=== PATIENT | female | born 1935 | race Caucasian/White ===

== ENCOUNTER 2017-01-19 03:52 | Inpatient (IN) | payer MEDICAID, OTHER ==
--- NOTE | 2017-01-19 04:38 | C.PDOC ---
History Of Present Illness Patient brought to ED by son with complaints of cough, chest discomfort 3/10, runny nose and "not feeling well". Patient states she finished Z-pack with no improvement but reports she is tolerating PO. Patient denies fever, chills, nausea, vomiting or any other complaints at this time. Time Seen by Provider: 01/19/17 04:37 Chief Complaint (Nursing): Cough, Cold, Congestion History Per: Patient History/Exam Limitations: no limitations Onset/Duration Of Symptoms: Days Current Symptoms Are (Timing): Still Present Location Of Pain: Other (Chest) Sick Contacts (Context): None Associated Symptoms: Cough. denies: Fever, Chills Ear Symptoms: Bilateral: None Severity: Mild Pain Scale Rating Of: 2 Recent travel outside of the [place]: Yes Additional History Per: Family Past Medical History Reviewed: Historical Data, Nursing Documentation, Vital Signs Vital Signs: Last Vital Signs Temp 98.1 F 01/19/17 04:09 Pulse 80 01/19/17 04:09 Resp 24 01/19/17 04:09 BP 168/74 H 01/19/17 04:09 Pulse Ox 100 01/19/17 05:52 - Medical History PMH: Back Problems, HTN Surgical History: No Surg Hx Family History: States: No Known Family Hx - Social History Hx Alcohol Use: No Hx Substance Use: No - Immunization History Hx Tetanus Toxoid Vaccination: Yes Hx Influenza Vaccination: No Hx Pneumococcal Vaccination: No Review Of Systems Constitutional: Negative for: Fever, Chills ENT: Positive for: Other (Runny nose) Cardiovascular: Positive for: Chest Pain Respiratory: Positive for: Cough Gastrointestinal: Negative for: Nausea, Vomiting Genitourinary: Negative for: Dysuria Musculoskeletal: Negative for: Back Pain Skin: Negative for: Rash Neurological: Negative for: Weakness Psych: Negative for: Anxiety Physical Exam - Physical Exam Appears: Non-toxic Skin: Warm, Dry, No Rash Head: Normacephalic Eye(s): left: Other (Blind9 S/P Cataract surgery)) Nose: Normal Oral Mucosa: Moist Teeth: Dentures Throat: No Erythema, No Exudate Neck: Supple Chest: Symmetrical Cardiovascular: Rhythm Regular Respiratory: No Rales, Rhonchi (Bilateral R>L), No Wheezing Gastrointestinal/Abdominal: Soft, No Tenderness, No Guarding, No Rebound Back: No CVA Tenderness Extremity: No Tenderness, No Pedal Edema, No Calf Tenderness, No Swelling Extremity: Bilateral: Atraumatic, No Pedal Edema, Normal Color And Temperature Pulses: Left Dorsalis Pedis: Normal, Right Dorsalis Pedis: Normal Neurological/Psych: Oriented x3, Normal Speech, Normal Cognition Gait: Steady ED Course And Treatment - Laboratory Results Result Diagrams: 01/19/17 04:45 01/19/17 04:45 O2 Sat by Pulse Oximetry: 100 (RA) Pulse Ox Interpretation: Normal - Radiology CXR: Interpreted by Me, Viewed By Me CXR Interpretation: Yes: Infiltrates (rll). No: Fracture, Pnemothorax Disposition Discussed With Dr.: Robert Cisneros Comment: accepted the pt on his service and took over the care at 6:13AM Doctor Will See Patient In The: ED Counseled Patient/Family Regarding: Studies Performed, Diagnosis - Disposition Disposition: HOSPITALIZED Disposition Time: 04:37 Condition: FAIR Forms: [facility] (German) - POA Present On Arrival: None - Clinical Impression Clinical Impression: Pneumonia, Dyspnea - Scribe Statement The provider has reviewed the documentation as recorded by the Scribdipika Bucio All medical record entries made by the Scribe were at my direction and personally dictated by me. I have reviewed the chart and agree that the record accurately reflects my personal performance of the history, physical exam, medical decision making, and the department course for this patient. I have also personally directed, reviewed, and agree with the discharge instructions and disposition. Decision To Admit - Pt Status Changed To: Hospital Disposition Of: Inpatient - Admit Certification Admit to Inpatient:: After my assessment, the patient will require hospitalization for at least two midnights. This is because of the severity of symptoms shown, intensity of services needed, and/or the medical risk in this patient being treated as an outpatient. - InPatient: Physician Admission Certification: I certify that this patient requires 2 or more midnights of care for the following reason:: After my assessment, the patient will require hospitalization for at least two midnights. This is because of the severity of symptoms shown, intensity of services needed, and/or the medical risk in this patient being treated as an outpatient. - . Bed Request Type: Regular Admitting Physician: Robert Cisneros Patient Diagnosis: Pneumonia, Dyspnea
[2017-01-19 04:41] LABS: BASO # 0.1 K/uL (0.0-0.2); EOS # 0.1 K/uL (0.0-0.7); MEAN CELL VOLUME 82.3 fL (81.0-99.0); MEAN CORPUSCULAR HGB CONC 36.5 g/dL (33.0-37.0); MONO # 0.9 K/uL (0.0-0.8)
[2017-01-19 04:50] LABS: CHLORIDE 86 mmol/L (98-107)
[2017-01-19 04:51] LABS: BASO % 0.7 % (0.0-2.0); EOS % 1.1 % (0.0-4.0); HEMATOCRIT 34.9 % (34.0-47.0); LYMPH # 2.4 K/uL (1.0-4.3); LYMPH % 28.1 % (20.0-40.0); NRBC % 0.4 % (0.0-2.0); RED CELL DISTRIBUTION WIDTH 14.3 % (11.5-14.5); SODIUM 121 mmol/L (132-148); WHITE BLOOD COUNT 8.5 K/uL (4.8-10.8)
[2017-01-19 04:53] LABS: ALB/GLOB RATIO 1.1 (1.0-2.1); ALKALINE PHOSPHATASE 63 U/L (38-126); AST/SGOT 27 U/L (14-36); BILIRUBIN,TOTAL 1.2 mg/dL (0.2-1.3); BLOOD UREA NITROGEN 15 mg/dL (7-17); CARBON DIOXIDE 23 mmol/L (22-30); GFR AFRICAN-AMERICAN > 60; GLUCOSE,RANDOM 98 mg/dL (65-105); TOTAL PROTEIN 7.4 g/dL (6.3-8.3)
[2017-01-19 04:54] LABS: ALT/SGPT 23 U/L (9-52); CALCIUM 8.7 mg/dl (8.6-10.4)
[2017-01-19 04:54] LABS: VENOUS BLOOD GAS BASE EXCESS 5.1 mmol/L (0.0-2.0); VENOUS BLOOD GAS PCO2 27 mmHg (40-60); VENOUS BLOOD PH 7.59 (7.32-7.43)
[2017-01-19 05:08] LABS: POTASSIUM 3.6 mmol/L (3.6-5.2)
[2017-01-19 05:28] LABS: INR 1.3
[2017-01-19 05:28] LABS: RBC URINE < 1 /hpf (0-3); URINE BACTERIA RARE (<OCC); URINE BILIRUBIN NEGATIVE (NEGATIVE); URINE BLOOD NEGATIVE (NEGATIVE); URINE COLOR Straw (YELLOW); URINE GLUCOSE (UA) NORMAL (Normal); URINE KETONE NEGATIVE (NEGATIVE); URINE LEUKOCYTE ESTERASE 2+ Leu/uL (Negative); URINE PROTEIN NEGATIVE (NEGATIVE); URINE UROBILINOGEN NORMAL mg/dL (0.2-1.0); WBC URINE 8 /hpf (0-5)
[2017-01-19] MEDS ORDERED: Piperacillin/Tazobact 3.375 gm 100 ML IVPB STA (06:00)
[2017-01-19] MEDS ORDERED: Piperacillin/Tazobact 3.375 gm 100 ML IVPB ONE (06:12)
[2017-01-19] MEDS ORDERED: Enoxaparin 40 mg Syringe SC STA (06:16)
[2017-01-19] MEDS ORDERED: Iodixanol 320 MG/ML 100 ML BOTTLE IV ONE (06:26)
[2017-01-19] MEDS ORDERED: Enoxaparin 80 mg Syringe ONE (06:30)
--- NOTE | 2017-01-19 07:15 | CT ---
EXAM: CT Angiography Chest With Intravenous Contrast CLINICAL HISTORY: 81 years old, female; Pain; Chest pain; Additional info: SOB, recent flight from [place] TECHNIQUE: Axial computed tomographic angiography images of the chest with intravenous contrast using pulmonary embolism protocol. All CT scans at this facility use one or more dose reduction techniques, viz.: automated exposure control; ma/kV adjustment per patient size (including targeted exams where dose is matched to indication; i.e. head); or iterative reconstruction technique. MIP reconstructed images were created and reviewed. Coronal and sagittal reformatted images were created and reviewed. CONTRAST: 100 mL of [id number] administered intravenously. COMPARISON: CR - CHEST PORTABLE 01/19/2017 5:13:34 AM FINDINGS: Pulmonary arteries: No evidence for significant acute pulmonary embolism. Some of the smaller branches are suboptimally evaluated due to mild motion artifact. Aorta: Thoracic aorta is atherosclerotic and tortuous without aneurysm. Lungs: The visualized portions of the lung apices are normal. There is minimal bibasilar atelectasis. No mass. Pleural space: The lungs are free of significant consolidation, pleural effusion or pneumothorax. Heart: The heart is not enlarged. There is mild coronary artery calcification. No significant pericardial effusion. No evidence of RV dysfunction. Thyroid: Thyroid is normal in size and position. Bones/joints: There is severe compression deformity of L1 with slight retropulsion. This is age-indeterminate. Please correlate clinically. There are mild degenerative changes present. There is marked diffuse osteopenia. No dislocation. Soft tissues: Unremarkable. Lymph nodes: There is no axillary adenopathy. No mediastinal or hilar adenopathy. Stomach and bowel: There is a moderately large hiatal hernia which contains a significant portion of the stomach. Upper abdomen: Scans through the upper abdomen demonstrate no definite acute abnormalities. IMPRESSION: 1. No evidence for significant acute pulmonary embolism. Some of the smaller branches are suboptimally evaluated due to mild motion artifact. 2. There is severe compression deformity of L1 with slight retropulsion. This is age-indeterminate. Please correlate clinically. 3. Additional incidental and/or chronic findings as described.
--- NOTE | 2017-01-19 07:58 | CP.PCM.HP ---
<John Cohen - Last Filed: 01/19/17 14:51> History of Present Illness - History of Present Illness History of Present Illness: CC: Cough HPI: Patient is a 81 year old female with a history of Glaucoma, HTN, and season allergies presents to the hospital late last night with worsening non productive cough for 7 days. History is taken by son who speaks Filipino and lives with her. Patient recently traveled here from [place] about a month ago for the first time. According to the son the patient has recently finished a Z- pack however her symptoms have not improved. She has associated headaches, urinary frequency, and non bloody emesis after coughing which occurred about 3 times night before admission. Patient's son says she has been drinking alot of water and urinating 4-5 times a day. She also has some sternal pain associated with coughing as well. She is also having chills with no fever, also no weight changes, changes in hearing, no abdominal pain, dysuria, lower extremity swelling, pain, rash, or joint pain. She normally ambulates with a rolling walker at home. HPI: see above Surgery: Left eye surgery for glaucoma PFH: Son denies any family history of cancer, heart disease, DM, or HTN Social: Patient was a homeowner association manager all life, no history of smoking, etoh use, or illicit drug use. Allergies: NKDA PMD: none Home Medications: Timolol, Losartan/HCTZ, Zyrtec, and Flonase. Present on Admission - Present on Admission Any Indicators Present on Admission: No History of DVT/PE: No History of Uncontrolled Diabetes: No Urinary Catheter: No Decubitus Ulcer Present: No History Surgical Site Infection Following: None Review of Systems - Review of Systems All systems: reviewed and no additional remarkable complaints except - Constitutional Constitutional: Chills. absent: Fever, Weight Loss - EENT Eyes: absent: Change in Vision Ears: absent: Dizziness - Cardiovascular Cardiovascular: Chest Pain. absent: Chest Pain at Rest, Chest Pain with Activity - Respiratory Respiratory: Cough, Dyspnea, Pain with Coughing. absent: Hemoptysis - Gastrointestinal Gastrointestinal: Nausea, Vomiting. absent: Constipation, Diarrhea - Genitourinary Genitourinary: Urinary Frequency. absent: Dysuria - Musculoskeletal Musculoskeletal: absent: Muscle Weakness, Numbness, Radiating Pain into Limb, Tingling - Integumentary Integumentary: absent: Swelling - Neurological Neurological: Headaches. absent: Dizziness, Numbness, Weakness - Psychiatric Psychiatric: absent: Anxiety - Endocrine Endocrine: Polydipsia. absent: Fatigue, Palpitations - Hematologic/Lymphatic Hematologic: absent: Easy Bleeding, Easy Bruising Past Patient History - Past Social History Smoking Status: Never Smoked - CARDIAC Hx Hypertension: Yes - HEENT Hx Blind: Yes (Left eye) - PSYCHIATRIC Hx Substance Use: No - SURGICAL HISTORY Hx Surgeries: Yes Other/Comment: "Left eye surgery" - ANESTHESIA Hx Anesthesia: Yes Hx Anesthesia Reactions: No Meds Allergies/Adverse Reactions: Allergies Allergy/AdvReac Type Severity Reaction Status Date / Time No Known Allergies Allergy Unverified 01/19/17 04:14 Physical Exam - Constitutional Appears: Non-toxic, No Acute Distress - Eye Exam Eye Exam: PERRL. absent: Scleral icterus Pupil Exam: NORMAL ACCOMODATION, PERRL - ENT Exam ENT Exam: Mucous Membranes Dry - Neck Exam Neck exam: Positive for: Normal Inspection. Negative for: Lymphadenopathy, Thyromegaly - Respiratory Exam Respiratory Exam: NORMAL BREATHING PATTERN. absent: Chest Wall Tenderness - Cardiovascular Exam Cardiovascular Exam: REGULAR RHYTHM, RRR, +S1, +S2. absent: Gallop, Rubs - GI/Abdominal Exam GI & Abdominal Exam: Normal Bowel Sounds, Soft. absent: Tenderness - Extremities Exam Extremities exam: Positive for: normal inspection. Negative for: pedal edema, tenderness - Neurological Exam Neurological exam: Alert - Psychiatric Exam Psychiatric exam: Normal Affect, Normal Mood - Skin Skin Exam: Dry, Normal Color, Warm Results - Vital Signs Recent Vital Signs: Last Vital Signs Temp 98.1 F 01/19/17 04:09 Pulse 76 01/19/17 07:11 Resp 22 01/19/17 07:11 BP 129/52 L 01/19/17 07:20 Pulse Ox 97 01/19/17 07:11 - Labs Result Diagrams: 01/19/17 04:45 01/19/17 13:33 Labs: Laboratory Results - last 24 hr 01/19/17 01/19/17 01/19/17 04:45 04:45 04:50 WBC 8.5 RBC 4.24 Hgb 12.7 Hct 34.9 MCV 82.3 MCH 30.0 MCHC 36.5 RDW 14.3 Plt Count 200 MPV 9.0 Neut % (Auto) 59.1 Lymph % (Auto) 28.1 Hardy % (Auto) 11.0 H Eos % (Auto) 1.1 Baso % (Auto) 0.7 Neut # 5.1 Lymph # 2.4 Hardy # 0.9 H Eos # 0.1 Baso # 0.1 PT INR APTT pO2 25 L VBG pH 7.59 H VBG pCO2 27 L VBG HCO3 27.9 VBG Total CO2 26.7 VBG O2 Sat (Calc) 62.0 VBG Base Excess 5.1 H VBG Potassium 2.9 L Glucose 104 Lactate 2.0 Sodium 121 L 126.0 L Potassium 3.6 Chloride 86 L 89.0 L Carbon Dioxide 23 Anion Gap 16 BUN 15 Creatinine 0.8 Est GFR ( Amer) > 60 Est GFR (Non-Af Amer) > 60 Random Glucose 98 Calcium 8.7 Total Bilirubin 1.2 AST 27 ALT 23 Alkaline Phosphatase 63 Troponin I < 0.0120 NT-Pro-B Natriuret Pep 242 Total Protein 7.4 Albumin 3.9 Globulin 3.5 Albumin/Globulin Ratio 1.1 Venous Blood Potassium 2.9 L Urine Color Urine Clarity Urine pH Ur Specific [place] Urine Protein Urine Glucose (UA) Urine Ketones Urine Blood Urine Nitrate Urine Bilirubin Urine Urobilinogen Ur Leukocyte Esterase Urine WBC (Auto) Urine RBC (Auto) Ur Squamous Epith Cells Urine Bacteria 01/19/17 01/19/17 04:54 05:21 WBC RBC Hgb Hct MCV MCH MCHC RDW Plt Count MPV Neut % (Auto) Lymph % (Auto) Hardy % (Auto) Eos % (Auto) Baso % (Auto) Neut # Lymph # Hardy # Eos # Baso # PT 14.1 H INR 1.3 APTT 31 pO2 VBG pH VBG pCO2 VBG HCO3 VBG Total CO2 VBG O2 Sat (Calc) VBG Base Excess VBG Potassium Glucose Lactate Sodium Potassium Chloride Carbon Dioxide Anion Gap BUN Creatinine Est GFR ( Amer) Est GFR (Non-Af Amer) Random Glucose Calcium Total Bilirubin AST ALT Alkaline Phosphatase Troponin I NT-Pro-B Natriuret Pep Total Protein Albumin Globulin Albumin/Globulin Ratio Venous Blood Potassium Urine Color Straw Urine Clarity Clear Urine pH 8.0 Ur Specific [place] 1.004 Urine Protein Negative Urine Glucose (UA) Normal Urine Ketones Negative Urine Blood Negative Urine Nitrate Negative Urine Bilirubin Negative Urine Urobilinogen Normal Ur Leukocyte Esterase 2+ H Urine WBC (Auto) 8 H Urine RBC (Auto) < 1 Ur Squamous Epith Cells < 1 Urine Bacteria Rare - EKG Data EKG Interpreted by: Myself EKG shows normal: Sinus rhythm Rate: Normal - EKG Data When Compared to Previous EKG: No Significant Change Assessment & Plan (1) Pneumonia Assessment and Plan: Patient admitted to regular floor as an inpatient. EKG, labs, CXR and CT scan reviewed. She was given Zosyn 3.375gm q6H, will continue continue this on the floor. Influenza test is negative, follow up Mycoplasma, Strep pneumonia, Legionella urine antigen, morning repeat CXR, morning cbc, cmp, mag, phos, blood and urine cultures. Dr. Byrnes and Dr. Loera consulted. Albuterol nebulizer q4h prn. Mucinex 600 bid will also be given as well. VBG in the ED showed a lactate of 2.0, repeat after 4 hours was 1.2 Status: Acute Priority: High (2) Dyspnea Assessment and Plan: CT angio of the chest was negative for PE. She is low risk for DVT because she is mobile, arrived from [place] about a month ago, negative Jacqueline sign. See note for pneumonia Nebulizer q4h prn, and Mucinex 600 mg bid. Status: Acute (3) Hyponatremia Assessment and Plan: ED Na was 121 could be secondary to polydipsia, diuretic use, or SIADH Will hold her home HCTZ for now, Dr. Wells consulted, will get urine electrolytes. Follow up BMP Q4H so that sodium does not rise too fast, BMP at 1230 showed Na 123 which is an increase from 121 and her K is down to 3.2 from 3.8, have started NS at 50 cc/hr and also given 40 meq of potassium. Status: Acute (4) Urinary frequency Assessment and Plan: She could have a urine tract infection or could be from medication (HCTZ) which is on hold for now. Dr. Golden consulted for nephrology, follow up morning cmp and urine electrolytes and osmolatly. Status: Acute Priority: High (5) Headache Assessment and Plan: CT scan of the head is negative, Tylenol 650mg Q6H prn for pain. Status: Acute (6) HTN (hypertension) Assessment and Plan: Losartan 100mg, hold HCTZ due to hyponatremia, consider Amlodapine as second agent for now. Status: Chronic Priority: Medium (7) Bilateral normal tension glaucoma, indeterminate stage Assessment and Plan: Chronic, continue home Timolol Status: Chronic Priority: Medium (8) Lumbar compression fracture Assessment and Plan: Most likely from a previous injury from a year ago. Uses rolling walker to ambulate, will get physical and occupational therapy. Tylenol 650mg prn for pain Status: Chronic Priority: Low (9) Prophylactic measure Assessment and Plan: Lovenox 40mg daily, she already received a therapeutic dose today in the Ed, SCDs Pepcid 20mg daily Florastor 250mg bid started for probiotic Status: Acute Priority: Medium <Coty Gonzalez V - Last Filed: 01/20/17 00:51> Results - Vital Signs Recent Vital Signs: Last Vital Signs Temp 98.0 F 01/19/17 15:00 Pulse 73 01/19/17 15:00 Resp 21 01/19/17 15:00 BP 116/64 01/19/17 15:00 Pulse Ox 98 01/19/17 15:00 - Labs Result Diagrams: 01/19/17 04:45 01/19/17 20:30 Labs: Laboratory Results - last 24 hr 01/19/17 01/19/17 01/19/17 04:45 04:45 04:50 WBC 8.5 RBC 4.24 Hgb 12.7 Hct 34.9 MCV 82.3 MCH 30.0 MCHC 36.5 RDW 14.3 Plt Count 200 MPV 9.0 Neut % (Auto) 59.1 Lymph % (Auto) 28.1 Hardy % (Auto) 11.0 H Eos % (Auto) 1.1 Baso % (Auto) 0.7 Neut # 5.1 Lymph # 2.4 Hardy # 0.9 H Eos # 0.1 Baso # 0.1 PT INR APTT pO2 25 L VBG pH 7.59 H VBG pCO2 27 L VBG HCO3 27.9 VBG Total CO2 26.7 VBG O2 Sat (Calc) 62.0 VBG Base Excess 5.1 H VBG Potassium 2.9 L Glucose 104 Lactate 2.0 Sodium 121 L 126.0 L Potassium 3.6 Chloride 86 L 89.0 L Carbon Dioxide 23 Anion Gap 16 BUN 15 Creatinine 0.8 Est GFR ( Amer) > 60 Est GFR (Non-Af Amer) > 60 Random Glucose 98 Serum Osmolality Calcium 8.7 Magnesium Total Bilirubin 1.2 AST 27 ALT 23 Alkaline Phosphatase 63 Troponin I < 0.0120 NT-Pro-B Natriuret Pep 242 Total Protein 7.4 Albumin 3.9 Globulin 3.5 Albumin/Globulin Ratio 1.1 Venous Blood Potassium 2.9 L Urine Color Urine Clarity Urine pH Ur Specific [place] Urine Protein Urine Glucose (UA) Urine Ketones Urine Blood Urine Nitrate Urine Bilirubin Urine Urobilinogen Ur Leukocyte Esterase Urine WBC (Auto) Urine RBC (Auto) Ur Squamous Epith Cells Urine Bacteria Urine Osmolality Ur Random Sodium Influenza Typ A,B (EIA) Ur L.pneumophila Ag Mycoplasma pneumon IgM 01/19/17 01/19/17 01/19/17 04:54 05:21 09:03 WBC RBC Hgb Hct MCV MCH MCHC RDW Plt Count MPV Neut % (Auto) Lymph % (Auto) Hardy % (Auto) Eos % (Auto) Baso % (Auto) Neut # Lymph # Hardy # Eos # Baso # PT 14.1 H INR 1.3 APTT 31 pO2 34 VBG pH 7.43 VBG pCO2 43 VBG HCO3 27.0 VBG Total CO2 29.8 H VBG O2 Sat (Calc) 69.9 H VBG Base Excess 3.7 H VBG Potassium 2.7 L Glucose 124 H Lactate 1.2 Sodium 128.0 L Potassium Chloride 94.0 L Carbon Dioxide Anion Gap BUN Creatinine Est GFR ( Amer) Est GFR (Non-Af Amer) Random Glucose Serum Osmolality Calcium Magnesium Total Bilirubin AST ALT Alkaline Phosphatase Troponin I NT-Pro-B Natriuret Pep Total Protein Albumin Globulin Albumin/Globulin Ratio Venous Blood Potassium 2.7 L Urine Color Straw Urine Clarity Clear Urine pH 8.0 Ur Specific [place] 1.004 Urine Protein Negative Urine Glucose (UA) Normal Urine Ketones Negative Urine Blood Negative Urine Nitrate Negative Urine Bilirubin Negative Urine Urobilinogen Normal Ur Leukocyte Esterase 2+ H Urine WBC (Auto) 8 H Urine RBC (Auto) < 1 Ur Squamous Epith Cells < 1 Urine Bacteria Rare Urine Osmolality Ur Random Sodium Influenza Typ A,B (EIA) Ur L.pneumophila Ag Mycoplasma pneumon IgM 01/19/17 01/19/17 01/19/17 09:03 09:03 09:03 WBC RBC Hgb Hct MCV MCH MCHC RDW Plt Count MPV Neut % (Auto) Lymph % (Auto) Hardy % (Auto) Eos % (Auto) Baso % (Auto) Neut # Lymph # Hardy # Eos # Baso # PT INR APTT pO2 VBG pH VBG pCO2 VBG HCO3 VBG Total CO2 VBG O2 Sat (Calc) VBG Base Excess VBG Potassium Glucose Lactate Sodium Potassium Chloride Carbon Dioxide Anion Gap BUN Creatinine Est GFR ( Amer) Est GFR (Non-Af Amer) Random Glucose Serum Osmolality 267 L Calcium Magnesium Total Bilirubin AST ALT Alkaline Phosphatase Troponin I NT-Pro-B Natriuret Pep Total Protein Albumin Globulin Albumin/Globulin Ratio Venous Blood Potassium Urine Color Urine Clarity Urine pH Ur Specific [place] Urine Protein Urine Glucose (UA) Urine Ketones Urine Blood Urine Nitrate Urine Bilirubin Urine Urobilinogen Ur Leukocyte Esterase Urine WBC (Auto) Urine RBC (Auto) Ur Squamous Epith Cells Urine Bacteria Urine Osmolality 169 L Ur Random Sodium 28 Influenza Typ A,B (EIA) Ur L.pneumophila Ag Negative Mycoplasma pneumon IgM Negative 01/19/17 01/19/17 01/19/17 09:28 13:33 16:51 WBC RBC Hgb Hct MCV MCH MCHC RDW Plt Count MPV Neut % (Auto) Lymph % (Auto) Hardy % (Auto) Eos % (Auto) Baso % (Auto) Neut # Lymph # Hardy # Eos # Baso # PT INR APTT pO2 VBG pH VBG pCO2 VBG HCO3 VBG Total CO2 VBG O2 Sat (Calc) VBG Base Excess VBG Potassium Glucose Lactate Sodium 123 L 121 L Potassium 3.2 L 4.1 Chloride 88 L 89 L Carbon Dioxide 26 25 Anion Gap 13 11 BUN 12 13 Creatinine 0.7 0.7 Est GFR ( Amer) > 60 > 60 Est GFR (Non-Af Amer) > 60 > 60 Random Glucose 115 H 101 Serum Osmolality Calcium 8.6 8.0 L Magnesium 1.7 Total Bilirubin AST ALT Alkaline Phosphatase Troponin I NT-Pro-B Natriuret Pep Total Protein Albumin Globulin Albumin/Globulin Ratio Venous Blood Potassium Urine Color Urine Clarity Urine pH Ur Specific [place] Urine Protein Urine Glucose (UA) Urine Ketones Urine Blood Urine Nitrate Urine Bilirubin Urine Urobilinogen Ur Leukocyte Esterase Urine WBC (Auto) Urine RBC (Auto) Ur Squamous Epith Cells Urine Bacteria Urine Osmolality Ur Random Sodium Influenza Typ A,B (EIA) Negative for flu a/b Ur L.pneumophila Ag Mycoplasma pneumon IgM 01/19/17 20:30 WBC RBC Hgb Hct MCV MCH MCHC RDW Plt Count MPV Neut % (Auto) Lymph % (Auto) Hardy % (Auto) Eos % (Auto) Baso % (Auto) Neut # Lymph # Hardy # Eos # Baso # PT INR APTT pO2 VBG pH VBG pCO2 VBG HCO3 VBG Total CO2 VBG O2 Sat (Calc) VBG Base Excess VBG Potassium Glucose Lactate Sodium 122 L Potassium 3.7 Chloride 90 L Carbon Dioxide 24 Anion Gap 13 BUN 12 Creatinine 0.7 Est GFR ( Amer) > 60 Est GFR (Non-Af Amer) > 60 Random Glucose 127 H Serum Osmolality Calcium 8.0 L Magnesium Total Bilirubin AST ALT Alkaline Phosphatase Troponin I NT-Pro-B Natriuret Pep Total Protein Albumin Globulin Albumin/Globulin Ratio Venous Blood Potassium Urine Color Urine Clarity Urine pH Ur Specific [place] Urine Protein Urine Glucose (UA) Urine Ketones Urine Blood Urine Nitrate Urine Bilirubin Urine Urobilinogen Ur Leukocyte Esterase Urine WBC (Auto) Urine RBC (Auto) Ur Squamous Epith Cells Urine Bacteria Urine Osmolality Ur Random Sodium Influenza Typ A,B (EIA) Ur L.pneumophila Ag Mycoplasma pneumon IgM Attending/Attestation - Attestation I have personally seen and examined this patient.: Yes I have fully participated in the care of the patient.: Yes I have reviewed all pertinent clinical information: Yes Notes (Text): This is late computer entry for 01/19/17. Patient seen, examined and case discussed with day-time resident. Patient seen with patient's son at bedside assisting in translation in Setswana for his mother. Patient seen at 7:30AM. Per discussion with son, patient came from [place] about 4 weeks ago. Since coming, for the past couple of days she has not be feeling well, reporting shortness of breathe, and associating vomitting last night which prompted the son to bring to the hospital. Patient completed PO Azithromycin but did not feel better. Patient normally walks with rolling walker. Patient suffers from low back from a fall 8 years ago for known history of lumbar compression fracture. Patient was considered not a surgical candidate per the son given her age. Patient denies additional falls since then. Patient is also urine frequency at night. unclear if this is related to her blood pressure medication or possible symptom of urinary tract infection. Patient has a history of glaucoma, takes timolol in primarily the right eye. Patient cannot see from the left eye had underwent cataract surgery in [facility] however, the surgery was not a success per discussion of the son. Patient is also hard of hearing and per son this is baseline for her. 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 Assessment/Plan (1) Pneumonia Assessment and Plan: * Infectious Disease (Dr. Barfield) on consult * Pulmonary (Dr. Loera) on consult * Patient admitted to regular floor as an inpatient. EKG, labs, CXR and CT scan reviewed. * CT Scan (01/19/17): no evidence for significant acute pulmonary embolism ( more findings per report) * She was given Zosyn 3.375gm q6H, will continue continue this on the floor ( active since 01/19/17) * Ordered and results: Influenza test is negative, follow up Mycoplasma, Strep pneumonia, Legionella urine antigen, morning repeat CXR, morning cbc, cmp, mag, phos, blood and urine cultures. * Albuterol nebulizer q4h prn. * Mucinex 600 bid will also be given as well. * VBG in the ED showed a lactate of 2.0, repeat after 4 hours was 1.2 Status: Acute Priority: High (2) Dyspnea Assessment and Plan: * CT angio of the chest was negative for PE. She is low risk for DVT because she is mobile, arrived from [place] about a month ago, negative Jacqueline sign. * See note for pneumonia * Nebulizer q4h prn, and Mucinex 600 mg bid. * Pulmonary recommends for cardiology consult-->consult: Dr Long * Ordered for echocardiogram Status: Acute (3) Hyponatremia Assessment and Plan: * Nephrology (Dr. Cristina) on consult * ED Na was 121-->patient is on diuretic as outpatient; unclear etiology ( patient clinically appears dehydrated); ordered for serum/urine and urine electrolytes * Head CT is negative for acute findings * held HCTZ * Monitor BMP Q 4 per nephrology; Patient started on low dose NS 50cc/hr Status: Acute (4) Urinary frequency Assessment and Plan: * She could have a urine tract infection or could be from medication (HCTZ) which is on hold for now. * Dr. Golden consulted for nephrology, follow up morning cmp and urine electrolytes and osmolatly. * Pending urine studies Status: Acute Priority: High (5) Headache Assessment and Plan: * CT scan of the head is negative, Tylenol 650mg Q6H prn for pain. Status: Acute (6) HTN (hypertension) Assessment and Plan: * Losartan 100mg PO daily, hold HCTZ due to hyponatremia, consider Amlodapine as second agent for now. Status: Chronic Priority: Medium (7) Bilateral normal tension glaucoma, indeterminate stage Assessment and Plan: * Chronic, continue home Timolol * Cannot see out of left eye Status: Chronic Priority: Medium (8) Lumbar compression fracture Assessment and Plan: * Most likely from a previous injury from 8 years ago-->patient not a surgical candidate * Uses rolling walker to ambulate, will get physical and occupational therapy. Tylenol 650mg prn for pain Status: Chronic Priority: Low (9) Prophylactic measure Assessment and Plan: * Lovenox 40mg daily, she already received a therapeutic dose today in the Ed, SCDs * Pepcid 20mg daily * Florastor 250mg bid started for probiotic Status: Acute Priority: Medium
[2017-01-19] MEDS ORDERED: Albuterol 0.083% Inhal Sol (2.5 mg/3 mL) UD INH PRN (08:00)
--- NOTE | 2017-01-19 08:01 | RAD ---
HISTORY: r/o infiltrate bed 2 COMPARISON: No prior. FINDINGS: LUNGS: Shallow inspiration -elevated right hemidiaphragm. No mid to superior lung consolidation. PLEURA: No significant pleural effusion identified, ; small bilateral pleural effusions not excluded. No pneumothorax apparent. CARDIOVASCULAR: Cardiomegaly. Aortic knob atherosclerotic vascular calcification. OSSEOUS STRUCTURES: Osteopenia. Bilateral shoulder arthrosis. Limited visualization of the osteopenic thoracic spine. VISUALIZED UPPER ABDOMEN: Normal. OTHER FINDINGS: Hiatal hernia suggested IMPRESSION: No significant appearing consolidation appreciated. Asymmetrically elevated right hemidiaphragm. Minimal small posterior dependent effusions cannot be excluded. No large effusion suggested. Mild cardiomegaly Hiatal hernia
[2017-01-19] MEDS: Piperacill/Tazo 3.375gm in Dex 3.375 GM/50 ML BAG IVPB SCH ×3 (09:04→20:34)
[2017-01-19 09:07] LABS: VENOUS BLOOD GAS BASE EXCESS 3.7 mmol/L (0.0-2.0); VENOUS BLOOD GAS PCO2 43 mmHg (40-60); VENOUS BLOOD PH 7.43 (7.32-7.43)
--- NOTE | 2017-01-19 09:40 | CT ---
PROCEDURE: CT HEAD WITHOUT CONTRAST. HISTORY: hyponatremia, headache COMPARISON: None available. TECHNIQUE: Axial computed tomography images were obtained through the head/brain without intravenous contrast. Radiation dose: Total exam DLP = 832.97 mGy-cm. This CT exam was performed using one or more of the following dose reduction techniques: Automated exposure control, adjustment of the mA and/or kV according to patient size, and/or use of iterative reconstruction technique. FINDINGS: HEMORRHAGE: No intracranial hemorrhage. BRAIN: Diffuse expansion of the ventriculosulcal and cisternal spaces is appreciated with white matter lucency compatible with diffuse cerebral atrophy and chronic microangiopathy. There is no mass effect. There is no suspicious extra-axial fluid collection in the midline brain anatomy appears diffusely unremarkable. VENTRICLES: Unremarkable. No hydrocephalus. CALVARIUM: Unremarkable. PARANASAL SINUSES: Unremarkable as visualized. No significant inflammatory changes. MASTOID AIR CELLS: Unremarkable as visualized. No inflammatory changes. OTHER FINDINGS: None. IMPRESSION: No definite acute intracranial findings. Age-appropriate age related neuro degenerative changes are identified as discussed above.
[2017-01-19] MEDS ORDERED: Home Med 1 UNIT (Losartan/Hydrochlorothiazide [Losartan-Hctz 100-25 Mg Tab] 1 TAB) PO SCH (10:00)
[2017-01-19] MEDS: guaiFENesin 600 mg ER Tab PO SCH ×2 (10:12→18:30)
[2017-01-19] MEDS: Saccharomyces Boulardi 250 mg Cap PO SCH ×2 (10:12→18:08)
--- NOTE | 2017-01-19 10:37 | CP.PCM.CON ---
History of Present Illness - History of Present Illness History of Present Illness: seen in er discussed with dr Cohen admitted via ER with URI symptoms recent travel to [facility] Review of Systems - Constitutional Constitutional: As Per HPI, Anorexia, Chills, Lethargy - EENT Eyes: absent: As Per HPI, Blind Spots, Blurred Vision, Change in Vision, Decreased Night Vision, Diplopia, Discharge, Dry Eye, Exophthalmos, Floaters, Irritation, Itchy Eyes, Loss of Peripheral Vision, Pain, Photophobia, Requires Corrective Lenses, Sees Flashes, Spots in Vision, Tunnel Vision, Other Visual Disturbances, Loss of Vision, Other Ears: absent: As Per HPI, Decreased Hearing, Ear Discharge, Ear Pain, Tinnitus, Abnormal Hearing, Disequilibrium, Dizziness, Other Nose/Mouth/Throat: absent: As Per HPI, Epistaxis, Nasal Congestion, Nasal Discharge, Nasal Obstruction, Nasal Trauma, Nose Pain, Post Nasal Drip, Sinus Pain, Sinus Pressure, Bleeding Gums, Change in Voice, Dental Pain, Dry Mouth, Dysphagia, Halitosis, Hoarsness, Lip Swelling, Mouth Lesions, Mouth Pain, Odynophagia, Sore Throat, Throat Swelling, Tongue Swelling, Facial Pain, Neck Pain, Neck Mass, Other - Breasts Breasts: absent: As Per HPI, Change in Shape, Mass, Pain, Nipple Discharge, Nipple Inversion, Skin Changes, Swelling, Other - Cardiovascular Cardiovascular: absent: As Per HPI, Acrocyanosis, Chest Pain, Chest Pain at Rest , Chest Pain with Activity, Claudication, Diaphoresis, Dyspnea, Dyspnea on Exertion, Edema, Irregular Heart Rhythm, Pain Radiating to Arm/Neck/Jaw, Leg Edema, Leg Ulcers, Lightheadedness, Orthopnea, Palpitations, Paroxysmal Nocturnal Dyspnea, Pedal Edema, Radiating Pain, Rapid Heart Rate, Slow Heart Rate, Syncope, Other - Respiratory Respiratory: Cough. absent: Hemoptysis - Gastrointestinal Gastrointestinal: absent: As Per HPI, Abdominal Pain, Belching, Bloating, Change in Bowel Habits, Change in Stool Character, Coffee Ground Emesis, Constipation, Cramping, Diarrhea, Dyspepsia, Dysphagia, Early Satiety, Excessive Flatus, Fecal Incontinence, Heartburn, Hematemesis, Hematochezia, Loose Stools, Melena, Nausea, Odynophagia, Temesmus, Vomiting, Other - Genitourinary Genitourinary: absent: As Per HPI, Change in Urinary Stream, Difficulty Urinating, Dysuria, Flank Pain, Hematuria, Pyuria, Nocturia, Urinary Incontinence, Urinary Frequency, Urinary Hesitance, Urinary Urgency, Voiding Freq/Small Amts, Freq UTI, Hx Renal/Bladder Calculi, Hx /Renal Surgery, Bladder Distension, Other - Reproductive: Female Reproductive:Female: absent: As Per HPI, Amenorrhea, Amenorrhea/ Control, Currently Menstual, Cycle <21 Days, Cycle >35 Days, Cycle Variable, Menses 1-7 Days, Menses >/= 8 Days, Menses Variable, Cycle > 4 Weeks Between, No Menses for 6 Months, Heavy Menses, Light Menses, Normal Menses, Spotting Between Cycles , S/P Hysterectomy, Menopausal, Post Menopausal, Premenarche, Abnormal Vaginal Bleeding, Dysmenorrhea, Dyspareunia, Genital Lesions, Genital Pruritis, Pelvic Pain, Prolapse Symptoms, Sexual Dysfunction, Vaginal Discharge, Vaginal Dryness , Vaginal Odor, Vaginal Pruritis, Other - Menstruation Menstruation: absent: As Per HPI, Amenorrhea, Amenorrhea/ Control, Currently Menstual, Cycle <21 Days, Cycle >35 Days, Cycle Variable, Menses 1-7 Days, Menses >/= 8 Days, Menses Variable, Cycle > 4 Weeks Between, No Menses for 6 Months, Heavy Menses, Light Menses, Normal Menses, Spotting Between Cycles , S/P Hysterectomy, Menopausal, Post Menopausal, Premenarche, Abnormal Vaginal Bleeding, Dysmenorrhea, Other - Musculoskeletal Musculoskeletal: absent: As Per HPI, Abnormal Gait, Arthralgias, Atrophy, Back Pain, Deformity, Joint Swelling, Limited Range of Motion, Loss of Height, Muscle Cramps, Muscle Weakness, Myalgias, Neck Pain, Numbness, Radiating Pain into Limb, Stiffness, Tingling, Other - Integumentary Integumentary: absent: As Per HPI, Acne, Alopecia, Bleeding Lesions, Change in Hair, Change in Nails, Change in Pigmentation, Changing Lesions, Dry Skin, Erythema, Furuncle, Hirsutism, Lesions, New Lesions, Non-Healing Lesions, Photosensitivity, Pruritus, Rash, Skin Pain, Skin Ulcer, Sores, Striae, Swelling , Unusual Bruising, Wounds, Jaundice, Other - Neurological Neurological: absent: As Per HPI, Abnormal Gait, Abnormal Hearing, Abnormal Movements, Abnormal Speech, Behavioral Changes, Burning Sensations, Confusion, Convulsions, Disequilibrium, Dizziness, Numbness, Focal Weakness, Frequent Falls , Headaches, Lack of Coordination, Loss of Vision, Memory Loss, Paresthesias, Radicular Pain, Restless Legs, Sensory Deficit, Syncope, Tingling, Tremor, Vertigo, Weakness, Other Visual Disturbances, Other - Psychiatric Psychiatric: absent: As Per HPI, Abnormal Sleep Pattern, Anhedonia, Anxiety, Auditory Hallucinations, Behavioral Changes, Change in Appetite, Change in Libido, Confusion, Depression, Difficulty Concentrating, Hallucinations, Homicidal Ideation, Hopelessness, Irritability, Memory Loss, Mood Swings, Panic Attacks, Paranoia, Suicidal Ideation, Visual Hallucinations, Tactile Hallucinations, Other - Endocrine Endocrine: absent: As Per HPI, Change in Body Appearance, Change in Libido, Cold Intolorance, Deepening of Voice, Excessive Sweating, Fatigue, Flushing, Heat Intolorance, Increase in Ring/Shoe/Hat Size, Palpitations, Polydipsia, Polyphagia, Polyuria, Other - Hematologic/Lymphatic Hematologic: absent: As Per HPI, Easy Bleeding, Easy Bruising, Lymphadenopathy, Other Past Patient History - Past Medical History & Family History Past Medical History?: Yes - Past Social History Smoking Status: Never Smoked - CARDIAC Hx Hypertension: Yes - PULMONARY Hx Respiratory Disorders: No - NEUROLOGICAL Hx Neurological Disorder: No - HEENT Hx Blind: Yes (Left eye) - RENAL Hx Chronic Kidney Disease: No - ENDOCRINE/METABOLIC Hx Endocrine Disorders: No - HEMATOLOGICAL/ONCOLOGICAL Hx Blood Disorders: No - INTEGUMENTARY Hx Dermatological Problems: No - MUSCULOSKELETAL/RHEUMATOLOGICAL Hx Musculoskeletal Disorders: Yes Hx Back Pain: Yes (chronic) - GASTROINTESTINAL Hx Gastrointestinal Disorders: No - GENITOURINARY/GYNECOLOGICAL Hx Genitourinary Disorders: No - PSYCHIATRIC Hx Substance Use: No - SURGICAL HISTORY Hx Surgeries: Yes Other/Comment: "Left eye surgery" - ANESTHESIA Hx Anesthesia: Yes Hx Anesthesia Reactions: No Meds Allergies/Adverse Reactions: Allergies Allergy/AdvReac Type Severity Reaction Status Date / Time No Known Allergies Allergy Unverified 01/19/17 04:14 - Medications Medications: Current Medications Albuterol Sulfate (Albuterol 0.083% Inhal Rosina (2.5 Mg/3 Ml) Ud) 2.5 mg INH RQ4 PRN PRN Reason: Shortness of Breath Enoxaparin Sodium (Lovenox) 40 mg SC DAILY [facility] Famotidine (Pepcid) 20 mg PO BID [facility] Last Admin: 01/19/17 10:12 Dose: 20 mg Guaifenesin (Mucinex La) 600 mg PO BID [facility] Last Admin: 01/19/17 10:12 Dose: 600 mg Piperacillin Sod/Tazobactam Sod (Zosyn 3.375 Gm Iv Premix) 3.375 gm in 50 mls @ 100 mls/hr IVPB Q6H [facility] Last Admin: 01/19/17 09:04 Dose: 100 mls/hr Losartan Potassium (Cozaar) 100 mg PO DAILY [facility] Last Admin: 01/19/17 10:12 Dose: 100 mg Promethazine HCl/Codeine (Phenergan/Codeine Oral Syrup) 5 ml PO Q4 PRN PRN Reason: Cough Saccharomyces Boulardii (Florastor) 250 mg PO BID [facility] Last Admin: 01/19/17 10:12 Dose: 250 mg Timolol Maleate (Timoptic 0.5% Ophth Soln) 1 drop OD BID [facility] Last Admin: 01/19/17 10:12 Dose: 1 drop Physical Exam - Constitutional Appears: Non-toxic, Cachectic, Chronically Ill - Head Exam Head Exam: ATRAUMATIC, NORMAL INSPECTION, NORMOCEPHALIC - Eye Exam Eye Exam: PERRL. absent: Scleral icterus - ENT Exam ENT Exam: Mucous Membranes Dry - Neck Exam Neck exam: Negative for: Lymphadenopathy - Respiratory Exam Respiratory Exam: Decreased Breath Sounds, Rhonchi - Cardiovascular Exam Cardiovascular Exam: REGULAR RHYTHM, +S1, +S2 - GI/Abdominal Exam GI & Abdominal Exam: Diminished Bowel Sounds, Soft. absent: Tenderness - Rectal Exam Rectal Exam: Deferred - Exam Exam: NORMAL INSPECTION - Extremities Exam Extremities exam: Positive for: pedal pulses present. Negative for: calf tenderness, pedal edema, tenderness - Back Exam Back exam: absent: CVA tenderness (L), CVA tenderness (R), paraspinal tenderness - Neurological Exam Neurological exam: Alert, CN II-XII Intact, Oriented x3, Reflexes Normal - Psychiatric Exam Psychiatric exam: Normal Mood - Skin Skin Exam: Dry Results - Vital Signs Recent Vital Signs: Last Vital Signs Temp 98.1 F 01/19/17 04:09 Pulse 76 01/19/17 07:11 Resp 22 01/19/17 07:11 BP 129/52 L 01/19/17 07:20 Pulse Ox 97 01/19/17 07:11 - Labs Result Diagrams: 01/20/17 04:49 01/20/17 04:49 Labs: Laboratory Results - last 24 hr 01/19/17 01/19/17 01/19/17 04:45 04:45 04:50 WBC 8.5 RBC 4.24 Hgb 12.7 Hct 34.9 MCV 82.3 MCH 30.0 MCHC 36.5 RDW 14.3 Plt Count 200 MPV 9.0 Neut % (Auto) 59.1 Lymph % (Auto) 28.1 [place] % (Auto) 11.0 H Eos % (Auto) 1.1 Baso % (Auto) 0.7 Neut # 5.1 Lymph # 2.4 [place] # 0.9 H Eos # 0.1 Baso # 0.1 PT INR APTT pO2 25 L VBG pH 7.59 H VBG pCO2 27 L VBG HCO3 27.9 VBG Total CO2 26.7 VBG O2 Sat (Calc) 62.0 VBG Base Excess 5.1 H VBG Potassium 2.9 L Glucose 104 Lactate 2.0 Sodium 121 L 126.0 L Potassium 3.6 Chloride 86 L 89.0 L Carbon Dioxide 23 Anion Gap 16 BUN 15 Creatinine 0.8 Est GFR ( Amer) > 60 Est GFR (Non-Af Amer) > 60 Random Glucose 98 Serum Osmolality Calcium 8.7 Total Bilirubin 1.2 AST 27 ALT 23 Alkaline Phosphatase 63 Troponin I < 0.0120 NT-Pro-B Natriuret Pep 242 Total Protein 7.4 Albumin 3.9 Globulin 3.5 Albumin/Globulin Ratio 1.1 Venous Blood Potassium 2.9 L Urine Color Urine Clarity Urine pH Ur Specific [place] Urine Protein Urine Glucose (UA) Urine Ketones Urine Blood Urine Nitrate Urine Bilirubin Urine Urobilinogen Ur Leukocyte Esterase Urine WBC (Auto) Urine RBC (Auto) Ur Squamous Epith Cells Urine Bacteria Urine Osmolality Ur Random Sodium Influenza Typ A,B (EIA) 01/19/17 01/19/17 01/19/17 04:54 05:21 09:03 WBC RBC Hgb Hct MCV MCH MCHC RDW Plt Count MPV Neut % (Auto) Lymph % (Auto) [place] % (Auto) Eos % (Auto) Baso % (Auto) Neut # Lymph # [place] # Eos # Baso # PT 14.1 H INR 1.3 APTT 31 pO2 34 VBG pH 7.43 VBG pCO2 43 VBG HCO3 27.0 VBG Total CO2 29.8 H VBG O2 Sat (Calc) 69.9 H VBG Base Excess 3.7 H VBG Potassium 2.7 L Glucose 124 H Lactate 1.2 Sodium 128.0 L Potassium Chloride 94.0 L Carbon Dioxide Anion Gap BUN Creatinine Est GFR ( Amer) Est GFR (Non-Af Amer) Random Glucose Serum Osmolality Calcium Total Bilirubin AST ALT Alkaline Phosphatase Troponin I NT-Pro-B Natriuret Pep Total Protein Albumin Globulin Albumin/Globulin Ratio Venous Blood Potassium 2.7 L Urine Color Straw Urine Clarity Clear Urine pH 8.0 Ur Specific [place] 1.004 Urine Protein Negative Urine Glucose (UA) Normal Urine Ketones Negative Urine Blood Negative Urine Nitrate Negative Urine Bilirubin Negative Urine Urobilinogen Normal Ur Leukocyte Esterase 2+ H Urine WBC (Auto) 8 H Urine RBC (Auto) < 1 Ur Squamous Epith Cells < 1 Urine Bacteria Rare Urine Osmolality Ur Random Sodium Influenza Typ A,B (EIA) 01/19/17 01/19/17 01/19/17 09:03 09:03 09:28 WBC RBC Hgb Hct MCV MCH MCHC RDW Plt Count MPV Neut % (Auto) Lymph % (Auto) [place] % (Auto) Eos % (Auto) Baso % (Auto) Neut # Lymph # [place] # Eos # Baso # PT INR APTT pO2 VBG pH VBG pCO2 VBG HCO3 VBG Total CO2 VBG O2 Sat (Calc) VBG Base Excess VBG Potassium Glucose Lactate Sodium Potassium Chloride Carbon Dioxide Anion Gap BUN Creatinine Est GFR ( Amer) Est GFR (Non-Af Amer) Random Glucose Serum Osmolality 267 L Calcium Total Bilirubin AST ALT Alkaline Phosphatase Troponin I NT-Pro-B Natriuret Pep Total Protein Albumin Globulin Albumin/Globulin Ratio Venous Blood Potassium Urine Color Urine Clarity Urine pH Ur Specific [place] Urine Protein Urine Glucose (UA) Urine Ketones Urine Blood Urine Nitrate Urine Bilirubin Urine Urobilinogen Ur Leukocyte Esterase Urine WBC (Auto) Urine RBC (Auto) Ur Squamous Epith Cells Urine Bacteria Urine Osmolality 169 L Ur Random Sodium 28 Influenza Typ A,B (EIA) Negative for flu a/b Assessment & Plan (1) Cough Status: Acute (2) Dyspnea Status: Acute (3) Headache Status: Acute (4) Pneumonia Status: Acute Priority: High - Assessment and Plan (Free Text) Assessment: cont rx for URI await cultures and serologies
[2017-01-19] MEDS ORDERED: Potassium Chloride 20 mEq/15 ml LIQ UD PO STA (11:45)
[2017-01-19 12:35] LABS: LEGIONELLA AG URINE NEGATIVE (NEGATIVE)
[2017-01-19 13:46] LABS: CHLORIDE 88 mmol/L (98-107)
[2017-01-19 13:47] LABS: POTASSIUM 3.2 mmol/L (3.6-5.2); SODIUM 123 mmol/L (132-148)
[2017-01-19 13:49] LABS: GFR AFRICAN-AMERICAN > 60
[2017-01-19 13:50] LABS: BLOOD UREA NITROGEN 12 mg/dL (7-17); CALCIUM 8.6 mg/dl (8.6-10.4); CARBON DIOXIDE 26 mmol/L (22-30); GLUCOSE,RANDOM 115 mg/dL (65-105)
[2017-01-19] MEDS ORDERED: Potassium Chloride 20 mEq/15 ml LIQ UD PO ONE (14:45)
[2017-01-19] MEDS: Promethazine/Cod 6.25mg-10mg/5ml Syr UD PO PRN (14:55)
[2017-01-19] MEDS: Sodium Chloride 0.9% 1,000 ML IV SCH (14:58)
--- NOTE | 2017-01-19 16:43 | CP.PCM.CON ---
History of Present Illness - History of Present Illness History of Present Illness: reason for consultation: cough History and physical as per resident note 81 year old female with a history of Glaucoma, HTN, and season allergies presents to the hospital late last night with worsening non productive cough for 7 days. History is taken by son who speaks French and lives with her. Patient recently traveled here from [place] about a month ago for the first time. According to the son the patient has recently finished a Z-pack however her symptoms have not improved. She has associated headaches, urinary frequency , and non bloody emesis after coughing which occurred about 3 times night before admission. Patient's son says she has been drinking alot of water and urinating 4-5 times a day. She also has some sternal pain associated with coughing as well. She is also having chills with no fever, also no weight changes, changes in hearing, no abdominal pain, dysuria, lower extremity swelling, pain, rash, or joint pain. She normally ambulates with a rolling walker at home. 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 Review of Systems - Review of Systems Systems not reviewed;Unavailable: Language Barrier Past Patient History - Past Medical History & Family History Past Medical History?: Yes - Past Social History Smoking Status: Never Smoked - CARDIAC Hx Hypertension: Yes - PULMONARY Hx Respiratory Disorders: No - NEUROLOGICAL Hx Neurological Disorder: No - HEENT Hx Blind: Yes (Left eye) - RENAL Hx Chronic Kidney Disease: No - ENDOCRINE/METABOLIC Hx Endocrine Disorders: No - HEMATOLOGICAL/ONCOLOGICAL Hx Blood Disorders: No - INTEGUMENTARY Hx Dermatological Problems: No - MUSCULOSKELETAL/RHEUMATOLOGICAL Hx Falls: No - GASTROINTESTINAL Hx Gastrointestinal Disorders: No - GENITOURINARY/GYNECOLOGICAL Hx Genitourinary Disorders: No - PSYCHIATRIC Hx Substance Use: No - SURGICAL HISTORY Hx Surgeries: Yes Other/Comment: "Left eye surgery" - ANESTHESIA Hx Anesthesia: Yes Hx Anesthesia Reactions: No Meds Allergies/Adverse Reactions: Allergies Allergy/AdvReac Type Severity Reaction Status Date / Time No Known Allergies Allergy Unverified 01/19/17 04:14 - Medications Medications: Current Medications Acetaminophen (Tylenol 325mg Tab) 650 mg PO Q6 PRN PRN Reason: Pain, severe (8-10) Albuterol Sulfate (Albuterol 0.083% Inhal Rosina (2.5 Mg/3 Ml) Ud) 2.5 mg INH RQ4 PRN PRN Reason: Shortness of Breath Enoxaparin Sodium (Lovenox) 40 mg SC DAILY [facility] Famotidine (Pepcid) 20 mg PO BID [facility] Last Admin: 01/19/17 10:12 Dose: 20 mg Guaifenesin (Mucinex La) 600 mg PO BID [facility] Last Admin: 01/19/17 10:12 Dose: 600 mg Piperacillin Sod/Tazobactam Sod (Zosyn 3.375 Gm Iv Premix) 3.375 gm in 50 mls @ 100 mls/hr IVPB Q6H [facility] Last Admin: 01/19/17 14:38 Dose: 100 mls/hr Sodium Chloride (Sodium Chloride 0.9%) 1,000 mls @ 50 mls/hr IV .Q20H [facility] Last Admin: 01/19/17 14:58 Dose: 50 mls/hr Losartan Potassium (Cozaar) 100 mg PO DAILY [facility] Last Admin: 01/19/17 10:12 Dose: 100 mg Promethazine HCl/Codeine (Phenergan/Codeine Oral Syrup) 5 ml PO Q4 PRN PRN Reason: Cough Last Admin: 01/19/17 14:55 Dose: 5 ml Saccharomyces Boulardii (Florastor) 250 mg PO BID [facility] Last Admin: 01/19/17 10:12 Dose: 250 mg Timolol Maleate (Timoptic 0.5% Ophth Soln) 1 drop OD BID [facility] Last Admin: 01/19/17 10:12 Dose: 1 drop Physical Exam - Head Exam Head Exam: ATRAUMATIC, NORMOCEPHALIC - Eye Exam Eye Exam: Normal appearance - ENT Exam ENT Exam: Mucous Membranes Moist - Respiratory Exam Respiratory Exam: Clear to Auscultation Bilateral - Cardiovascular Exam Cardiovascular Exam: REGULAR RHYTHM - GI/Abdominal Exam GI & Abdominal Exam: Normal Bowel Sounds, Soft Results - Vital Signs Recent Vital Signs: Last Vital Signs Temp 98.0 F 01/19/17 15:00 Pulse 73 01/19/17 15:00 Resp 21 01/19/17 15:00 BP 116/64 01/19/17 15:00 Pulse Ox 98 01/19/17 15:00 - Labs Result Diagrams: 01/19/17 04:45 01/19/17 13:33 Labs: Laboratory Results - last 24 hr 01/19/17 01/19/17 01/19/17 04:45 04:45 04:50 WBC 8.5 RBC 4.24 Hgb 12.7 Hct 34.9 MCV 82.3 MCH 30.0 MCHC 36.5 RDW 14.3 Plt Count 200 MPV 9.0 Neut % (Auto) 59.1 Lymph % (Auto) 28.1 [place] % (Auto) 11.0 H Eos % (Auto) 1.1 Baso % (Auto) 0.7 Neut # 5.1 Lymph # 2.4 [place] # 0.9 H Eos # 0.1 Baso # 0.1 PT INR APTT pO2 25 L VBG pH 7.59 H VBG pCO2 27 L VBG HCO3 27.9 VBG Total CO2 26.7 VBG O2 Sat (Calc) 62.0 VBG Base Excess 5.1 H VBG Potassium 2.9 L Glucose 104 Lactate 2.0 Sodium 121 L 126.0 L Potassium 3.6 Chloride 86 L 89.0 L Carbon Dioxide 23 Anion Gap 16 BUN 15 Creatinine 0.8 Est GFR ( Amer) > 60 Est GFR (Non-Af Amer) > 60 Random Glucose 98 Serum Osmolality Calcium 8.7 Total Bilirubin 1.2 AST 27 ALT 23 Alkaline Phosphatase 63 Troponin I < 0.0120 NT-Pro-B Natriuret Pep 242 Total Protein 7.4 Albumin 3.9 Globulin 3.5 Albumin/Globulin Ratio 1.1 Venous Blood Potassium 2.9 L Urine Color Urine Clarity Urine pH Ur Specific [place] Urine Protein Urine Glucose (UA) Urine Ketones Urine Blood Urine Nitrate Urine Bilirubin Urine Urobilinogen Ur Leukocyte Esterase Urine WBC (Auto) Urine RBC (Auto) Ur Squamous Epith Cells Urine Bacteria Urine Osmolality Ur Random Sodium Influenza Typ A,B (EIA) Ur L.pneumophila Ag Mycoplasma pneumon IgM 01/19/17 01/19/17 01/19/17 04:54 05:21 09:03 WBC RBC Hgb Hct MCV MCH MCHC RDW Plt Count MPV Neut % (Auto) Lymph % (Auto) [place] % (Auto) Eos % (Auto) Baso % (Auto) Neut # Lymph # [place] # Eos # Baso # PT 14.1 H INR 1.3 APTT 31 pO2 34 VBG pH 7.43 VBG pCO2 43 VBG HCO3 27.0 VBG Total CO2 29.8 H VBG O2 Sat (Calc) 69.9 H VBG Base Excess 3.7 H VBG Potassium 2.7 L Glucose 124 H Lactate 1.2 Sodium 128.0 L Potassium Chloride 94.0 L Carbon Dioxide Anion Gap BUN Creatinine Est GFR ( Amer) Est GFR (Non-Af Amer) Random Glucose Serum Osmolality Calcium Total Bilirubin AST ALT Alkaline Phosphatase Troponin I NT-Pro-B Natriuret Pep Total Protein Albumin Globulin Albumin/Globulin Ratio Venous Blood Potassium 2.7 L Urine Color Straw Urine Clarity Clear Urine pH 8.0 Ur Specific [place] 1.004 Urine Protein Negative Urine Glucose (UA) Normal Urine Ketones Negative Urine Blood Negative Urine Nitrate Negative Urine Bilirubin Negative Urine Urobilinogen Normal Ur Leukocyte Esterase 2+ H Urine WBC (Auto) 8 H Urine RBC (Auto) < 1 Ur Squamous Epith Cells < 1 Urine Bacteria Rare Urine Osmolality Ur Random Sodium Influenza Typ A,B (EIA) Ur L.pneumophila Ag Mycoplasma pneumon IgM 01/19/17 01/19/17 01/19/17 09:03 09:03 09:03 WBC RBC Hgb Hct MCV MCH MCHC RDW Plt Count MPV Neut % (Auto) Lymph % (Auto) [place] % (Auto) Eos % (Auto) Baso % (Auto) Neut # Lymph # [place] # Eos # Baso # PT INR APTT pO2 VBG pH VBG pCO2 VBG HCO3 VBG Total CO2 VBG O2 Sat (Calc) VBG Base Excess VBG Potassium Glucose Lactate Sodium Potassium Chloride Carbon Dioxide Anion Gap BUN Creatinine Est GFR ( Amer) Est GFR (Non-Af Amer) Random Glucose Serum Osmolality 267 L Calcium Total Bilirubin AST ALT Alkaline Phosphatase Troponin I NT-Pro-B Natriuret Pep Total Protein Albumin Globulin Albumin/Globulin Ratio Venous Blood Potassium Urine Color Urine Clarity Urine pH Ur Specific [place] Urine Protein Urine Glucose (UA) Urine Ketones Urine Blood Urine Nitrate Urine Bilirubin Urine Urobilinogen Ur Leukocyte Esterase Urine WBC (Auto) Urine RBC (Auto) Ur Squamous Epith Cells Urine Bacteria Urine Osmolality 169 L Ur Random Sodium 28 Influenza Typ A,B (EIA) Ur L.pneumophila Ag Negative Mycoplasma pneumon IgM Negative 01/19/17 01/19/17 09:28 13:33 WBC RBC Hgb Hct MCV MCH MCHC RDW Plt Count MPV Neut % (Auto) Lymph % (Auto) [place] % (Auto) Eos % (Auto) Baso % (Auto) Neut # Lymph # [place] # Eos # Baso # PT INR APTT pO2 VBG pH VBG pCO2 VBG HCO3 VBG Total CO2 VBG O2 Sat (Calc) VBG Base Excess VBG Potassium Glucose Lactate Sodium 123 L Potassium 3.2 L Chloride 88 L Carbon Dioxide 26 Anion Gap 13 BUN 12 Creatinine 0.7 Est GFR ( Amer) > 60 Est GFR (Non-Af Amer) > 60 Random Glucose 115 H Serum Osmolality Calcium 8.6 Total Bilirubin AST ALT Alkaline Phosphatase Troponin I NT-Pro-B Natriuret Pep Total Protein Albumin Globulin Albumin/Globulin Ratio Venous Blood Potassium Urine Color Urine Clarity Urine pH Ur Specific [place] Urine Protein Urine Glucose (UA) Urine Ketones Urine Blood Urine Nitrate Urine Bilirubin Urine Urobilinogen Ur Leukocyte Esterase Urine WBC (Auto) Urine RBC (Auto) Ur Squamous Epith Cells Urine Bacteria Urine Osmolality Ur Random Sodium Influenza Typ A,B (EIA) Negative for flu a/b Ur L.pneumophila Ag Mycoplasma pneumon IgM Assessment & Plan (1) Cough Status: Acute Comment: CAT scan of the chest negative for pulmonary embolism and showed some chronic changes with no acute infiltrate. Continue nebulizer treatment. IV steroids and antibiotics. Cardiac workup
[2017-01-19 17:27] LABS: CHLORIDE 89 mmol/L (98-107); POTASSIUM 4.1 mmol/L (3.6-5.2); SODIUM 121 mmol/L (132-148)
[2017-01-19 17:30] LABS: BLOOD UREA NITROGEN 13 mg/dL (7-17); CARBON DIOXIDE 25 mmol/L (22-30); GFR AFRICAN-AMERICAN > 60; GLUCOSE,RANDOM 101 mg/dL (65-105)
[2017-01-19 17:31] LABS: MAGNESIUM 1.7 mg/dL (1.6-2.3)
[2017-01-19 20:42] LABS: CHLORIDE 90 mmol/L (98-107); POTASSIUM 3.7 mmol/L (3.6-5.2); SODIUM 122 mmol/L (132-148)
[2017-01-19 20:45] LABS: BLOOD UREA NITROGEN 12 mg/dL (7-17); CARBON DIOXIDE 24 mmol/L (22-30); GFR AFRICAN-AMERICAN > 60; GLUCOSE,RANDOM 127 mg/dL (65-105)
[2017-01-20 00:44] LABS: CHLORIDE 91 mmol/L (98-107); SODIUM 123 mmol/L (132-148)
[2017-01-20 00:45] LABS: POTASSIUM 3.8 mmol/L (3.6-5.2)
[2017-01-20 00:47] LABS: GFR AFRICAN-AMERICAN > 60
[2017-01-20 00:48] LABS: BLOOD UREA NITROGEN 12 mg/dL (7-17); CALCIUM 8.2 mg/dl (8.6-10.4); CARBON DIOXIDE 25 mmol/L (22-30); GLUCOSE,RANDOM 91 mg/dL (65-105)
[2017-01-20] MEDS: Piperacill/Tazo 3.375gm in Dex 3.375 GM/50 ML BAG IVPB SCH ×4 (01:12→19:57)
[2017-01-20 01:51] VITALS: RESP 20
--- NOTE | 2017-01-20 03:01 | CON ---
DATE: 01/19/2017 NEPHROLOGY CONSULTATION HISTORY OF PRESENT ILLNESS: A 81-year-old female with past medical history of hypertension, presented to the ED late last night with worsening cough. The patient is found to be profoundly hyponatremic, Nephrology being consulted for the same. History taken from the chart as well as the patient's children who are with her. The patient recently came from [place] about 1 month ago to the for the first time. The patient has been having increased shortness of breath since the past 1 year. However, lately, she also started experiencing cough for the past 7 days. Symptoms of shortness of breath and cough worsened last night prompting her to come to the ED; otherwise, the patient has reportedly been eating well, although she eats only small portions and adheres to strict salt restriction in her diet; the patient has been taking losartan/hydrochlorothiazide combination still for her high blood pressure; the patient also reportedly drinks about 10, 500 mL bottles of water daily as her usual routine; the patient also uses Advil for aches and pains and recently has been using Advil approximately 1 to 2 times per day (has a history of chronic back pain). The patient otherwise has not been having vomiting or diarrhea except for some vomiting that was associated with cough occurring yesterday. PAST MEDICAL HISTORY: Glaucoma, hypertension, seasonal allergies, chronic back pain. FAMILY HISTORY: No history of cancer, heart disease, diabetes, or hypertension. SOCIAL HISTORY: No smoking history. REVIEW OF SYSTEMS: CONSTITUTIONAL: Reports approximately 6-pound weight loss since last year attributed to dieting; otherwise, no night sweats. The patient did have chills last night. 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 RESPIRATORY: As per HPI. Cough with sputum production. The patient recently took Z-maria ines without any symptomatic improvement. CARDIOVASCULAR: Reports palpitations on climbing stairs. GASTROINTESTINAL: As per HPI. GENITOURINARY: Reporting some dysuria. PSYCHIATRIC: Gets anxious sometimes. SKIN: Reports pruritus, although no rashes. NEUROLOGIC: Reports burning sensation in bilateral feet. PHYSICAL EXAMINATION: VITALS: This afternoon, blood pressure 113/66, heart rate 76, respirations 20, temperature 98.1 and O2 sat 99% on room air. GENERAL: No distress. Lying comfortably in bed, not speaking much but able to verbalize responses. HEENT: Moist mucous membranes. Nonicteric. RESPIRATORY: Lungs clear to auscultation bilaterally. No rales. No rhonchi. No wheezes. CARDIOVASCULAR: Heart S1 and S2 normal. No murmurs. No gallops. No rubs. GASTROINTESTINAL: Abdomen soft, nontender and nondistended. GENITOURINARY: No bladder distention. EXTREMITIES: No leg edema. SKIN: Warm. No cyanosis. PSYCHIATRIC: Normal mood. Normal affect. NEUROLOGIC: No numbness in the feet. LABORATORY DATA: On presentation, CBC: WBC 8.5, hemoglobin 12.7, hematocrit 34.9, platelets 200. Chemistry panel: Sodium 121, potassium 3.6, chloride 86, bicarb 23, BUN 15, creatinine 0.8, calcium 8.7, glucose 98, AST 27, ALT 23, albumin 3.9. VBG on presentation pH 7.59, pCO2 of 27, lactate 2.0 improving to 1.2. Urine studies: UA; specific gravity 1.004, 2+ leukocyte esterase, wbc 8 per high-power field, rare bacteria. Urine osmolality 169, urine sodium 28. Chest x-ray directly visualized, lungs clear. ASSESSMENT AND PLAN: 1. Hyponatremia, likely multifactorial in the setting of likely decreased p.o. intake and with the patient being on thiazide diuretic as well as excessive free water consumption. All of these factors are likely contributing to hyponatremia. Of note, urine osmolality is relatively low, (although not as low as it should be expected for normal physiologic response to hyponatremia); the patient did not receive any volume repletion other than the saline that was contained with antibiotics; therefore, this relatively low urine osmolality is not the result of hypovolemia being corrected rather it likely reflects the patient's underlying for hyponatremia, which is likely either inadequate solid intake and/or primary polydipsia; again thiazide diuretic can be contributory and NSAID use can also be contributory by potentiating the effect of ADH on free water retention. Plan: Mainstay of therapy for her will be to fluid restrict to less than 2 L per day. Discontinue hydrochlorothiazide. Can start gentle isotonic saline at 50 mL per hour and reassess in 4 hours; rate of correction of serum sodium should be no more than 6 to 8 mEq over 24 hours in order to avoid neurologic sequelae. 2. Hypertension. The patient is on high dose of losartan with blood pressures appearing well-controlled rather overly controlled; given the patient's elderly age and unclear medical followup, would recommend to decrease to 50 mg daily. Continue to hold hydrochlorothiazide. 3. Hypokalemia, likely being caused by thiazide; replenish with 40 mEq p.o., this will also help correct the hyponatremia. Thank you for this interesting consult. We will continue to follow closely. Wm Cristina MD
[2017-01-20 05:01] LABS: BASO # 0.1 K/uL (0.0-0.2); BASO % 0.9 % (0.0-2.0); EOS # 0.1 K/uL (0.0-0.7); EOS % 1.6 % (0.0-4.0); HEMATOCRIT 33.1 % (34.0-47.0); LYMPH # 1.8 K/uL (1.0-4.3); LYMPH % 26.1 % (20.0-40.0); MEAN CELL VOLUME 84.8 fL (81.0-99.0); MEAN CORPUSCULAR HEMOGLOBIN 29.1 pg (27.0-31.0); MEAN CORPUSCULAR HGB CONC 34.3 g/dL (33.0-37.0); MEAN PLATELET VOLUME 8.8 fL (7.2-11.7); MONO # 0.8 K/uL (0.0-0.8); MONO % 11.4 % (0.0-10.0); RED CELL DISTRIBUTION WIDTH 14.3 % (11.5-14.5); WHITE BLOOD COUNT 6.9 K/uL (4.8-10.8)
[2017-01-20 05:03] LABS: CHLORIDE 93 mmol/L (98-107); SODIUM 125 mmol/L (132-148)
[2017-01-20 05:04] LABS: POTASSIUM 3.6 mmol/L (3.6-5.2)
[2017-01-20 05:05] LABS: GFR AFRICAN-AMERICAN > 60
[2017-01-20 05:06] LABS: ALB/GLOB RATIO 0.9 (1.0-2.1); ALKALINE PHOSPHATASE 51 U/L (38-126); ALT/SGPT 30 U/L (9-52); AST/SGOT 22 U/L (14-36); BILIRUBIN,TOTAL 0.6 mg/dL (0.2-1.3); BLOOD UREA NITROGEN 11 mg/dL (7-17); CARBON DIOXIDE 25 mmol/L (22-30); GLUCOSE,RANDOM 80 mg/dL (65-105); PHOSPHOROUS 2.9 mg/dL (2.5-4.5); TOTAL PROTEIN 6.5 g/dL (6.3-8.3)
[2017-01-20 05:07] LABS: CALCIUM 8.4 mg/dl (8.6-10.4); MAGNESIUM 1.7 mg/dL (1.6-2.3)
[2017-01-20] MEDS: Saccharomyces Boulardi 250 mg Cap PO SCH ×2 (09:53→18:25)
[2017-01-20] MEDS: guaiFENesin 600 mg ER Tab PO SCH ×2 (09:53→18:25)
[2017-01-20] MEDS: Enoxaparin 40 mg Syringe SC SCH (09:54)
[2017-01-20] MEDS: Sodium Chloride 0.9% 1,000 ML IV SCH (09:55)
[2017-01-20 13:29] LABS: ABG ALLEN TEST YES; ARTERIAL BLOOD HGB O2 SAT 95.7 % (95.0-98.0); CARBOXYHEMOGLOBIN 0.8 % (0.5-1.5); DRAW SITE RRA; HHB 2.6 % (0.0-5.0); METHEMOGLOBIN 0.9 % (0.0-3.0)
--- NOTE | 2017-01-20 13:59 | RAD ---
Chest x-ray single frontal view History: Pneumonia. Comparison: 01/19/2017 Findings: Moderate venous congestion. Right hilar prominence. Patchy increased markings at the left lung base. Calcification at the aortic knob. Heart size within normal limits. Degenerative changes in the spine and shoulders. Impression: Moderate venous congestion. Right hilar prominence. Patchy increased markings at the left lung base. Calcification at the aortic knob. Heart size within normal limits.
--- NOTE | 2017-01-20 14:08 | CARD ---
APPROVED REPORT EXAM: Two-dimensional and M-mode echocardiogram with Doppler and color Doppler. Other Information Quality : GoodRhythm : NSR INDICATION Dyspnea PNEUMONIA RISK FACTORS Hypertension 2D DIMENSIONS IVSd0.9 (0.7-1.1cm)LVDd4.1 (3.9-5.9cm) PWd1.0 (0.7-1.1cm)LVDs2.5 (2.5-4.0cm) FS (%) 38.2 %LVEF (%)68.9 (>50%) M-Mode DIMENSIONS Left Atrium (MM)3.48 (2.5-4.0cm)Aortic Root3.32 (2.2-3.7cm) Aortic Cusp Exc.1.42 (1.5-2.0cm) Mitral Valve MV E Fnjfuueu45.4cm/sMV A Mjqonpso96.1cm/sE/A ratio1.0 TDI E/Lateral E'0.0E/Medial E'0.0 Tricuspid Valve TR Peak [id number]/sTR Peak [id number] LEFT VENTRICLE The left ventricle is normal size. There is normal left ventricular wall thickness. The left ventricular function is normal. The left ventricular ejection fraction is within the normal range. There is normal LV segmental wall motion. Transmitral Doppler flow pattern is Grade I-abnormal relaxation pattern. RIGHT VENTRICLE The right ventricle is normal size. There is normal right ventricular wall thickness. The right ventricular systolic function is normal. ATRIA The left atrium size is normal. The right atrium size is normal. AORTIC VALVE The aortic valve is moderately thickened. There is trace aortic regurgitation. MITRAL VALVE The mitral valve is mildly thickened. There is no mitral valve stenosis. There is no mitral valve regurgitation noted. TRICUSPID VALVE There is mild tricuspid regurgitation. There is mild pulmonary hypertension. PULMONIC VALVE There is trace pulmonic valvular regurgitation. GREAT VESSELS The aortic root is normal in size. PERICARDIAL EFFUSION There is no pericardial effusion. <Conclusion> The left ventricle is normal size. There is normal left ventricular wall thickness. The left ventricular function is normal. The left ventricular ejection fraction is within the normal range. There is normal LV segmental wall motion. Transmitral Doppler flow pattern is Grade I-abnormal relaxation pattern. There is mild tricuspid regurgitation. There is mild pulmonary hypertension.
--- NOTE | 2017-01-20 15:36 | CARD ---
APPROVED REPORT EKG Measurement Heart [id number] <Conclusion> Normal sinus rhythm Cannot rule out Anterior infarct, age undetermined Abnormal ECG
--- NOTE | 2017-01-20 15:57 | CP.PCM.CON ---
<KETANLYNNEJOE - Last Filed: 01/20/17 16:45> History of Present Illness - History of Present Illness History of Present Illness: Lyndsey Flanagan DO PGY1 - Cardiology Consult Note for Dr. Long Consultation for dyspnea HPI: 81yo F with PMH Glaucoma, HTN, and seasonal allergies presented to the ER complaining of worsening non productive cough for 7 days, dyspnea for the past year, acutely worsened progressively in the past week. Son as bedside, providing history in Sami, on behalf of Amharic speaking patient. He reports that she was prescribed, and finished, a Z-maria ines for her cough, with no improvement in her symptoms, and yesterday, she started to breathe heavy and rapidly, and he brought her to the ER. Patient recently traveled here from [place], to visit her son. She now admits to mid chest pain associated with the cough, which she has had for the past three days. She also admits to JORGE, urinary frequency, post-tussive nonbloody nonbilious emesis, polydipsia, chills. She has baseline dyspnea on exertion, with minimal activity, but her activity is extremely limited by her back pain, and she uses crutches at home to walk around. She denies fevers, leg swelling or pain. She does have one sick contact at home with similar cough. PMH: HTN, glaucoma, seasonal allergies PSH: Left eye surgery for glaucoma Meds: Timolol, Losartan 100/HCTZ 25, Zyrtec, and Flonase. FHx: Son denies any family history of cancer, heart disease, DM, or HTN Social: Denies smoking, etoh use, or illicit drug use. Allergies: NKDA Past Patient History - Past Medical History & Family History Past Medical History?: Yes - Past Social History Smoking Status: Never Smoked - CARDIAC Hx Hypertension: Yes - PULMONARY Hx Respiratory Disorders: No - NEUROLOGICAL Hx Neurological Disorder: No - HEENT Hx Blind: Yes (Left eye) - RENAL Hx Chronic Kidney Disease: No - ENDOCRINE/METABOLIC Hx Endocrine Disorders: No - HEMATOLOGICAL/ONCOLOGICAL Hx Blood Disorders: No - INTEGUMENTARY Hx Dermatological Problems: No - MUSCULOSKELETAL/RHEUMATOLOGICAL Hx Musculoskeletal Disorders: Yes Hx Back Pain: Yes (chronic) - GASTROINTESTINAL Hx Gastrointestinal Disorders: No - GENITOURINARY/GYNECOLOGICAL Hx Genitourinary Disorders: No - PSYCHIATRIC Hx Substance Use: No - SURGICAL HISTORY Hx Surgeries: Yes Other/Comment: "Left eye surgery" - ANESTHESIA Hx Anesthesia: Yes Hx Anesthesia Reactions: No Meds Allergies/Adverse Reactions: Allergies Allergy/AdvReac Type Severity Reaction Status Date / Time No Known Allergies Allergy Unverified 01/19/17 04:14 - Medications Medications: Current Medications Acetaminophen (Tylenol 325mg Tab) 650 mg PO Q6 PRN PRN Reason: Pain, severe (8-10) Last Admin: 01/20/17 09:56 Dose: 650 mg Albuterol Sulfate (Albuterol 0.083% Inhal Rosina (2.5 Mg/3 Ml) Ud) 2.5 mg INH RQ4 PRN PRN Reason: Shortness of Breath Enoxaparin Sodium (Lovenox) 40 mg SC DAILY [facility] Last Admin: 01/20/17 09:54 Dose: 40 mg Famotidine (Pepcid) 20 mg PO BID [facility] Last Admin: 01/20/17 09:54 Dose: 20 mg Guaifenesin (Mucinex La) 600 mg PO BID [facility] Last Admin: 01/20/17 09:53 Dose: 600 mg Piperacillin Sod/Tazobactam Sod (Zosyn 3.375 Gm Iv Premix) 3.375 gm in 50 mls @ 100 mls/hr IVPB Q6H [facility] Last Admin: 01/20/17 14:34 Dose: 100 mls/hr Sodium Chloride (Sodium Chloride 0.9%) 1,000 mls @ 50 mls/hr IV .Q20H [facility] Last Admin: 01/20/17 09:55 Dose: Not Given Losartan Potassium (Cozaar) 50 mg PO DAILY [facility] Last Admin: 01/20/17 09:54 Dose: 50 mg Promethazine HCl/Codeine (Phenergan/Codeine Oral Syrup) 5 ml PO Q4 PRN PRN Reason: Cough Last Admin: 01/19/17 14:55 Dose: 5 ml Saccharomyces Boulardii (Florastor) 250 mg PO BID [facility] Last Admin: 01/20/17 09:53 Dose: 250 mg Timolol Maleate (Timoptic 0.5% Ophth Soln) 1 drop OD BID [facility] Last Admin: 01/20/17 11:00 Dose: 1 drop Physical Exam - Constitutional Appears: Non-toxic, No Acute Distress, Chronically Ill - Head Exam Head Exam: ATRAUMATIC, NORMOCEPHALIC - Eye Exam Eye Exam: EOMI - ENT Exam ENT Exam: Mucous Membranes Moist - Neck Exam Neck exam: Positive for: Normal Inspection - Respiratory Exam Respiratory Exam: Rhonchi, Wheezes, NORMAL BREATHING PATTERN - Cardiovascular Exam Cardiovascular Exam: RRR, +S1, +S2 - GI/Abdominal Exam GI & Abdominal Exam: Soft. absent: Tenderness - Extremities Exam Extremities exam: Negative for: calf tenderness, pedal edema - Neurological Exam Neurological exam: Alert, Oriented x3 - Psychiatric Exam Psychiatric exam: Normal Affect, Normal Mood - Skin Skin Exam: Dry, Intact Results - Vital Signs Recent Vital Signs: Last Vital Signs Temp 97.4 F L 01/20/17 08:02 Pulse 76 01/20/17 08:02 Resp 20 01/20/17 08:02 BP 116/70 01/20/17 08:02 Pulse Ox 95 01/20/17 08:02 - Labs Result Diagrams: 01/20/17 04:49 01/20/17 04:49 Labs: Laboratory Results - last 24 hr 01/19/17 01/19/17 01/20/17 16:51 20:30 00:32 WBC RBC Hgb Hct MCV MCH MCHC RDW Plt Count MPV Neut % (Auto) Lymph % (Auto) [place] % (Auto) Eos % (Auto) Baso % (Auto) Neut # Lymph # [place] # Eos # Baso # Puncture Site pCO2 pO2 HCO3 ABG pH ABG Total CO2 ABG O2 Saturation ABG Base Excess ABG Hemoglobin ABG Carboxyhemoglobin POC ABG HHb (Measured) ABG Methemoglobin Deion Test Hgb O2 Saturation Liter Flow Sodium 121 L 122 L 123 L Potassium 4.1 3.7 3.8 Chloride 89 L 90 L 91 L Carbon Dioxide 25 24 25 Anion Gap 11 13 11 BUN 13 12 12 Creatinine 0.7 0.7 0.7 Est GFR ( Amer) > 60 > 60 > 60 Est GFR (Non-Af Amer) > 60 > 60 > 60 Random Glucose 101 127 H 91 Calcium 8.0 L 8.0 L 8.2 L Phosphorus Magnesium 1.7 Total Bilirubin AST ALT Alkaline Phosphatase NT-Pro-B Natriuret Pep Total Protein Albumin Globulin Albumin/Globulin Ratio Urine Osmolality Ur Random Sodium 01/20/17 01/20/17 01/20/17 01:15 04:49 04:49 WBC 6.9 RBC 3.90 Hgb 11.4 Hct 33.1 L MCV 84.8 D MCH 29.1 MCHC 34.3 RDW 14.3 Plt Count 173 MPV 8.8 Neut % (Auto) 60.0 Lymph % (Auto) 26.1 [place] % (Auto) 11.4 H Eos % (Auto) 1.6 Baso % (Auto) 0.9 Neut # 4.1 Lymph # 1.8 [place] # 0.8 Eos # 0.1 Baso # 0.1 Puncture Site Rra pCO2 39 pO2 88 HCO3 26.1 ABG pH 7.43 ABG Total CO2 27.1 ABG O2 Saturation 97.4 ABG Base Excess 1.5 ABG Hemoglobin 10.7 L ABG Carboxyhemoglobin 0.8 POC ABG HHb (Measured) 2.6 ABG Methemoglobin 0.9 Deion Test Yes Hgb O2 Saturation 95.7 Liter Flow 21.0 Sodium 125 L Potassium 3.6 Chloride 93 L Carbon Dioxide 25 Anion Gap 11 BUN 11 Creatinine 0.7 Est GFR ( Amer) > 60 Est GFR (Non-Af Amer) > 60 Random Glucose 80 Calcium 8.4 L Phosphorus 2.9 Magnesium 1.7 Total Bilirubin 0.6 AST 22 ALT 30 Alkaline Phosphatase 51 NT-Pro-B Natriuret Pep Total Protein 6.5 Albumin 3.1 L D Globulin 3.4 Albumin/Globulin Ratio 0.9 L Urine Osmolality Ur Random Sodium 01/20/17 01/20/17 13:10 14:39 WBC RBC Hgb Hct MCV MCH MCHC RDW Plt Count MPV Neut % (Auto) Lymph % (Auto) [place] % (Auto) Eos % (Auto) Baso % (Auto) Neut # Lymph # [place] # Eos # Baso # Puncture Site pCO2 pO2 HCO3 ABG pH ABG Total CO2 ABG O2 Saturation ABG Base Excess ABG Hemoglobin ABG Carboxyhemoglobin POC ABG HHb (Measured) ABG Methemoglobin Deion Test Hgb O2 Saturation Liter Flow Sodium Potassium Chloride Carbon Dioxide Anion Gap BUN Creatinine Est GFR ( Amer) Est GFR (Non-Af Amer) Random Glucose Calcium Phosphorus Magnesium Total Bilirubin AST ALT Alkaline Phosphatase NT-Pro-B Natriuret Pep 347 Total Protein Albumin Globulin Albumin/Globulin Ratio Urine Osmolality 158 L Ur Random Sodium 10 Assessment & Plan - Assessment and Plan (Free Text) Assessment: 81 yo F with PMH significant for HTN, glaucoma, and seasonal allergies presents with cough and worsening SOB Plan: 1. Dyspnea and cough - Patient has baseline dyspnea with minimal activity, was only able to walk 10 steps with physical therapy before become short of breath, but patient is very inactive at home, due to lumbar compression fracture and chronic back pain - Dyspnea acutely worsened in the past few days, associated with cough and chills; one sick contact with similar symptoms - Echo complete, normal LVEF with no regional wall motion abnormalities, mild TR , mild pHTN, grade I diastolic dysfunction - BNP normal x2 - Based on presentation, history, physical exam, EKG, echo, and labs, patient unlikely to have primary ischemic etiology for dyspnea or cough - Baseline dyspnea more likely 2/2 deconditioning - Worsening dyspnea and cough more likely 2/2 acute viral respiratory tract infection - Per consensus guidelines, ASA not recommended for primary prevention in patients greater than 75 years age - ID and pulm consulted, appreciate recs 2. HTN - Patient reportedly takes losartan 100mg and HCTZ 25mg daily at home - HCTZ held per nephrology, considering polyuria and hyponatremia, as below - Currently on losartan 50mg - BP well controlled - Continue to monitor BP and titrate medications as needed 3. Hyponatremia - Patient presented with Na 121, likely multifactorial 2/2 primary polydipsia, poor solute intake, and HCTZ - Nephro on consult, appreciate recs Patient seen, discussed, and reviewed with attending <Korey Long - Last Filed: 01/21/17 09:07> Meds - Medications Medications: Current Medications Acetaminophen (Tylenol 325mg Tab) 650 mg PO Q6 PRN PRN Reason: Pain, severe (8-10) Last Admin: 01/20/17 09:56 Dose: 650 mg Albuterol Sulfate (Albuterol 0.083% Inhal Rosina (2.5 Mg/3 Ml) Ud) 2.5 mg INH RQ4 PRN PRN Reason: Shortness of Breath Enoxaparin Sodium (Lovenox) 40 mg SC DAILY [facility] Last Admin: 01/20/17 09:54 Dose: 40 mg Famotidine (Pepcid) 20 mg PO BID [facility] Last Admin: 01/20/17 18:25 Dose: 20 mg Guaifenesin (Mucinex La) 600 mg PO BID [facility] Last Admin: 01/20/17 18:25 Dose: 600 mg Piperacillin Sod/Tazobactam Sod (Zosyn 3.375 Gm Iv Premix) 3.375 gm in 50 mls @ 100 mls/hr IVPB Q6H [facility] Last Admin: 01/21/17 08:45 Dose: 100 mls/hr Sodium Chloride (Sodium Chloride 0.9%) 1,000 mls @ 50 mls/hr IV .Q20H [facility] Last Admin: 01/21/17 06:08 Dose: 50 mls/hr Losartan Potassium (Cozaar) 50 mg PO DAILY [facility] Last Admin: 01/20/17 09:54 Dose: 50 mg Promethazine HCl/Codeine (Phenergan/Codeine Oral Syrup) 5 ml PO Q4 PRN PRN Reason: Cough Last Admin: 01/21/17 02:02 Dose: 5 ml Saccharomyces Boulardii (Florastor) 250 mg PO BID [facility] Last Admin: 01/20/17 18:25 Dose: 250 mg Timolol Maleate (Timoptic 0.5% [facility] Soln) 1 drop OD BID [facility] Last Admin: 01/20/17 18:25 Dose: 1 drop Results - Vital Signs Recent Vital Signs: Last Vital Signs Temp 97.7 F 01/21/17 08:25 Pulse 62 01/21/17 08:25 Resp 20 01/21/17 08:25 BP 107/61 01/21/17 08:25 Pulse Ox 98 01/21/17 08:25 - Labs Result Diagrams: 01/21/17 07:47 01/21/17 07:47 Labs: Laboratory Results - last 24 hr 01/20/17 01/20/17 01/20/17 01:15 13:10 14:39 WBC RBC Hgb Hct MCV MCH MCHC RDW Plt Count MPV Neut % (Auto) Lymph % (Auto) [place] % (Auto) Eos % (Auto) Baso % (Auto) Neut # Lymph # [place] # Eos # Baso # Puncture Site Rra pCO2 39 pO2 88 HCO3 26.1 ABG pH 7.43 ABG Total CO2 27.1 ABG O2 Saturation 97.4 ABG Base Excess 1.5 ABG Hemoglobin 10.7 L ABG Carboxyhemoglobin 0.8 POC ABG HHb (Measured) 2.6 ABG Methemoglobin 0.9 Deion Test Yes Hgb O2 Saturation 95.7 Liter Flow 21.0 Sodium Potassium Chloride Carbon Dioxide Anion Gap BUN Creatinine Est GFR ( Amer) Est GFR (Non-Af Amer) Random Glucose Calcium Magnesium Total Bilirubin AST ALT Alkaline Phosphatase NT-Pro-B Natriuret Pep 347 Total Protein Albumin Globulin Albumin/Globulin Ratio Triglycerides Cholesterol LDL Cholesterol Direct HDL Cholesterol Urine Osmolality 158 L Ur Random Sodium 10 01/21/17 01/21/17 07:47 07:47 WBC 6.5 RBC 3.87 Hgb 11.6 Hct 33.1 L MCV 85.5 MCH 29.9 MCHC 34.9 RDW 14.6 H Plt Count 181 MPV 8.7 Neut % (Auto) 56.2 Lymph % (Auto) 28.5 [place] % (Auto) 11.7 H Eos % (Auto) 2.7 Baso % (Auto) 0.9 Neut # 3.6 Lymph # 1.8 [place] # 0.8 Eos # 0.2 Baso # 0.1 Puncture Site pCO2 pO2 HCO3 ABG pH ABG Total CO2 ABG O2 Saturation ABG Base Excess ABG Hemoglobin ABG Carboxyhemoglobin POC ABG HHb (Measured) ABG Methemoglobin Deion Test Hgb O2 Saturation Liter Flow Sodium 132 Potassium 4.1 Chloride 100 Carbon Dioxide 25 Anion Gap 11 BUN 11 Creatinine 0.7 Est GFR ( Amer) > 60 Est GFR (Non-Af Amer) > 60 Random Glucose 71 Calcium 8.2 L Magnesium 1.7 Total Bilirubin 0.4 AST 17 ALT 30 Alkaline Phosphatase 46 NT-Pro-B Natriuret Pep Total Protein 5.9 L Albumin 3.0 L Globulin 2.9 Albumin/Globulin Ratio 1.0 Triglycerides 60 Cholesterol 100 LDL Cholesterol Direct 46 HDL Cholesterol 42 Urine Osmolality Ur Random Sodium Attending/Attestation - Attestation I have personally seen and examined this patient.: Yes I have fully participated in the care of the patient.: Yes I have reviewed all pertinent clinical information: Yes Notes (Text): 01/21/17 09:06 81 year old [place] female presenting with c/o cough and SOB hx and exam suggestive of viral bronchitis unlikely to be cardiac in nature echo shows normal LVEF with normal filling pressures etiology of SOB unlikely to be cardiac in nature cont GDMT for risk factor modification
--- NOTE | 2017-01-20 17:54 | CP.PCM.PN ---
<Jasmyne Ramirez - Last Filed: 01/20/17 18:04> Subjective - Date & Time of Evaluation Date of Evaluation: 01/20/17 Time of Evaluation: 10:00 - Subjective Subjective: Progress Note for Dr. Gonzalez Patient seen and examined at bedside with family. Patient states she has cough, drinks fluids because her doctor in [place] told her it was good for her. Patient denies fever, chills, patient admits to shortness of breath, dysuria, chest pain. Dr. Loera saw patient and stated patient needs cardiology follow up. Family at bedside: Wendy Morales, Katelin Rangel, Emi Al Objective - Vital Signs/Intake and Output Vital Signs (last 24 hours): Temp Pulse Resp BP Pulse Ox 98.1 F 66 20 107/68 97 01/20/17 15:00 01/20/17 15:00 01/20/17 15:00 01/20/17 15:00 01/20/17 15:00 Intake and Output: 01/20/17 01/20/17 06:59 18:59 Intake Total 520 880 Balance 520 880 - Medications Medications: Current Medications Acetaminophen (Tylenol 325mg Tab) 650 mg PO Q6 PRN PRN Reason: Pain, severe (8-10) Last Admin: 01/20/17 09:56 Dose: 650 mg Albuterol Sulfate (Albuterol 0.083% Inhal Rosina (2.5 Mg/3 Ml) Ud) 2.5 mg INH RQ4 PRN PRN Reason: Shortness of Breath Enoxaparin Sodium (Lovenox) 40 mg SC DAILY [facility] Last Admin: 01/20/17 09:54 Dose: 40 mg Famotidine (Pepcid) 20 mg PO BID [facility] Last Admin: 01/20/17 09:54 Dose: 20 mg Guaifenesin (Mucinex La) 600 mg PO BID [facility] Last Admin: 01/20/17 09:53 Dose: 600 mg Piperacillin Sod/Tazobactam Sod (Zosyn 3.375 Gm Iv Premix) 3.375 gm in 50 mls @ 100 mls/hr IVPB Q6H [facility] Last Admin: 01/20/17 14:34 Dose: 100 mls/hr Sodium Chloride (Sodium Chloride 0.9%) 1,000 mls @ 50 mls/hr IV .Q20H [facility] Last Admin: 01/20/17 09:55 Dose: Not Given Losartan Potassium (Cozaar) 50 mg PO DAILY [facility] Last Admin: 01/20/17 09:54 Dose: 50 mg Promethazine HCl/Codeine (Phenergan/Codeine Oral Syrup) 5 ml PO Q4 PRN PRN Reason: Cough Last Admin: 01/19/17 14:55 Dose: 5 ml Saccharomyces Boulardii (Florastor) 250 mg PO BID [facility] Last Admin: 01/20/17 09:53 Dose: 250 mg Timolol Maleate (Timoptic 0.5% Ophth Soln) 1 drop OD BID [facility] Last Admin: 01/20/17 11:00 Dose: 1 drop - Labs Labs: 01/20/17 04:49 01/20/17 04:49 PT 14.1 SECONDS (9.7-12.2) H 01/19/17 04:54 INR 1.3 01/19/17 04:54 APTT 31 SECONDS (21-34) 01/19/17 04:54 - Constitutional Appears: Non-toxic - Head Exam Head Exam: NORMAL INSPECTION - Eye Exam Eye Exam: EOMI Additional comments: patient cannot see well out of her left eye - ENT Exam ENT Exam: Mucous Membranes Moist - Neck Exam Neck Exam: Full ROM - Respiratory Exam Respiratory Exam: Decreased Breath Sounds, Rhonchi, NORMAL BREATHING PATTERN. absent: Accessory Muscle Use, Respiratory Distress - Cardiovascular Exam Cardiovascular Exam: REGULAR RHYTHM, +S1, +S2 - GI/Abdominal Exam GI & Abdominal Exam: Soft - Extremities Exam Extremities Exam: Full ROM. absent: Pedal Edema - Back Exam Back Exam: Full ROM, NORMAL INSPECTION - Neurological Exam Neurological Exam: Awake - Psychiatric Exam Psychiatric exam: Normal Affect, Normal Mood - Skin Skin Exam: Dry, Intact, Normal Color, Warm Assessment and Plan - Assessment and Plan (Free Text) Assessment: Assessment & Plan (1) Pneumonia Assessment and Plan: Patient admitted to regular floor as an inpatient. EKG, labs, CXR and CT scan reviewed. She was given Zosyn 3.375gm q6H, will continue continue this on the floor. Influenza test is negative, follow up Mycoplasma, Strep pneumonia, Legionella urine antigen, morning repeat CXR, morning cbc, cmp, mag, phos, blood and urine cultures. Dr. Barfield and Dr. Loera consulted. Albuterol nebulizer q4h prn. Mucinex 600 bid will also be given as well. VBG in the ED showed a lactate of 2.0, repeat after 4 hours was 1.2 Status: Acute Priority: High (2) Dyspnea Assessment and Plan: CT angio of the chest was negative for PE. She is low risk for DVT because she is mobile, arrived from [place] about a month ago, negative Jacqueline sign. 01/20 CXR venous congestion, right hilar prominence, patchy increased markings at left lung base. calcification at aortic knob 01/19 EKG: NSSR @ 76 10 CXR: no significant appearing consolidation appreciated. asymmetrically elevated right hemidiaphragm. minimal small posterior dependent effusions cannot be excluded See note for pneumonia Nebulizer q4h prn, and Mucinex 600 mg bid. (3) Hyponatremia Assessment and Plan: ED Na was 121 could be secondary to polydipsia, diuretic use, or SIADH HCTZ held. Dr. Cristina consulted, will get urine electrolytes. 01/19 BMP at 1230 showed Na 123 which is an increase from 121 and her K is down to 3.2 from 3.8, have started NS at 50 cc/hr and also given 40 meq of potassium. Follow up BMP Q4H monitor sodium level, should not increase too fast Status: Acute (4) Urinary frequency Assessment and Plan: from UTI Urine E. coli positive Dr. Golden consulted for nephrology, follow up morning cmp and urine electrolytes and osmolatly. 10 Urine Osm 169 10/10 Urine Na 28 10/ Urine Osm 150 10/10 Urine Na 10 (5) Headache Assessment and Plan: 01/19 CT Head: no definite acute intracranial findings. age-appropriate age related neuro degenerative changes Tylenol 650mg Q6H prn for pain. Status: Acute (6) HTN (hypertension) Assessment and Plan: Losartan 100mg, hold HCTZ due to hyponatremia consider Amlodipine as second agent for now. Status: Chronic Priority: Medium (7) Bilateral normal tension glaucoma, indeterminate stage Assessment and Plan: Chronic, continue home Timolol Status: Chronic Priority: Medium (8) Lumbar compression fracture Assessment and Plan: Most likely from a previous injury from a year ago. Uses rolling walker to ambulate, will get physical and occupational therapy. Tylenol 650mg prn for pain Status: Chronic Priority: Low Prophylaxis Lovenox 40mg daily, SCDs Pepcid 20mg daily Florastor 250mg POBID for probiotic <Coty Gonzalez V - Last Filed: 01/21/17 07:34> Objective - Vital Signs/Intake and Output Vital Signs (last 24 hours): Temp Pulse Resp BP Pulse Ox 98.6 F 71 20 113/71 97 01/21/17 00:00 01/21/17 00:00 01/21/17 00:00 01/21/17 00:00 01/21/17 00:00 Intake and Output: 01/21/17 01/21/17 06:59 18:59 Intake Total 520 Balance 520 - Medications Medications: Current Medications Acetaminophen (Tylenol 325mg Tab) 650 mg PO Q6 PRN PRN Reason: Pain, severe (8-10) Last Admin: 01/20/17 09:56 Dose: 650 mg Albuterol Sulfate (Albuterol 0.083% Inhal Rosina (2.5 Mg/3 Ml) Ud) 2.5 mg INH RQ4 PRN PRN Reason: Shortness of Breath Enoxaparin Sodium (Lovenox) 40 mg SC DAILY [facility] Last Admin: 01/20/17 09:54 Dose: 40 mg Famotidine (Pepcid) 20 mg PO BID [facility] Last Admin: 01/20/17 18:25 Dose: 20 mg Guaifenesin (Mucinex La) 600 mg PO BID [facility] Last Admin: 01/20/17 18:25 Dose: 600 mg Piperacillin Sod/Tazobactam Sod (Zosyn 3.375 Gm Iv Premix) 3.375 gm in 50 mls @ 100 mls/hr IVPB Q6H [facility] Last Admin: 01/21/17 01:52 Dose: 100 mls/hr Sodium Chloride (Sodium Chloride 0.9%) 1,000 mls @ 50 mls/hr IV .Q20H [facility] Last Admin: 01/21/17 06:08 Dose: 50 mls/hr Losartan Potassium (Cozaar) 50 mg PO DAILY [facility] Last Admin: 01/20/17 09:54 Dose: 50 mg Promethazine HCl/Codeine (Phenergan/Codeine Oral Syrup) 5 ml PO Q4 PRN PRN Reason: Cough Last Admin: 01/21/17 02:02 Dose: 5 ml Saccharomyces Boulardii (Florastor) 250 mg PO BID [facility] Last Admin: 01/20/17 18:25 Dose: 250 mg Timolol Maleate (Timoptic 0.5% Ophth Soln) 1 drop OD BID [facility] Last Admin: 01/20/17 18:25 Dose: 1 drop - Labs Labs: 01/20/17 04:49 01/20/17 04:49 PT 14.1 SECONDS (9.7-12.2) H 01/19/17 04:54 INR 1.3 01/19/17 04:54 APTT 31 SECONDS (21-34) 01/19/17 04:54 Attending/Attestation - Attestation I have personally seen and examined this patient.: Yes I have fully participated in the care of the patient.: Yes I have reviewed all pertinent clinical information, including history, physical exam and plan: Yes Notes (Text): This is late computer entry for 01/20/17. patient seen, examined, and case discussed with day-time resident. Patient seen in the morning with patient's daughter-in laws. In demand drilling superintendent Carmen Donaldson assisted in translation at bedside. Patient reports she is doing better. Patient has productive cough. Patient sitting up right and has mild back pain. Interventional radiology consult Dr. Neville for Kyphoplasty; to see if patient is a candidate given lumbar compression fracture and not determined to be a surgical candidate Discussed with cardiology, Dr. Long, does not believe dyspnea is related to cardiac in nature. Echo was order and reviewed by cardiology. Will continue antibiotics to cover for pneumonia. Patient's sodium improving to 125 this morning. Patient is on gentle IV hydration. Will continue to follow and discussed with nephrology. Assessment/Plan (1) Pneumonia Assessment and Plan: * Infectious Disease (Dr. Barfield) on consult * Pulmonary (Dr. Loera) on consult * Patient admitted to regular floor as an inpatient. EKG, labs, CXR and CT scan reviewed. * CT Scan (01/19/17): no evidence for significant acute pulmonary embolism ( more findings per report) * She was given Zosyn 3.375gm q6H, will continue continue this on the floor ( active since 01/19/17) * Ordered and results: Influenza test is negative, follow up Mycoplasma, Strep pneumonia, Legionella urine antigen, morning repeat CXR, morning cbc, cmp, mag, phos, blood and urine cultures. * Albuterol nebulizer q4h prn. * Mucinex 600 bid will also be given as well. * VBG in the ED showed a lactate of 2.0, repeat after 4 hours was 1.2 Status: Acute Priority: High (2) Dyspnea Assessment and Plan: * CT angio of the chest was negative for PE. She is low risk for DVT because she is mobile, arrived from [place] about a month ago, negative Jacqueline sign. * See note for pneumonia * Nebulizer q4h prn, and Mucinex 600 mg bid. * Cardiology (Dr. Long) on the case-->help appreciated * echocardiogram (01/20/17): left ventricle is normal size, normal left ventricular wall thickness, ejection fraction normal Status: Acute (3) Hyponatremia Assessment and Plan: * Nephrology (Dr. Cristina) on consult * Na was 125-->patient is on diuretic as outpatient; unclear etiology (patient clinically appears dehydrated); ordered for serum/urine and urine electrolytes * Head CT is negative for acute findings * held HCTZ * Monitor BMP Q 4 per nephrology; Patient started on low dose NS 50cc/hr Status: Acute (4) Urinary frequency Assessment and Plan: * She could have a urine tract infection or could be from medication (HCTZ) which is on hold for now. * Dr. Golden consulted for nephrology, follow up morning cmp and urine electrolytes and osmolatly. * Pending urine studies Status: Acute Priority: High (5) Headache Assessment and Plan: * CT scan of the head is negative, Tylenol 650mg Q6H prn for pain. Status: Acute (6) HTN (hypertension) Assessment and Plan: * Losartan 100mg PO daily, hold HCTZ due to hyponatremia, consider Amlodapine as second agent for now. * continue to monitor vital signs Status: Chronic Priority: Medium (7) Bilateral normal tension glaucoma, indeterminate stage Assessment and Plan: * Chronic, continue home Timolol * Cannot see out of left eye Status: Chronic Priority: Medium (8) Lumbar compression fracture Assessment and Plan: * Most likely from a previous injury from 8 years ago-->patient not a surgical candidate * Uses rolling walker to ambulate, will get physical and occupational therapy. * Interventional radiology (dr. Neville); to see if patient is candidate for kyphoplasty given pain from lumbar compression * Tylenol 650mg prn for pain Status: Chronic Priority: Low (9) Prophylactic measure Assessment and Plan: * Lovenox 40mg daily, she already received a therapeutic dose today in the Ed, SCDs * Pepcid 20mg daily * Florastor 250mg bid started for probiotic * Note: patient is hard of hearing as well as cannot see from left eye Status: Acute Priority: Medium
--- NOTE | 2017-01-20 18:17 | CP.PCM.PN ---
Subjective - Date & Time of Evaluation Date of Evaluation: 01/20/17 Time of Evaluation: 09:00 - Subjective Subjective: alert responsive no fever Objective - Vital Signs/Intake and Output Vital Signs (last 24 hours): Temp Pulse Resp BP Pulse Ox 98.1 F 66 20 107/68 97 01/20/17 15:00 01/20/17 15:00 01/20/17 15:00 01/20/17 15:00 01/20/17 15:00 Intake and Output: 01/20/17 01/20/17 06:59 18:59 Intake Total 520 880 Balance 520 880 - Medications Medications: Current Medications Acetaminophen (Tylenol 325mg Tab) 650 mg PO Q6 PRN PRN Reason: Pain, severe (8-10) Last Admin: 01/20/17 09:56 Dose: 650 mg Albuterol Sulfate (Albuterol 0.083% Inhal Rosina (2.5 Mg/3 Ml) Ud) 2.5 mg INH RQ4 PRN PRN Reason: Shortness of Breath Enoxaparin Sodium (Lovenox) 40 mg SC DAILY [facility] Last Admin: 01/20/17 09:54 Dose: 40 mg Famotidine (Pepcid) 20 mg PO BID [facility] Last Admin: 01/20/17 09:54 Dose: 20 mg Guaifenesin (Mucinex La) 600 mg PO BID [facility] Last Admin: 01/20/17 09:53 Dose: 600 mg Piperacillin Sod/Tazobactam Sod (Zosyn 3.375 Gm Iv Premix) 3.375 gm in 50 mls @ 100 mls/hr IVPB Q6H [facility] Last Admin: 01/20/17 14:34 Dose: 100 mls/hr Sodium Chloride (Sodium Chloride 0.9%) 1,000 mls @ 50 mls/hr IV .Q20H [facility] Last Admin: 01/20/17 09:55 Dose: Not Given Losartan Potassium (Cozaar) 50 mg PO DAILY [facility] Last Admin: 01/20/17 09:54 Dose: 50 mg Promethazine HCl/Codeine (Phenergan/Codeine Oral Syrup) 5 ml PO Q4 PRN PRN Reason: Cough Last Admin: 01/19/17 14:55 Dose: 5 ml Saccharomyces Boulardii (Florastor) 250 mg PO BID [facility] Last Admin: 01/20/17 09:53 Dose: 250 mg Timolol Maleate (Timoptic 0.5% Ophth Soln) 1 drop OD BID [facility] Last Admin: 01/20/17 11:00 Dose: 1 drop - Labs Labs: 01/20/17 04:49 01/20/17 04:49 PT 14.1 SECONDS (9.7-12.2) H 01/19/17 04:54 INR 1.3 01/19/17 04:54 APTT 31 SECONDS (21-34) 01/19/17 04:54 - Constitutional Appears: Non-toxic, Chronically Ill - Head Exam Head Exam: NORMOCEPHALIC - Eye Exam Eye Exam: PERRL - ENT Exam ENT Exam: Mucous Membranes Dry - Neck Exam Neck Exam: absent: Lymphadenopathy - Respiratory Exam Respiratory Exam: Decreased Breath Sounds - Cardiovascular Exam Cardiovascular Exam: REGULAR RHYTHM - GI/Abdominal Exam GI & Abdominal Exam: Distended, Soft - Rectal Exam Rectal Exam: Deferred - Exam Exam: NORMAL INSPECTION Assessment and Plan (1) Cough Status: Acute (2) Dyspnea Status: Acute (3) Headache Status: Acute (4) Pneumonia Status: Acute
--- NOTE | 2017-01-20 20:13 | CP.PCM.PN ---
Subjective - Date & Time of Evaluation Date of Evaluation: 01/20/17 Time of Evaluation: 21:30 - Subjective Subjective: Patient reports watery diarrhea today 3 times; Objective - Vital Signs/Intake and Output Vital Signs (last 24 hours): Temp Pulse Resp BP Pulse Ox 98.1 F 66 20 107/68 97 01/20/17 15:00 01/20/17 15:00 01/20/17 15:00 01/20/17 15:00 01/20/17 15:00 Intake and Output: 01/20/17 01/21/17 18:59 06:59 Intake Total 880 Balance 880 - Medications Medications: Current Medications Acetaminophen (Tylenol 325mg Tab) 650 mg PO Q6 PRN PRN Reason: Pain, severe (8-10) Last Admin: 01/20/17 09:56 Dose: 650 mg Albuterol Sulfate (Albuterol 0.083% Inhal Rosina (2.5 Mg/3 Ml) Ud) 2.5 mg INH RQ4 PRN PRN Reason: Shortness of Breath Enoxaparin Sodium (Lovenox) 40 mg SC DAILY [facility] Last Admin: 01/20/17 09:54 Dose: 40 mg Famotidine (Pepcid) 20 mg PO BID [facility] Last Admin: 01/20/17 18:25 Dose: 20 mg Guaifenesin (Mucinex La) 600 mg PO BID [facility] Last Admin: 01/20/17 18:25 Dose: 600 mg Piperacillin Sod/Tazobactam Sod (Zosyn 3.375 Gm Iv Premix) 3.375 gm in 50 mls @ 100 mls/hr IVPB Q6H [facility] Last Admin: 01/20/17 19:57 Dose: 100 mls/hr Sodium Chloride (Sodium Chloride 0.9%) 1,000 mls @ 50 mls/hr IV .Q20H [facility] Last Admin: 01/20/17 09:55 Dose: Not Given Losartan Potassium (Cozaar) 50 mg PO DAILY [facility] Last Admin: 01/20/17 09:54 Dose: 50 mg Promethazine HCl/Codeine (Phenergan/Codeine Oral Syrup) 5 ml PO Q4 PRN PRN Reason: Cough Last Admin: 01/19/17 14:55 Dose: 5 ml Saccharomyces Boulardii (Florastor) 250 mg PO BID [facility] Last Admin: 01/20/17 18:25 Dose: 250 mg Timolol Maleate (Timoptic 0.5% Oph Soln) 1 drop OD BID [facility] Last Admin: 01/20/17 18:25 Dose: 1 drop - Labs Labs: 01/20/17 04:49 01/20/17 04:49 PT 14.1 SECONDS (9.7-12.2) H 01/19/17 04:54 INR 1.3 01/19/17 04:54 APTT 31 SECONDS (21-34) 01/19/17 04:54 - Constitutional Appears: Non-toxic, No Acute Distress - Head Exam Head Exam: NORMAL INSPECTION - Eye Exam Eye Exam: Normal appearance - ENT Exam ENT Exam: Mucous Membranes Moist - Respiratory Exam Respiratory Exam: Clear to Ausculation Bilateral, NORMAL BREATHING PATTERN - Cardiovascular Exam Cardiovascular Exam: RRR, +S1, +S2 - GI/Abdominal Exam GI & Abdominal Exam: Soft. absent: Distended, Tenderness - Extremities Exam Additional comments: no leg edema; - Neurological Exam Neurological Exam: Alert, Awake - Psychiatric Exam Psychiatric exam: Normal Affect, Normal Mood - Skin Skin Exam: Warm. absent: Cyanosis Assessment and Plan (1) Hyponatremia Assessment & Plan: Likely multifactorial (excessive water intake, inadequate solute intake and being on thiazide diuretic); improving with gentle IVF at safe rate; repeat urine indices indicating some degree of volume depletion with low Ur Na of 10; -continue NS at 50 cc/hr, will likely need to increase in setting of diarrhea -continue 1500 cc PO fluid restriction Status: Acute (2) UTI (urinary tract infection) Assessment & Plan: Reports foul smelling urine; gram neg marely in Ucx, awaiting identification; on zosyn, continue, no renal dose adjustment needed for now; Status: Acute (3) Back pain Assessment & Plan: Avoid NSAIDS as this can potentiate the effect of ADH and contribute to hyponatremia; Status: Chronic (4) HTN (hypertension) Assessment & Plan: BP on lower end of normal; losartan dose already decreased to 50 mg, will decrease further to 25 mg daily; Status: Chronic
[2017-01-21] MEDS: Piperacill/Tazo 3.375gm in Dex 3.375 GM/50 ML BAG IVPB SCH ×4 (01:52→21:06)
[2017-01-21] MEDS: Promethazine/Cod 6.25mg-10mg/5ml Syr UD PO PRN ×2 (02:02→18:06)
[2017-01-21] MEDS: Sodium Chloride 0.9% 1,000 ML IV SCH ×4 (06:08→19:28)
[2017-01-21 07:59] LABS: BASO # 0.1 K/uL (0.0-0.2); BASO % 0.9 % (0.0-2.0); EOS # 0.2 K/uL (0.0-0.7); EOS % 2.7 % (0.0-4.0); HEMATOCRIT 33.1 % (34.0-47.0); LYMPH # 1.8 K/uL (1.0-4.3); LYMPH % 28.5 % (20.0-40.0); MEAN CELL VOLUME 85.5 fL (81.0-99.0); MEAN CORPUSCULAR HEMOGLOBIN 29.9 pg (27.0-31.0); MEAN CORPUSCULAR HGB CONC 34.9 g/dL (33.0-37.0); MEAN PLATELET VOLUME 8.7 fL (7.2-11.7); MONO # 0.8 K/uL (0.0-0.8); MONO % 11.7 % (0.0-10.0); RED CELL DISTRIBUTION WIDTH 14.6 % (11.5-14.5); WHITE BLOOD COUNT 6.5 K/uL (4.8-10.8)
[2017-01-21 08:09] LABS: CHLORIDE 100 mmol/L (98-107); POTASSIUM 4.1 mmol/L (3.6-5.2); SODIUM 132 mmol/L (132-148)
[2017-01-21 08:11] LABS: AST/SGOT 17 U/L (14-36); BILIRUBIN,TOTAL 0.4 mg/dL (0.2-1.3); CARBON DIOXIDE 25 mmol/L (22-30); CHOLESTEROL 100 mg/dL (0-199); GFR AFRICAN-AMERICAN > 60; TOTAL PROTEIN 5.9 g/dL (6.3-8.3)
[2017-01-21 08:12] LABS: ALKALINE PHOSPHATASE 46 U/L (38-126); ALT/SGPT 30 U/L (9-52); BLOOD UREA NITROGEN 11 mg/dL (7-17); CALCIUM 8.2 mg/dl (8.6-10.4); GLUCOSE,RANDOM 71 mg/dL (65-105); MAGNESIUM 1.7 mg/dL (1.6-2.3)
[2017-01-21] MEDS: Enoxaparin 40 mg Syringe SC SCH (09:58)
[2017-01-21] MEDS: guaiFENesin 600 mg ER Tab PO SCH ×2 (09:58→18:04)
[2017-01-21] MEDS: Saccharomyces Boulardi 250 mg Cap PO SCH ×2 (09:58→18:04)
--- NOTE | 2017-01-21 11:20 | CP.PCM.PN ---
Subjective - Date & Time of Evaluation Date of Evaluation: 01/21/17 Time of Evaluation: 07:00 - Subjective Subjective: Lyndsey Flanagan DO PGY1 - Cardiology Progress Note for Dr. Long Patient seen and examined at bedside. No events overnight. Patient reports improved chest pain, cough, and shortness of breath. She is again complaining of low back pain and pain the soles of her feet. Denies palpitations. Objective - Vital Signs/Intake and Output Vital Signs (last 24 hours): Temp Pulse Resp BP Pulse Ox 97.7 F 62 20 107/61 98 01/21/17 08:25 01/21/17 08:25 01/21/17 08:25 01/21/17 08:25 01/21/17 08:25 Intake and Output: 01/21/17 01/21/17 06:59 18:59 Intake Total 520 Balance 520 - Medications Medications: Current Medications Acetaminophen (Tylenol 325mg Tab) 650 mg PO Q6 PRN PRN Reason: Pain, severe (8-10) Last Admin: 01/21/17 09:58 Dose: 650 mg Albuterol Sulfate (Albuterol 0.083% Inhal Rosina (2.5 Mg/3 Ml) Ud) 2.5 mg INH RQ4 PRN PRN Reason: Shortness of Breath Enoxaparin Sodium (Lovenox) 40 mg SC DAILY [facility] Last Admin: 01/21/17 09:58 Dose: 40 mg Famotidine (Pepcid) 20 mg PO BID [facility] Last Admin: 01/21/17 09:58 Dose: 20 mg Guaifenesin (Mucinex La) 600 mg PO BID [facility] Last Admin: 01/21/17 09:58 Dose: 600 mg Piperacillin Sod/Tazobactam Sod (Zosyn 3.375 Gm Iv Premix) 3.375 gm in 50 mls @ 100 mls/hr IVPB Q6H [facility] Last Admin: 01/21/17 08:45 Dose: 100 mls/hr Sodium Chloride (Sodium Chloride 0.9%) 1,000 mls @ 100 mls/hr IV .Q10H [facility] Last Admin: 01/21/17 10:14 Dose: Not Given Losartan Potassium (Cozaar) 25 mg PO DAILY [facility] Last Admin: 01/21/17 09:58 Dose: 25 mg Promethazine HCl/Codeine (Phenergan/Codeine Oral Syrup) 5 ml PO Q4 PRN PRN Reason: Cough Last Admin: 01/21/17 02:02 Dose: 5 ml Saccharomyces Boulardii (Florastor) 250 mg PO BID [facility] Last Admin: 01/21/17 09:58 Dose: 250 mg Timolol Maleate (Timoptic 0.5% Ophth Soln) 1 drop OD BID [facility] Last Admin: 01/21/17 10:00 Dose: 1 drop - Labs Labs: 01/21/17 07:47 01/21/17 07:47 PT 14.1 SECONDS (9.7-12.2) H 01/19/17 04:54 INR 1.3 01/19/17 04:54 APTT 31 SECONDS (21-34) 01/19/17 04:54 - Constitutional Appears: Non-toxic, No Acute Distress - Head Exam Head Exam: ATRAUMATIC, NORMOCEPHALIC - Eye Exam Eye Exam: EOMI, Normal appearance - ENT Exam ENT Exam: Mucous Membranes Moist - Neck Exam Neck Exam: Normal Inspection - Respiratory Exam Respiratory Exam: Rhonchi (RLL, minimal), NORMAL BREATHING PATTERN - Cardiovascular Exam Cardiovascular Exam: RRR, +S1, +S2 - GI/Abdominal Exam GI & Abdominal Exam: Soft. absent: Tenderness - Extremities Exam Extremities Exam: absent: Calf Tenderness, Pedal Edema - Neurological Exam Neurological Exam: Alert, Awake, Oriented x3 - Psychiatric Exam Psychiatric exam: Normal Affect, Normal Mood - Skin Skin Exam: Dry, Intact Assessment and Plan - Assessment and Plan (Free Text) Assessment: 81 yo F with PMH significant for HTN, glaucoma, and seasonal allergies presents with cough and worsening SOB Plan: 1. Dyspnea and cough - Patient has baseline dyspnea with minimal activity, was only able to walk 10 steps with physical therapy before become short of breath, but patient is very inactive at home, due to lumbar compression fracture and chronic back pain - Dyspnea acutely worsened in the past few days, associated with cough and chills; one sick contact with similar symptoms - Echo complete, normal LVEF with normal filling pressures - BNP normal x2 - Based on presentation, history, physical exam, EKG, echo, and labs, patient unlikely to have primary ischemic etiology for dyspnea or cough - Baseline dyspnea more likely 2/2 deconditioning - Worsening dyspnea and cough more likely 2/2 acute viral respiratory tract infection - Per consensus guidelines, ASA not recommended for primary prevention in patients greater than 75 years age - Lipid panel obtained today WNL, does not require lipid lowering therapy - ID and pulm consulted, appreciate recs 2. HTN - Patient reportedly takes losartan 100mg and HCTZ 25mg daily at home - HCTZ held per nephrology, considering polyuria and hyponatremia, as below - Currently on losartan 25mg; agree with reduced dose - BP well controlled - Continue to monitor BP and titrate medications as needed 3. Hyponatremia - Patient presented with Na 121, likely multifactorial 2/2 primary polydipsia, poor solute intake, and HCTZ - Nephro on consult, appreciate recs Patient stable for discharge from cardiovascular perspective, and dyspnea and cough unlikely to be 2/2 cardiac etiology, and history, physical, and results of current workup do not indicate a need for further cardiac workup. We will sign off on this patient, if clinical status changes, please reconsult. Patient seen, discussed, and reviewed with attending
--- NOTE | 2017-01-21 14:21 | PCM.IRP ---
History of Present Illness - History of Present Illness History of Present Illness: IR requested to evaluate Pt for L1 compression fracture. Pt with vertebral plana L1 age indeterminate. This fracture is not amenable to kyphoplasty or vertebroplasty. Objective - Vital Signs/Intake and Output Vital Signs (last 24 hours): Vital Signs - 24 hr 01/20/17 01/21/17 01/21/17 15:00 00:00 08:25 Temperature 98.1 F 98.6 F 97.7 F Pulse Rate 66 71 62 Respiratory 20 20 20 Rate Blood Pressure 107/68 113/71 107/61 O2 Sat by Pulse 97 97 98 Oximetry Intake and Output (last 12 hours): Intake & Output 01/20/17 01/21/17 01/21/17 18:59 06:59 18:59 Intake Total 880 520 Balance 880 520 Intake: Intake, IV Amount 400 400 Right Forearm 400 400 Oral 480 120 Other: # Voids Urine, Voided 2 3 # Bowel Movements 0 1 - Medications Medications: Current Medications Acetaminophen (Tylenol 325mg Tab) 650 mg PO Q6 PRN PRN Reason: Pain, severe (8-10) Last Admin: 01/21/17 09:58 Dose: 650 mg Albuterol Sulfate (Albuterol 0.083% Inhal Rosina (2.5 Mg/3 Ml) Ud) 2.5 mg INH RQ4 PRN PRN Reason: Shortness of Breath Enoxaparin Sodium (Lovenox) 40 mg SC DAILY [facility] Last Admin: 01/21/17 09:58 Dose: 40 mg Famotidine (Pepcid) 20 mg PO BID [facility] Last Admin: 01/21/17 09:58 Dose: 20 mg Guaifenesin (Mucinex La) 600 mg PO BID [facility] Last Admin: 01/21/17 09:58 Dose: 600 mg Piperacillin Sod/Tazobactam Sod (Zosyn 3.375 Gm Iv Premix) 3.375 gm in 50 mls @ 100 mls/hr IVPB Q6H [facility] Last Admin: 01/21/17 13:58 Dose: 100 mls/hr Sodium Chloride (Sodium Chloride 0.9%) 1,000 mls @ 100 mls/hr IV .Q10H [facility] Last Admin: 01/21/17 10:14 Dose: Not Given Losartan Potassium (Cozaar) 25 mg PO DAILY [facility] Last Admin: 01/21/17 09:58 Dose: 25 mg Ondansetron HCl (Zofran Inj) 4 mg IVP Q6H PRN PRN Reason: Nausea/Vomiting Promethazine HCl/Codeine (Phenergan/Codeine Oral Syrup) 5 ml PO Q4 PRN PRN Reason: Cough Last Admin: 01/21/17 02:02 Dose: 5 ml Saccharomyces Boulardii (Florastor) 250 mg PO BID [facility] Last Admin: 01/21/17 09:58 Dose: 250 mg Timolol Maleate (Timoptic 0.5% Ophth Soln) 1 drop OD BID [facility] Last Admin: 01/21/17 10:00 Dose: 1 drop - Labs Labs (last 24 hours): Laboratory Results - last 24 hr 01/20/17 01/21/17 01/21/17 14:39 07:47 07:47 WBC 6.5 RBC 3.87 Hgb 11.6 Hct 33.1 L MCV 85.5 MCH 29.9 MCHC 34.9 RDW 14.6 H Plt Count 181 MPV 8.7 Neut % (Auto) 56.2 Lymph % (Auto) 28.5 Greer % (Auto) 11.7 H Eos % (Auto) 2.7 Baso % (Auto) 0.9 Neut # 3.6 Lymph # 1.8 Greer # 0.8 Eos # 0.2 Baso # 0.1 Sodium 132 Potassium 4.1 Chloride 100 Carbon Dioxide 25 Anion Gap 11 BUN 11 Creatinine 0.7 Est GFR ( Amer) > 60 Est GFR (Non-Af Amer) > 60 Random Glucose 71 Calcium 8.2 L Magnesium 1.7 Total Bilirubin 0.4 AST 17 ALT 30 Alkaline Phosphatase 46 NT-Pro-B Natriuret Pep 347 Total Protein 5.9 L Albumin 3.0 L Globulin 2.9 Albumin/Globulin Ratio 1.0 Triglycerides 60 Cholesterol 100 LDL Cholesterol Direct 46 HDL Cholesterol 42
--- NOTE | 2017-01-21 16:19 | CP.PCM.PN ---
<Jasmyne Ramirez - Last Filed: 01/21/17 17:57> Subjective - Date & Time of Evaluation Date of Evaluation: 01/21/17 Time of Evaluation: 16:16 - Subjective Subjective: Progress note for Dr. Gonzalez Patient seen and examined at bedside. Patient states she does is coughing. Patient states she's feeling better. Patient had 3 boughts of watery diarrhea yesterday. Patient denies fever, chills , nausea, vomiting. Patient still coughing, short of breath at times. Objective - Vital Signs/Intake and Output Vital Signs (last 24 hours): Temp Pulse Resp BP Pulse Ox 97.6 F 70 20 108/66 98 01/21/17 15:00 01/21/17 15:00 01/21/17 15:00 01/21/17 15:00 01/21/17 15:00 Intake and Output: 01/21/17 01/21/17 06:59 18:59 Intake Total 520 1000 Balance 520 1000 - Medications Medications: Current Medications Acetaminophen (Tylenol 325mg Tab) 650 mg PO Q6 PRN PRN Reason: Pain, severe (8-10) Last Admin: 01/21/17 09:58 Dose: 650 mg Albuterol Sulfate (Albuterol 0.083% Inhal Rosina (2.5 Mg/3 Ml) Ud) 2.5 mg INH RQ4 PRN PRN Reason: Shortness of Breath Enoxaparin Sodium (Lovenox) 40 mg SC DAILY [facility] Last Admin: 01/21/17 09:58 Dose: 40 mg Famotidine (Pepcid) 20 mg PO BID [facility] Last Admin: 01/21/17 09:58 Dose: 20 mg Guaifenesin (Mucinex La) 600 mg PO BID [facility] Last Admin: 01/21/17 09:58 Dose: 600 mg Piperacillin Sod/Tazobactam Sod (Zosyn 3.375 Gm Iv Premix) 3.375 gm in 50 mls @ 100 mls/hr IVPB Q6H [facility] Last Admin: 01/21/17 13:58 Dose: 100 mls/hr Sodium Chloride (Sodium Chloride 0.9%) 1,000 mls @ 100 mls/hr IV .Q10H [facility] Last Admin: 01/21/17 10:14 Dose: Not Given Losartan Potassium (Cozaar) 25 mg PO DAILY [facility] Last Admin: 01/21/17 09:58 Dose: 25 mg Ondansetron HCl (Zofran Inj) 4 mg IVP Q6H PRN PRN Reason: Nausea/Vomiting Promethazine HCl/Codeine (Phenergan/Codeine Oral Syrup) 5 ml PO Q4 PRN PRN Reason: Cough Last Admin: 01/21/17 02:02 Dose: 5 ml Saccharomyces Boulardii (Florastor) 250 mg PO BID [facility] Last Admin: 01/21/17 09:58 Dose: 250 mg Timolol Maleate (Timoptic 0.5% Ophth Soln) 1 drop OD BID [facility] Last Admin: 01/21/17 10:00 Dose: 1 drop - Labs Labs: 01/21/17 07:47 01/21/17 07:47 PT 14.1 SECONDS (9.7-12.2) H 01/19/17 04:54 INR 1.3 01/19/17 04:54 APTT 31 SECONDS (21-34) 01/19/17 04:54 - Constitutional Appears: Non-toxic - Head Exam Head Exam: NORMAL INSPECTION - Eye Exam Eye Exam: EOMI, Normal appearance - ENT Exam ENT Exam: Mucous Membranes Moist - Neck Exam Neck Exam: Full ROM - Respiratory Exam Respiratory Exam: Rales. absent: Chest Wall Tenderness, Decreased Breath Sounds - Cardiovascular Exam Cardiovascular Exam: REGULAR RHYTHM, +S1, +S2 - Extremities Exam Extremities Exam: Full ROM. absent: Pedal Edema - Neurological Exam Neurological Exam: Awake - Psychiatric Exam Psychiatric exam: Normal Affect, Normal Mood - Skin Skin Exam: Dry, Intact, Normal Color, Warm Assessment and Plan - Assessment and Plan (Free Text) Assessment: (1) Pneumonia Assessment and Plan: Patient admitted to regular floor as an inpatient. EKG, labs, CXR and CT scan reviewed. She was given Zosyn 3.375gm q6H, will continue continue this on the floor. Influenza test is negative, follow up Mycoplasma, Strep pneumonia, Legionella urine antigen, morning repeat CXR, morning cbc, cmp, mag, phos, blood and urine cultures. Dr. Barfield and Dr. Loera consulted. Albuterol nebulizer q4h prn. Mucinex 600 bid will also be given as well. VBG in the ED showed a lactate of 2.0, repeat after 4 hours was 1.2 (2) Dyspnea Assessment and Plan: CT angio of the chest was negative for PE. She is low risk for DVT because she is mobile, arrived from [place] about a month ago, negative Jacqueline sign. 01/20 CXR venous congestion, right hilar prominence, patchy increased markings at left lung base. calcification at aortic knob 01/19 EKG: NSR @ 76 10 CXR: no significant appearing consolidation appreciated. asymmetrically elevated right hemidiaphragm. minimal small posterior dependent effusions cannot be excluded See note for pneumonia Nebulizer q4h prn, and Mucinex 600 mg bid. (3) Hyponatremia Assessment and Plan: ED Na was 121 could be secondary to polydipsia, diuretic use, or SIADH HCTZ held. Dr. Cristina consulted, Urine Electrolytes 01/19 BMP at 1230 showed Na 123 which is an increase from 121 and her K is down to 3.2 from 3.8, have started NS at 50 cc/hr and also given 40 meq of potassium. Follow up BMP Q4H monitor sodium level, should not increase too fast (4) Urinary frequency Assessment and Plan: from UTI Urine E. coli positive Dr. Golden consulted for nephrology, follow up morning cmp and urine electrolytes and osmolatly. 10 Urine Osm 169 10/10 Urine Na 28 10/11 Urine Osm 150 10/10 Urine Na 10 (5) Headache Assessment and Plan: 01/19 CT Head: no definite acute intracranial findings. age-appropriate age related neuro degenerative changes Tylenol 650mg Q6H prn for pain. (6) HTN (hypertension) Assessment and Plan: Losartan 100mg, hold HCTZ due to hyponatremia consider Amlodipine as second agent for now. (7) Bilateral normal tension glaucoma, indeterminate stage Assessment and Plan: Chronic, continue home Timolol (8) Lumbar compression fracture Assessment and Plan: Most likely from a previous injury from a year ago. Uses rolling walker to ambulate, will get physical and occupational therapy. 01/[address] Neville IR Consult: L1 age indeterminate. This fracture is not amenable to kyphoplasty or vertebroplasty. Tylenol 650mg PRN for pain Prophylaxis Lovenox 40mg daily, SCDs Pepcid 20mg daily Florastor 250mg POBID for probiotic discussed with Dr. Lisa Ramirez, DO PGY1 <Coty Gonzalez V - Last Filed: 01/22/17 22:04> Objective - Vital Signs/Intake and Output Vital Signs (last 24 hours): Temp Pulse Resp BP Pulse Ox 97.7 F 74 20 128/72 96 01/22/17 07:23 01/22/17 07:23 01/22/17 07:23 01/22/17 07:23 01/22/17 07:23 Intake and Output: 01/22/17 01/23/17 18:59 06:59 Intake Total 1880 Balance 1880 - Labs Labs: 01/22/17 07:30 01/22/17 07:30 PT 14.1 SECONDS (9.7-12.2) H 01/19/17 04:54 INR 1.3 01/19/17 04:54 APTT 31 SECONDS (21-34) 01/19/17 04:54 Attending/Attestation - Attestation I have personally seen and examined this patient.: Yes I have fully participated in the care of the patient.: Yes I have reviewed all pertinent clinical information, including history, physical exam and plan: Yes Notes (Text): This is late computer entry for 01/21/17. patient seen, examined, and case discussed with day-time resident. Patient seen and reports cough is improving. Pending urine culture and sensitivity-->Will not be ready until tomorrow morning Interventional radiology consult Dr. Neville for Kyphoplasty-->patient is not a candidate; help appreciated Cardiology signed off the case. Help appreciated. Patient is currently on IV abx to cover for community acquired pneumonia Sodium normalized today. Patient is currently on fluid restriction, lower dose of Cozaar and recommended to stop diuretic which has been. Disposition: patient is a possible discharge tomorrow following completion of urine culture results. Assessment/Plan (1) Pneumonia Assessment and Plan: * Infectious Disease (Dr. Barfield) on consult * Pulmonary (Dr. Loera) on consult * Patient admitted to regular floor as an inpatient. EKG, labs, CXR and CT scan reviewed. * CT Scan (01/19/17): no evidence for significant acute pulmonary embolism ( more findings per report) * She was given Zosyn 3.375gm q6H, will continue continue this on the floor ( active since 01/19/17) * Influenza test is negative, follow up Mycoplasma: negative, Strep pneumonia, Legionella urine antigen: negative * Albuterol nebulizer q4h prn. * Mucinex 600 bid will also be given as well. * VBG in the ED showed a lactate of 2.0, repeat after 4 hours was 1.2 Status: Acute Priority: High (2) Dyspnea Assessment and Plan: * CT angio of the chest was negative for PE. She is low risk for DVT because she is mobile, arrived from [place] about a month ago, negative Jacqueline sign. * See note for pneumonia * Nebulizer q4h prn, and Mucinex 600 mg bid. * Cardiology (Dr. Long) on the case-->help appreciated-->signed off * echocardiogram (01/20/17): left ventricle is normal size, normal left ventricular wall thickness, ejection fraction normal Status: Acute (3) Hyponatremia Assessment and Plan: * Nephrology (Dr. Cristina) on consult * Na was 132 * Head CT is negative for acute findings * held HCTZ on admission * On fluid restriction Status: Acute (4) Urinary frequency Assessment and Plan: * She could have a urine tract infection or could be from medication (HCTZ) which is on hold for now. * Urine culture pending final tomorrow. patient is on Zosyn since admission. * Dr. Golden consulted for nephrology, follow up morning cmp and urine electrolytes and osmolatly. Status: Acute Priority: High (5) Headache Assessment and Plan: * CT scan of the head is negative, Tylenol 650mg Q6H prn for pain. Status: Acute (6) HTN (hypertension) Assessment and Plan: * Losartan 25mg PO daily, hold HCTZ due to hyponatremia, consider Amlodapine as second agent for now. * continue to monitor vital signs Status: Chronic Priority: Medium (7) Bilateral normal tension glaucoma, indeterminate stage Assessment and Plan: * Chronic, continue home Timolol * Cannot see out of left eye Status: Chronic Priority: Medium (8) Lumbar compression fracture Assessment and Plan: * Most likely from a previous injury from 8 years ago-->patient not a surgical candidate * Uses can not rolling walker to ambulate, physical therapy provided rolling walker on discharge * Interventional radiology (dr. Neville); to see if patient is candidate for kyphoplasty given pain from lumbar compression-->patient is not a candidate * Tylenol 650mg prn for pain Status: Chronic Priority: Low (9) Prophylactic measure Assessment and Plan: * Lovenox 40mg daily, she already received a therapeutic dose today in the Ed on admission, SCDs * Pepcid 20mg daily * Florastor 250mg bid started for probiotic * Note: patient is hard of hearing as well as cannot see from left eye * Flu and pneumonia vaccine held since patient is admitted for possible pneumonia/bronchitis picture-->recommended to have flu and pneumonia vaccines on follow-up from the hospital upon discharge Status: Acute Priority: Medium
[2017-01-22] MEDS: Piperacill/Tazo 3.375gm in Dex 3.375 GM/50 ML BAG IVPB SCH ×3 (01:57→13:57)
[2017-01-22] MEDS: Sodium Chloride 0.9% 1,000 ML IV SCH ×2 (02:00→05:20)
[2017-01-22] MEDS: Promethazine/Cod 6.25mg-10mg/5ml Syr UD PO PRN (03:04)
[2017-01-22 07:23] VITALS: BP 128/72; PULSE 74; TEMP 97.7; O2SAT 96
[2017-01-22 07:48] LABS: BASO # 0.1 K/uL (0.0-0.2); BASO % 1.2 % (0.0-2.0); EOS # 0.2 K/uL (0.0-0.7); EOS % 2.5 % (0.0-4.0); HEMATOCRIT 33.1 % (34.0-47.0); LYMPH # 1.9 K/uL (1.0-4.3); LYMPH % 29.2 % (20.0-40.0); MEAN CELL VOLUME 86.5 fL (81.0-99.0); MEAN CORPUSCULAR HEMOGLOBIN 29.6 pg (27.0-31.0); MEAN CORPUSCULAR HGB CONC 34.2 g/dL (33.0-37.0); MEAN PLATELET VOLUME 8.6 fL (7.2-11.7); MONO # 0.8 K/uL (0.0-0.8); MONO % 12.2 % (0.0-10.0); NRBC % 0.1 % (0.0-2.0); RED CELL DISTRIBUTION WIDTH 14.6 % (11.5-14.5); WHITE BLOOD COUNT 6.4 K/uL (4.8-10.8)
[2017-01-22 08:09] LABS: CHLORIDE 102 mmol/L (98-107)
[2017-01-22 08:10] LABS: POTASSIUM 4.3 mmol/L (3.6-5.2); SODIUM 134 mmol/L (132-148)
[2017-01-22 08:12] LABS: ALKALINE PHOSPHATASE 44 U/L (38-126); ALT/SGPT 25 U/L (9-52); AST/SGOT 21 U/L (14-36); BILIRUBIN,TOTAL 0.5 mg/dL (0.2-1.3); BLOOD UREA NITROGEN 10 mg/dL (7-17); CALCIUM 8.6 mg/dl (8.6-10.4); CARBON DIOXIDE 24 mmol/L (22-30); GFR AFRICAN-AMERICAN > 60; GLUCOSE,RANDOM 71 mg/dL (65-105)
[2017-01-22] MEDS ORDERED: Pneumococcal 23-Valent Vaccine IM ONE (10:00)
[2017-01-22] MEDS ORDERED: Influenza Vaccine 60 mcg/0.5 mL SYR (4YR UP) IM ONE (10:00)
[2017-01-22] MEDS: Enoxaparin 40 mg Syringe SC SCH (11:14)
[2017-01-22] MEDS: guaiFENesin 600 mg ER Tab PO SCH (11:15)
[2017-01-22] MEDS: Saccharomyces Boulardi 250 mg Cap PO SCH (11:17)
--- NOTE | 2017-01-22 16:34 | CP.PCM.PN ---
Subjective - Date & Time of Evaluation Date of Evaluation: 01/22/17 Time of Evaluation: 15:00 - Subjective Subjective: 81 yo F w/ pmh of htn, presented with cough, admitted with hyponatremia, possible UTI; Patient reports feeling well; no shortness of breath; Objective - Vital Signs/Intake and Output Vital Signs (last 24 hours): Temp Pulse Resp BP Pulse Ox 97.7 F 74 20 128/72 96 01/22/17 07:23 01/22/17 07:23 01/22/17 07:23 01/22/17 07:23 01/22/17 07:23 Intake and Output: 01/22/17 01/22/17 06:59 18:59 Intake Total 800 1880 Balance 800 1880 - Medications Medications: Current Medications Acetaminophen (Tylenol 325mg Tab) 650 mg PO Q6 PRN PRN Reason: Pain, severe (8-10) Last Admin: 01/21/17 09:58 Dose: 650 mg Albuterol Sulfate (Albuterol 0.083% Inhal Rosina (2.5 Mg/3 Ml) Ud) 2.5 mg INH RQ4 PRN PRN Reason: Shortness of Breath Enoxaparin Sodium (Lovenox) 40 mg SC DAILY [facility] Last Admin: 01/22/17 11:14 Dose: 40 mg Famotidine (Pepcid) 20 mg PO BID [facility] Last Admin: 01/22/17 11:15 Dose: 20 mg Guaifenesin (Mucinex La) 600 mg PO BID [facility] Last Admin: 01/22/17 11:15 Dose: 600 mg Piperacillin Sod/Tazobactam Sod (Zosyn 3.375 Gm Iv Premix) 3.375 gm in 50 mls @ 100 mls/hr IVPB Q6H [facility] Last Admin: 01/22/17 13:57 Dose: 100 mls/hr Sodium Chloride (Sodium Chloride 0.9%) 1,000 mls @ 100 mls/hr IV .Q10H [facility] Last Admin: 01/22/17 05:20 Dose: Not Given Losartan Potassium (Cozaar) 25 mg PO DAILY [facility] Last Admin: 01/22/17 11:15 Dose: 25 mg Ondansetron HCl (Zofran Inj) 4 mg IVP Q6H PRN PRN Reason: Nausea/Vomiting Promethazine HCl/Codeine (Phenergan/Codeine Oral Syrup) 5 ml PO Q4 PRN PRN Reason: Cough Last Admin: 01/22/17 03:04 Dose: 5 ml Saccharomyces Boulardii (Florastor) 250 mg PO BID [facility] Last Admin: 01/22/17 11:17 Dose: 250 mg Timolol Maleate (Timoptic 0.5% Ophth Soln) 1 drop OD BID [facility] Last Admin: 01/22/17 11:13 Dose: 1 drop - Labs Labs: 01/22/17 07:30 01/22/17 07:30 PT 14.1 SECONDS (9.7-12.2) H 01/19/17 04:54 INR 1.3 01/19/17 04:54 APTT 31 SECONDS (21-34) 01/19/17 04:54 - Constitutional Appears: Well, Non-toxic, No Acute Distress - Eye Exam Eye Exam: absent: Scleral icterus - ENT Exam ENT Exam: Mucous Membranes Moist - Respiratory Exam Respiratory Exam: Clear to Ausculation Bilateral, NORMAL BREATHING PATTERN. absent: Rales, Rhonchi, Wheezes, Respiratory Distress - Cardiovascular Exam Cardiovascular Exam: RRR, +S1, +S2 - GI/Abdominal Exam GI & Abdominal Exam: Soft. absent: Distended, Tenderness - Extremities Exam Additional comments: no leg edema; - Neurological Exam Neurological Exam: Alert, Awake - Psychiatric Exam Psychiatric exam: Normal Affect, Normal Mood - Skin Skin Exam: Normal Color, Warm. absent: Cyanosis Assessment and Plan (1) Hyponatremia Assessment & Plan: Resolving; likely secondary to inadequate solute intake along with being on thiazide diuretic and drinking excessive water; improving with NS; -patient counseled on better dietary intake as well as decreasing free water intake to <2L per day; Status: Acute (2) UTI (urinary tract infection) Assessment & Plan: Treated; <10,000 CFU but unclear if culture taken after abx; Status: Acute (3) Back pain Status: Chronic (4) HTN (hypertension) Assessment & Plan: BP too tightly controlled with home regimen of losartan-hctz; hctz stopped, leaving on losartan 25 mg daily; needs outpatient f/u; Status: Chronic
--- NOTE | 2017-01-22 22:58 | CP.PCM.DIS ---
Provider - Provider Date of Admission: 01/19/17 06:18 Attending physician: Coty Gonzalez DO Consults: Pulmonology Consult: Dr. Loera Infectious disease consult: Dr. Barfield Cardiology consult: Dr. Long Time Spent in preparation of Discharge (in minutes): 34 Hospital Course - Lab Results Lab Results: Micro Results 01/19/17 08:11 Urine,Catheterized Urine Culture - Final Escherichia Coli 01/19/17 05:00 Blood Blood Culture - Preliminary NO GROWTH AFTER 3 DAYS 01/19/17 04:30 Blood Blood Culture - Preliminary NO GROWTH AFTER 3 DAYS Most Recent Lab Values WBC 6.4 K/uL (4.8-10.8) 01/22/17 07:30 RBC 3.82 Mil/uL (3.80-5.20) 01/22/17 07:30 Hgb 11.3 g/dL (11.0-16.0) 01/22/17 07:30 Hct 33.1 % (34.0-47.0) L 01/22/17 07:30 MCV 86.5 fL (81.0-99.0) 01/22/17 07:30 MCH 29.6 pg (27.0-31.0) 01/22/17 07:30 MCHC 34.2 g/dL (33.0-37.0) 01/22/17 07:30 RDW 14.6 % (11.5-14.5) H 01/22/17 07:30 Plt Count 195 K/uL (130-400) 01/22/17 07:30 MPV 8.6 fL (7.2-11.7) 01/22/17 07:30 Neut % (Auto) 54.9 % (50.0-75.0) 01/22/17 07:30 Lymph % (Auto) 29.2 % (20.0-40.0) 01/22/17 07:30 [place] % (Auto) 12.2 % (0.0-10.0) H 01/22/17 07:30 Eos % (Auto) 2.5 % (0.0-4.0) 01/22/17 07:30 Baso % (Auto) 1.2 % (0.0-2.0) 01/22/17 07:30 Neut # 3.5 K/uL (1.8-7.0) 01/22/17 07:30 Lymph # 1.9 K/uL (1.0-4.3) 01/22/17 07:30 [place] # 0.8 K/uL (0.0-0.8) 01/22/17 07:30 Eos # 0.2 K/uL (0.0-0.7) 01/22/17 07:30 Baso # 0.1 K/uL (0.0-0.2) 01/22/17 07:30 PT 14.1 SECONDS (9.7-12.2) H 01/19/17 04:54 INR 1.3 01/19/17 04:54 APTT 31 SECONDS (21-34) 01/19/17 04:54 Puncture Site Rra 01/20/17 01:15 pCO2 39 mm/Hg (35-45) 01/20/17 01:15 pO2 88 mm/Hg (80-100) 01/20/17 01:15 HCO3 26.1 mmol/L (21-28) 01/20/17 01:15 ABG pH 7.43 (7.35-7.45) 01/20/17 01:15 ABG Total CO2 27.1 mmol/L (22-28) 01/20/17 01:15 ABG O2 Saturation 97.4 % (95-98) 01/20/17 01:15 ABG Base Excess 1.5 mmol/L (-2.0-3.0) 01/20/17 01:15 ABG Hemoglobin 10.7 g/dL (11.7-17.4) L 01/20/17 01:15 ABG Carboxyhemoglobin 0.8 % (0.5-1.5) 01/20/17 01:15 POC ABG HHb (Measured) 2.6 % (0.0-5.0) 01/20/17 01:15 ABG Methemoglobin 0.9 % (0.0-3.0) 01/20/17 01:15 [place] Test Yes 01/20/17 01:15 VBG pH 7.43 (7.32-7.43) 01/19/17 09:03 VBG pCO2 43 mmHg (40-60) 01/19/17 09:03 VBG HCO3 27.0 mmol/L 01/19/17 09:03 VBG Total CO2 29.8 mmol/L (22-28) H 01/19/17 09:03 VBG O2 Sat (Calc) 69.9 % (40-65) H 01/19/17 09:03 VBG Base Excess 3.7 mmol/L (0.0-2.0) H 01/19/17 09:03 VBG Potassium 2.7 mmol/L (3.6-5.2) L 01/19/17 09:03 Hgb O2 Saturation 95.7 % (95.0-98.0) 01/20/17 01:15 Sodium 128.0 mmol/l (132-148) L 01/19/17 09:03 Chloride 94.0 mmol/L (98-107) L 01/19/17 09:03 Glucose 124 mg/dl (65-105) H 01/19/17 09:03 Lactate 1.2 mmol/L (0.7-2.1) 01/19/17 09:03 Liter Flow 21.0 01/20/17 01:15 Sodium 134 mmol/L (132-148) 01/22/17 07:30 Potassium 4.3 mmol/L (3.6-5.2) 01/22/17 07:30 Chloride 102 mmol/L (98-107) 01/22/17 07:30 Carbon Dioxide 24 mmol/L (22-30) 01/22/17 07:30 Anion Gap 12 (10-20) 01/22/17 07:30 BUN 10 mg/dL (7-17) 01/22/17 07:30 Creatinine 0.8 mg/dL (0.7-1.2) 01/22/17 07:30 Est GFR ( Amer) > 60 01/22/17 07:30 Est GFR (Non-Af Amer) > 60 01/22/17 07:30 Random Glucose 71 mg/dL (65-105) 01/22/17 07:30 Serum Osmolality 267 mosm/kg (272-300) L 01/19/17 09:03 Calcium 8.6 mg/dl (8.6-10.4) 01/22/17 07:30 Phosphorus 2.9 mg/dL (2.5-4.5) 01/20/17 04:49 Magnesium 1.7 mg/dL (1.6-2.3) 01/21/17 07:47 Total Bilirubin 0.5 mg/dL (0.2-1.3) 01/22/17 07:30 AST 21 U/L (14-36) 01/22/17 07:30 ALT 25 U/L (9-52) 01/22/17 07:30 Alkaline Phosphatase 44 U/L (38-126) 01/22/17 07:30 Troponin I < 0.0120 ng/mL (0.00-0.120) 01/19/17 04:45 NT-Pro-B Natriuret Pep 347 pg/mL (0-900) 01/20/17 14:39 Total Protein 6.0 g/dL (6.3-8.3) L 01/22/17 07:30 Albumin 3.1 g/dL (3.5-5.0) L 01/22/17 07:30 Globulin 3.0 gm/dL (2.2-3.9) 01/22/17 07:30 Albumin/Globulin Ratio 1.0 (1.0-2.1) 01/22/17 07:30 Triglycerides 60 mg/dL (0-149) 01/21/17 07:47 Cholesterol 100 mg/dL (0-199) 01/21/17 07:47 LDL Cholesterol Direct 46 mg/dL (0-129) 01/21/17 07:47 HDL Cholesterol 42 mg/dL (30-70) 01/21/17 07:47 Venous Blood Potassium 2.7 mmol/L (3.6-5.2) L 01/19/17 09:03 Urine Color Straw (YELLOW) 01/19/17 05:21 Urine Clarity Clear (Clear) 01/19/17 05:21 Urine pH 8.0 (5.0-8.0) 01/19/17 05:21 Ur Specific Blanket 1.004 (1.003-1.030) 01/19/17 05:21 Urine Protein Negative mg/dL (NEGATIVE) 01/19/17 05:21 Urine Glucose (UA) Normal mg/dL (Normal) 01/19/17 05:21 Urine Ketones Negative mg/dL (NEGATIVE) 01/19/17 05:21 Urine Blood Negative (NEGATIVE) 01/19/17 05:21 Urine Nitrate Negative (NEGATIVE) 01/19/17 05:21 Urine Bilirubin Negative (NEGATIVE) 01/19/17 05:21 Urine Urobilinogen Normal mg/dL (0.2-1.0) 01/19/17 05:21 Ur Leukocyte Esterase 2+ Meka/uL (Negative) H 01/19/17 05:21 Urine WBC (Auto) 8 /hpf (0-5) H 01/19/17 05:21 Urine RBC (Auto) < 1 /hpf (0-3) 01/19/17 05:21 Ur Squamous Epith Cells < 1 /hpf (0-5) 01/19/17 05:21 Urine Bacteria Rare (<OCC) 01/19/17 05:21 Urine Osmolality 158 mosm/kg (300-1000) L 01/20/17 13:10 Ur Random Sodium 10 mmol/L 01/20/17 13:10 Influenza Typ A,B (EIA) Negative for flu a/b (NEGATIVE) 01/19/17 09:28 Influenza Type A Ab 1:16 titer (<1:8) H 01/19/17 09:09 Influenza Type B Ab <1:8 titer (<1:8) 01/19/17 09:09 Ur L.pneumophila Ag Negative (NEGATIVE) 01/19/17 09:03 Mycoplasma pneumon IgM Negative (NEGATIVE) 01/19/17 09:03 Ur Strep pneumoniae Ag Not detected 01/19/17 15:08 - Hospital Course Hospital Course: HPI: Patient is a 81 year old female with a history of Glaucoma, HTN, and season allergies presents to the hospital late last night with worsening non productive cough for 7 days. History is taken by son who speaks Austrian and lives with her. Patient recently traveled here from [place] about a month ago for the first time. According to the son the patient has recently finished a Z- pack however her symptoms have not improved. She has associated headaches, urinary frequency, and non bloody emesis after coughing which occurred about 3 times night before admission. Patient's son says she has been drinking alot of water and urinating 4-5 times a day. She also has some sternal pain associated with coughing as well. She is also having chills with no fever, also no weight changes, changes in hearing, no abdominal pain, dysuria, lower extremity swelling, pain, rash, or joint pain. She normally ambulates with a rolling walker at home. explained to daughter in law and about water restriction and changes to medications. Instructions written again on discharge papers Pulmonology Consult: Dr. Loera wrote CTA negative for PE, continue nebulizer and IV steroids and antibiotics Infectious disease consult: Dr. Barfield: continue prescription for URI and wait for serologies Cardiology consult: Dr. Long likely to be viral bronchitis and unlikely to be cardiac in nature. Echo: normal LVEF and normal filling pressures Patient had HCTZ held due to hyponatremia. Urine osm, Serum Osm Urine Na were studied to help determine cause for hyponatremia. During hospital stay, patient was placed on antibiotics. Patient has continued to have cough. Patient was on Zosyn 3.375gm q6H during her stay. Prophylaxis Lovenox 40mg daily, she already received a therapeutic dose today in the Ed, SCDs Pepcid 20mg daily Florastor 250mg bid started for probiotic Patient discharged on instructions Cozaar 25mg POQD #30 Avelox 400mg POQD #1 Promethazine/Codeine 5ml POQ4H PRN 120ml wrote a note for a rolling walker Patient can establish care and follow up with [facility] in one week (February 02 9:30am) Patient can ask primary care for referral to [facility] per nephrology recommended: less than 1.5 - 2.0 L of fluid intake by mouth in one day Cozaar 25mg POQD Don't take "water pill." Please take antibiotic avelox one pill 01/23/17 Repeat BMP at follow up appointment to monitor Sodium levels upon follow up appointment Return to ED if shortness of breath, abdominal pain, dehydration, problems with urination - Date & Time of H&P Date of H&P: 01/22/17 Time of H&P: 20:00 Discharge Exam - Head Exam Head Exam: NORMAL INSPECTION - Eye Exam Eye Exam: EOMI, Normal appearance - ENT Exam ENT Exam: Mucous Membranes Moist - Respiratory Exam Respiratory Exam: Rales, NORMAL BREATHING PATTERN. absent: Respiratory Distress , UNREMARKABLE - Cardiovascular Exam Cardiovascular Exam: REGULAR RHYTHM, +S1, +S2. absent: Bradycardia, Tachycardia - Neurological Exam Neurological exam: Alert - Psychiatric Exam Psychiatric exam: Normal Affect, Normal Mood - Skin Skin Exam: Dry, Normal Color, Warm Discharge Plan - Discharge Medications Prescriptions: Losartan [Cozaar] 25 mg PO DAILY #30 tab Moxifloxacin [Avelox] 400 mg PO ONCE #1 tab Promethazine/Codeine [Phenergan/Codeine Oral Syrup] 5 ml PO Q4 PRN #120 ml PRN Reason: Cough - Follow Up Plan Condition: FAIR Disposition: HOME/ ROUTINE Instructions: Losartan (By mouth), Moxifloxacin (By mouth), Promethazine/ Codeine (By mouth), Dyspnea (GEN), Pneumonia (DC) Additional Instructions: Patient can establish care and follow up with [facility] in one week (February 02 9:30am) Patient can ask primary care for referral to [facility] per nephrology recommended: less than 1.5 - 2.0 L of fluid intake by mouth in one day Cozaar 25mg POQD Don't take "water pill." Please take antibiotic avelox one pill 01/23/17 Repeat BMP at follow up appointment to monitor Sodium levels upon follow up appointment Return to ED if shortness of breath, abdominal pain, dehydration, problems with urination Referrals: Ronda Sadler MD [Staff Provider] -
== END 2017-01-22 16:33 | disposition home or self-care (01) | DRG 194 ==
LOC: C.ER 03:52 → C.9E 06:18 → C.3T 11:29
PROVIDERS: ADMIT Hospitalist; ATTEND Hospitalist
DX: J18.9 Pneumonia, unspecified organism (principal); S32.009A Unspecified fracture of unspecified lumbar vertebra, initial encounter for closed fracture; N39.0 Urinary tract infection, site not specified; E87.1 Hypo-osmolality and hyponatremia; J98.8 Other specified respiratory disorders; I10 Essential (primary) hypertension; H54.62 Unqualified visual loss, left eye, normal vision right eye; J30.2 Other seasonal allergic rhinitis; E87.6 Hypokalemia; T50.2X5A Adverse effect of carbonic-anhydrase inhibitors, benzothiadiazides and other diuretics, initial encounter; J20.8 Acute bronchitis due to other specified organisms; B96.20 Unspecified Escherichia coli [E. coli] as the cause of diseases classified elsewhere; H40.89 Other specified glaucoma; X58.XXXA Exposure to other specified factors, initial encounter

== ENCOUNTER 2017-04-18 13:48 | Emergency (ER) | payer SELFPAY ==
[2017-04-18 13:59] VITALS: BMI 28.3
[2017-04-18] MEDS ORDERED: Albuterol-Ipratrop 3 mg / 0.5 (3 ml) UD ONE ×2 (14:21→15:16)
[2017-04-18 15:03] LABS: BASO # 0.1 K/uL (0.0-0.2); BASO % 0.9 % (0.0-2.0); EOS # 0.1 K/uL (0.0-0.7); EOS % 1.7 % (0.0-4.0); HEMOGLOBIN 12.7 g/dL (11.0-16.0); LYMPH # 1.2 K/uL (1.0-4.3); LYMPH % 17.1 % (20.0-40.0); MEAN CELL VOLUME 85.6 fL (81.0-99.0); MEAN CORPUSCULAR HEMOGLOBIN 29.5 pg (27.0-31.0); MEAN CORPUSCULAR HGB CONC 34.5 g/dL (33.0-37.0); MEAN PLATELET VOLUME 9.7 fL (7.2-11.7); MONO # 0.9 K/uL (0.0-0.8); MONO % 12.4 % (0.0-10.0); NEUT # 4.9 K/uL (1.8-7.0); NEUT % 67.9 % (50.0-75.0); NRBC % 0.1 % (0.0-2.0); RBC 4.31 Mil/uL (3.80-5.20); RED CELL DISTRIBUTION WIDTH 13.1 % (11.5-14.5); WHITE BLOOD COUNT 7.2 K/uL (4.8-10.8)
[2017-04-18] MEDS: Albuterol-Ipratrop 3 mg / 0.5 (3 ml) UD IH SCH ×2 (15:08→15:26)
[2017-04-18 15:25] LABS: ALB/GLOB RATIO 1.1 (1.0-2.1); ALBUMIN 3.6 g/dL (3.5-5.0); CALCIUM 8.4 mg/dl (8.6-10.4); GFR AFRICAN-AMERICAN > 60; GFR NON-AFRICAN AMERICAN > 60
[2017-04-18 15:30] LABS: ALT/SGPT 14 U/L (9-52); AST/SGOT 24 U/L (14-36); BLOOD UREA NITROGEN 15 mg/dL (7-17); MAGNESIUM 1.6 mg/dL (1.6-2.3)
[2017-04-18 15:31] LABS: B-TYPE NATRIURETIC PEPTIDE 281 pg/mL (0-900)
[2017-04-18] MEDS ORDERED: Lactated Ringer's 1,000 ML IVB ONE (15:52)
[2017-04-18 15:57] VITALS: RESP 19
[2017-04-18 16:35] LABS: SQUAMOUS EPITHIAL < 1 /hpf (0-5); URINE BILIRUBIN NEGATIVE (NEGATIVE); URINE BLOOD 1+ (NEGATIVE); URINE CLARITY Clear (Clear); URINE COLOR Yellow (YELLOW); URINE GLUCOSE (UA) NORMAL (Normal); URINE LEUKOCYTE ESTERASE NEG Leu/uL (Negative); URINE NITRATE NEGATIVE (NEGATIVE); URINE PROTEIN NEGATIVE (NEGATIVE); URINE UROBILINOGEN NORMAL mg/dL (0.2-1.0)
[2017-04-18] MEDS ORDERED: Lactated Ringer's 1,000 ML ONE (16:55)
--- NOTE | 2017-04-18 18:22 | RAD ---
PROCEDURE: CHEST RADIOGRAPH, 1 VIEW HISTORY: SOB, cough, wheezing COMPARISON: Comparison made with 01/20/2017 FINDINGS: LUNGS: No evidence of new infiltrate or consolidation in the lungs PLEURA: No pneumothorax or pleural fluid seen. CARDIOVASCULAR: Normal. OSSEOUS STRUCTURES: No significant abnormalities. VISUALIZED UPPER ABDOMEN: Normal. OTHER FINDINGS: None. IMPRESSION: No significant interval change since the previous study noted.
[2017-04-18 19:04] VITALS: BP 138/67; PULSE 90; O2SAT 94
--- NOTE | 2017-04-18 19:29 | C.PDOC ---
Time Seen by Provider: 04/18/17 14:37 Chief Complaint (Nursing): Cough, Cold, Congestion History Per: Patient, Family Onset/Duration Of Symptoms: Days (2) Current Symptoms Are (Timing): Still Present Associated Symptoms: Cough, Sputum, Nasal Congestion Severity: Moderate Recent travel outside of the [place]: No Additional History Per: Prior Records Past Medical History Reviewed: Historical Data, Nursing Documentation, Vital Signs Vital Signs: Last Vital Signs Temp 98.8 F 04/18/17 14:01 Pulse 90 04/18/17 19:00 Resp 19 04/18/17 19:00 BP 138/67 04/18/17 19:00 Pulse Ox 94 L 04/18/17 19:31 - Medical History PMH: Back Problems, HTN Family History: States: Unknown Family Hx - Social History Hx Tobacco Use: No Hx Alcohol Use: No Hx Substance Use: No - Immunization History Hx Tetanus Toxoid Vaccination: Yes Hx Influenza Vaccination: No Hx Pneumococcal Vaccination: No Review Of Systems Except As Marked, All Systems Reviewed And Found Negative. Constitutional: Negative for: Fever, Weakness ENT: Positive for: Nose Congestion Cardiovascular: Negative for: Chest Pain Respiratory: Positive for: Cough, Wheezing Gastrointestinal: Negative for: Vomiting, Abdominal Pain Musculoskeletal: Negative for: Neck Pain Skin: Negative for: Rash Neurological: Negative for: Weakness, Numbness Physical Exam - Physical Exam Appears: Non-toxic, No Acute Distress Skin: Normal Color, Warm, Dry, No Rash Head: Atraumatic, Normacephalic Eye(s): bilateral: PERRL, EOMI Neck: Normal ROM, Supple Cardiovascular: Rhythm Regular Respiratory: No Accessory Muscle Use, Rhonchi, Wheezing Gastrointestinal/Abdominal: Soft, No Tenderness Back: No CVA Tenderness Extremity: Normal ROM, No Pedal Edema, No Calf Tenderness Neurological/Psych: Oriented x3, Normal Motor, Normal Sensation ED Course And Treatment - Laboratory Results Result Diagrams: 04/18/17 14:59 04/18/17 14:59 Lab Interpretation: No Acute Changes ECG: Interpreted By Me, Viewed By Me ECG Rhythm: Sinus Rhythm, Nonspecific Changes ECG Interpretation: No Acute Changes Rate From EC O2 Sat by Pulse Oximetry: 94 Pulse Ox Interpretation: Other Interpretation Of Abnormal: Borderline - Radiology CXR: Viewed By Me, Read By Radiologist CXR Interpretation: Yes: No Acute Disease Progress Note: Pt feels much better and wants to go home. Lungs clear. Reassessment Condition: Improved Progress - Interventions Interventions:: Observation - Medications Administered Inhaled nebulized: Anticholinergic, Beta-2 agonist Intravenous: Corticosteroid - Data Reviewed Data Reviewed: Lab, Diagnostic imaging, EKG, Old records - Patient Status Patient status: Mostly improved - Continuity of Care Discussed patient case with:: Patient, Family-HIPPA compliant, ED Nurse - Patient Plan Patient Plan: Discharge, F/U with PCP, Continue present meds Disposition Counseled Patient/Family Regarding: Studies Performed, Diagnosis, Need For Followup, Rx Given - Disposition Referrals: [facility] [Outside] Disposition: HOME/ ROUTINE Disposition Time: 19:30 Condition: IMPROVED Additional Instructions: Follow up in the clinic this week. Return to the ER if you develop shortness of breath, high fever, lethargy, confusion, worsening of symptoms or if you have any other concerns. Prescriptions: Albuterol HFA [Ventolin HFA 90 mcg/actuation (8 g)] 2 puff IH Q4 PRN #1 unit PRN Reason: Wheezing Azithromycin 1 tab PO DAILY #4 tab predniSONE [predniSONE Tab] 2 tab PO DAILY #10 tab Instructions: Acute Bronchitis (ED) - Clinical Impression Clinical Impression: Bronchitis
[2017-04-18 20:09] VITALS: TEMP 97.7
--- NOTE | 2017-04-19 23:58 | CARD ---
APPROVED REPORT EKG Measurement Heart [id number] <Conclusion> Normal sinus rhythm Nonspecific T wave abnormality Abnormal ECG
== END 2017-04-18 20:08 | disposition home or self-care (01) ==
LOC: C.ER 13:48
DX: J40 Bronchitis, not specified as acute or chronic (principal)
CPT/HCPCS: 71045; 80053; 81001; 83735; 83880; 85025; 87804; 93005; 94640; 96361; 96374; 96375; 99285; J2405; J2930; J7120

== ENCOUNTER 2017-05-25 03:54 | Emergency (ER) | payer SELFPAY ==
[2017-05-25 03:54] VITALS: BMI 28.3
--- NOTE | 2017-05-25 05:02 | C.PDOC ---
History Of Present Illness 82 year old female presents to the ER with a complaint of intermittent right eye pain for the past week that worsened today while sleeping, associated with a mild left sided headache. 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 Denies trauma or foreign body sensation. Time Seen by Provider: 05/25/17 04:14 Chief Complaint (Nursing): Eye Problem History Per: Patient History/Exam Limitations: no limitations Onset/Duration Of Symptoms: Days Current Symptoms Are (Timing): Still Present Injury To Eye?: No Wears Contact Lens?: No Associated Symptoms: Pain. denies: FB Sensation Past Medical History Reviewed: Historical Data, Nursing Documentation, Vital Signs Vital Signs: Last Vital Signs Temp 97.7 F 05/25/17 05:06 Pulse 68 05/25/17 05:06 Resp 18 05/25/17 05:06 BP 150/73 05/25/17 05:06 Pulse Ox 95 05/25/17 05:06 - Medical History PMH: Back Problems, HTN Family History: States: Unknown Family Hx - Social History Hx Tobacco Use: No Hx Alcohol Use: No Hx Substance Use: No - Immunization History Hx Tetanus Toxoid Vaccination: Yes Hx Influenza Vaccination: No Hx Pneumococcal Vaccination: No Review Of Systems Eyes: Positive for: Pain. Negative for: Other (Foreign body sensation) Physical Exam - Physical Exam Appears: Non-toxic, No Acute Distress Skin: Normal Color, Warm, Dry Head: Atraumatic, Normacephalic Eye(s): right: Normal Inspection (No discharge), PERRL, EOMI, left: Other (Blind , people with no reaction, large white spot on cornea) ED Course And Treatment O2 Sat by Pulse Oximetry: 96 (Room air) Pulse Ox Interpretation: Normal Progress Note: Tylenol administered. Patient reports improvement, will discharge home with instructions to follow up with vegetable thinner. Disposition Counseled Patient/Family Regarding: Diagnosis, Need For Followup, Rx Given - Disposition Referrals: Anthony Herr [Staff Provider] - Disposition: HOME/ ROUTINE Disposition Time: 04:59 Condition: STABLE Additional Instructions: Tylenol for pain Follow up with Eye doctor Return to ER if worse Prescriptions: Acetaminophen 2 tab PO Q6 #30 tablet Naphazoline/Pheniramine Opht [Naphcon-A 0.025%-0.3% 15 Ml] 1 drop OP BID #1 bottle Instructions: Eye Pain (ED) Forms: [employer] (Japanese) - Clinical Impression Clinical Impression: Pain in eye - PA / [employer] / Resident Statement MD/DO has reviewed & agrees with the documentation as recorded. - Scribe Statement The provider has reviewed the documentation as recorded by the Scribe Elroy Chowdary All medical record entries made by the Scribe were at my direction and personally dictated by me. I have reviewed the chart and agree that the record accurately reflects my personal performance of the history, physical exam, medical decision making, and the department course for this patient. I have also personally directed, reviewed, and agree with the discharge instructions and disposition.
[2017-05-25 05:07] VITALS: BP 150/73; PULSE 68; RESP 18; TEMP 97.7
[2017-05-25 06:36] VITALS: O2SAT 96
== END 2017-05-25 05:15 | disposition home or self-care (01) ==
LOC: C.ER 03:54
DX: H57.11 Ocular pain, right eye (principal); I10 Essential (primary) hypertension

== ENCOUNTER 2017-06-23 05:45 | Day surgery (SDC) | payer OTHER ==
[2017-06-11 10:41] VITALS: BMI 33.3
[2017-06-23] MEDS ORDERED: Lactated Ringer's 500 ML IV ONE ×2 (06:00→06:45)
[2017-06-23] MEDS ORDERED: Flurbiprofen 0.03% Opht SOLN OD SCH (06:00)
[2017-06-23] MEDS ORDERED: Phenylephrine 2.5% Opht Soln OD SCH (06:00)
[2017-06-23] MEDS ORDERED: Cyclopentolate 1% Opth (2 ml) OD SCH (06:00)
[2017-06-23] MEDS ORDERED: Ciprofloxacin 0.3% OPTH SOLN OD SCH (06:00)
[2017-06-23] MEDS ORDERED: Tropicamide 1% Opht SOLUTION OD SCH (06:00)
[2017-06-23] MEDS: Tetracaine 0.5% Ophth (OR ONLY) ONE ×2 (07:54→08:17)
[2017-06-23] MEDS: Povidone Iodine Ophthalmic 5% Soln ONE ×2 (07:55→08:17)
[2017-06-23] MEDS: Hyaluronidase Human, Recombi 150 U/ML VIAL ONE ×2 (07:55→08:20)
[2017-06-23] MEDS: Lidocaine 2% Inj (20ml) ONE ×2 (07:58→08:20)
[2017-06-23] MEDS: Chondroitin/Hyaluronate Opth Syringe KIT (0.55 ml-0.5 ml) IO ONE ×2 (08:01→08:25)
[2017-06-23] MEDS: Carbachol 0.01% IO ONE ×2 (08:01→08:25)
[2017-06-23] MEDS: Tobramycin/Dexamethasone OPHT OINT ONE ×2 (08:02→08:29)
[2017-06-23] MEDS ORDERED: Midazolam 2 MG/2 ML VIAL ONE (08:08)
[2017-06-23] MEDS ORDERED: Hyaluronate Sodium 10 mg/ml Ophth Syringe ONE (08:49)
[2017-06-23] MEDS ORDERED: Carbachol 0.01% IO ONE (08:57)
[2017-06-23 15:00] VITALS: O2SAT 96
[2017-06-23 15:02] VITALS: BP 124/70; PULSE 81; RESP 19; TEMP 97.5
--- NOTE | 2017-06-23 19:26 | OP ---
PROCEDURE DATE: 06/23/2017 PREOPERATIVE DIAGNOSIS: Cataract, right eye. POSTOPERATIVE DIAGNOSIS: Cataract, right eye. OPERATIVE PROCEDURE: Phacoemulsification, right eye, insertion of posterior chamber lens implant. ANESTHESIA TYPE: Local intravenous sedation. PROCEDURE: The patient was brought into the operating room, placed in supine position, prepped and draped in the usual fashion for ophthalmic surgery. Lid speculum was inserted, lids and exposing globe. A side-port incision was made superiorly and inferiorly with a disposable sharp blade. Anterior chamber was filled with Viscoat. A near clear corneal incision was made temporally with a 2.75-mm keratome. Capsulorrhexis was then performed with Utrata forceps. Hydrodissection carried out with balanced salt solution. Nucleus was phacoemulsified. Remaining cortical fragments were removed with a split irrigation and aspiration system. The capsular sac was filled with Provisc. A posterior chamber lens was then injected into the capsular sac and rotated into horizontal position. Provisc was aspirated out of the anterior chamber. The pupil was constricted with Miochol. The wound was found to be watertight. Topical Betadine, Timoptic, and TobraDex ointment and pressure patch were applied. The patient tolerated the procedure well. Elroy Arenas MD
== END 2017-06-23 10:20 | disposition home or self-care (01) ==
LOC: C.SDS 05:45
PROVIDERS: ATTEND Ophthalmology
DX: H25.11 Age-related nuclear cataract, right eye (principal); I10 Essential (primary) hypertension
CPT/HCPCS: 66984; J2250; J3010; J3470; J7120

== ENCOUNTER 2017-08-17 01:08 | Inpatient (IN) | payer MEDICAID, OTHER ==
[2017-08-17 01:08] VITALS: BMI 33.3
[2017-08-17] MEDS ORDERED: Morphine 4 MG/ML VIAL IV ONE (02:35)
[2017-08-17] MEDS ORDERED: Morphine 4 MG/ML VIAL ONE ×2 (02:40→04:04)
--- NOTE | 2017-08-17 03:14 | C.PDOC ---
History Of Present Illness 82 y/o female with a history of HTN presents to the ED with right hip pain. Patient states she was getting out of bed to go to the bathroom when she lost her balance and struck her hip and head. She was brought in by EMS. Patient denies any LOC. Of note, she is not on any anticoagulants. PMD: None provided Chief Complaint (Nursing): Headache History Per: Patient History/Exam Limitations: no limitations Onset/Duration Of Symptoms: Hrs Current Symptoms Are (Timing): Still Present Recent travel outside of the [place]: No - Hip Description Of Injury: Lost Balance Past Medical History Vital Signs: Last Vital Signs Temp 98.3 F 08/17/17 06:14 Pulse 84 08/17/17 06:14 Resp 16 08/17/17 06:14 BP 148/72 08/17/17 06:14 Pulse Ox 100 08/17/17 06:14 - Medical History PMH: Back Problems, HTN, Pneumonia Denies: Chronic Kidney Disease Surgical History: No Surg Hx Family History: States: Unknown Family Hx - Social History Hx Tobacco Use: No Hx Alcohol Use: No Hx Substance Use: No - Immunization History Hx Tetanus Toxoid Vaccination: Yes Hx Influenza Vaccination: No Hx Pneumococcal Vaccination: No Review Of Systems Except As Marked, All Systems Reviewed And Found Negative. Constitutional: Negative for: Other (LOC) Musculoskeletal: Positive for: Other (right hip pain) Neurological: Positive for: Other (head injury) Physical Exam - Physical Exam Appears: In Acute Distress (significant stress due to pain) Skin: Normal Color, Warm, Dry Head: Atraumatic, Normacephalic Eye(s): bilateral: Normal Inspection, PERRL, EOMI Nose: Normal Throat: Normal Neck: Normal, Supple Cardiovascular: Rhythm Regular Respiratory: Normal Breath Sounds Gastrointestinal/Abdominal: Normal Exam, Soft, No Tenderness Back: Normal Inspection Extremity: No Normal ROM (ROM is limited due to pain), Tenderness (right hip is shortened and externally rotated exquisitely tender over the lateral aspect of the right hip over the greater trochanter), Other (distal pulses 2+) Neurological/Psych: Oriented x3, Other (non-focal) ED Course And Treatment - Laboratory Results Result Diagrams: 08/17/17 03:07 08/17/17 03:07 ECG Rhythm: Sinus Rhythm (normal) Interpretation Of ECG: first degree AV block otherwise EKG is normal Rate From EC O2 Sat by Pulse Oximetry: 96 (RA) Pulse Ox Interpretation: Normal Medical Decision Making Medical Decision Making: Impression: Hip fracture Initial Plan: * EKG * CMP * CBC * Partial Thromboplastin Test * Prothrombin Time Test * Chest X-Ray * Morphine 4 mg IV * Hip X-Ray Consulted with hospitalist.Spoke with Dr Cordon who states he would like medical clearance for surgery in next 24 hrs Scribe Attestation: Documented by Kerry Valadez acting as a scribe Lefty Linton MD. Scribe Attestation: All medical record entries made by the Scribe were at my direction and personally dictated by me. I have reviewed the chart and agree that the record accurately reflects my personal performance of the history, physical exam, medical decision making, and the department course for this patient. I have also personally directed, reviewed, and agree with the discharge instructions and disposition. Disposition - Disposition Disposition: HOSPITALIZED Disposition Time: 06:42 Condition: FAIR - Clinical Impression Clinical Impression: Intertrochanteric fracture of right femur
[2017-08-17 03:19] LABS: INR 1.2; PROTHROMBIN TIME 13.6 SECONDS (9.7-12.2)
[2017-08-17 03:20] LABS: BASO # 0.1 K/uL (0.0-0.2); BASO % 0.5 % (0.0-2.0); EOS # 0.2 K/uL (0.0-0.7); EOS % 0.9 % (0.0-4.0); HEMOGLOBIN 12.8 g/dL (11.0-16.0); LYMPH % 11.3 % (20.0-40.0); MEAN CELL VOLUME 86.2 fL (81.0-99.0); MEAN CORPUSCULAR HEMOGLOBIN 28.8 pg (27.0-31.0); MEAN CORPUSCULAR HGB CONC 33.4 g/dL (33.0-37.0); MONO # 1.2 K/uL (0.0-0.8); MONO % 6.7 % (0.0-10.0); NEUT # 14.1 K/uL (1.8-7.0); NEUT % 80.6 % (50.0-75.0); NRBC % 0.1 % (0.0-2.0); RBC 4.43 Mil/uL (3.80-5.20); WHITE BLOOD COUNT 17.5 K/uL (4.8-10.8)
[2017-08-17 03:22] LABS: ALB/GLOB RATIO 1.2 (1.0-2.1); ALBUMIN 3.8 g/dL (3.5-5.0); ALT/SGPT 20 U/L (9-52); AST/SGOT 21 U/L (14-36); BLOOD UREA NITROGEN 18 mg/dL (7-17); CALCIUM 9.2 mg/dl (8.6-10.4); GFR AFRICAN-AMERICAN > 60; GFR NON-AFRICAN AMERICAN > 60
--- NOTE | 2017-08-17 05:48 | CP.PCM.HP ---
<Mary Ellen Tran - Last Filed: 08/17/17 05:41> History of Present Illness - History of Present Illness History of Present Illness: H&P: 82 year old female with past medical history of HTN, chronic low 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 Son at bedside and helps with history. Patient got up in the middle of the night to go to bathroom. She was reaching fro her slippers when she felt dizzy and fell and landed on her left side and then hit her head on the side of bed. Denies LOC. Patient was found by son and was awake when found. EMS was called and she was brought into the ED. In ED, x-ray of the hip showed right hip fracture. Patient denies having any history of falls or dizziness. Currently, pt is c/o right hip pain, left sided rib pain, right sided head pain and right sided neck pain. Patient denies having any CP, SOB, abd pain, N/V/D/C, F/C. PMHx: stated above PSH: Left eye surgery for glaucoma Meds: Timolol, Losartan 100/HCTZ 25, Zyrtec, and Flonase. FHx: Son denies any family history of cancer, heart disease, DM, or HTN Social: Denies smoking, etoh use, or illicit drug use. Allergies: NKDA Present on Admission - Present on Admission Any Indicators Present on Admission: No Review of Systems - Constitutional Constitutional: absent: Chills, Fever - EENT Eyes: absent: Blurred Vision, Change in Vision Nose/Mouth/Throat: absent: Nasal Discharge, Sinus Pressure, Sore Throat - Cardiovascular Cardiovascular: absent: Chest Pain, Edema, Leg Edema, Lightheadedness - Respiratory Respiratory: absent: Cough, Dyspnea, Wheezing, Chest Congestion - Gastrointestinal Gastrointestinal: absent: Abdominal Pain, Constipation, Diarrhea, Nausea, Vomiting - Genitourinary Genitourinary: absent: Dysuria, Urinary Frequency - Musculoskeletal Musculoskeletal: Back Pain - Integumentary Integumentary: absent: Acne, Lesions - Neurological Neurological: Dizziness, Headaches - Psychiatric Psychiatric: absent: Anxiety, Depression - Endocrine Endocrine: absent: Fatigue Past Patient History - Past Medical History & Family History Past Medical History?: Yes - Past Social History Smoking Status: Never Smoked Chewing Tobacco Use: No Cigar Use: No Alcohol: None Drugs: Denies Home Situation {Lives}: With Family - CARDIAC Hx Hypertension: Yes - PULMONARY Hx Pneumonia: Yes - NEUROLOGICAL Hx Neurological Disorder: No - HEENT Hx HEENT Problems: Yes Hx Blind: Yes (Left eye) Hx Cataracts: Yes Hx Glaucoma: Yes - RENAL Hx Chronic Kidney Disease: No - ENDOCRINE/METABOLIC Hx Endocrine Disorders: No - HEMATOLOGICAL/ONCOLOGICAL Hx Blood Disorders: No - INTEGUMENTARY Hx Dermatological Problems: No - MUSCULOSKELETAL/RHEUMATOLOGICAL Hx Musculoskeletal Disorders: Yes Hx Back Pain: Yes (chronic) Other/Comment: DIFFICULTY WALKING. using walker - GASTROINTESTINAL Hx Gastrointestinal Disorders: No - GENITOURINARY/GYNECOLOGICAL Hx Genitourinary Disorders: No - PSYCHIATRIC Hx Substance Use: No - SURGICAL HISTORY Hx Surgeries: Yes Hx Cataract Extraction: Yes (LEFT) Other/Comment: "Left eye surgery" - ANESTHESIA Hx Anesthesia: Yes Hx Anesthesia Reactions: No Hx Malignant Hyperthermia: No Meds Allergies/Adverse Reactions: Allergies Allergy/AdvReac Type Severity Reaction Status Date / Time No Known Allergies Allergy Verified 05/25/17 04:09 Physical Exam - Constitutional Appears: Non-toxic, No Acute Distress - Head Exam Head Exam: ATRAUMATIC - ENT Exam ENT Exam: Mucous Membranes Moist - Respiratory Exam Respiratory Exam: Clear to Auscultation Bilateral. absent: Accessory Muscle Use , Rales, Rhonchi, Wheezes, Respiratory Distress - Cardiovascular Exam Cardiovascular Exam: REGULAR RHYTHM, +S1, +S2. absent: Gallop, Rubs, Systolic Murmur - GI/Abdominal Exam GI & Abdominal Exam: Normal Bowel Sounds, Soft. absent: Distended, Firm, Guarding, Rigid, Tenderness - Extremities Exam Extremities exam: Negative for: pedal edema, tenderness - Neurological Exam Neurological exam: Alert, CN II-XII Intact, Oriented x3 - Psychiatric Exam Psychiatric exam: Normal Affect, Normal Mood - Skin Skin Exam: Dry, Intact, Normal Color, Warm Results - Vital Signs Recent Vital Signs: Last Vital Signs Temp 98.9 F 08/17/17 04:18 Pulse 79 08/17/17 04:18 Resp 16 08/17/17 04:18 BP 172/79 H 08/17/17 04:18 Pulse Ox 96 08/17/17 05:04 - Labs Result Diagrams: 08/17/17 03:07 08/17/17 03:07 Labs: Laboratory Results - last 24 hr 08/17/17 08/17/17 08/17/17 01:42 03:07 03:07 WBC 17.5 H D RBC 4.43 Hgb 12.8 Hct 38.2 MCV 86.2 MCH 28.8 MCHC 33.4 RDW 14.0 Plt Count 201 MPV 10.0 Neut % (Auto) 80.6 H Lymph % (Auto) 11.3 L [place] % (Auto) 6.7 Eos % (Auto) 0.9 Baso % (Auto) 0.5 Neut # (Auto) 14.1 H Lymph # (Auto) 2.0 [place] # (Auto) 1.2 H Eos # (Auto) 0.2 Baso # (Auto) 0.1 PT INR APTT Sodium 139 Potassium 4.3 Chloride 104 Carbon Dioxide 24 Anion Gap 15 BUN 18 H Creatinine 0.8 Est GFR ( Amer) > 60 Est GFR (Non-Af Amer) > 60 POC Glucose (mg/dL) 136 H Random Glucose 122 H Calcium 9.2 Total Bilirubin 0.9 AST 21 ALT 20 Alkaline Phosphatase 62 Total Protein 7.0 Albumin 3.8 Globulin 3.2 Albumin/Globulin Ratio 1.2 08/17/17 03:07 WBC RBC Hgb Hct MCV MCH MCHC RDW Plt Count MPV Neut % (Auto) Lymph % (Auto) [place] % (Auto) Eos % (Auto) Baso % (Auto) Neut # (Auto) Lymph # (Auto) [place] # (Auto) Eos # (Auto) Baso # (Auto) PT 13.6 H INR 1.2 APTT 32 Sodium Potassium Chloride Carbon Dioxide Anion Gap BUN Creatinine Est GFR ( Amer) Est GFR (Non-Af Amer) POC Glucose (mg/dL) Random Glucose Calcium Total Bilirubin AST ALT Alkaline Phosphatase Total Protein Albumin Globulin Albumin/Globulin Ratio Assessment & Plan - Assessment and Plan (Free Text) Assessment: 82 y/o female with past medical history of HTN, chronic back pain and gluacoma is admitted for right hip fracture. Right hip fracture - Ortho, Dr. Cordon is consulted - Pain management: tylenol prn, percocet prn. Zofran prn for nausea - Lovenox for DVT prophylaxis - PT/OT Dizziness - Pt complained of dizziness prior to fall - Will check CT of head and neck - Echo from 01/2017 showed normal LV size and function with grade 1 diastolic dysfunction. Will repeat echo - Will check carotid US - Will check kirsten and ekg. Initial ekg showed sinus rhythm - will check UA HTN - Continue home medication losartan Chronic low back pain - Continue pain management Prophylaxs - Lovenox - SCDs - Pepcid Case discussed with attending, Dr. Cisneros - Date & Time Date: 08/17/17 Time: 05:52 <Robert Cisneros - Last Filed: 08/17/17 06:14> Results - Vital Signs Recent Vital Signs: Last Vital Signs Temp 98.9 F 08/17/17 04:18 Pulse 79 08/17/17 04:18 Resp 16 08/17/17 04:18 BP 172/79 H 08/17/17 04:18 Pulse Ox 96 08/17/17 05:44 - Labs Result Diagrams: 08/17/17 03:07 08/17/17 03:07 Labs: Laboratory Results - last 24 hr 08/17/17 08/17/17 08/17/17 01:42 03:07 03:07 WBC 17.5 H D RBC 4.43 Hgb 12.8 Hct 38.2 MCV 86.2 MCH 28.8 MCHC 33.4 RDW 14.0 Plt Count 201 MPV 10.0 Neut % (Auto) 80.6 H Lymph % (Auto) 11.3 L [place] % (Auto) 6.7 Eos % (Auto) 0.9 Baso % (Auto) 0.5 Neut # (Auto) 14.1 H Lymph # (Auto) 2.0 [place] # (Auto) 1.2 H Eos # (Auto) 0.2 Baso # (Auto) 0.1 PT INR APTT Sodium 139 Potassium 4.3 Chloride 104 Carbon Dioxide 24 Anion Gap 15 BUN 18 H Creatinine 0.8 Est GFR ( Amer) > 60 Est GFR (Non-Af Amer) > 60 POC Glucose (mg/dL) 136 H Random Glucose 122 H Calcium 9.2 Total Bilirubin 0.9 AST 21 ALT 20 Alkaline Phosphatase 62 Total Protein 7.0 Albumin 3.8 Globulin 3.2 Albumin/Globulin Ratio 1.2 08/17/17 03:07 WBC RBC Hgb Hct MCV MCH MCHC RDW Plt Count MPV Neut % (Auto) Lymph % (Auto) [place] % (Auto) Eos % (Auto) Baso % (Auto) Neut # (Auto) Lymph # (Auto) [place] # (Auto) Eos # (Auto) Baso # (Auto) PT 13.6 H INR 1.2 APTT 32 Sodium Potassium Chloride Carbon Dioxide Anion Gap BUN Creatinine Est GFR ( Amer) Est GFR (Non-Af Amer) POC Glucose (mg/dL) Random Glucose Calcium Total Bilirubin AST ALT Alkaline Phosphatase Total Protein Albumin Globulin Albumin/Globulin Ratio Assessment & Plan - Date & Time Date: 08/17/17 (I have seen and examined the patient. I agree with the findings and plan of care as documented by Dr. Tran. Patient with right hip fracture. Fracture secondary to fall while feeling dizzy. Check CT head. 2D Echo and carotid dopplers. Consult to ortho. Will medically optimize. Monitor for acute changes.) Time: 06:13 Attending/Attestation - Attestation I have personally seen and examined this patient.: Yes I have fully participated in the care of the patient.: Yes I have reviewed all pertinent clinical information: Yes
[2017-08-17 06:22] LABS: SQUAMOUS EPITHIAL < 1 /hpf (0-5); URINE BILIRUBIN NEGATIVE (NEGATIVE); URINE BLOOD 2+ (NEGATIVE); URINE CLARITY Hazy (Clear); URINE COLOR Yellow (YELLOW); URINE GLUCOSE (UA) NORMAL (Normal); URINE LEUKOCYTE ESTERASE NEG Leu/uL (Negative); URINE PROTEIN NEGATIVE (NEGATIVE); URINE UROBILINOGEN NORMAL mg/dL (0.2-1.0)
[2017-08-17 06:46] LABS: CK-MB 0.81 ng/mL (0.0-3.38); TROPONIN I 0.047 ng/mL (0.00-0.120)
--- NOTE | 2017-08-17 08:24 | RAD ---
Chest x-ray single frontal view History: Sepsis. Comparison: None available. Findings: Patchy consolidative changes at both lung bases ; left greater than right. Elevated right seema diaphragm which appears eventerated. Diffuse increased interstitial lung markings which may represent underlying edema versus infiltrate versus vascular congestion. Biapical pleural thickening with upper lobe granulomatous changes. Enlarged ectatic aorta. Right paratracheal prominence may represent prominent vascularity. Mild cardiomegaly with calcification at the aortic knob. Degenerative changes in the spine and shoulders. Impression: Patchy consolidative changes at both lung bases ; left greater than right. Elevated right seema diaphragm which appears eventerated. Diffuse increased interstitial lung markings which may represent underlying edema versus infiltrate versus vascular congestion. Biapical pleural thickening with upper lobe granulomatous changes. Enlarged ectatic aorta. Right paratracheal prominence may represent prominent vascularity. Mild cardiomegaly with calcification at the aortic knob. Degenerative changes in the spine and shoulders.
--- NOTE | 2017-08-17 08:49 | RAD ---
PROCEDURE: Right Hip Radiographs. HISTORY: trauma COMPARISON: None. FINDINGS: BONES: There is an oblique, mildly comminuted fracture of the right femur involving greater trochanter and extending medially to the subtrochanteric region of the lesser trochanter. There is mild superior and lateral displacement of the distal fracture fragment. Bones are demineralized. JOINTS: No dislocation is seen. Joint space narrowing noted of the right hip joint space however femoral head is situated. Degenerative changes noted of the pubic symphysis. Left hip joint appears maintained. OTHER FINDINGS: None. IMPRESSION: Mildly comminuted, oblique fracture right femur involving greater trochanter and extending to the subtrochanteric region medially.
--- NOTE | 2017-08-17 09:24 | CT ---
PROCEDURE: CT HEAD WITHOUT CONTRAST. HISTORY: fall COMPARISON: None available. TECHNIQUE: Axial computed tomography images were obtained through the head/brain without intravenous contrast. Radiation dose: Total exam DLP = mGy-cm. This CT exam was performed using one or more of the following dose reduction techniques: Automated exposure control, adjustment of the mA and/or kV according to patient size, and/or use of iterative reconstruction technique. FINDINGS: HEMORRHAGE: No intracranial hemorrhage. BRAIN: No mass effect or edema. No atrophy or chronic microvascular ischemic changes. VENTRICLES: Unremarkable. No hydrocephalus. CALVARIUM: Unremarkable. PARANASAL SINUSES: Unremarkable as visualized. No significant inflammatory changes. MASTOID AIR CELLS: Unremarkable as visualized. No inflammatory changes. OTHER FINDINGS: None. IMPRESSION: Normal CT of the Head.
--- NOTE | 2017-08-17 09:31 | CP.PCM.PN ---
Subjective - Date & Time of Evaluation Date of Evaluation: 08/17/17 Time of Evaluation: 07:00 - Subjective Subjective: PGY1- Medicine Note Objective - Vital Signs/Intake and Output Vital Signs (last 24 hours): Temp Pulse Resp BP Pulse Ox 98.3 F 84 16 148/72 96 08/17/17 06:14 08/17/17 06:14 08/17/17 06:14 08/17/17 06:14 08/17/17 06:42 - Medications Medications: Current Medications Acetaminophen (Tylenol 325mg Tab) 650 mg PO Q6 PRN PRN Reason: Pain, moderate (4-7) Famotidine (Pepcid) 20 mg PO BID [facility] Losartan Potassium (Cozaar) 25 mg PO DAILY [facility] Ondansetron HCl (Zofran Inj) 4 mg IVP Q6 PRN PRN Reason: Nausea/Vomiting Oxycodone/Acetaminophen (Percocet 5/325 Mg Tab) 1 tab PO Q4H PRN PRN Reason: Pain, severe (8-10) Stop: 08/20/17 05:51 - Labs Labs: 08/17/17 03:07 08/17/17 03:07 PT 13.6 SECONDS (9.7-12.2) H 08/17/17 03:07 INR 1.2 08/17/17 03:07 APTT 32 SECONDS (21-34) 08/17/17 03:07 Assessment and Plan - Assessment and Plan (Free Text) Assessment: Right hip fracture - Ortho, Dr. Cordon is consulted for OR tomorrow -NPO after midnight - Pain management: tylenol prn, percocet prn. Zofran prn for nausea - Lovenox for DVT prophylaxis - PT/OT Dizziness - Pt complained of dizziness prior to fall - Will check CT of head and neck - Echo from 01/2017 showed normal LV size and function with grade 1 diastolic dysfunction. Will repeat echo - Will check carotid US - Will check kirsten and ekg. Initial ekg showed sinus rhythm - will check UA HTN - Continue home medication losartan Chronic low back pain - Continue pain management Prophylaxs - Lovenox - SCDs - Pepcid
--- NOTE | 2017-08-17 09:33 | CT ---
PROCEDURE: CT Cervical Spine without contrast HISTORY: fall COMPARISON: None available. TECHNIQUE: Axial computed tomography images were obtained of the cervical spine without the use of intravenous contrast. Coronal and sagittal reformatted images were created and reviewed. Radiation dose: Total exam DLP = mGy-cm. This CT exam was performed using one or more of the following dose reduction techniques: Automated exposure control, adjustment of the mA and/or kV according to patient size, and/or use of iterative reconstruction technique. FINDINGS: VERTEBRAE: No fracture. Normal alignment. No destructive bony lesion. DISCS/SPINAL CANAL/NEURAL FORAMINA: Multilevel degenerative disc disease with midcervical loss of height. PARASPINAL SOFT TISSUES: Unremarkable. OTHER FINDINGS: None. IMPRESSION: No acute fracture.
--- NOTE | 2017-08-17 09:55 | CT ---
PROCEDURE: CT of the right Hip. HISTORY: hip fracture pre-op COMPARISON: None available. TECHNIQUE: Contiguous axial images of the right hip were obtained. Coronal and sagittal reformats were generated. This CT exam was performed using one or more of the following dose reduction techniques: Automated exposure control, adjustment of the mA and/or kV according to patient size, and/or use of iterative reconstruction technique. FINDINGS: BONES: Comminuted intratrochanteric fracture of the right hip with large roughly 6 centimeter laterally situated hematoma. Femoral head maintains normal contour and position. . No dislocation. No degenerative changes. SOFT TISSUES: Unremarkable. IMPRESSION: Comminuted intratrochanteric fracture of the right hip with large roughly 6 centimeter laterally situated hematoma.
[2017-08-17] MEDS ORDERED: Enoxaparin 40 mg Syringe SC SCH (10:00)
[2017-08-17] MEDS: Oxycodone/Acetaminophen 5/325 mg Tab PO PRN ×2 (10:24→15:15)
--- NOTE | 2017-08-17 11:04 | RAD ---
PROCEDURE: Radiographs of the pelvis and bilateral hips HISTORY: hip fracture pre-op COMPARISON: None. FINDINGS: BONES: Pelvis: Unremarkable. Right hip:Comminuted intertrochanteric fracture, minimally displaced. No other fracture identified. Left hip:Unremarkable. JOINTS: Right hip: Unremarkable. Left hip: Unremarkable. Sacroiliac Joints: Unremarkable. Pubic symphysis: Unremarkable. SOFT TISSUES: Normal. OTHER FINDINGS: None IMPRESSION: Comminuted minimally displaced intertrochanteric fracture of the right hip.
--- NOTE | 2017-08-17 11:12 | CP.PCM.CON ---
History of Present Illness - History of Present Illness History of Present Illness: Patient with history of hypertension now with hip Fracture secondary to fall. Past Patient History - Past Medical History & Family History Past Medical History?: Yes - Past Social History Smoking Status: Never Smoked Chewing Tobacco Use: No Cigar Use: No Alcohol: None Drugs: Denies Home Situation {Lives}: With Family - CARDIAC Hx Hypertension: Yes - PULMONARY Hx Pneumonia: Yes - NEUROLOGICAL Hx Neurological Disorder: No - HEENT Hx HEENT Problems: Yes Hx Blind: Yes (Left eye) Hx Cataracts: Yes Hx Glaucoma: Yes - RENAL Hx Chronic Kidney Disease: No - ENDOCRINE/METABOLIC Hx Endocrine Disorders: No - HEMATOLOGICAL/ONCOLOGICAL Hx Blood Disorders: No - INTEGUMENTARY Hx Dermatological Problems: No - MUSCULOSKELETAL/RHEUMATOLOGICAL Hx Musculoskeletal Disorders: Yes Hx Back Pain: Yes (chronic) Other/Comment: DIFFICULTY WALKING. using walker - GASTROINTESTINAL Hx Gastrointestinal Disorders: No - GENITOURINARY/GYNECOLOGICAL Hx Genitourinary Disorders: No - PSYCHIATRIC Hx Substance Use: No - SURGICAL HISTORY Hx Surgeries: Yes Hx Cataract Extraction: Yes (LEFT) Other/Comment: "Left eye surgery" - ANESTHESIA Hx Anesthesia: Yes Hx Anesthesia Reactions: No Hx Malignant Hyperthermia: No Meds Allergies/Adverse Reactions: Allergies Allergy/AdvReac Type Severity Reaction Status Date / Time No Known Allergies Allergy Verified 05/25/17 04:09 - Medications Medications: Current Medications Acetaminophen (Tylenol 325mg Tab) 650 mg PO Q6 PRN PRN Reason: Pain, moderate (4-7) Famotidine (Pepcid) 20 mg PO BID [facility] Last Admin: 08/17/17 10:30 Dose: 20 mg Losartan Potassium (Cozaar) 25 mg PO DAILY [facility] Last Admin: 08/17/17 10:30 Dose: Not Given Ondansetron HCl (Zofran Inj) 4 mg IVP Q6 PRN PRN Reason: Nausea/Vomiting Oxycodone/Acetaminophen (Percocet 5/325 Mg Tab) 1 tab PO Q4H PRN PRN Reason: Pain, severe (8-10) Stop: 08/20/17 05:51 Last Admin: 08/17/17 10:24 Dose: 1 tab Physical Exam - Eye Exam Pupil Exam: NORMAL ACCOMODATION - Neck Exam Neck exam: Positive for: Normal Inspection - Respiratory Exam Respiratory Exam: NORMAL BREATHING PATTERN - Cardiovascular Exam Cardiovascular Exam: REGULAR RHYTHM - Extremities Exam Extremities exam: Positive for: normal inspection - Neurological Exam Neurological exam: Oriented x3 Results - Vital Signs Recent Vital Signs: Last Vital Signs Temp 98.3 F 08/17/17 06:14 Pulse 84 08/17/17 06:14 Resp 16 08/17/17 06:14 BP 148/72 08/17/17 06:14 Pulse Ox 96 08/17/17 06:42 - Labs Result Diagrams: 08/17/17 03:07 08/17/17 03:07 Labs: Laboratory Results - last 24 hr 08/17/17 08/17/17 08/17/17 01:42 03:07 03:07 WBC 17.5 H D RBC 4.43 Hgb 12.8 Hct 38.2 MCV 86.2 MCH 28.8 MCHC 33.4 RDW 14.0 Plt Count 201 MPV 10.0 Neut % (Auto) 80.6 H Lymph % (Auto) 11.3 L [place] % (Auto) 6.7 Eos % (Auto) 0.9 Baso % (Auto) 0.5 Neut # (Auto) 14.1 H Lymph # (Auto) 2.0 [place] # (Auto) 1.2 H Eos # (Auto) 0.2 Baso # (Auto) 0.1 PT INR APTT Sodium 139 Potassium 4.3 Chloride 104 Carbon Dioxide 24 Anion Gap 15 BUN 18 H Creatinine 0.8 Est GFR ( Amer) > 60 Est GFR (Non-Af Amer) > 60 POC Glucose (mg/dL) 136 H Random Glucose 122 H Calcium 9.2 Total Bilirubin 0.9 AST 21 ALT 20 Alkaline Phosphatase 62 Total Creatine Kinase CK-MB (Mass) Troponin I Total Protein 7.0 Albumin 3.8 Globulin 3.2 Albumin/Globulin Ratio 1.2 Urine Color Urine Clarity Urine pH Ur Specific [place] Urine Protein Urine Glucose (UA) Urine Ketones Urine Blood Urine Nitrate Urine Bilirubin Urine Urobilinogen Ur Leukocyte Esterase Urine WBC (Auto) Urine RBC (Auto) Ur Squamous Epith Cells 08/17/17 08/17/17 08/17/17 03:07 06:03 06:03 WBC RBC Hgb Hct MCV MCH MCHC RDW Plt Count MPV Neut % (Auto) Lymph % (Auto) [place] % (Auto) Eos % (Auto) Baso % (Auto) Neut # (Auto) Lymph # (Auto) [place] # (Auto) Eos # (Auto) Baso # (Auto) PT 13.6 H INR 1.2 APTT 32 Sodium Potassium Chloride Carbon Dioxide Anion Gap BUN Creatinine Est GFR ( Amer) Est GFR (Non-Af Amer) POC Glucose (mg/dL) Random Glucose Calcium Total Bilirubin AST ALT Alkaline Phosphatase Total Creatine Kinase 27 L CK-MB (Mass) 0.81 Troponin I 0.0470 Total Protein Albumin Globulin Albumin/Globulin Ratio Urine Color Yellow Urine Clarity Hazy Urine pH 5.0 Ur Specific [place] 1.015 Urine Protein Negative Urine Glucose (UA) Normal Urine Ketones Negative Urine Blood 2+ H Urine Nitrate Negative Urine Bilirubin Negative Urine Urobilinogen Normal Ur Leukocyte Esterase Neg Urine WBC (Auto) 4 Urine RBC (Auto) 22 H Ur Squamous Epith Cells < 1 Assessment & Plan (1) CHF (congestive heart failure) Assessment and Plan: Diastolic dysfunction, secondary to hypertension. Add beta blockers in regimen before surgery. Status: Acute (2) HTN (hypertension) Assessment and Plan: Not well controlled, pain may be a contributing factor. Control BP. May proceed with planned procedure with acceptable risk. Post -op EKG and cardiac markers q 8hoursX 2. Status: Chronic Priority: Medium
--- NOTE | 2017-08-17 14:55 | CP.PCM.PN ---
<ChristianMatilde L. - Last Filed: 08/17/17 16:11> Subjective - Date & Time of Evaluation Date of Evaluation: 08/17/17 Time of Evaluation: 07:00 - Subjective Subjective: PGY1- Medicine Note Patient seen and examined at bedside. Patient says her hip pain is 10/10 without medication and decreases to 6/10 with medication. Patient is breathing fast, but says it is due to her pain and that she does not feel short of breath. Patient denies any headache, chest pain, abdominal pain, nausea, vomiting, constipation. Objective - Vital Signs/Intake and Output Vital Signs (last 24 hours): Temp Pulse Resp BP Pulse Ox 98.3 F 84 16 148/72 96 08/17/17 06:14 08/17/17 06:14 08/17/17 06:14 08/17/17 06:14 08/17/17 06:42 - Medications Medications: Current Medications Acetaminophen (Tylenol 325mg Tab) 650 mg PO Q6 PRN PRN Reason: Pain, moderate (4-7) Famotidine (Pepcid) 20 mg PO BID [facility] Last Admin: 08/17/17 10:30 Dose: 20 mg Losartan Potassium (Cozaar) 25 mg PO DAILY [facility] Last Admin: 08/17/17 10:30 Dose: Not Given Ondansetron HCl (Zofran Inj) 4 mg IVP Q6 PRN PRN Reason: Nausea/Vomiting Oxycodone/Acetaminophen (Percocet 5/325 Mg Tab) 1 tab PO Q4H PRN PRN Reason: Pain, severe (8-10) Stop: 08/20/17 05:51 Last Admin: 08/17/17 10:24 Dose: 1 tab - Labs Labs: 08/17/17 03:07 08/17/17 03:07 PT 13.6 SECONDS (9.7-12.2) H 08/17/17 03:07 INR 1.2 08/17/17 03:07 APTT 32 SECONDS (21-34) 08/17/17 03:07 - Constitutional Appears: Non-toxic, In Acute Distress - Head Exam Head Exam: ATRAUMATIC, NORMAL INSPECTION, NORMOCEPHALIC - Eye Exam Eye Exam: EOMI Additional comments: left eye cataract - ENT Exam ENT Exam: Mucous Membranes Moist - Neck Exam Neck Exam: absent: Tenderness - Respiratory Exam Respiratory Exam: Clear to Ausculation Bilateral, NORMAL BREATHING PATTERN. absent: Rales, Rhonchi, Wheezes, Respiratory Distress, Stridor - Cardiovascular Exam Cardiovascular Exam: Tachycardia, RRR, +S1, +S2 - GI/Abdominal Exam GI & Abdominal Exam: Soft, Normal Bowel Sounds. absent: Tenderness - Extremities Exam Extremities Exam: absent: Full ROM, Pedal Edema Additional comments: patient unable to move right leg due to pain - Neurological Exam Neurological Exam: Alert, Awake, Oriented x3 - Psychiatric Exam Psychiatric exam: Normal Affect, Normal Mood - Skin Skin Exam: Intact, Normal Color, Warm Assessment and Plan - Assessment and Plan (Free Text) Assessment: Right hip fracture - hip xray: mildly comminuted, oblique fracture right femur involving greater trochanter and extending to the subtrochanteric region medially - Ortho, Dr. Cordon is consulted - Patient for OR tomorrow - Pain management: tylenol prn, percocet prn. Zofran prn for nausea - Lovenox held - PT/OT - Femur xray: acute and comminuted intertrochanteric fracture proximal right femur. degenerative changes both hips - CT LE: comminuted intratrochanteric fracture of the right hip with large roughly 6cm laterally situated hematoma. - c spine xray: no acute findings - hip/ pelvis xray: comminuted minimally displaced intertrochanteric fracture of the right hip. - Head CT: normal - Cxray: patchy consolidative changes at both lung bases; left greater than right. Diffuse increased interstitial lung markings which may present underlying edema versus infiltrate versus vascular congestion, biapical pleural thickening with upper lobe granulomatous changes, mild cardiomegaly, see full report Dizziness - Pt complained of dizziness prior to fall - Will check CT of head and neck - Echo from 01/2017 showed normal LV size and function with grade 1 diastolic dysfunction. Will repeat echo - Will check carotid US - Trop I .0470 - UA: 2+ blood, 22 RBC HTN - Continue home medication losartan - as per cardio add beta yang, Toprol Xl 25mg po daily - Cardiology consulted, Dr. Molina, help appreciated - Post -op EKG and cardiac markers q8h X 2 -f/u lipid panel, HgA1C, TSH, free T4 Chronic low back pain - Continue pain management Prophylaxs - hold VTE prophylaxis before OR - SCDs - Pepcid - NPO after midnight except meds Dispo: [place] cardiac risk score: 10, class II - 7% risk of cardiovascular complications after non cardiac surgery, risks outweigh benefits. <Mesha Henry - Last Filed: 08/17/17 19:31> Objective - Vital Signs/Intake and Output Vital Signs (last 24 hours): Temp Pulse Resp BP Pulse Ox 98.3 F 83 18 104/63 100 08/17/17 15:35 08/17/17 17:37 08/17/17 15:35 08/17/17 17:37 08/17/17 15:35 - Medications Medications: Current Medications Acetaminophen (Tylenol 325mg Tab) 650 mg PO Q6 PRN PRN Reason: Pain, moderate (4-7) Famotidine (Pepcid) 20 mg PO BID [facility] Last Admin: 08/17/17 17:38 Dose: 20 mg Losartan Potassium (Cozaar) 25 mg PO DAILY [facility] Last Admin: 08/17/17 10:30 Dose: Not Given Metoprolol Succinate (Toprol Xl) 25 mg PO DAILY [facility] Last Admin: 08/17/17 17:39 Dose: Not Given Ondansetron HCl (Zofran Inj) 4 mg IVP Q6 PRN PRN Reason: Nausea/Vomiting Oxycodone/Acetaminophen (Percocet 5/325 Mg Tab) 1 tab PO Q4H PRN PRN Reason: Pain, severe (8-10) Stop: 08/20/17 05:51 Last Admin: 08/17/17 15:15 Dose: 1 tab - Labs Labs: 08/17/17 17:11 08/17/17 03:07 PT 13.6 SECONDS (9.7-12.2) H 08/17/17 03:07 INR 1.2 08/17/17 03:07 APTT 32 SECONDS (21-34) 08/17/17 03:07 Attending/Attestation - Attestation I have personally seen and examined this patient.: Yes I have fully participated in the care of the patient.: Yes I have reviewed all pertinent clinical information, including history, physical exam and plan: Yes Notes (Text): Seen and examined, patient is complaining of hip pain ,its better after pain meds. patient's daughter at bedside speaks [place] help to translate 1. Right hip intertrochanteric fracture. patient is going for surgery tomorrow Patient's Cxray: patchy consolidate changes at both lung bases; left greater than right. Diffuse increased interstitial lung markings which may present underlying edema versus infiltrate versus vascular congestion, biapical pleural thickening with upper lobe glaucomatous changes, mild cardiomegaly she has no fever,no cough,no sob,no leukocytosis. saturating well .we will follow echo . Previous chest x ray noted 2. Dizziness 3. HTN Cardiology consulted, Dr. Molina, help appreciated 4. Chronic low back pain - Continue pain management 5.Prophylaxs - hold VTE prophylaxis before OR Discussed with the resident. I agree with the resident's documentation of the assessment and the plan
--- NOTE | 2017-08-17 14:56 | RAD ---
PROCEDURE: Bilateral femurs HISTORY: hip fracture pre-op COMPARISON: Pelvis/ hip radiographs August 17, 2017. TECHNIQUE: Standard protocol for this study/examination. FINDINGS: Confirmation of comminuted inter trochanteric fracture. The remainder of the right femur is within normal limits. Left femur: Degenerative changes left hip. No acute findings IMPRESSION: Acute and comminuted intertrochanteric fracture proximal right femur. Degenerative changes both hips.
[2017-08-17] MEDS ORDERED: Metoprolol Succinate 25 mg XL Tab PO SCH (15:15)
--- NOTE | 2017-08-17 15:15 | CP.PCM.CON ---
History of Present Illness - History of Present Illness History of Present Illness: Orthopedic consultation Dr. Kapadia 89F complains of right hip pain after fall at home last night. She lives with son and uses walker to ambulate. She complains of pain becuase she hit her head , but denies neck pain or pain in other extremities. She complains of left sided rib pain when she breathes in. Family and son at bedside. Denies SOB. Patient does not recall fall per family. No prior or recent falls. Denies numbness/tingling. She has a history of chronic low back pain. Review of Systems - Review of Systems All systems: reviewed and no additional remarkable complaints except - Respiratory Respiratory: As Per HPI Additional comments: rib pain, - Musculoskeletal Musculoskeletal: As Per HPI - Neurological Neurological: As Per HPI - Hematologic/Lymphatic Hematologic: absent: As Per HPI, Easy Bleeding, Easy Bruising, Lymphadenopathy, Other Past Patient History - Past Medical History & Family History Past Medical History?: Yes Past Family History: Reviewed and not pertinent - Past Social History Smoking Status: Never Smoked Chewing Tobacco Use: No Cigar Use: No Alcohol: None Drugs: Denies Home Situation {Lives}: With Family - CARDIAC Hx Hypertension: Yes - PULMONARY Hx Pneumonia: Yes - NEUROLOGICAL Hx Neurological Disorder: No - HEENT Hx HEENT Problems: Yes Hx Blind: Yes (Left eye) Hx Cataracts: Yes Hx Glaucoma: Yes - RENAL Hx Chronic Kidney Disease: No - ENDOCRINE/METABOLIC Hx Endocrine Disorders: No - HEMATOLOGICAL/ONCOLOGICAL Hx Blood Disorders: No - INTEGUMENTARY Hx Dermatological Problems: No - MUSCULOSKELETAL/RHEUMATOLOGICAL Hx Musculoskeletal Disorders: Yes Hx Back Pain: Yes (chronic) Other/Comment: DIFFICULTY WALKING. using walker - GASTROINTESTINAL Hx Gastrointestinal Disorders: No - GENITOURINARY/GYNECOLOGICAL Hx Genitourinary Disorders: No - PSYCHIATRIC Hx Substance Use: No - SURGICAL HISTORY Hx Surgeries: Yes Hx Cataract Extraction: Yes (LEFT) Other/Comment: "Left eye surgery" - ANESTHESIA Hx Anesthesia: Yes Hx Anesthesia Reactions: No Hx Malignant Hyperthermia: No Meds Allergies/Adverse Reactions: Allergies Allergy/AdvReac Type Severity Reaction Status Date / Time No Known Allergies Allergy Verified 05/25/17 04:09 - Medications Medications: Current Medications Acetaminophen (Tylenol 325mg Tab) 650 mg PO Q6 PRN PRN Reason: Pain, moderate (4-7) Famotidine (Pepcid) 20 mg PO BID [facility] Last Admin: 08/17/17 10:30 Dose: 20 mg Losartan Potassium (Cozaar) 25 mg PO DAILY [facility] Last Admin: 08/17/17 10:30 Dose: Not Given Metoprolol Succinate (Toprol Xl) 25 mg PO DAILY [facility] Ondansetron HCl (Zofran Inj) 4 mg IVP Q6 PRN PRN Reason: Nausea/Vomiting Oxycodone/Acetaminophen (Percocet 5/325 Mg Tab) 1 tab PO Q4H PRN PRN Reason: Pain, severe (8-10) Stop: 08/20/17 05:51 Last Admin: 08/17/17 10:24 Dose: 1 tab Physical Exam - Constitutional Appears: Well, No Acute Distress - Head Exam Head Exam: NORMOCEPHALIC - Neck Exam Neck exam: Positive for: Full Rom, Normal Inspection - Respiratory Exam Respiratory Exam: Chest Wall Tenderness (on left lower ribs, noted slight discoloration spotty, unclear if ecchynmosi), NORMAL BREATHING PATTERN - Cardiovascular Exam Additional comments: +DP/PT pulses - Extremities Exam Additional comments: full ROM BUE without pain, no swelling/deformity/discoloration - Expanded Lower Extremities Exam Right Hip exam: external rotation, shortening Ankle exam: FULL ROM Neuro vacular tendon exam: no vascular compromise - Neurological Exam Neurological exam: Alert, Oriented x3 - Psychiatric Exam Psychiatric exam: Normal Affect, Normal Mood - Skin Skin Exam: Dry, Intact, Normal Color, Warm Results - Vital Signs Recent Vital Signs: Last Vital Signs Temp 98.3 F 08/17/17 06:14 Pulse 84 08/17/17 06:14 Resp 16 08/17/17 06:14 BP 148/72 08/17/17 06:14 Pulse Ox 96 08/17/17 06:42 - Labs Result Diagrams: 08/17/17 03:07 08/17/17 03:07 Labs: Laboratory Results - last 24 hr 08/17/17 08/17/17 08/17/17 01:42 03:07 03:07 WBC 17.5 H D RBC 4.43 Hgb 12.8 Hct 38.2 MCV 86.2 MCH 28.8 MCHC 33.4 RDW 14.0 Plt Count 201 MPV 10.0 Neut % (Auto) 80.6 H Lymph % (Auto) 11.3 L [place] % (Auto) 6.7 Eos % (Auto) 0.9 Baso % (Auto) 0.5 Neut # (Auto) 14.1 H Lymph # (Auto) 2.0 [place] # (Auto) 1.2 H Eos # (Auto) 0.2 Baso # (Auto) 0.1 PT INR APTT Sodium 139 Potassium 4.3 Chloride 104 Carbon Dioxide 24 Anion Gap 15 BUN 18 H Creatinine 0.8 Est GFR ( Amer) > 60 Est GFR (Non-Af Amer) > 60 POC Glucose (mg/dL) 136 H Random Glucose 122 H Calcium 9.2 Total Bilirubin 0.9 AST 21 ALT 20 Alkaline Phosphatase 62 Total Creatine Kinase CK-MB (Mass) Troponin I Total Protein 7.0 Albumin 3.8 Globulin 3.2 Albumin/Globulin Ratio 1.2 Urine Color Urine Clarity Urine pH Ur Specific [place] Urine Protein Urine Glucose (UA) Urine Ketones Urine Blood Urine Nitrate Urine Bilirubin Urine Urobilinogen Ur Leukocyte Esterase Urine WBC (Auto) Urine RBC (Auto) Ur Squamous Epith Cells Blood Type Blood Type Confirm Antibody Screen 08/17/17 08/17/17 08/17/17 03:07 06:03 06:03 WBC RBC Hgb Hct MCV MCH MCHC RDW Plt Count MPV Neut % (Auto) Lymph % (Auto) [place] % (Auto) Eos % (Auto) Baso % (Auto) Neut # (Auto) Lymph # (Auto) [place] # (Auto) Eos # (Auto) Baso # (Auto) PT 13.6 H INR 1.2 APTT 32 Sodium Potassium Chloride Carbon Dioxide Anion Gap BUN Creatinine Est GFR ( Amer) Est GFR (Non-Af Amer) POC Glucose (mg/dL) Random Glucose Calcium Total Bilirubin AST ALT Alkaline Phosphatase Total Creatine Kinase 27 L CK-MB (Mass) 0.81 Troponin I 0.0470 Total Protein Albumin Globulin Albumin/Globulin Ratio Urine Color Yellow Urine Clarity Hazy Urine pH 5.0 Ur Specific [place] 1.015 Urine Protein Negative Urine Glucose (UA) Normal Urine Ketones Negative Urine Blood 2+ H Urine Nitrate Negative Urine Bilirubin Negative Urine Urobilinogen Normal Ur Leukocyte Esterase Neg Urine WBC (Auto) 4 Urine RBC (Auto) 22 H Ur Squamous Epith Cells < 1 Blood Type Blood Type Confirm Antibody Screen 08/17/17 11:24 WBC RBC Hgb Hct MCV MCH MCHC RDW Plt Count MPV Neut % (Auto) Lymph % (Auto) [place] % (Auto) Eos % (Auto) Baso % (Auto) Neut # (Auto) Lymph # (Auto) [place] # (Auto) Eos # (Auto) Baso # (Auto) PT INR APTT Sodium Potassium Chloride Carbon Dioxide Anion Gap BUN Creatinine Est GFR ( Amer) Est GFR (Non-Af Amer) POC Glucose (mg/dL) Random Glucose Calcium Total Bilirubin AST ALT Alkaline Phosphatase Total Creatine Kinase CK-MB (Mass) Troponin I Total Protein Albumin Globulin Albumin/Globulin Ratio Urine Color Urine Clarity Urine pH Ur Specific [place] Urine Protein Urine Glucose (UA) Urine Ketones Urine Blood Urine Nitrate Urine Bilirubin Urine Urobilinogen Ur Leukocyte Esterase Urine WBC (Auto) Urine RBC (Auto) Ur Squamous Epith Cells Blood Type B NEGATIVE Blood Type Confirm B NEGATIVE Antibody Screen Negative - Impressions Impression: atient Name / ID : LUIS MENDOZA / [id number] Exam Date : 08/17/2017 08:30:17 ( Approved ) Study Comment : Sex / Age : F / 82Y Creator : Diane Tatum Dictator : Francois Arellano MD Outsole Skiver : Pipe Bowl Paint Trimmer : Francois Arellano MD Approver2 : Report Date : 08/17/2017 09:00:42 My Comment : PROCEDURE: CT of the right Hip. HISTORY: hip fracture pre-op COMPARISON: None available. TECHNIQUE: Contiguous axial images of the right hip were obtained. Coronal and sagittal reformats were generated. This CT exam was performed using one or more of the following dose reduction techniques: Automated exposure control, adjustment of the mA and/or kV according to patient size, and/or use of iterative reconstruction technique. FINDINGS: BONES: Comminuted intratrochanteric fracture of the right hip with large roughly 6 centimeter laterally situated hematoma. Femoral head maintains normal contour and position. . No dislocation. No degenerative changes. SOFT TISSUES: Unremarkable. IMPRESSION: Comminuted intratrochanteric fracture of the right hip with large roughly 6 centimeter laterally situated hematoma. Patient Name / ID : LUIS MENDOZA / [id number] Exam Date : 08/17/2017 08:32:40 ( Approved ) Study Comment : Sex / Age : F / 82Y Creator : Bib Hua MD Dictator : Bib Hua MD Outsole Skiver : Pipe Bowl Paint Trimmer : Bib Hua MD Approver2 : Report Date : 08/17/2017 11:02:28 My Comment : PROCEDURE: Radiographs of the pelvis and bilateral hips HISTORY: hip fracture pre-op COMPARISON: None. FINDINGS: BONES: Pelvis: Unremarkable. Right hip:Comminuted intertrochanteric fracture, minimally displaced. No other fracture identified. Left hip:Unremarkable. JOINTS: Right hip: Unremarkable. Left hip: Unremarkable. Sacroiliac Joints: Unremarkable. Pubic symphysis: Unremarkable. SOFT TISSUES: Normal. OTHER FINDINGS: None IMPRESSION: Comminuted minimally displaced intertrochanteric fracture of the right hip. Patient Name / ID : LUIS MENDOZA / [id number] Exam Date : 08/17/2017 08:32:40 ( Approved ) Study Comment : Sex / Age : F / 82Y Creator : Yung Dennis MD Dictator : Yung Dennis MD Outsole Skiver : Pipe Bowl Paint Trimmer : Yung Dennis MD Approver2 : Report Date : 08/17/2017 14:55:24 My Comment : PROCEDURE: Bilateral femurs HISTORY: hip fracture pre-op COMPARISON: Pelvis/ hip radiographs August 17, 2017. TECHNIQUE: Standard protocol for this study/examination. FINDINGS: Confirmation of comminuted inter trochanteric fracture. The remainder of the right femur is within normal limits. Left femur: Degenerative changes left hip. No acute findings IMPRESSION: Acute and comminuted intertrochanteric fracture proximal right femur. Degenerative changes both hips. Accession No. : [id number] Patient Name / ID : LUIS MENDOZA / [id number] Exam Date : 08/17/2017 08:26:47 ( Approved ) Study Comment : Sex / Age : F / 82Y Creator : Diane Tatum Dictator : Francois Arellano MD Outsole Skiver : Pipe Bowl Paint Trimmer : Francois Arellano MD Approver2 : Report Date : 08/17/2017 09:00:47 My Comment : PROCEDURE: CT Cervical Spine without contrast HISTORY: fall COMPARISON: None available. TECHNIQUE: Axial computed tomography images were obtained of the cervical spine without the use of intravenous contrast. Coronal and sagittal reformatted images were created and reviewed. Radiation dose: Total exam DLP = mGy-cm. This CT exam was performed using one or more of the following dose reduction techniques: Automated exposure control, adjustment of the mA and/or kV according to patient size, and/or use of iterative reconstruction technique. FINDINGS: VERTEBRAE: No fracture. Normal alignment. No destructive bony lesion. DISCS/SPINAL CANAL/NEURAL FORAMINA: Multilevel degenerative disc disease with midcervical loss of height. PARASPINAL SOFT TISSUES: Unremarkable. OTHER FINDINGS: None. IMPRESSION: No acute fracture. Accession No. : [id number] Patient Name / ID : LUIS MENDOZA / [id number] Exam Date : 08/17/2017 03:43:52 ( Approved ) Study Comment : Sex / Age : F / 82Y Creator : Raymundo Penaloza MD Dictator : Raymundo Penaloza MD Outsole Skiver : Pipe Bowl Paint Trimmer : Raymundo Penaloza MD Approver2 : Report Date : 08/17/2017 08:23:07 My Comment : Chest x-ray single frontal view History: Sepsis. Comparison: None available. Findings: Patchy consolidative changes at both lung bases ; left greater than right. Elevated right seema diaphragm which appears eventerated. Diffuse increased interstitial lung markings which may represent underlying edema versus infiltrate versus vascular congestion. Biapical pleural thickening with upper lobe granulomatous changes. Enlarged ectatic aorta. Right paratracheal prominence may represent prominent vascularity. Mild cardiomegaly with calcification at the aortic knob. Degenerative changes in the spine and shoulders. Impression: Patchy consolidative changes at both lung bases ; left greater than right. Elevated right seema diaphragm which appears eventerated. Diffuse increased interstitial lung markings which may represent underlying edema versus infiltrate versus vascular congestion. Biapical pleural thickening with upper lobe granulomatous changes. Enlarged ectatic aorta. Right paratracheal prominence may represent prominent vascularity. Mild cardiomegaly with calcification at the aortic knob. Degenerative changes in the spine and shoulders. Assessment & Plan (1) Intertrochanteric fracture of right femur Assessment and Plan: risks/benefits/alternatives explained to patient and family patient indicated for intramedullary nailing NPO p [place] cardiology acceptable risk patient for echo today T&C SCDs no anticoagulation at this time d/w Dr. Kapadia, agrees with above Status: Acute (2) Rib pain on left side Assessment and Plan: rib series with repeat CXR ordered O2 sat stable, no SOB Status: Acute
--- NOTE | 2017-08-17 17:16 | RAD ---
PROCEDURE: Radiographs of the Chest and Left Ribs. HISTORY: left rib pain COMPARISON: 08/17/2017 at 3:44 a.m.. TECHNIQUE: Frontal radiograph of the chest and multiple oblique radiographs of the left ribs were obtained. FINDINGS: LEFT RIBS: No fracture or focal lesion visualized. LUNGS: Clear. PLEURA: Elevated right hemidiaphragm, nonspecific. CARDIOVASCULAR: Normal heart size. Right paratracheal prominence likely due to vascular ectasia. OTHER FINDINGS: None. IMPRESSION: No evidence of left rib fracture.
[2017-08-17 17:23] LABS: HEMOGLOBIN 11.4 g/dL (11.0-16.0); MEAN CELL VOLUME 85.4 fL (81.0-99.0); MEAN CORPUSCULAR HEMOGLOBIN 29.5 pg (27.0-31.0); MEAN CORPUSCULAR HGB CONC 34.6 g/dL (33.0-37.0); MEAN PLATELET VOLUME 9.5 fL (7.2-11.7); RBC 3.86 Mil/uL (3.80-5.20); RED CELL DISTRIBUTION WIDTH 13.5 % (11.5-14.5); WHITE BLOOD COUNT 9.1 K/uL (4.8-10.8)
--- NOTE | 2017-08-17 20:52 | CP.PCM.PCO ---
Physician Communication Note - Physician Communication Note Physician Communication Note: Cardiology clearance given by Dr. cid Assessment & Plan - Assessment and Plan (Free Text) Assessment: I spoke with Dr. Cid. After reviewing the echo from 01/2017 which showed normal LVEF, Dr. Cid medically cleared patient for orthopedic surgery. Low risk for adverse cardiac events for a non-cardiac surgery. - Date & Time Date: 08/17/17 Time: 20:50
[2017-08-17 21:47] LABS: CK-MB 0.67 ng/mL (0.0-3.38); TROPONIN I 0.033 ng/mL (0.00-0.120)
[2017-08-18] MEDS: Oxycodone/Acetaminophen 5/325 mg Tab PO PRN ×2 (00:03→05:29)
[2017-08-18 04:50] LABS: BASO % 0.5 % (0.0-2.0); EOS # 0.1 K/uL (0.0-0.7); EOS % 0.7 % (0.0-4.0); HEMOGLOBIN 10.4 g/dL (11.0-16.0); LYMPH % 22.2 % (20.0-40.0); MEAN CELL VOLUME 85.6 fL (81.0-99.0); MONO # 1.3 K/uL (0.0-0.8); MONO % 14.1 % (0.0-10.0); NEUT # 5.7 K/uL (1.8-7.0); NEUT % 62.5 % (50.0-75.0); RBC 3.48 Mil/uL (3.80-5.20); RED CELL DISTRIBUTION WIDTH 13.5 % (11.5-14.5); WHITE BLOOD COUNT 9.1 K/uL (4.8-10.8)
[2017-08-18 05:15] LABS: LDL CHOLESTEROL 51 mg/dL (0-129)
[2017-08-18 05:35] LABS: ALT/SGPT 18 U/L (9-52); AST/SGOT 15 U/L (14-36); BLOOD UREA NITROGEN 12 mg/dL (7-17); CALCIUM 8.3 mg/dl (8.6-10.4); GFR AFRICAN-AMERICAN > 60; GFR NON-AFRICAN AMERICAN > 60
[2017-08-18] MEDS ORDERED: Propofol 10 mg/ml Inj (20 ML) ONE (07:38)
[2017-08-18] MEDS ORDERED: Rocuronium 10 mg/ml (5 ml) ONE (07:41)
[2017-08-18] MEDS ORDERED: Phenylephrine 10 mg/ml Inj ONE (07:41)
[2017-08-18] MEDS ORDERED: ceFAZolin 1 gm in NS 2 GM/200 ML BAG IVPB ONE (07:55)
[2017-08-18] MEDS ORDERED: Bacitracin 500 Units/gm Oint Foilpak UD ONE (10:53)
[2017-08-18] MEDS: HYDROmorphone 0.5 mg/0.5 ml ISec IVP PRN ×4 (11:16→12:00)
--- NOTE | 2017-08-18 11:29 | RAD ---
PROCEDURE: Intraoperative Fluoroscopy. HISTORY: FX. RT. HIP FINDINGS: Fluoroscopic assistance was provided. 524.7 seconds fluoroscopy time utilized. Radiation dose = 40.23 mGy. Please refer to the operative report from Dr. RADHA SELLERS MD.
[2017-08-18] MEDS ORDERED: Lactated Ringer's 1,000 ML IV ONE ×2 (12:00→15:15)
[2017-08-18] MEDS ORDERED: Sodium Chloride 0.9% 1,000 ML IV SCH (12:30)
[2017-08-18] MEDS ORDERED: Sodium Chloride 0.9% 500 ML IV ONE ×2 (14:45→15:05)
[2017-08-18] MEDS: ceFAZolin 2 GM in Sodium Chloride 0.9% 100 ML IVPB SCH (16:30)
[2017-08-18 17:25] LABS: CK-MB 5.01 ng/mL (0.0-3.38); TROPONIN I 0.022 ng/mL (0.00-0.120)
--- NOTE | 2017-08-18 17:44 | CP.PCM.PN ---
<Matilde Gonzales - Last Filed: 08/18/17 18:24> Subjective - Date & Time of Evaluation Date of Evaluation: 08/18/17 Time of Evaluation: 17:00 - Subjective Subjective: PGY1- Medicine Note Patient seen and examined at bedside POD# 0 R hip ORIF. Patient is very lethargic post op. Patient's pain is well controlled. Patient denies any nausea or vomiting. Objective - Vital Signs/Intake and Output Vital Signs (last 24 hours): Temp Pulse Resp BP Pulse Ox 97.4 F L 97 H 20 136/75 98 08/18/17 16:00 08/18/17 16:00 08/18/17 16:00 08/18/17 17:29 08/18/17 16:00 Intake and Output: 08/18/17 08/18/17 06:59 18:59 Intake Total 630 2200 Output Total 1400 175 Balance -770 2025 - Medications Medications: Current Medications Acetaminophen (Tylenol 325mg Tab) 650 mg PO Q6 PRN PRN Reason: Pain, moderate (4-7) Calcium/Vitamin D (Oyster Shell Calcium/Vitamin D 500 Mg-200 Iu) 1 tab PO DAILY [facility] Docusate Sodium (Colace) 100 mg PO BID [facility] Last Admin: 08/18/17 17:28 Dose: 100 mg Enoxaparin Sodium (Lovenox) 40 mg SC DAILY [facility] Famotidine (Pepcid) 20 mg PO BID [facility] Last Admin: 08/18/17 17:28 Dose: 20 mg Cefazolin Sodium 2 gm/ Sodium (Chloride) 100 mls @ 100 mls/hr IVPB Q8H [facility] PRN Reason: Protocol Stop: 08/19/17 00:59 Last Admin: 08/18/17 16:30 Dose: 100 mls/hr Sodium Chloride (Sodium Chloride 0.9%) 1,000 mls @ 60 mls/hr IV [id number] [facility] Stop: 08/19/17 05:09 Last Admin: 08/18/17 16:19 Dose: 60 mls/hr Losartan Potassium (Cozaar) 25 mg PO DAILY [facility] Last Admin: 08/18/17 09:39 Dose: Not Given Metoprolol Tartrate (Lopressor) 25 mg PO BID [facility] Last Admin: 08/18/17 17:29 Dose: 25 mg Morphine Sulfate (Morphine) 2 mg IVP Q4H PRN PRN Reason: Pain, severe (8-10) Ondansetron HCl (Zofran Inj) 4 mg IVP Q6 PRN PRN Reason: Nausea/Vomiting Last Admin: 08/18/17 17:28 Dose: 4 mg Oxycodone/Acetaminophen (Percocet 5/325 Mg Tab) 1 tab PO Q4H PRN PRN Reason: Pain, severe (8-10) Stop: 08/20/17 05:51 Last Admin: 08/18/17 05:29 Dose: 1 tab - Labs Labs: 08/18/17 04:46 08/18/17 04:46 PT 13.6 SECONDS (9.7-12.2) H 08/17/17 03:07 INR 1.2 08/17/17 03:07 APTT 32 SECONDS (21-34) 08/17/17 03:07 - Constitutional Appears: Non-toxic, No Acute Distress - Head Exam Head Exam: ATRAUMATIC, NORMAL INSPECTION, NORMOCEPHALIC - Eye Exam Eye Exam: EOMI, Normal appearance - ENT Exam ENT Exam: Mucous Membranes Moist - Respiratory Exam Respiratory Exam: Clear to Ausculation Bilateral, NORMAL BREATHING PATTERN. absent: Rales, Rhonchi, Wheezes, Respiratory Distress, Stridor - Cardiovascular Exam Cardiovascular Exam: REGULAR RHYTHM, RRR, +S1, +S2 - GI/Abdominal Exam GI & Abdominal Exam: Soft, Normal Bowel Sounds. absent: Tenderness - Extremities Exam Extremities Exam: absent: Pedal Edema Additional comments: right hip s/p ORIF dressing c/d/i - Neurological Exam Neurological Exam: Alert, Awake, Oriented x3 - Psychiatric Exam Psychiatric exam: Normal Affect, Normal Mood - Skin Skin Exam: Intact, Normal Color, Warm Assessment and Plan - Assessment and Plan (Free Text) Assessment: Right hip fracture, POD 0 R hip ORIF - hip xray: mildly comminuted, oblique fracture right femur involving greater trochanter and extending to the subtrochanteric region medially - Ortho, Dr. Cordon is consulted and R hip ORIF done on 08/18/17 - Morphine for pain - Pain management: tylenol prn, percocet prn. Zofran prn for nausea - Lovenox held, restart 08/19 - PT/OT - Femur xray: acute and comminuted intertrochanteric fracture proximal right femur. degenerative changes both hips - CT LE: comminuted intratrochanteric fracture of the right hip with large roughly 6cm laterally situated hematoma. - c spine xray: no acute findings - hip/ pelvis xray: comminuted minimally displaced intertrochanteric fracture of the right hip. - Head CT: normal - Cxray: patchy consolidative changes at both lung bases; left greater than right. Diffuse increased interstitial lung markings which may present underlying edema versus infiltrate versus vascular congestion, biapical pleural thickening with upper lobe granulomatous changes, mild cardiomegaly, see full report Dizziness - Pt complained of dizziness prior to fall - Will check CT of head and neck - Echo from 01/2017 showed normal LV size and function with grade 1 diastolic dysfunction. Will repeat echo - Will check carotid US - Trop I .0470 - UA: 2+ blood, 22 RBC HTN - Continue home medication losartan - as per cardio add beta yang, Toprol Xl 25mg po daily - Cardiology consulted, Dr. Molina, help appreciated - f/u Post -op EKG and cardiac markers q8h X 2, trop I : .022 -lipid panel: triglycerides 43, cholesterol 109, LDL 51, HDL 40 -HgA1C: 5.1 -TSH: free T4 Chronic low back pain - Continue pain management Prophylaxs - hold VTE prophylaxis before OR, restart 08/19 - SCDs - Pepcid - Morphine for pain <Mesha Henry - Last Filed: 08/19/17 15:13> Objective - Vital Signs/Intake and Output Vital Signs (last 24 hours): Temp Pulse Resp BP Pulse Ox 98.9 F 100 H 20 132/64 96 08/19/17 14:40 08/19/17 14:40 08/19/17 14:40 08/19/17 14:40 08/19/17 08:54 Intake and Output: 08/19/17 08/19/17 06:59 18:59 Intake Total 1180 650 Output Total 500 Balance 680 650 - Medications Medications: Current Medications Acetaminophen (Tylenol 325mg Tab) 650 mg PO Q6 PRN PRN Reason: Pain, moderate (4-7) Calcium/Vitamin D (Oyster Shell Calcium/Vitamin D 500 Mg-200 Iu) 1 tab PO DAILY [facility] Last Admin: 08/19/17 09:18 Dose: 1 tab Docusate Sodium (Colace) 100 mg PO BID [facility] Last Admin: 08/19/17 09:16 Dose: 100 mg Enoxaparin Sodium (Lovenox) 40 mg SC DAILY [facility] Last Admin: 08/19/17 09:19 Dose: Not Given Famotidine (Pepcid) 20 mg PO BID [facility] Last Admin: 08/19/17 09:17 Dose: 20 mg Cefazolin Sodium 2 gm/ Sodium (Chloride) 100 mls @ 100 mls/hr IVPB Q8H [facility] PRN Reason: Protocol Stop: 08/20/17 08:59 Last Admin: 08/19/17 09:18 Dose: 100 mls/hr Losartan Potassium (Cozaar) 25 mg PO DAILY [facility] Last Admin: 08/19/17 09:18 Dose: 25 mg Metoprolol Tartrate (Lopressor) 25 mg PO BID [facility] Last Admin: 08/19/17 09:17 Dose: 25 mg Morphine Sulfate (Morphine) 2 mg IVP Q4H PRN PRN Reason: Pain, severe (8-10) Last Admin: 08/19/17 14:43 Dose: 2 mg Ondansetron HCl (Zofran Inj) 4 mg IVP Q6 PRN PRN Reason: Nausea/Vomiting Last Admin: 08/19/17 09:40 Dose: 4 mg Oxycodone/Acetaminophen (Percocet 5/325 Mg Tab) 1 tab PO Q4H PRN PRN Reason: Pain, severe (8-10) Stop: 08/20/17 05:51 Last Admin: 08/19/17 04:31 Dose: 1 tab - Labs Labs: 08/19/17 07:16 08/19/17 07:16 PT 13.6 SECONDS (9.7-12.2) H 08/17/17 03:07 INR 1.2 08/17/17 03:07 APTT 32 SECONDS (21-34) 08/17/17 03:07 Attending/Attestation - Attestation I have personally seen and examined this patient.: Yes I have fully participated in the care of the patient.: Yes I have reviewed all pertinent clinical information, including history, physical exam and plan: Yes Notes (Text): Seen and examined by me after surgery Complaining of nausea. spoke to her family at bedside D/W resident I agree woth the documentation of the resident's documentation of the assessment and the plan 1. s/p right hip ORIF 2. HTN and diastolic dysfunction
--- NOTE | 2017-08-18 19:23 | CARD ---
APPROVED REPORT EKG Measurement Heart [id number] <Conclusion> Sinus rhythm with 1st degree AV block Otherwise normal ECG
[2017-08-18] MEDS: Morphine 4 MG/ML VIAL IVP PRN (20:24)
[2017-08-18 20:41] LABS: CK-MB 4.96 ng/mL (0.0-3.38); TROPONIN I 0.021 ng/mL (0.00-0.120)
--- NOTE | 2017-08-18 23:24 | PCM.SURG1 ---
Surgeon's Initial Post Op Note - Surgeon's Notes Surgeon: Klaus Kapadia MD Animal Caretaker: Radha Patel PA-C Type of Anesthesia: General Endo Pre-Operative Diagnosis: Right hip displaced intertrochanteric hip fracture with extension beyond level of LT Operative Findings: Right hip displaced, comminuted, intertrochanteric hip fracture with extension beyond level of LT Post-Operative Diagnosis: Right hip displaced intertrochanteric hip fracture with extension beyond level of LT Operation Performed: Right hip displaced intertrochanteric hip fracture closed reduction and internal fixation with long hip nail (TFNA) Specimen/Specimens Removed: specimen= none. complications= none. implants= Synthes Long TFNA hip nail, 380mm length/11mm diam, 100 mm length helical blade , distal interlocking screws x2 5.0mm diam Estimated Blood Loss: EBL {In ML}: 200 Blood Products Given: N/A Drains Used: No Drains Post-Op Condition: Good Date of Surgery/Procedure: 08/18/17 Time of Surgery/Procedure: 11:00
[2017-08-19] MEDS: ceFAZolin 2 GM in Sodium Chloride 0.9% 100 ML IVPB SCH ×3 (00:37→16:39)
[2017-08-19] MEDS: Morphine 4 MG/ML VIAL IVP PRN ×4 (02:30→20:56)
[2017-08-19] MEDS: Oxycodone/Acetaminophen 5/325 mg Tab PO PRN (04:31)
[2017-08-19 07:43] LABS: MEAN CELL VOLUME 85.4 fL (81.0-99.0); MEAN CORPUSCULAR HGB CONC 35.1 g/dL (33.0-37.0); MEAN PLATELET VOLUME 9.9 fL (7.2-11.7); RBC 2.2 Mil/uL (3.80-5.20); RED CELL DISTRIBUTION WIDTH 13.4 % (11.5-14.5); WHITE BLOOD COUNT 9.7 K/uL (4.8-10.8)
[2017-08-19 07:49] LABS: HEMOGLOBIN 6.6 g/dL (11.0-16.0)
--- NOTE | 2017-08-19 08:02 | CP.PCM.PN ---
Subjective - Date & Time of Evaluation Date of Evaluation: 08/19/17 Time of Evaluation: 07:57 - Subjective Subjective: Patient comfortable. Family at bedside. Objective - Vital Signs/Intake and Output Vital Signs (last 24 hours): Temp Pulse Resp BP Pulse Ox 98.1 F 97 H 20 111/53 L 99 08/19/17 04:29 08/19/17 04:29 08/18/17 23:45 08/19/17 04:29 08/18/17 23:45 Intake and Output: 08/19/17 08/19/17 06:59 18:59 Intake Total 1180 Output Total 500 Balance 680 - Medications Medications: Current Medications Acetaminophen (Tylenol 325mg Tab) 650 mg PO Q6 PRN PRN Reason: Pain, moderate (4-7) Calcium/Vitamin D (Oyster Shell Calcium/Vitamin D 500 Mg-200 Iu) 1 tab PO DAILY [facility] Docusate Sodium (Colace) 100 mg PO BID [facility] Last Admin: 08/18/17 17:28 Dose: 100 mg Enoxaparin Sodium (Lovenox) 40 mg SC DAILY [facility] Famotidine (Pepcid) 20 mg PO BID [facility] Last Admin: 08/18/17 17:28 Dose: 20 mg Cefazolin Sodium 2 gm/ Sodium (Chloride) 100 mls @ 100 mls/hr IVPB Q8H [facility] PRN Reason: Protocol Stop: 08/20/17 08:59 Last Admin: 08/19/17 00:37 Dose: 100 mls/hr Losartan Potassium (Cozaar) 25 mg PO DAILY [facility] Last Admin: 08/18/17 09:39 Dose: Not Given Metoprolol Tartrate (Lopressor) 25 mg PO BID [facility] Last Admin: 08/18/17 17:29 Dose: 25 mg Morphine Sulfate (Morphine) 2 mg IVP Q4H PRN PRN Reason: Pain, severe (8-10) Last Admin: 08/19/17 06:47 Dose: 2 mg Ondansetron HCl (Zofran Inj) 4 mg IVP Q6 PRN PRN Reason: Nausea/Vomiting Last Admin: 08/18/17 17:28 Dose: 4 mg Oxycodone/Acetaminophen (Percocet 5/325 Mg Tab) 1 tab PO Q4H PRN PRN Reason: Pain, severe (8-10) Stop: 08/20/17 05:51 Last Admin: 08/19/17 04:31 Dose: 1 tab - Labs Labs: 08/19/17 07:16 08/18/17 04:46 PT 13.6 SECONDS (9.7-12.2) H 08/17/17 03:07 INR 1.2 08/17/17 03:07 APTT 32 SECONDS (21-34) 08/17/17 03:07 - Extremities Exam Additional comments: +ROM ankle/toes, sensation intact, thigh swollen, ice intact, sensationintact, calves soft NT neg homans Assessment and Plan (1) Intertrochanteric fracture of right femur Assessment & Plan: POD#1 s/p IM nailing right femur hgb 6.6, for transfusion PT/OT when hgb stable d/c planning hold lovenox today d/w Joel Linton, agrees with above Status: Acute (2) Rib pain on left side Status: Acute
[2017-08-19 08:07] LABS: BLOOD UREA NITROGEN 16 mg/dL (7-17); CALCIUM 7.4 mg/dl (8.6-10.4); GFR AFRICAN-AMERICAN > 60; GFR NON-AFRICAN AMERICAN > 60
--- NOTE | 2017-08-19 09:07 | CP.PCM.PN ---
<Matilde Gonzales - Last Filed: 08/19/17 17:24> Subjective - Date & Time of Evaluation Date of Evaluation: 08/19/17 Time of Evaluation: 07:00 - Subjective Subjective: PGY1- Medicine Note Patient seen and examined at bedside. Patient has right hip pain which she rates 6/10. Patient says her pain was very bad overnight, but with medications is better today. Patient has some nausea, but denies any vomiting. Patient has not had a bowel movement since yesterday, but is passing gas. Objective - Vital Signs/Intake and Output Vital Signs (last 24 hours): Temp Pulse Resp BP Pulse Ox 98.6 F 100 H 20 114/49 L 96 08/19/17 08:54 08/19/17 08:54 08/19/17 08:54 08/19/17 08:54 08/19/17 08:54 Intake and Output: 08/19/17 08/19/17 06:59 18:59 Intake Total 1180 0 Output Total 500 Balance 680 0 - Medications Medications: Current Medications Acetaminophen (Tylenol 325mg Tab) 650 mg PO Q6 PRN PRN Reason: Pain, moderate (4-7) Acetaminophen (Tylenol 325mg Tab) 650 mg PO STAT [facility] Stop: 08/19/17 09:05 Calcium/Vitamin D (Oyster Shell Calcium/Vitamin D 500 Mg-200 Iu) 1 tab PO DAILY [facility] Docusate Sodium (Colace) 100 mg PO BID [facility] Last Admin: 08/18/17 17:28 Dose: 100 mg Enoxaparin Sodium (Lovenox) 40 mg SC DAILY [facility] Famotidine (Pepcid) 20 mg PO BID [facility] Last Admin: 08/18/17 17:28 Dose: 20 mg Cefazolin Sodium 2 gm/ Sodium (Chloride) 100 mls @ 100 mls/hr IVPB Q8H [facility] PRN Reason: Protocol Stop: 08/20/17 08:59 Last Admin: 08/19/17 00:37 Dose: 100 mls/hr Losartan Potassium (Cozaar) 25 mg PO DAILY [facility] Last Admin: 08/18/17 09:39 Dose: Not Given Metoprolol Tartrate (Lopressor) 25 mg PO BID [facility] Last Admin: 08/18/17 17:29 Dose: 25 mg Morphine Sulfate (Morphine) 2 mg IVP Q4H PRN PRN Reason: Pain, severe (8-10) Last Admin: 08/19/17 06:47 Dose: 2 mg Ondansetron HCl (Zofran Inj) 4 mg IVP Q6 PRN PRN Reason: Nausea/Vomiting Last Admin: 08/18/17 17:28 Dose: 4 mg Oxycodone/Acetaminophen (Percocet 5/325 Mg Tab) 1 tab PO Q4H PRN PRN Reason: Pain, severe (8-10) Stop: 08/20/17 05:51 Last Admin: 08/19/17 04:31 Dose: 1 tab - Labs Labs: 08/19/17 07:16 08/19/17 07:16 PT 13.6 SECONDS (9.7-12.2) H 08/17/17 03:07 INR 1.2 08/17/17 03:07 APTT 32 SECONDS (21-34) 08/17/17 03:07 - Additional Findings Additional findings: - Constitutional Appears: Non-toxic, No Acute Distress - Head Exam Head Exam: ATRAUMATIC, NORMAL INSPECTION, NORMOCEPHALIC - Eye Exam Eye Exam: EOMI, Normal appearance - ENT Exam ENT Exam: Mucous Membranes Moist - Respiratory Exam Respiratory Exam: Clear to Ausculation Bilateral, NORMAL BREATHING PATTERN. absent: Rales, Rhonchi, Wheezes, Respiratory Distress, Stridor - Cardiovascular Exam Cardiovascular Exam: REGULAR RHYTHM, RRR, +S1, +S2 - GI/Abdominal Exam GI & Abdominal Exam: Soft, Normal Bowel Sounds. absent: Tenderness - Extremities Exam Extremities Exam: absent: Pedal Edema Additional comments: right hip s/p ORIF with edema dressing c/d/i - Neurological Exam Neurological Exam: Alert, Awake, Oriented x3 - Psychiatric Exam Psychiatric exam: Normal Affect, Normal Mood - Skin Skin Exam: Intact, Normal Color, Warm Assessment and Plan - Assessment and Plan (Free Text) Assessment: Right hip fracture, POD 1 R hip ORIF -HgB dropped from 10.4 to 6.6, will transfuse - hip xray: mildly comminuted, oblique fracture right femur involving greater trochanter and extending to the subtrochanteric region medially - Ortho, Dr. Cordon is consulted and R hip ORIF done on 08/18/17 - Morphine for pain - Pain management: tylenol prn, percocet prn. Zofran prn for nausea - Lovenox held, restart 08/19 - PT/OT - Femur xray: acute and comminuted intertrochanteric fracture proximal right femur. degenerative changes both hips - CT LE: comminuted intratrochanteric fracture of the right hip with large roughly 6cm laterally situated hematoma. - c spine xray: no acute findings - hip/ pelvis xray: comminuted minimally displaced intertrochanteric fracture of the right hip. - Head CT: normal - Cxray: patchy consolidative changes at both lung bases; left greater than right. Diffuse increased interstitial lung markings which may present underlying edema versus infiltrate versus vascular congestion, biapical pleural thickening with upper lobe granulomatous changes, mild cardiomegaly, see full report Anemia -HgB dropped from 10.4 to 6.6 s/p R ORIF POD 1 -will transfuse -f/u cbc Dizziness - Pt complained of dizziness prior to fall - Will check CT of head and neck - Echo from 01/2017 showed normal LV size and function with grade 1 diastolic dysfunction. Will repeat echo - Will check carotid US - Trop I .0470 - UA: 2+ blood, 22 RBC HTN - Continue home medication losartan - as per cardio add beta yang, Toprol Xl 25mg po daily - Cardiology consulted, Dr. Molina, help appreciated - f/u Post -op EKG and cardiac markers q8h X 2, trop I : .022 -lipid panel: triglycerides 43, cholesterol 109, LDL 51, HDL 40 -HgA1C: 5.1 -TSH: 3.50 -Free T4: 1.16 Chronic low back pain - Continue pain management Prophylaxs - hold VTE prophylaxis before OR, restart 08/19 - SCDs - Pepcid - Morphine for pain <Mesha Henry - Last Filed: 08/20/17 18:05> Objective - Vital Signs/Intake and Output Vital Signs (last 24 hours): Temp Pulse Resp BP Pulse Ox 98.5 F 105 H 22 151/72 H 98 08/20/17 16:00 08/20/17 16:00 08/20/17 16:00 08/20/17 17:36 08/20/17 16:00 Intake and Output: 08/20/17 08/20/17 06:59 18:59 Intake Total 120 550 Output Total 350 Balance -230 550 - Medications Medications: Current Medications Acetaminophen (Tylenol 325mg Tab) 650 mg PO Q6 PRN PRN Reason: Pain, moderate (4-7) Calcium/Vitamin D (Oyster Shell Calcium/Vitamin D 500 Mg-200 Iu) 1 tab PO DAILY [facility] Last Admin: 08/20/17 10:45 Dose: 1 tab Docusate Sodium (Colace) 100 mg PO BID [facility] Last Admin: 08/20/17 17:37 Dose: 100 mg Enoxaparin Sodium (Lovenox) 40 mg SC DAILY [facility] Last Admin: 08/19/17 09:19 Dose: Not Given Famotidine (Pepcid) 20 mg PO BID [facility] Last Admin: 08/20/17 17:36 Dose: 20 mg Losartan Potassium (Cozaar) 25 mg PO DAILY [facility] Last Admin: 08/20/17 10:44 Dose: 25 mg Metoprolol Tartrate (Lopressor) 25 mg PO BID [facility] Last Admin: 08/20/17 17:36 Dose: 25 mg Morphine Sulfate (Morphine) 2 mg IVP Q4H PRN PRN Reason: Pain, severe (8-10) Last Admin: 08/20/17 10:43 Dose: 2 mg Ondansetron HCl (Zofran Inj) 4 mg IVP Q6 PRN PRN Reason: Nausea/Vomiting Last Admin: 08/19/17 09:40 Dose: 4 mg Polyethylene Glycol (Miralax) 17 gm PO PRN PRN PRN Reason: Constipation Polyethylene Glycol (Miralax) 17 gm PO ONCE ONE Stop: 08/20/17 18:17 - Labs Labs: 08/20/17 06:52 08/20/17 06:52 PT 13.6 SECONDS (9.7-12.2) H 08/17/17 03:07 INR 1.2 08/17/17 03:07 APTT 32 SECONDS (21-34) 08/17/17 03:07 Attending/Attestation - Attestation I have personally seen and examined this patient.: Yes I have fully participated in the care of the patient.: Yes I have reviewed all pertinent clinical information, including history, physical exam and plan: Yes Notes (Text): Patient was seen and examined with the resident Assessment and the plan discussed I agree with the documentation of the resident's assessment and the plan
[2017-08-19] MEDS: Calcium-Vit D 500 mg-200 Units Tab UD PO SCH (09:18)
[2017-08-19] MEDS ORDERED: Enoxaparin 40 mg Syringe SC SCH (10:00)
[2017-08-19] MEDS ORDERED: Psyllium Packet PO ONE (16:55)
[2017-08-19] MEDS ORDERED: Bisacodyl 5mg EC Tab PO ONE (16:56)
[2017-08-19 17:24] LABS: BASO # 0.1 K/uL (0.0-0.2); BASO % 0.5 % (0.0-2.0); EOS % 0.3 % (0.0-4.0); HEMOGLOBIN 9.1 g/dL (11.0-16.0); LYMPH # 1.1 K/uL (1.0-4.3); LYMPH % 8.8 % (20.0-40.0); MEAN CELL VOLUME 84.1 fL (81.0-99.0); MEAN CORPUSCULAR HEMOGLOBIN 29.4 pg (27.0-31.0); MEAN PLATELET VOLUME 9.6 fL (7.2-11.7); MONO # 1.5 K/uL (0.0-0.8); MONO % 12.2 % (0.0-10.0); NEUT # 9.6 K/uL (1.8-7.0); NEUT % 78.2 % (50.0-75.0); PLATELET COUNT 111 K/uL (130-400); RBC 3.08 Mil/uL (3.80-5.20); RED CELL DISTRIBUTION WIDTH 14.7 % (11.5-14.5); WHITE BLOOD COUNT 12.2 K/uL (4.8-10.8)
[2017-08-19 19:30] LABS: BANDS 4 % (0-2); LYMPHOCYTE 10 % (20-40); MONOCYTE 14 % (0-10); NEUTROPHIL 72 % (50-75); TOTAL CELLS COUNTED 100
[2017-08-19 19:32] LABS: BURR CELLS SLIGHT; HYPOCHROMIC SLIGHT; LARGE PLATELETS PRESENT; MICROCYTOSIS SLIGHT; OVALOCYTES SLIGHT; PLATELET ESTIMATE SLIGHTLY DECREASED (NORMAL)
--- NOTE | 2017-08-19 22:15 | CARD ---
APPROVED REPORT EKG Measurement Heart [id number] <Conclusion> Sinus rhythm with premature atrial complexes Nonspecific ST and T wave abnormality Abnormal ECG
[2017-08-20] MEDS: Oxycodone/Acetaminophen 5/325 mg Tab PO PRN (00:40)
[2017-08-20] MEDS: Morphine 4 MG/ML VIAL IVP PRN ×2 (06:21→10:43)
[2017-08-20 07:01] LABS: HEMOGLOBIN 8.9 g/dL (11.0-16.0); MEAN CELL VOLUME 84.3 fL (81.0-99.0); MEAN CORPUSCULAR HEMOGLOBIN 29.7 pg (27.0-31.0); MEAN CORPUSCULAR HGB CONC 35.2 g/dL (33.0-37.0); MEAN PLATELET VOLUME 9.7 fL (7.2-11.7); RBC 2.99 Mil/uL (3.80-5.20); RED CELL DISTRIBUTION WIDTH 14.9 % (11.5-14.5); WHITE BLOOD COUNT 13.2 K/uL (4.8-10.8)
[2017-08-20 07:16] LABS: BLOOD UREA NITROGEN 13 mg/dL (7-17); CALCIUM 7.6 mg/dl (8.6-10.4); GFR AFRICAN-AMERICAN > 60; GFR NON-AFRICAN AMERICAN > 60
[2017-08-20] MEDS: Calcium-Vit D 500 mg-200 Units Tab UD PO SCH (10:45)
--- NOTE | 2017-08-20 12:32 | CP.PCM.PN ---
Subjective - Date & Time of Evaluation Date of Evaluation: 08/20/17 Time of Evaluation: 12:30 - Subjective Subjective: Patient with family at bedside. C/o cough, non productive. No chest pain. Has been using incentive spiromter. Objective - Vital Signs/Intake and Output Vital Signs (last 24 hours): Temp Pulse Resp BP Pulse Ox 98.1 F 106 H 18 116/64 98 08/20/17 08:46 08/20/17 10:38 08/20/17 10:38 08/20/17 10:44 08/20/17 08:46 Intake and Output: 08/20/17 08/20/17 06:59 18:59 Intake Total 120 Output Total 350 Balance -230 - Medications Medications: Current Medications Acetaminophen (Tylenol 325mg Tab) 650 mg PO Q6 PRN PRN Reason: Pain, moderate (4-7) Calcium/Vitamin D (Oyster Shell Calcium/Vitamin D 500 Mg-200 Iu) 1 tab PO DAILY [facility] Last Admin: 08/20/17 10:45 Dose: 1 tab Docusate Sodium (Colace) 100 mg PO BID [facility] Last Admin: 08/20/17 10:44 Dose: 100 mg Enoxaparin Sodium (Lovenox) 40 mg SC DAILY [facility] Last Admin: 08/19/17 09:19 Dose: Not Given Famotidine (Pepcid) 20 mg PO BID [facility] Last Admin: 08/20/17 10:44 Dose: 20 mg Losartan Potassium (Cozaar) 25 mg PO DAILY [facility] Last Admin: 08/20/17 10:44 Dose: 25 mg Metoprolol Tartrate (Lopressor) 25 mg PO BID [facility] Last Admin: 08/20/17 10:44 Dose: 25 mg Morphine Sulfate (Morphine) 2 mg IVP Q4H PRN PRN Reason: Pain, severe (8-10) Last Admin: 08/20/17 10:43 Dose: 2 mg Ondansetron HCl (Zofran Inj) 4 mg IVP Q6 PRN PRN Reason: Nausea/Vomiting Last Admin: 08/19/17 09:40 Dose: 4 mg - Labs Labs: 08/20/17 06:52 08/20/17 06:52 PT 13.6 SECONDS (9.7-12.2) H 08/17/17 03:07 INR 1.2 08/17/17 03:07 APTT 32 SECONDS (21-34) 08/17/17 03:07 - Extremities Exam Additional comments: right leg swollen, stable. Incisions intact, dry, sensation intact, calves soft NT neg homans +DP PT pulses Assessment and Plan (1) Intertrochanteric fracture of right femur Assessment & Plan: POD#2 s/p right hip IM nailing PT/OT d/c planning, patient uninsured, will need PT until she is able to go home VTE proph encourage OOB cough, leukocytosis, possible just due to transfusion, but will check CXR d/w Dr. Kapadia, agrees with above Status: Acute (2) Rib pain on left side Assessment & Plan: xrays negative Status: Acute (3) Acute blood loss anemia Assessment & Plan: s/p transfusion monitor h/h Status: Acute
--- NOTE | 2017-08-20 13:34 | CP.PCM.PN ---
<Matilde Gonzales - Last Filed: 08/20/17 18:03> Subjective - Date & Time of Evaluation Date of Evaluation: 08/20/17 Time of Evaluation: 07:00 - Subjective Subjective: PGY1- Medicine Note Patient seen and examined at bedside. Patient has right hip pain. Patient denies nausea or vomiting. Patient has not had a bowel movement since yesterday , but is passing gas. Patient was able to get up with PT today. Objective - Vital Signs/Intake and Output Vital Signs (last 24 hours): Temp Pulse Resp BP Pulse Ox 98.1 F 106 H 18 116/64 98 08/20/17 08:46 08/20/17 10:38 08/20/17 10:38 08/20/17 10:44 08/20/17 08:46 Intake and Output: 08/20/17 08/20/17 06:59 18:59 Intake Total 120 Output Total 350 Balance -230 - Medications Medications: Current Medications Acetaminophen (Tylenol 325mg Tab) 650 mg PO Q6 PRN PRN Reason: Pain, moderate (4-7) Calcium/Vitamin D (Oyster Shell Calcium/Vitamin D 500 Mg-200 Iu) 1 tab PO DAILY [facility] Last Admin: 08/20/17 10:45 Dose: 1 tab Docusate Sodium (Colace) 100 mg PO BID [facility] Last Admin: 08/20/17 10:44 Dose: 100 mg Enoxaparin Sodium (Lovenox) 40 mg SC DAILY [facility] Last Admin: 08/19/17 09:19 Dose: Not Given Famotidine (Pepcid) 20 mg PO BID [facility] Last Admin: 08/20/17 10:44 Dose: 20 mg Losartan Potassium (Cozaar) 25 mg PO DAILY [facility] Last Admin: 08/20/17 10:44 Dose: 25 mg Metoprolol Tartrate (Lopressor) 25 mg PO BID [facility] Last Admin: 08/20/17 10:44 Dose: 25 mg Morphine Sulfate (Morphine) 2 mg IVP Q4H PRN PRN Reason: Pain, severe (8-10) Last Admin: 08/20/17 10:43 Dose: 2 mg Ondansetron HCl (Zofran Inj) 4 mg IVP Q6 PRN PRN Reason: Nausea/Vomiting Last Admin: 08/19/17 09:40 Dose: 4 mg - Labs Labs: 08/20/17 06:52 08/20/17 06:52 PT 13.6 SECONDS (9.7-12.2) H 08/17/17 03:07 INR 1.2 08/17/17 03:07 APTT 32 SECONDS (21-34) 08/17/17 03:07 - Additional Findings Additional findings: - Constitutional Appears: Non-toxic, No Acute Distress - Head Exam Head Exam: ATRAUMATIC, NORMAL INSPECTION, NORMOCEPHALIC - Eye Exam Eye Exam: EOMI, Normal appearance - ENT Exam ENT Exam: Mucous Membranes Moist - Respiratory Exam Respiratory Exam: Clear to Ausculation Bilateral, NORMAL BREATHING PATTERN. absent: Rales, Rhonchi, Wheezes, Respiratory Distress, Stridor - Cardiovascular Exam Cardiovascular Exam: REGULAR RHYTHM, RRR, +S1, +S2 - GI/Abdominal Exam GI & Abdominal Exam: Soft, Normal Bowel Sounds. absent: Tenderness - Extremities Exam Extremities Exam: absent: Pedal Edema Additional comments: right hip s/p ORIF with edema dressing c/d/i - Neurological Exam Neurological Exam: Alert, Awake, Oriented x3 - Psychiatric Exam Psychiatric exam: Normal Affect, Normal Mood - Skin Skin Exam: Intact, Normal Color, Warm Assessment and Plan - Assessment and Plan (Free Text) Assessment: ight hip fracture, POD 2 R hip ORIF -HgB dropped from 10.4 to 6.6, will transfuse - hip xray: mildly comminuted, oblique fracture right femur involving greater trochanter and extending to the subtrochanteric region medially - Ortho, Dr. Cordon is consulted and R hip ORIF done on 08/18/17 - Morphine for pain - Pain management: tylenol prn, percocet prn. Zofran prn for nausea - Lovenox held, restart 08/19 - PT/OT - Femur xray: acute and comminuted intertrochanteric fracture proximal right femur. degenerative changes both hips - CT LE: comminuted intratrochanteric fracture of the right hip with large roughly 6cm laterally situated hematoma. - c spine xray: no acute findings - hip/ pelvis xray: comminuted minimally displaced intertrochanteric fracture of the right hip. - Head CT: normal - Cxray: patchy consolidative changes at both lung bases; left greater than right. Diffuse increased interstitial lung markings which may present underlying edema versus infiltrate versus vascular congestion, biapical pleural thickening with upper lobe granulomatous changes, mild cardiomegaly, see full report Anemia -HgB improved to 8.9 after 2 u PRBCs -HgB dropped from 10.4 to 6.6 on R ORIF POD 1 -monitor cbc Cough -f/u cxray Dizziness - Pt complained of dizziness prior to fall - Will check CT of head: normal - Echo from 01/2017 showed normal LV size and function with grade 1 diastolic dysfunction. Will repeat echo - Will check carotid US - Trop I .[id number] - UA: 2+ blood, 22 RBC HTN - Continue home medication losartan - as per cardio add beta yang, Toprol Xl 25mg po daily - Cardiology consulted, Dr. Molina, help appreciated - trops downtrending -lipid panel: triglycerides 43, cholesterol 109, LDL 51, HDL 40 -HgA1C: 5.1 -TSH: 3.50 -Free T4: 1.16 Chronic low back pain - Continue pain management Constipation -Miralax prn -Colace -monitor for BM Prophylaxs - hold VTE prophylaxis before OR, restart 08/19 - SCDs - Pepcid - Morphine for pain <Mesha Henry - Last Filed: 08/23/17 11:41> Objective - Vital Signs/Intake and Output Vital Signs (last 24 hours): Temp Pulse Resp BP Pulse Ox 98.2 F 89 20 125/69 100 08/23/17 08:38 08/23/17 08:38 08/23/17 08:38 08/23/17 10:25 08/23/17 08:38 Intake and Output: 08/23/17 08/23/17 06:59 18:59 Intake Total 600 Output Total 1700 Balance -1100 - Medications Medications: Current Medications Acetaminophen (Tylenol 325mg Tab) 650 mg PO Q6 PRN PRN Reason: Pain, moderate (4-7) Calcium/Vitamin D (Oscal-D 250 Mg-125 Units Tab) 2 tab PO DAILY [facility] Last Admin: 08/23/17 10:22 Dose: 2 tab Docusate Sodium (Colace) 100 mg PO BID [facility] Last Admin: 08/23/17 10:25 Dose: Not Given Enoxaparin Sodium (Lovenox) 40 mg SC Q24H [facility] Famotidine (Pepcid) 20 mg PO BID [facility] Last Admin: 08/23/17 10:23 Dose: 20 mg Piperacillin Sod/Tazobactam Sod (Zosyn 3.375 Gm Iv Premix) 3.375 gm in 50 mls @ 100 mls/hr IVPB Q6H [facility] PRN Reason: Protocol Last Admin: 08/23/17 10:24 Dose: 100 mls/hr Ketorolac Tromethamine (Toradol) 30 mg IVP Q6 PRN PRN Reason: Pain, moderate (4-7) Losartan Potassium (Cozaar) 25 mg PO DAILY [facility] Last Admin: 08/23/17 10:23 Dose: 25 mg Metoprolol Tartrate (Lopressor) 25 mg PO BID [facility] Last Admin: 08/23/17 10:25 Dose: 25 mg Morphine Sulfate (Morphine) 2 mg IVP Q4H PRN PRN Reason: Pain, severe (8-10) Last Admin: 08/23/17 10:32 Dose: 2 mg Ondansetron HCl (Zofran Inj) 4 mg IVP Q6 PRN PRN Reason: Nausea/Vomiting Last Admin: 08/19/17 09:40 Dose: 4 mg Polyethylene Glycol (Miralax) 17 gm PO DAILY PRN PRN Reason: Constipation Last Admin: 08/21/17 10:37 Dose: 17 gm Timolol Maleate (Timoptic 0.5% [facility] Sol) 1 drop OD BID [facility] - Labs Labs: 08/23/17 07:58 08/23/17 07:58 PT 13.6 SECONDS (9.7-12.2) H 08/17/17 03:07 INR 1.2 08/17/17 03:07 APTT 32 SECONDS (21-34) 08/17/17 03:07 Attending/Attestation - Attestation I have personally seen and examined this patient.: Yes I have fully participated in the care of the patient.: Yes I have reviewed all pertinent clinical information, including history, physical exam and plan: Yes Notes (Text): Seen and examined by me.Lying comfortable,no pain,no fever,no sob monitor wbc D/w resident continue PT I agree with the documentation of the resident's assessment and the plan
[2017-08-20] MEDS ORDERED: POLYETHYLENE GLYCOL 3350 17 GM/Dose PACKET PO SCH (18:02)
[2017-08-20] MEDS ORDERED: POLYETHYLENE GLYCOL 3350 17 GM/Dose PACKET PO ONE (18:16)
--- NOTE | 2017-08-21 03:09 | CP.PCM.PN ---
<Jasmyne Ramirez - Last Filed: 08/21/17 03:13> Subjective - Date & Time of Evaluation Date of Evaluation: 08/21/17 Time of Evaluation: 03:05 - Subjective Subjective: Progress note for Dr. Henry Patient seen and examined at bedside. No acute events overnight. Patient family at bedside. Patient admits to abdominal pain on left side after being given miralax. Patient requested for enema overnight. Per nursing, right leg looks more swollen. Message was left on Dr. Cordon's service by RN. Patient states from knee to hip, she feels like her leg is tighter. Patient denies fever, chills, nausea, vomiting. Objective - Vital Signs/Intake and Output Vital Signs (last 24 hours): Temp Pulse Resp BP Pulse Ox 97.3 F L 98 H 20 161/80 H 96 08/20/17 23:45 08/20/17 23:45 08/20/17 23:45 08/20/17 23:45 08/20/17 23:45 Intake and Output: 08/20/17 08/21/17 18:59 06:59 Intake Total 550 Balance 550 - Medications Medications: Current Medications Acetaminophen (Tylenol 325mg Tab) 650 mg PO Q6 PRN PRN Reason: Pain, moderate (4-7) Calcium/Vitamin D (Oyster Shell Calcium/Vitamin D 500 Mg-200 Iu) 1 tab PO DAILY [facility] Last Admin: 08/20/17 10:45 Dose: 1 tab Docusate Sodium (Colace) 100 mg PO BID [facility] Last Admin: 08/20/17 17:37 Dose: 100 mg Enoxaparin Sodium (Lovenox) 40 mg SC DAILY [facility] Last Admin: 08/19/17 09:19 Dose: Not Given Famotidine (Pepcid) 20 mg PO BID [facility] Last Admin: 08/20/17 17:36 Dose: 20 mg Losartan Potassium (Cozaar) 25 mg PO DAILY [facility] Last Admin: 08/20/17 10:44 Dose: 25 mg Metoprolol Tartrate (Lopressor) 25 mg PO BID [facility] Last Admin: 08/20/17 17:36 Dose: 25 mg Morphine Sulfate (Morphine) 2 mg IVP Q4H PRN PRN Reason: Pain, severe (8-10) Last Admin: 08/20/17 10:43 Dose: 2 mg Ondansetron HCl (Zofran Inj) 4 mg IVP Q6 PRN PRN Reason: Nausea/Vomiting Last Admin: 08/19/17 09:40 Dose: 4 mg Polyethylene Glycol (Miralax) 17 gm PO DAILY PRN PRN Reason: Constipation - Labs Labs: 08/20/17 06:52 08/20/17 06:52 PT 13.6 SECONDS (9.7-12.2) H 08/17/17 03:07 INR 1.2 08/17/17 03:07 APTT 32 SECONDS (21-34) 08/17/17 03:07 - Constitutional Appears: Non-toxic, No Acute Distress - Head Exam Head Exam: ATRAUMATIC, NORMAL INSPECTION, NORMOCEPHALIC - Eye Exam Eye Exam: EOMI, Normal appearance - ENT Exam ENT Exam: Mucous Membranes Moist, Normal Exam - Neck Exam Neck Exam: Full ROM. absent: Tenderness - Respiratory Exam Respiratory Exam: Clear to Ausculation Bilateral, NORMAL BREATHING PATTERN - Cardiovascular Exam Cardiovascular Exam: REGULAR RHYTHM, +S1, +S2 - GI/Abdominal Exam GI & Abdominal Exam: Distended, Soft, Tenderness (LLQ), Normal Bowel Sounds. absent: Firm, Guarding, Rigid, Hypoactive Bowel Sounds - Extremities Exam Additional comments: right hip dressings c/d/i slight ecchymosis right lower extremity warm to touch compared to left. capillary refill <2seconds Patient is able to move her toes bilaterally. Assessment and Plan - Assessment and Plan (Free Text) Assessment: - Assessment and Plan (Free Text) Assessment: Right hip fracture, POD #3 R hip ORIF -monitor Hgb - hip xray: mildly comminuted, oblique fracture right femur involving greater trochanter and extending to the subtrochanteric region medially - Ortho, Dr. Cordon is consulted and R hip ORIF done on 08/18/17 - Morphine for pain - Pain management: tylenol prn, percocet prn. Zofran prn for nausea - Lovenox held, restart 08/19 - PT/OT - Femur xray: acute and comminuted intertrochanteric fracture proximal right femur. degenerative changes both hips - CT LE: comminuted intratrochanteric fracture of the right hip with large roughly 6cm laterally situated hematoma. - c spine xray: no acute findings - hip/ pelvis xray: comminuted minimally displaced intertrochanteric fracture of the right hip. - Head CT: normal - Cxray: patchy consolidative changes at both lung bases; left greater than right. Diffuse increased interstitial lung markings which may present underlying edema versus infiltrate versus vascular congestion, biapical pleural thickening with upper lobe granulomatous changes, mild cardiomegaly, see full report Anemia, stable -HgB improved to 8.9 after 2 u PRBCs -HgB dropped from 10.4 to 6.6 on R ORIF POD 1 -monitor cbc Cough -f/u cxray Dizziness - Pt complained of dizziness prior to fall - Will check CT of head: normal - Echo from 01/2017 showed normal LV size and function with grade 1 diastolic dysfunction. Will repeat echo - Will check carotid US - Trop I .0470 - UA: 2+ blood, 22 RBC HTN - Continue home medication losartan - as per cardio add beta yang, Toprol Xl 25mg po daily - Cardiology consulted, Dr. Molina, help appreciated - trops downtrending -lipid panel: triglycerides 43, cholesterol 109, LDL 51, HDL 40 -HgA1C: 5.1 -TSH: 3.50 -Free T4: 1.16 Chronic low back pain - Continue pain management Constipation -Miralax prn -Colace 08/20 Enema -monitor for BM Prophylaxs - hold VTE prophylaxis before OR, restart 08/19 - SCDs - Pepcid - Morphine for pain will discuss with Dr. Henry <Mesha Henry - Last Filed: 08/21/17 12:27> Objective - Vital Signs/Intake and Output Vital Signs (last 24 hours): Temp Pulse Resp BP Pulse Ox 98.4 F 99 H 20 130/72 98 08/21/17 08:34 08/21/17 08:34 08/21/17 08:34 08/21/17 10:37 08/21/17 08:34 Intake and Output: 08/21/17 08/21/17 06:59 18:59 Output Total 200 Balance -200 - Medications Medications: Current Medications Acetaminophen (Tylenol 325mg Tab) 650 mg PO Q6 PRN PRN Reason: Pain, moderate (4-7) Calcium/Vitamin D (Oyster Shell Calcium/Vitamin D 500 Mg-200 Iu) 1 tab PO DAILY [facility] Last Admin: 08/21/17 10:37 Dose: 1 tab Docusate Sodium (Colace) 100 mg PO BID [facility] Last Admin: 08/21/17 10:37 Dose: 100 mg Enoxaparin Sodium (Lovenox) 40 mg SC DAILY [facility] Last Admin: 08/19/17 09:19 Dose: Not Given Famotidine (Pepcid) 20 mg PO BID [facility] Last Admin: 08/21/17 10:36 Dose: 20 mg Piperacillin Sod/Tazobactam Sod (Zosyn 3.375 Gm Iv Premix) 3.375 gm in 50 mls @ 100 mls/hr IVPB Q6H [facility] PRN Reason: Protocol Last Admin: 08/21/17 10:47 Dose: 100 mls/hr Losartan Potassium (Cozaar) 25 mg PO DAILY [facility] Last Admin: 08/21/17 10:37 Dose: 25 mg Metoprolol Tartrate (Lopressor) 25 mg PO BID [facility] Last Admin: 08/21/17 10:37 Dose: 25 mg Morphine Sulfate (Morphine) 2 mg IVP Q4H PRN PRN Reason: Pain, severe (8-10) Last Admin: 08/21/17 10:48 Dose: 2 mg Ondansetron HCl (Zofran Inj) 4 mg IVP Q6 PRN PRN Reason: Nausea/Vomiting Last Admin: 08/19/17 09:40 Dose: 4 mg Polyethylene Glycol (Miralax) 17 gm PO DAILY PRN PRN Reason: Constipation Last Admin: 08/21/17 10:37 Dose: 17 gm - Labs Labs: 08/21/17 07:46 08/21/17 07:46 PT 13.6 SECONDS (9.7-12.2) H 08/17/17 03:07 INR 1.2 08/17/17 03:07 APTT 32 SECONDS (21-34) 08/17/17 03:07 Attending/Attestation - Attestation I have personally seen and examined this patient.: Yes I have fully participated in the care of the patient.: Yes I have reviewed all pertinent clinical information, including history, physical exam and plan: Yes Notes (Text): Patient was seen and examine this morning,No sob,lying comfortable, right leg edema,no fever. Has constipation on miralax Has elevated WBC,chest x ray likely RLL pneumonia/possible aspiration continue incentive spirometer use,start on zosyn I agree with the resident's documentation of the assessment and the plan
[2017-08-21 08:03] LABS: BASO % 0.1 % (0.0-2.0); EOS % 0.1 % (0.0-4.0); HEMOGLOBIN 9.3 g/dL (11.0-16.0); LYMPH % 5.5 % (20.0-40.0); MEAN CELL VOLUME 84.1 fL (81.0-99.0); MEAN CORPUSCULAR HEMOGLOBIN 30.1 pg (27.0-31.0); MEAN CORPUSCULAR HGB CONC 35.7 g/dL (33.0-37.0); MEAN PLATELET VOLUME 9.5 fL (7.2-11.7); MONO % 11.4 % (0.0-10.0); NEUT # 14.8 K/uL (1.8-7.0); NEUT % 82.9 % (50.0-75.0); PLATELET COUNT 178 K/uL (130-400); RBC 3.09 Mil/uL (3.80-5.20); WHITE BLOOD COUNT 17.9 K/uL (4.8-10.8)
--- NOTE | 2017-08-21 08:27 | RAD ---
PROCEDURE: CHEST RADIOGRAPH, 1 VIEW HISTORY: cough COMPARISON: Left ribs with chest 08/17/2017. FINDINGS: LUNGS: Overlap bronchovascular markings are favored over potential limited infiltrate medial right base with the left lung clear. PLEURA: No pneumothorax or pleural fluid seen. CARDIOVASCULAR: Normal. OSSEOUS STRUCTURES: No significant abnormalities. VISUALIZED UPPER ABDOMEN: Normal. OTHER FINDINGS: Elevated right hemidiaphragm appears stable. IMPRESSION: Carotid bronchovascular markings favored over infiltrate at the medial right base. Stable elevated right hemidiaphragm.
[2017-08-21 08:32] LABS: ALB/GLOB RATIO 0.8 (1.0-2.1); ALBUMIN 2.5 g/dL (3.5-5.0); ALT/SGPT 22 U/L (9-52); AST/SGOT 30 U/L (14-36); BLOOD UREA NITROGEN 10 mg/dL (7-17); CALCIUM 7.8 mg/dl (8.6-10.4); GFR AFRICAN-AMERICAN > 60; GFR NON-AFRICAN AMERICAN > 60
[2017-08-21 10:23] LABS: LYMPHOCYTE 4 % (20-40); MONOCYTE 11 % (0-10); NEUTROPHIL 85 % (50-75); TOTAL CELLS COUNTED 100
[2017-08-21 10:24] LABS: ANISOCYTOSIS SLIGHT; PLATELET ESTIMATE NORMAL (NORMAL); POLYCHROMIC SLIGHT
[2017-08-21 10:25] LABS: OVALOCYTES SLIGHT
[2017-08-21] MEDS: POLYETHYLENE GLYCOL 3350 17 GM/Dose PACKET PO PRN (10:37)
[2017-08-21] MEDS: Calcium-Vit D 500 mg-200 Units Tab UD PO SCH (10:37)
[2017-08-21] MEDS: Piperacill/Tazo 3.375gm in Dex 3.375 GM/50 ML BAG IVPB SCH ×3 (10:47→22:17)
[2017-08-21] MEDS: Morphine 4 MG/ML VIAL IVP PRN (10:48)
[2017-08-22] MEDS: Piperacill/Tazo 3.375gm in Dex 3.375 GM/50 ML BAG IVPB SCH ×4 (04:15→21:44)
[2017-08-22] MEDS: Morphine 4 MG/ML VIAL IVP PRN (04:22)
--- NOTE | 2017-08-22 05:28 | CP.PCM.PN ---
<Jasmyne Ramirez - Last Filed: 08/22/17 05:25> Subjective - Date & Time of Evaluation Date of Evaluation: 08/22/17 Time of Evaluation: 05:25 - Subjective Subjective: Progress Note for Dr. Henry. Patient seen and examined at bedside. No acute events overnight. Patient has no new complaints today. Patient took pain medication 0420. Right leg remains swollen. Patient had liquid brown bowl movement. Cleaned and repositioned, purewick in place. Patient had 900cc output per nursing notes. Objective - Vital Signs/Intake and Output Vital Signs (last 24 hours): Temp Pulse Resp BP Pulse Ox 97.8 F 96 H 20 126/67 95 08/21/17 23:45 08/21/17 23:45 08/21/17 23:45 08/21/17 23:45 08/21/17 23:45 Intake and Output: 08/21/17 08/22/17 18:59 06:59 Intake Total 725 Output Total 1450 Balance -725 - Medications Medications: Current Medications Acetaminophen (Tylenol 325mg Tab) 650 mg PO Q6 PRN PRN Reason: Pain, moderate (4-7) Calcium/Vitamin D (Oyster Shell Calcium/Vitamin D 500 Mg-200 Iu) 1 tab PO DAILY [facility] Last Admin: 08/21/17 10:37 Dose: 1 tab Docusate Sodium (Colace) 100 mg PO BID [facility] Last Admin: 08/21/17 18:05 Dose: 100 mg Enoxaparin Sodium (Lovenox) 40 mg SC DAILY [facility] Last Admin: 08/19/17 09:19 Dose: Not Given Famotidine (Pepcid) 20 mg PO BID [facility] Last Admin: 08/21/17 18:05 Dose: 20 mg Piperacillin Sod/Tazobactam Sod (Zosyn 3.375 Gm Iv Premix) 3.375 gm in 50 mls @ 100 mls/hr IVPB Q6H [facility] PRN Reason: Protocol Last Admin: 08/22/17 04:15 Dose: 100 mls/hr Losartan Potassium (Cozaar) 25 mg PO DAILY [facility] Last Admin: 08/21/17 10:37 Dose: 25 mg Metoprolol Tartrate (Lopressor) 25 mg PO BID [facility] Last Admin: 08/21/17 18:11 Dose: 25 mg Morphine Sulfate (Morphine) 2 mg IVP Q4H PRN PRN Reason: Pain, severe (8-10) Last Admin: 08/22/17 04:22 Dose: 2 mg Ondansetron HCl (Zofran Inj) 4 mg IVP Q6 PRN PRN Reason: Nausea/Vomiting Last Admin: 08/19/17 09:40 Dose: 4 mg Polyethylene Glycol (Miralax) 17 gm PO DAILY PRN PRN Reason: Constipation Last Admin: 08/21/17 10:37 Dose: 17 gm - Labs Labs: 08/21/17 07:46 08/21/17 07:46 PT 13.6 SECONDS (9.7-12.2) H 08/17/17 03:07 INR 1.2 08/17/17 03:07 APTT 32 SECONDS (21-34) 08/17/17 03:07 - Additional Findings Additional findings: - Constitutional Appears: Non-toxic, No Acute Distress - Head Exam Head Exam: ATRAUMATIC, NORMAL INSPECTION, NORMOCEPHALIC - Eye Exam Eye Exam: EOMI, Normal appearance - ENT Exam ENT Exam: Mucous Membranes Moist, Normal Exam - Neck Exam Neck Exam: Full ROM. absent: Tenderness - Respiratory Exam Respiratory Exam: Clear to Ausculation Bilateral, NORMAL BREATHING PATTERN - Cardiovascular Exam Cardiovascular Exam: REGULAR RHYTHM, +S1, +S2 - GI/Abdominal Exam GI & Abdominal Exam: Distended, Soft, Tenderness (LLQ), Normal Bowel Sounds. absent: Firm, Guarding, Rigid, Hypoactive Bowel Sounds - Extremities Exam Additional comments: right hip dressings c/d/i slight ecchymosis right lower extremity warm to touch compared to left. capillary refill <2seconds Patient is able to move her toes bilaterally. Assessment and Plan - Assessment and Plan (Free Text) Assessment: - Assessment and Plan (Free Text) Assessment: Right hip fracture, POD #3 R hip ORIF -monitor Hgb - hip xray: mildly comminuted, oblique fracture right femur involving greater trochanter and extending to the subtrochanteric region medially - Ortho, Dr. Cordon is consulted and R hip ORIF done on 08/18/17 - Morphine for pain - Pain management: tylenol prn, percocet prn. Zofran prn for nausea - Lovenox held, restart 08/19 - PT/OT - Femur xray: acute and comminuted intertrochanteric fracture proximal right femur. degenerative changes both hips - CT LE: comminuted intratrochanteric fracture of the right hip with large roughly 6cm laterally situated hematoma. - c spine xray: no acute findings - hip/ pelvis xray: comminuted minimally displaced intertrochanteric fracture of the right hip. - Head CT: normal - Cxray: patchy consolidative changes at both lung bases; left greater than right. Diffuse increased interstitial lung markings which may present underlying edema versus infiltrate versus vascular congestion, biapical pleural thickening with upper lobe granulomatous changes, mild cardiomegaly, see full report Anemia, stable -HgB dropped from 10.4 to 6.6 on R ORIF POD 1, improved to 8.9 after 2 u PRBCs -monitor cbc Cough CXR concerning for possible pneumonia Zosyn 3.375gm IVPB Q6H Dizziness - Pt complained of dizziness prior to fall - Will check CT of head: normal - Echo from 01/2017 showed normal LV size and function with grade 1 diastolic dysfunction. Will repeat echo - Will check carotid US - Trop I .0470 - UA: 2+ blood, 22 RBC HTN - Continue home medication losartan - as per cardio add beta yang, Toprol Xl 25mg po daily - Cardiology consulted, Dr. Molina, help appreciated - trops downtrending -lipid panel: triglycerides 43, cholesterol 109, LDL 51, HDL 40 -HgA1C: 5.1 -TSH: 3.50 -Free T4: 1.16 Chronic low back pain - Continue pain management Constipation -Miralax prn -Colace 08/20 Enema -monitor for BM Prophylaxs - hold VTE prophylaxis before OR, restart 08/19 - SCDs - Pepcid - Morphine for pain will discuss with Dr. Elaine Ramirez, DO PGY1 <Mesha Henry - Last Filed: 08/23/17 11:47> Objective - Vital Signs/Intake and Output Vital Signs (last 24 hours): Temp Pulse Resp BP Pulse Ox 98.2 F 89 20 125/69 100 08/23/17 08:38 08/23/17 08:38 08/23/17 08:38 08/23/17 10:25 08/23/17 08:38 Intake and Output: 08/23/17 08/23/17 06:59 18:59 Intake Total 600 Output Total 1700 Balance -1100 - Medications Medications: Current Medications Acetaminophen (Tylenol 325mg Tab) 650 mg PO Q6 PRN PRN Reason: Pain, moderate (4-7) Calcium/Vitamin D (Oscal-D 250 Mg-125 Units Tab) 2 tab PO DAILY [facility] Last Admin: 08/23/17 10:22 Dose: 2 tab Docusate Sodium (Colace) 100 mg PO BID [facility] Last Admin: 08/23/17 10:25 Dose: Not Given Enoxaparin Sodium (Lovenox) 40 mg SC Q24H [facility] Famotidine (Pepcid) 20 mg PO BID [facility] Last Admin: 08/23/17 10:23 Dose: 20 mg Piperacillin Sod/Tazobactam Sod (Zosyn 3.375 Gm Iv Premix) 3.375 gm in 50 mls @ 100 mls/hr IVPB Q6H [facility] PRN Reason: Protocol Last Admin: 08/23/17 10:24 Dose: 100 mls/hr Ketorolac Tromethamine (Toradol) 30 mg IVP Q6 PRN PRN Reason: Pain, moderate (4-7) Losartan Potassium (Cozaar) 25 mg PO DAILY [facility] Last Admin: 08/23/17 10:23 Dose: 25 mg Metoprolol Tartrate (Lopressor) 25 mg PO BID [facility] Last Admin: 08/23/17 10:25 Dose: 25 mg Morphine Sulfate (Morphine) 2 mg IVP Q4H PRN PRN Reason: Pain, severe (8-10) Last Admin: 08/23/17 10:32 Dose: 2 mg Ondansetron HCl (Zofran Inj) 4 mg IVP Q6 PRN PRN Reason: Nausea/Vomiting Last Admin: 08/19/17 09:40 Dose: 4 mg Polyethylene Glycol (Miralax) 17 gm PO DAILY PRN PRN Reason: Constipation Last Admin: 08/21/17 10:37 Dose: 17 gm Timolol Maleate (Timoptic 0.5% Op[facility] Soln) 1 drop OD BID [facility] - Labs Labs: 08/23/17 07:58 08/23/17 07:58 PT 13.6 SECONDS (9.7-12.2) H 08/17/17 03:07 INR 1.2 05/08/18 03:07 APTT 32 SECONDS (21-34) 08/17/17 03:07 Attending/Attestation - Attestation I have personally seen and examined this patient.: Yes I have fully participated in the care of the patient.: Yes I have reviewed all pertinent clinical information, including history, physical exam and plan: Yes Notes (Text): Seen and examined by me. No complain,no fever,no sob,no cough wbc is coming down continue zosyn for aspiration pneumonia. Discussed with resident I agree with the documentation of the resident
[2017-08-22 07:53] LABS: BASO % 0.2 % (0.0-2.0); EOS # 0.1 K/uL (0.0-0.7); EOS % 1.3 % (0.0-4.0); HEMOGLOBIN 8.3 g/dL (11.0-16.0); LYMPH # 1.3 K/uL (1.0-4.3); LYMPH % 11.7 % (20.0-40.0); MEAN CELL VOLUME 84.9 fL (81.0-99.0); MEAN CORPUSCULAR HEMOGLOBIN 30.5 pg (27.0-31.0); MEAN PLATELET VOLUME 9.2 fL (7.2-11.7); MONO # 2.1 K/uL (0.0-0.8); MONO % 18.9 % (0.0-10.0); NEUT # 7.4 K/uL (1.8-7.0); NEUT % 67.9 % (50.0-75.0); RBC 2.7 Mil/uL (3.80-5.20); RED CELL DISTRIBUTION WIDTH 14.5 % (11.5-14.5); WHITE BLOOD COUNT 10.9 K/uL (4.8-10.8)
[2017-08-22 08:17] LABS: ALB/GLOB RATIO 0.8 (1.0-2.1); ALBUMIN 2.3 g/dL (3.5-5.0); ALT/SGPT 31 U/L (9-52); AST/SGOT 42 U/L (14-36); BLOOD UREA NITROGEN 14 mg/dL (7-17); CALCIUM 7.8 mg/dl (8.6-10.4); GFR AFRICAN-AMERICAN > 60; GFR NON-AFRICAN AMERICAN > 60
--- NOTE | 2017-08-22 09:10 | RAD ---
PROCEDURE: CHEST RADIOGRAPH, 1 VIEW HISTORY: pneumonia COMPARISON: Portable chest 08/20/2017. FINDINGS: LUNGS: No definitive infiltrate bilaterally. PLEURA: No pneumothorax or pleural fluid seen. CARDIOVASCULAR: Normal cardiac size appreciated. Rotation toward the right accentuates hilar vascular markings on the right side somewhat. OSSEOUS STRUCTURES: No significant abnormalities. VISUALIZED UPPER ABDOMEN: Normal. OTHER FINDINGS: None. IMPRESSION: No interval acute cardiopulmonary disease appreciated.
[2017-08-22] MEDS: Calcium-Vit D 500 mg-200 Units Tab UD PO SCH (10:45)
[2017-08-23] MEDS: Morphine 4 MG/ML VIAL IVP PRN ×3 (00:01→17:51)
[2017-08-23] MEDS: Piperacill/Tazo 3.375gm in Dex 3.375 GM/50 ML BAG IVPB SCH ×4 (03:03→22:13)
[2017-08-23 08:05] LABS: BASO # 0.1 K/uL (0.0-0.2); BASO % 0.6 % (0.0-2.0); EOS # 0.2 K/uL (0.0-0.7); EOS % 2.5 % (0.0-4.0); HEMOGLOBIN 8.6 g/dL (11.0-16.0); LYMPH # 1.3 K/uL (1.0-4.3); LYMPH % 14.2 % (20.0-40.0); MEAN CELL VOLUME 85.4 fL (81.0-99.0); MEAN CORPUSCULAR HEMOGLOBIN 30.2 pg (27.0-31.0); MEAN CORPUSCULAR HGB CONC 35.3 g/dL (33.0-37.0); MEAN PLATELET VOLUME 8.9 fL (7.2-11.7); MONO # 1.6 K/uL (0.0-0.8); MONO % 17.5 % (0.0-10.0); NEUT % 65.2 % (50.0-75.0); NRBC % 0.1 % (0.0-2.0); RBC 2.84 Mil/uL (3.80-5.20); RED CELL DISTRIBUTION WIDTH 14.3 % (11.5-14.5); WHITE BLOOD COUNT 9.3 K/uL (4.8-10.8)
[2017-08-23 08:51] LABS: ALB/GLOB RATIO 0.8 (1.0-2.1); ALBUMIN 2.4 g/dL (3.5-5.0); ALT/SGPT 32 U/L (9-52); AST/SGOT 39 U/L (14-36); BLOOD UREA NITROGEN 18 mg/dL (7-17); GFR AFRICAN-AMERICAN > 60; GFR NON-AFRICAN AMERICAN > 60
--- NOTE | 2017-08-23 08:56 | CP.PCM.PN ---
<Matilde Gonzales - Last Filed: 08/23/17 16:08> Subjective - Date & Time of Evaluation Date of Evaluation: 08/23/17 Time of Evaluation: 07:00 - Subjective Subjective: PGY1 - Medicine Note Patient seen and examined at bedside. No acute events overnight. Right leg remains swollen. Patient admits to pain in her right side side and right low back. Patient also admits to a cough. Patient denies any nausea, vomiting, constipation, or diarrhea. Objective - Vital Signs/Intake and Output Vital Signs (last 24 hours): Temp Pulse Resp BP Pulse Ox 98.2 F 89 20 127/55 L 100 08/23/17 08:38 08/23/17 08:38 08/23/17 08:38 08/23/17 08:38 08/23/17 08:38 Intake and Output: 08/23/17 08/23/17 06:59 18:59 Intake Total 600 Output Total 1700 Balance -1100 - Medications Medications: Current Medications Acetaminophen (Tylenol 325mg Tab) 650 mg PO Q6 PRN PRN Reason: Pain, moderate (4-7) Calcium/Vitamin D (Oscal-D 250 Mg-125 Units Tab) 2 tab PO DAILY [facility] Docusate Sodium (Colace) 100 mg PO BID [facility] Last Admin: 08/22/17 18:12 Dose: 100 mg Enoxaparin Sodium (Lovenox) 40 mg SC DAILY [facility] Last Admin: 08/19/17 09:19 Dose: Not Given Famotidine (Pepcid) 20 mg PO BID [facility] Last Admin: 08/22/17 18:10 Dose: 20 mg Piperacillin Sod/Tazobactam Sod (Zosyn 3.375 Gm Iv Premix) 3.375 gm in 50 mls @ 100 mls/hr IVPB Q6H [facility] PRN Reason: Protocol Last Admin: 08/23/17 03:03 Dose: 100 mls/hr Losartan Potassium (Cozaar) 25 mg PO DAILY [facility] Last Admin: 08/22/17 10:45 Dose: 25 mg Metoprolol Tartrate (Lopressor) 25 mg PO BID [facility] Last Admin: 08/22/17 18:10 Dose: 25 mg Morphine Sulfate (Morphine) 2 mg IVP Q4H PRN PRN Reason: Pain, severe (8-10) Last Admin: 08/23/17 00:01 Dose: 2 mg Ondansetron HCl (Zofran Inj) 4 mg IVP Q6 PRN PRN Reason: Nausea/Vomiting Last Admin: 08/19/17 09:40 Dose: 4 mg Polyethylene Glycol (Miralax) 17 gm PO DAILY PRN PRN Reason: Constipation Last Admin: 08/21/17 10:37 Dose: 17 gm - Labs Labs: 08/23/17 07:58 08/23/17 07:58 PT 13.6 SECONDS (9.7-12.2) H 08/17/17 03:07 INR 1.2 08/17/17 03:07 APTT 32 SECONDS (21-34) 08/17/17 03:07 - Additional Findings Additional findings: - Additional Findings Additional findings: - Constitutional Appears: Non-toxic, No Acute Distress - Head Exam Head Exam: ATRAUMATIC, NORMAL INSPECTION, NORMOCEPHALIC - Eye Exam Eye Exam: EOMI, Normal appearance - ENT Exam ENT Exam: Mucous Membranes Moist, Normal Exam - Neck Exam Neck Exam: Full ROM. absent: Tenderness - Respiratory Exam Respiratory Exam: Clear to Ausculation Bilateral, NORMAL BREATHING PATTERN - Cardiovascular Exam Cardiovascular Exam: REGULAR RHYTHM, +S1, +S2 - GI/Abdominal Exam GI & Abdominal Exam: Distended, Soft, Tenderness (LLQ), Normal Bowel Sounds. absent: Firm, Guarding, Rigid, Hypoactive Bowel Sounds - Extremities Exam Additional comments: right hip dressings c/d/i slight ecchymosis right lower extremity warm to touch compared to left. capillary refill <2seconds Patient is able to move her toes bilaterally. Assessment and Plan - Assessment and Plan (Free Text) Assessment: Right hip fracture, POD #5 R hip ORIF -monitor Hgb - hip xray: mildly comminuted, oblique fracture right femur involving greater trochanter and extending to the subtrochanteric region medially - Ortho, Dr. Cordon is consulted and R hip ORIF done on 08/18/17 - PT/OT - Femur xray: acute and comminuted intertrochanteric fracture proximal right femur. degenerative changes both hips - CT LE: comminuted intratrochanteric fracture of the right hip with large roughly 6cm laterally situated hematoma. - c spine xray: no acute findings - hip/ pelvis xray: comminuted minimally displaced intertrochanteric fracture of the right hip. - Head CT: normal -meds: morphine 2mg q4h prn Zosyn 3.375gm q6h DVT venous doppler: acute thrombosis of right soleal vein with severe reduction of venous return. CTA: No PE, trace left pleural effusion. partially imaged bilateral hydroureteronephrosis heparin drip started Hydroureteronephrosis f/u urinalysis Anemia, stable -HgB dropped from 10.4 to 6.6 on R ORIF POD 1, improved to 8.9 after 2 u PRBCs -monitor cbc Cough repeat portable cxray CXR concerning for possible pneumonia Zosyn 3.375gm IVPB Q6H Dizziness - Pt complained of dizziness prior to fall - Will check CT of head: normal - Echo from 01/2017 showed normal LV size and function with grade 1 diastolic dysfunction. Will repeat echo - Will check carotid US - Trop I .[id number] - UA: 2+ blood, 22 RBC HTN - Continue home medication losartan - Metoprolol Tartrate 25 mg po BID - Cardiology consulted, Dr. Molina, help appreciated - trops downtrending -lipid panel: triglycerides 43, cholesterol 109, LDL 51, HDL 40 -HgA1C: 5.1 -TSH: 3.50 -Free T4: 1.16 Chronic low back pain - Continue pain management Constipation -Miralax prn -Colace 08/20 Enema -monitor for BM R eye s/p cataract surgery Timolol drops BID in right eye Prophylaxs - hold VTE prophylaxis before OR, restart 08/19 - SCDs - Pepcid - Morphine for pain <Bib Burgos H - Last Filed: 08/23/17 16:42> Objective - Vital Signs/Intake and Output Vital Signs (last 24 hours): Temp Pulse Resp BP Pulse Ox 97.9 F 80 20 129/73 97 08/23/17 15:57 08/23/17 15:57 08/23/17 15:57 08/23/17 15:57 08/23/17 15:57 Intake and Output: 08/23/17 08/23/17 06:59 18:59 Intake Total 600 Output Total 1700 Balance -1100 - Medications Medications: Current Medications Acetaminophen (Tylenol 325mg Tab) 650 mg PO Q6 PRN PRN Reason: Pain, Mild (1-3) Calcium/Vitamin D (Oscal-D 250 Mg-125 Units Tab) 2 tab PO DAILY [facility] Last Admin: 08/23/17 10:22 Dose: 2 tab Docusate Sodium (Colace) 100 mg PO BID [facility] Last Admin: 08/23/17 10:25 Dose: Not Given Famotidine (Pepcid) 20 mg PO BID [facility] Last Admin: 08/23/17 10:23 Dose: 20 mg Piperacillin Sod/Tazobactam Sod (Zosyn 3.375 Gm Iv Premix) 3.375 gm in 50 mls @ 100 mls/hr IVPB Q6H [facility] PRN Reason: Protocol Last Admin: 08/23/17 16:26 Dose: 100 mls/hr Heparin Sodium/Sodium Chloride (Heparin 54734 Units/250ml 1/2 Normal Saline) 25 ,000 units in 250 mls @ 10.777 mls/hr IV .[id number] PRN; Protocol; 18 UNITS/KG/HR PRN Reason: PROTOCOL Last Admin: 08/23/17 16:07 Dose: 18 units/kg/hr, 10.777 mls/hr Ketorolac Tromethamine (Toradol) 30 mg IVP Q6 PRN PRN Reason: Pain, moderate (4-7) Losartan Potassium (Cozaar) 25 mg PO DAILY [facility] Last Admin: 08/23/17 10:23 Dose: 25 mg Metoprolol Tartrate (Lopressor) 25 mg PO BID [facility] Last Admin: 08/23/17 10:25 Dose: 25 mg Morphine Sulfate (Morphine) 2 mg IVP Q4H PRN PRN Reason: Pain, severe (8-10) Last Admin: 08/23/17 10:32 Dose: 2 mg Ondansetron HCl (Zofran Inj) 4 mg IVP Q6 PRN PRN Reason: Nausea/Vomiting Last Admin: 08/19/17 09:40 Dose: 4 mg Polyethylene Glycol (Miralax) 17 gm PO DAILY PRN PRN Reason: Constipation Last Admin: 08/21/17 10:37 Dose: 17 gm Timolol Maleate (Timoptic 0.5% Ophth Soln) 1 drop OD BID [facility] Last Admin: 08/23/17 12:03 Dose: 1 drop - Labs Labs: 08/23/17 07:58 08/23/17 07:58 PT 13.6 SECONDS (9.7-12.2) H 08/17/17 03:07 INR 1.2 08/17/17 03:07 APTT 31 SECONDS (21-34) 08/23/17 16:11 Attending/Attestation - Attestation I have personally seen and examined this patient.: Yes I have fully participated in the care of the patient.: Yes I have reviewed all pertinent clinical information, including history, physical exam and plan: Yes Notes (Text): 08/23/17 16:42 Medical attending: Patient was seen and examined by me, agrees the above note by medical file clerk. The family member was present at bedside, patient was okay with this. The patient family member participated with discussion and exam it helped us with translation during examination the patient As mentioned above in the resident note the patient is status post opt day #5 for right hip OR I F. She's been trying to participate with physical therapy however very slowly and the pain is also limited her activities as well. Ideally she would benefit from subacute rehabilitation however given her social situation is not readily possible. She does have a lot of swelling in the right lower extremity calf area, venous Doppler was done and this suggested that she does have a DVT in the right lower extremity. Because of her recent drop in hemoglobin were to start the patient on heparin for today and possibly will transition her over to Coumadin at some given point provided that her hemoglobin is stable. CT scan of the chest was done, she does not have a pulmonary embolism. It did suggest she may have a hydronephrosis or renal weight on a urinalysis to come back - currently her creatinine is stable at this moment Thank you very much, Bib Burgos
[2017-08-23] MEDS: Calcium-Vit D 250 mg-125 Units Tab UD PO SCH (10:22)
[2017-08-23] MEDS ORDERED: Enoxaparin 40 mg Syringe SC SCH ×2 (10:39→10:45)
--- NOTE | 2017-08-23 11:11 | RAD ---
HISTORY: worsening cough COMPARISON: Chest radiograph dated 08/22/2017. FINDINGS: LUNGS: Stable prominence of the right paratracheal stripe. Stable area of pleural based density at the right lateral apex. No active pulmonary disease. PLEURA: No significant pleural effusion identified, no pneumothorax apparent. CARDIOVASCULAR: Atherosclerotic aortic calcifications. Cardiomediastinal silhouette unchanged. OSSEOUS STRUCTURES: Unchanged. VISUALIZED UPPER ABDOMEN: Normal. OTHER FINDINGS: Large hiatal hernia. IMPRESSION: No active disease.
--- NOTE | 2017-08-23 11:43 | CP.PCM.PN ---
Subjective - Date & Time of Evaluation Date of Evaluation: 08/23/17 Time of Evaluation: 11:39 - Subjective Subjective: Patient still with cough (non productive), complains of shortness of breath. Complains of thigh pain. Denies CP/dizziness. Objective - Vital Signs/Intake and Output Vital Signs (last 24 hours): Temp Pulse Resp BP Pulse Ox 98.2 F 89 20 125/69 100 08/23/17 08:38 08/23/17 08:38 08/23/17 08:38 08/23/17 10:25 08/23/17 08:38 Intake and Output: 08/23/17 08/23/17 06:59 18:59 Intake Total 600 Output Total 1700 Balance -1100 - Medications Medications: Current Medications Acetaminophen (Tylenol 325mg Tab) 650 mg PO Q6 PRN PRN Reason: Pain, moderate (4-7) Calcium/Vitamin D (Oscal-D 250 Mg-125 Units Tab) 2 tab PO DAILY [facility] Last Admin: 08/23/17 10:22 Dose: 2 tab Docusate Sodium (Colace) 100 mg PO BID [facility] Last Admin: 08/23/17 10:25 Dose: Not Given Enoxaparin Sodium (Lovenox) 40 mg SC Q24H [facility] Famotidine (Pepcid) 20 mg PO BID [facility] Last Admin: 08/23/17 10:23 Dose: 20 mg Piperacillin Sod/Tazobactam Sod (Zosyn 3.375 Gm Iv Premix) 3.375 gm in 50 mls @ 100 mls/hr IVPB Q6H [facility] PRN Reason: Protocol Last Admin: 08/23/17 10:24 Dose: 100 mls/hr Ketorolac Tromethamine (Toradol) 30 mg IVP Q6 PRN PRN Reason: Pain, moderate (4-7) Losartan Potassium (Cozaar) 25 mg PO DAILY [facility] Last Admin: 08/23/17 10:23 Dose: 25 mg Metoprolol Tartrate (Lopressor) 25 mg PO BID [facility] Last Admin: 08/23/17 10:25 Dose: 25 mg Morphine Sulfate (Morphine) 2 mg IVP Q4H PRN PRN Reason: Pain, severe (8-10) Last Admin: 08/23/17 10:32 Dose: 2 mg Ondansetron HCl (Zofran Inj) 4 mg IVP Q6 PRN PRN Reason: Nausea/Vomiting Last Admin: 08/19/17 09:40 Dose: 4 mg Polyethylene Glycol (Miralax) 17 gm PO DAILY PRN PRN Reason: Constipation Last Admin: 08/21/17 10:37 Dose: 17 gm Timolol Maleate (Timoptic 0.5% Ophth Soln) 1 drop OD BID [facility] - Labs Labs: 08/23/17 07:58 08/23/17 07:58 PT 13.6 SECONDS (9.7-12.2) H 08/17/17 03:07 INR 1.2 08/17/17 03:07 APTT 32 SECONDS (21-34) 08/17/17 03:07 - Extremities Exam Additional comments: Dressing changed. Incisions intact, dry, no erythema. Swelling to right thigh slightly improved, no swelling to left lower leg. Calves soft NT neg homans. sensation intact Assessment and Plan (1) Intertrochanteric fracture of right femur Assessment & Plan: POD#5 s/p right hip IM nailing h/h stable lovenox patient will need 4 weeks of lovenox total, d/w family, consider coumadin regarding cost of treatment dopplers CXR 08/23 no active disease, WBC downtrending PT/OT patient out of bed in chair currently d/w Dr. Zamora, agrees with above Status: Acute (2) Rib pain on left side Status: Acute (3) Acute blood loss anemia Status: Acute
--- NOTE | 2017-08-23 13:35 | VASCLAB ---
PROCEDURE: Lower Extremity Venous Duplex Exam. HISTORY: leg swelling PRIORS: None. TECHNIQUE: Bilateral common femoral, femoral, popliteal and posterior tibial, peroneal and great saphenous veins were evaluated. Flow was assessed with color Doppler, compressibility, assessment of phasic flow and augmentation response. Report prepared by JAYASHREE Yusuf, RVT FINDINGS: RIGHT: 1. Common Femoral Vein: 1.1. Compressibility - Fully compressible: Thrombus - None : Flow - Phasic: Augmentation -Normal: Reflux - None. 2. Femoral Vein: 2.1. Compressibility - Fully compressible: Thrombus - None : Flow - Phasic: Augmentation -Normal: Reflux - None. 3. Popliteal Vein: 3.1. Compressibility - Fully compressible: Thrombus - None : Flow - Phasic: Augmentation -Normal: Reflux - None. 4. Posterior Tibial Vein: 4.1. Compressibility - Fully compressible: Thrombus - None: Flow - Phasic: Augmentation -Normal: Reflux - None. 5. Peroneal Vein: 5.1. Compressibility - Fully compressible: Thrombus - None: Flow - Phasic: Augmentation -Normal: Reflux - None. 6. Great Saphenous Vein: 6.1. Compressibility - Fully compressible: Thrombus - None: Flow - Phasic: Augmentation - Normal: Reflux - None. LEFT: 1. Common Femoral Vein: 1.1. Compressibility - Fully compressible: Thrombus - None: Flow - Phasic: Augmentation -Normal: Reflux - None. 2. Femoral Vein: 2.1. Compressibility - Fully compressible: Thrombus - None: Flow - Phasic: Augmentation -Normal: Reflux - None. 3. Popliteal Vein: 3.1. Compressibility - Fully compressible: Thrombus - None : Flow - Phasic: Augmentation -Normal: Reflux - None. 4. Posterior Tibial Vein: 4.1. Compressibility - Fully compressible: Thrombus - None: Flow - Phasic: Augmentation -Normal: Reflux - None. 5. Peroneal Vein: 5.1. Compressibility - Fully compressible: Thrombus - None: Flow - Phasic: Augmentation -Normal: Reflux - None. 6. Great Saphenous Vein: 6.1. Compressibility - Fully compressible: Thrombus - None: Flow - Phasic: Augmentation - Normal: Reflux - None. OTHER FINDINGS: Incompressible right soleal vein with lack of Doppler flow. MARIA INES Garcia notified about the findings. IMPRESSION: Right: Acute thrombosis of the right soleal vein with severe reduction of the venous return. Left: No evidence of deep or superficial vein thrombosis of the left lower extremity. Normal valve function noted of the left side.
[2017-08-23] MEDS ORDERED: Iodixanol 320 MG/ML 100 ML BOTTLE IV ONE (13:56)
--- NOTE | 2017-08-23 15:29 | CT ---
PROCEDURE: CT Chest with contrast (Pulmonary Angiogram) HISTORY: dvt, r/o PE COMPARISON: CT angiography of the pulmonary arteries dated 01/19/2017. TECHNIQUE: Axial computed tomography images were obtained of the chest in the pulmonary arterial phase of enhancement. Coronal and sagittal reformatted images were created and reviewed. Intravenous contrast dose: 100 mL Visipaque 320 Radiation dose: Total exam DLP = 582.8 mGy-cm. This CT exam was performed using one or more of the following dose reduction techniques: Automated exposure control, adjustment of the mA and/or kV according to patient size, and/or use of iterative reconstruction technique. FINDINGS: PULMONARY ARTERIES: Unremarkable. No pulmonary embolism. AORTA: No acute findings. No thoracic aortic aneurysm. LUNGS: Bibasilar atelectasis. Stable chronic prominence of the interstitial markings. No nodule, mass or pulmonary consolidation. PLEURAL SPACES: Trace left pleural effusion. No pneumothorax. HEART: Unremarkable. No cardiomegaly. No significant pericardial effusion. LYMPH NODES: No lymphadenopathy. BONES, CHEST WALL: T5 hemangioma. Stable appearance of L1 vertebral compression fracture. No destructive lesion OTHER FINDINGS: Large hiatal hernia. Partially imaged bilateral hydroureteronephrosis. IMPRESSION: Unremarkable CT pulmonary angiogram. No pulmonary embolus. Trace left pleural effusion. Partially imaged bilateral hydroureteronephrosis.
[2017-08-23] MEDS: Heparin25000 units/250ml 1/2NS 25,000 UNITS/250 ML BAG IV PRN (16:07)
[2017-08-23 19:58] LABS: SQUAMOUS EPITHIAL < 1 /hpf (0-5); URINE BACTERIA RARE (<OCC); URINE BILIRUBIN NEGATIVE (NEGATIVE); URINE BLOOD 1+ (NEGATIVE); URINE CLARITY Clear (Clear); URINE COLOR Yellow (YELLOW); URINE GLUCOSE (UA) NORMAL (Normal); URINE LEUKOCYTE ESTERASE NEG Leu/uL (Negative); URINE PROTEIN NEGATIVE (NEGATIVE); URINE UROBILINOGEN NORMAL mg/dL (0.2-1.0)
[2017-08-24] MEDS: Piperacill/Tazo 3.375gm in Dex 3.375 GM/50 ML BAG IVPB SCH ×4 (03:11→21:24)
[2017-08-24 04:19] LABS: BASO # 0.1 K/uL (0.0-0.2); BASO % 0.6 % (0.0-2.0); EOS # 0.3 K/uL (0.0-0.7); EOS % 3.4 % (0.0-4.0); HEMOGLOBIN 7.9 g/dL (11.0-16.0); LYMPH # 1.7 K/uL (1.0-4.3); LYMPH % 17.9 % (20.0-40.0); MEAN CELL VOLUME 85.9 fL (81.0-99.0); MEAN CORPUSCULAR HEMOGLOBIN 29.9 pg (27.0-31.0); MEAN CORPUSCULAR HGB CONC 34.9 g/dL (33.0-37.0); MEAN PLATELET VOLUME 8.5 fL (7.2-11.7); MONO # 1.6 K/uL (0.0-0.8); MONO % 16.3 % (0.0-10.0); NEUT % 61.8 % (50.0-75.0); RBC 2.64 Mil/uL (3.80-5.20); RED CELL DISTRIBUTION WIDTH 14.2 % (11.5-14.5); WHITE BLOOD COUNT 9.7 K/uL (4.8-10.8)
[2017-08-24 04:50] LABS: ALB/GLOB RATIO 0.8 (1.0-2.1); ALBUMIN 2.4 g/dL (3.5-5.0); ALT/SGPT 46 U/L (9-52); AST/SGOT 40 U/L (14-36); BLOOD UREA NITROGEN 17 mg/dL (7-17); CALCIUM 7.9 mg/dl (8.6-10.4); GFR AFRICAN-AMERICAN > 60; GFR NON-AFRICAN AMERICAN > 60
[2017-08-24] MEDS: Morphine 4 MG/ML VIAL IVP PRN ×2 (05:55→16:40)
[2017-08-24 09:17] LABS: HDL CHOLESTEROL 40 mg/dL (30-70)
[2017-08-24] MEDS: Calcium-Vit D 250 mg-125 Units Tab UD PO SCH (09:43)
--- NOTE | 2017-08-24 10:06 | CP.PCM.PN ---
<Matilde Gonzales - Last Filed: 08/24/17 16:09> Subjective - Date & Time of Evaluation Date of Evaluation: 08/24/17 Time of Evaluation: 07:00 - Subjective Subjective: PGY- Medicine Note Patient seen and examined at bedside and in no acute distress. Patient says her pain is better controlled today. Patient is still having right hip and low back pain. Patient denies any headache, shortness of breath, chest pain, abdominal pain, nausea, vomiting, constipation, or diarrhea. Objective - Vital Signs/Intake and Output Vital Signs (last 24 hours): Temp Pulse Resp BP Pulse Ox 98.1 F 52 L 20 128/63 98 08/24/17 04:44 08/24/17 04:44 08/24/17 04:44 08/24/17 09:43 08/24/17 04:44 Intake and Output: 08/24/17 08/24/17 06:59 18:59 Intake Total 145.6 Output Total 850 Balance -704.4 - Medications Medications: Current Medications Acetaminophen (Tylenol 325mg Tab) 650 mg PO Q6 PRN PRN Reason: Pain, Mild (1-3) Calcium/Vitamin D (Oscal-D 250 Mg-125 Units Tab) 2 tab PO DAILY [facility] Last Admin: 08/24/17 09:43 Dose: 2 tab Docusate Sodium (Colace) 100 mg PO BID [facility] Last Admin: 08/24/17 09:43 Dose: 100 mg Famotidine (Pepcid) 20 mg PO BID [facility] Last Admin: 08/24/17 09:43 Dose: 20 mg Piperacillin Sod/Tazobactam Sod (Zosyn 3.375 Gm Iv Premix) 3.375 gm in 50 mls @ 100 mls/hr IVPB Q6H [facility] PRN Reason: Protocol Last Admin: 08/24/17 09:42 Dose: 100 mls/hr Heparin Sodium/Sodium Chloride (Heparin 71749 Units/250ml 1/2 Normal Saline) 25 ,000 units in 250 mls @ 10.777 mls/hr IV .[id number] PRN; Protocol; 18 UNITS/KG/HR PRN Reason: PROTOCOL Last Admin: 08/23/17 16:07 Dose: 18 units/kg/hr, 10.777 mls/hr Ketorolac Tromethamine (Toradol) 30 mg IVP Q6 PRN PRN Reason: Pain, moderate (4-7) Last Admin: 08/24/17 00:09 Dose: 30 mg Losartan Potassium (Cozaar) 25 mg PO DAILY [facility] Last Admin: 08/24/17 09:43 Dose: 25 mg Metoprolol Tartrate (Lopressor) 25 mg PO BID [facility] Last Admin: 08/24/17 09:43 Dose: 25 mg Morphine Sulfate (Morphine) 2 mg IVP Q4H PRN PRN Reason: Pain, severe (8-10) Last Admin: 08/24/17 05:55 Dose: 2 mg Ondansetron HCl (Zofran Inj) 4 mg IVP Q6 PRN PRN Reason: Nausea/Vomiting Last Admin: 08/19/17 09:40 Dose: 4 mg Polyethylene Glycol (Miralax) 17 gm PO DAILY PRN PRN Reason: Constipation Last Admin: 08/21/17 10:37 Dose: 17 gm Timolol Maleate (Timoptic 0.5% Oph Soln) 1 drop OD BID [facility] Last Admin: 08/24/17 09:42 Dose: 1 drop - Labs Labs: 08/24/17 04:16 08/24/17 04:16 PT 13.6 SECONDS (9.7-12.2) H 08/17/17 03:07 INR 1.2 08/17/17 03:07 APTT 66 SECONDS (21-34) H 08/24/17 04:16 - Additional Findings Additional findings: - Constitutional Appears: Non-toxic, No Acute Distress - Head Exam Head Exam: ATRAUMATIC, NORMAL INSPECTION, NORMOCEPHALIC - Eye Exam Eye Exam: EOMI, Normal appearance - ENT Exam ENT Exam: Mucous Membranes Moist, Normal Exam - Neck Exam Neck Exam: Full ROM. absent: Tenderness - Respiratory Exam Respiratory Exam: Clear to Ausculation Bilateral, NORMAL BREATHING PATTERN - Cardiovascular Exam Cardiovascular Exam: REGULAR RHYTHM, +S1, +S2 - GI/Abdominal Exam GI & Abdominal Exam: Distended, Soft, Tenderness (LLQ), Normal Bowel Sounds. absent: Firm, Guarding, Rigid, Hypoactive Bowel Sounds - Extremities Exam Additional comments: right hip dressings c/d/i slight ecchymosis right lower extremity warm to touch compared to left. capillary refill <2seconds Patient is able to move her toes bilaterally. Assessment and Plan - Assessment and Plan (Free Text) Assessment: Right hip fracture, POD #6 R hip ORIF -monitor Hgb - hip xray: mildly comminuted, oblique fracture right femur involving greater trochanter and extending to the subtrochanteric region medially - Ortho, Dr. Cordon is consulted and R hip ORIF done on 08/18/17 - PT/OT - Femur xray: acute and comminuted intertrochanteric fracture proximal right femur. degenerative changes both hips - CT LE: comminuted intratrochanteric fracture of the right hip with large roughly 6cm laterally situated hematoma. - c spine xray: no acute findings - hip/ pelvis xray: comminuted minimally displaced intertrochanteric fracture of the right hip. - Head CT: normal -meds: morphine 2mg q4h prn Zosyn 3.375gm q6h DVT venous doppler: acute thrombosis of right soleal vein with severe reduction of venous return. CTA: No PE, trace left pleural effusion. partially imaged bilateral hydroureteronephrosis heparin drip started Hydroureteronephrosis urinalysis: 1+ blood, 8 RBCs Anemia -Hgb decreased from 8.6 to 7.9 on 08/24, repeat on 08/24 Hg 8.6 -HgB dropped from 10.4 to 6.6 on R ORIF POD 1, improved to 8.9 after 2 u PRBCs -monitor cbc Cough repeat portable cxray CXR concerning for possible pneumonia Zosyn 3.375gm IVPB Q6H Dizziness - Pt complained of dizziness prior to fall - Will check CT of head: normal - Echo from 01/2017 showed normal LV size and function with grade 1 diastolic dysfunction. Will repeat echo - Will check carotid US - Trop I .0470 - UA: 2+ blood, 22 RBC HTN - Continue home medication losartan - Metoprolol Tartrate 25 mg po BID - Cardiology consulted, Dr. Molina, help appreciated - trops downtrending -lipid panel: triglycerides 43, cholesterol 109, LDL 51, HDL 40 -HgA1C: 5.1 -TSH: 3.50 -Free T4: 1.16 Chronic low back pain - Continue pain management Constipation -Miralax prn -Colace 08/20 Enema -monitor for BM R eye s/p cataract surgery Timolol drops BID in right eye Prophylaxs - hold VTE prophylaxis before OR, restart 08/19 - SCDs - Pepcid - Morphine for pain <Bib Burgos H - Last Filed: 08/24/17 16:25> Objective - Vital Signs/Intake and Output Vital Signs (last 24 hours): Temp Pulse Resp BP Pulse Ox 97.7 F 80 20 129/74 100 08/24/17 15:00 08/24/17 15:00 08/24/17 15:00 08/24/17 15:00 08/24/17 15:00 Intake and Output: 08/24/17 08/24/17 06:59 18:59 Intake Total 145.6 900 Output Total 850 Balance -704.4 900 - Medications Medications: Current Medications Acetaminophen (Tylenol 325mg Tab) 650 mg PO Q6 PRN PRN Reason: Pain, Mild (1-3) Calcium/Vitamin D (Oscal-D 250 Mg-125 Units Tab) 2 tab PO DAILY [facility] Last Admin: 08/24/17 09:43 Dose: 2 tab Docusate Sodium (Colace) 100 mg PO BID [facility] Last Admin: 08/24/17 09:43 Dose: 100 mg Famotidine (Pepcid) 20 mg PO BID [facility] Last Admin: 08/24/17 09:43 Dose: 20 mg Piperacillin Sod/Tazobactam Sod (Zosyn 3.375 Gm Iv Premix) 3.375 gm in 50 mls @ 100 mls/hr IVPB Q6H [facility] PRN Reason: Protocol Last Admin: 08/24/17 09:42 Dose: 100 mls/hr Heparin Sodium/Sodium Chloride (Heparin 08174 Units/250ml 1/2 Normal Saline) 25 ,000 units in 250 mls @ 10.777 mls/hr IV .[id number] PRN; Protocol; 18 UNITS/KG/HR PRN Reason: PROTOCOL Last Admin: 08/24/17 14:27 Dose: 18 units/kg/hr, 10.777 mls/hr Ketorolac Tromethamine (Toradol) 30 mg IVP Q6 PRN PRN Reason: Pain, moderate (4-7) Last Admin: 08/24/17 00:09 Dose: 30 mg Losartan Potassium (Cozaar) 25 mg PO DAILY [facility] Last Admin: 05/15/18 09:43 Dose: 25 mg Metoprolol Tartrate (Lopressor) 25 mg PO BID [facility] Last Admin: 08/24/17 09:43 Dose: 25 mg Morphine Sulfate (Morphine) 2 mg IVP Q4H PRN PRN Reason: Pain, severe (8-10) Last Admin: 08/24/17 05:55 Dose: 2 mg Ondansetron HCl (Zofran Inj) 4 mg IVP Q6 PRN PRN Reason: Nausea/Vomiting Last Admin: 08/19/17 09:40 Dose: 4 mg Polyethylene Glycol (Miralax) 17 gm PO DAILY PRN PRN Reason: Constipation Last Admin: 08/21/17 10:37 Dose: 17 gm Timolol Maleate (Timoptic 0.5% Oph Soln) 1 drop OD BID [facility] Last Admin: 08/24/17 09:42 Dose: 1 drop - Labs Labs: 08/24/17 15:22 08/24/17 04:16 PT 13.6 SECONDS (9.7-12.2) H 08/17/17 03:07 INR 1.2 08/17/17 03:07 APTT 66 SECONDS (21-34) H 08/24/17 04:16 Attending/Attestation - Attestation I have personally seen and examined this patient.: Yes I have fully participated in the care of the patient.: Yes I have reviewed all pertinent clinical information, including history, physical exam and plan: Yes Notes (Text): 08/24/17 16:23 Medical attending: Patient was seen and examined by me. Agree with the above note by the resident The patient earlier in the AM had a lower Hgb and we were concerned she may need a blood transfusion A repeat lab work in the afternoon showed Hgb had increased So for now will continue with the heparin ggt, tommorow plan is to start briding over to coumadin Bib Burgos
[2017-08-24] MEDS: Heparin25000 units/250ml 1/2NS 25,000 UNITS/250 ML BAG IV PRN (14:27)
[2017-08-24 15:26] LABS: BASO # 0.1 K/uL (0.0-0.2); BASO % 0.8 % (0.0-2.0); EOS # 0.3 K/uL (0.0-0.7); EOS % 3.2 % (0.0-4.0); HEMOGLOBIN 8.6 g/dL (11.0-16.0); LYMPH # 1.5 K/uL (1.0-4.3); LYMPH % 15.1 % (20.0-40.0); MEAN CELL VOLUME 85.7 fL (81.0-99.0); MEAN CORPUSCULAR HEMOGLOBIN 29.4 pg (27.0-31.0); MEAN CORPUSCULAR HGB CONC 34.3 g/dL (33.0-37.0); MEAN PLATELET VOLUME 8.7 fL (7.2-11.7); MONO # 1.5 K/uL (0.0-0.8); MONO % 15.2 % (0.0-10.0); NEUT # 6.5 K/uL (1.8-7.0); NEUT % 65.7 % (50.0-75.0); RBC 2.93 Mil/uL (3.80-5.20); RED CELL DISTRIBUTION WIDTH 14.2 % (11.5-14.5)
[2017-08-25] MEDS: Morphine 4 MG/ML VIAL IVP PRN ×2 (00:36→05:51)
[2017-08-25] MEDS: Piperacill/Tazo 3.375gm in Dex 3.375 GM/50 ML BAG IVPB SCH ×4 (03:53→21:33)
[2017-08-25 06:38] LABS: HEMOGLOBIN 8.3 g/dL (11.0-16.0); MEAN CELL VOLUME 85.4 fL (81.0-99.0); MEAN CORPUSCULAR HEMOGLOBIN 29.9 pg (27.0-31.0); MEAN CORPUSCULAR HGB CONC 35.1 g/dL (33.0-37.0); MEAN PLATELET VOLUME 8.2 fL (7.2-11.7); RBC 2.77 Mil/uL (3.80-5.20); RED CELL DISTRIBUTION WIDTH 14.6 % (11.5-14.5); WHITE BLOOD COUNT 8.2 K/uL (4.8-10.8)
[2017-08-25 06:47] LABS: ALB/GLOB RATIO 0.8 (1.0-2.1); ALBUMIN 2.5 g/dL (3.5-5.0); ALT/SGPT 36 U/L (9-52); AST/SGOT 34 U/L (14-36); BLOOD UREA NITROGEN 16 mg/dL (7-17); GFR AFRICAN-AMERICAN > 60; GFR NON-AFRICAN AMERICAN > 60
[2017-08-25] MEDS: Calcium-Vit D 250 mg-125 Units Tab UD PO SCH ×2 (10:05→10:23)
[2017-08-25] MEDS: POLYETHYLENE GLYCOL 3350 17 GM/Dose PACKET PO PRN (10:06)
--- NOTE | 2017-08-25 10:38 | CP.PCM.PN ---
<Matilde Gonzales - Last Filed: 08/25/17 11:23> Subjective - Date & Time of Evaluation Date of Evaluation: 08/25/17 Time of Evaluation: 07:00 - Subjective Subjective: PGY 1- Medicine Note Patient seen and examined at bedside and in no acute distress. Patient says her pain is better controlled today. Patient is still having right hip and low back pain. Patient denies any headache, shortness of breath, chest pain, abdominal pain, nausea, vomiting, constipation, or diarrhea. Objective - Vital Signs/Intake and Output Vital Signs (last 24 hours): Temp Pulse Resp BP Pulse Ox 97.8 F 83 20 120/60 97 08/25/17 08:45 08/25/17 08:45 08/25/17 08:45 08/25/17 10:22 08/25/17 08:45 Intake and Output: 08/25/17 08/25/17 06:59 18:59 Intake Total 166.4 Output Total 602 Balance -435.6 - Medications Medications: Current Medications Acetaminophen (Tylenol 325mg Tab) 650 mg PO Q6 PRN PRN Reason: Pain, Mild (1-3) Calcium/Vitamin D (Oscal-D 250 Mg-125 Units Tab) 2 tab PO DAILY [facility] Last Admin: 08/25/17 10:23 Dose: 2 tab Docusate Sodium (Colace) 100 mg PO BID [facility] Last Admin: 08/25/17 10:05 Dose: 100 mg Famotidine (Pepcid) 20 mg PO BID [facility] Last Admin: 08/25/17 10:05 Dose: 20 mg Piperacillin Sod/Tazobactam Sod (Zosyn 3.375 Gm Iv Premix) 3.375 gm in 50 mls @ 100 mls/hr IVPB Q6H [facility] PRN Reason: Protocol Last Admin: 08/25/17 10:18 Dose: 100 mls/hr Heparin Sodium/Sodium Chloride (Heparin 65936 Units/250ml 1/2 Normal Saline) 25 ,000 units in 250 mls @ 10.777 mls/hr IV .[id number] PRN; Protocol; 18 UNITS/KG/HR PRN Reason: PROTOCOL Last Admin: 08/24/17 14:27 Dose: 18 units/kg/hr, 10.777 mls/hr Ketorolac Tromethamine (Toradol) 30 mg IVP Q6 PRN PRN Reason: Pain, moderate (4-7) Last Admin: 08/24/17 00:09 Dose: 30 mg Losartan Potassium (Cozaar) 25 mg PO DAILY [facility] Last Admin: 08/25/17 10:05 Dose: 25 mg Metoprolol Tartrate (Lopressor) 25 mg PO BID [facility] Last Admin: 08/25/17 10:22 Dose: 25 mg Morphine Sulfate (Morphine) 2 mg IVP Q4H PRN PRN Reason: Pain, severe (8-10) Last Admin: 08/25/17 05:51 Dose: 2 mg Ondansetron HCl (Zofran Inj) 4 mg IVP Q6 PRN PRN Reason: Nausea/Vomiting Last Admin: 08/19/17 09:40 Dose: 4 mg Polyethylene Glycol (Miralax) 17 gm PO DAILY PRN PRN Reason: Constipation Last Admin: 08/25/17 10:06 Dose: 17 gm Timolol Maleate (Timoptic 0.5% Oph Soln) 1 drop OD BID [facility] Last Admin: 08/25/17 10:06 Dose: 1 drop - Labs Labs: 08/25/17 06:23 08/25/17 06:23 PT 13.6 SECONDS (9.7-12.2) H 08/17/17 03:07 INR 1.2 08/17/17 03:07 APTT 76 SECONDS (21-34) H D 08/25/17 06:23 - Additional Findings Additional findings: - Constitutional Appears: Non-toxic, No Acute Distress - Head Exam Head Exam: ATRAUMATIC, NORMAL INSPECTION, NORMOCEPHALIC - Eye Exam Eye Exam: EOMI, Normal appearance - ENT Exam ENT Exam: Mucous Membranes Moist, Normal Exam - Neck Exam Neck Exam: Full ROM. absent: Tenderness - Respiratory Exam Respiratory Exam: Clear to Ausculation Bilateral, NORMAL BREATHING PATTERN - Cardiovascular Exam Cardiovascular Exam: REGULAR RHYTHM, +S1, +S2 - GI/Abdominal Exam GI & Abdominal Exam: Distended, Soft, Tenderness (LLQ), Normal Bowel Sounds. absent: Firm, Guarding, Rigid, Hypoactive Bowel Sounds - Extremities Exam Additional comments: right hip dressings c/d/i slight ecchymosis right lower extremity warm to touch compared to left. capillary refill <2seconds Patient is able to move her toes bilaterally. Assessment and Plan - Assessment and Plan (Free Text) Assessment: Right hip fracture, POD #7 R hip ORIF -monitor Hgb - hip xray: mildly comminuted, oblique fracture right femur involving greater trochanter and extending to the subtrochanteric region medially - Ortho, Dr. Cordon is consulted and R hip ORIF done on 08/18/17 - PT/OT - Femur xray: acute and comminuted intertrochanteric fracture proximal right femur. degenerative changes both hips - CT LE: comminuted intratrochanteric fracture of the right hip with large roughly 6cm laterally situated hematoma. - c spine xray: no acute findings - hip/ pelvis xray: comminuted minimally displaced intertrochanteric fracture of the right hip. - Head CT: normal -meds: morphine 2mg q4h prn Zosyn 3.375gm q6h DVT venous doppler: acute thrombosis of right soleal vein with severe reduction of venous return. CTA: No PE, trace left pleural effusion. partially imaged bilateral hydroureteronephrosis heparin drip started Coumadin 5mg po at 1600, f/u IRN, continue heparin drip until INR therapeutic Hydroureteronephrosis urinalysis: 1+ blood, 8 RBCs Anemia -HgB 8.3 on 08/25 -Hgb decreased from 8.6 to 7.9 on 08/24, repeat on 08/24 Hg 8.6 -HgB dropped from 10.4 to 6.6 on R ORIF POD 1, improved to 8.9 after 2 u PRBCs -monitor cbc Cough repeat portable cxray CXR concerning for possible pneumonia Zosyn 3.375gm IVPB Q6H Dizziness - Pt complained of dizziness prior to fall - Will check CT of head: normal - Echo from 01/2017 showed normal LV size and function with grade 1 diastolic dysfunction. Will repeat echo - Will check carotid US - Trop I .0470 - UA: 2+ blood, 22 RBC HTN - Continue home medication losartan - Metoprolol Tartrate 25 mg po BID - Cardiology consulted, Dr. Molina, help appreciated - trops downtrending -lipid panel: triglycerides 43, cholesterol 109, LDL 51, HDL 40 -HgA1C: 5.1 -TSH: 3.50 -Free T4: 1.16 Chronic low back pain - Continue pain management Constipation -Miralax prn -Colace 08/20 Enema -monitor for BM R eye s/p cataract surgery Timolol drops BID in right eye Prophylaxs - heparin drip - SCDs - Pepcid - Morphine for pain <Bib Burgos H - Last Filed: 08/25/17 15:11> Objective - Vital Signs/Intake and Output Vital Signs (last 24 hours): Temp Pulse Resp BP Pulse Ox 97.8 F 83 20 120/60 97 08/25/17 08:45 08/25/17 08:45 08/25/17 08:45 08/25/17 10:22 08/25/17 08:45 Intake and Output: 08/25/17 08/25/17 06:59 18:59 Intake Total 166.4 Output Total 602 Balance -435.6 - Medications Medications: Current Medications Acetaminophen (Tylenol 325mg Tab) 650 mg PO Q6 PRN PRN Reason: Pain, Mild (1-3) Calcium/Vitamin D (Oscal-D 250 Mg-125 Units Tab) 2 tab PO DAILY [facility] Last Admin: 08/25/17 10:23 Dose: 2 tab Docusate Sodium (Colace) 100 mg PO BID [facility] Last Admin: 08/25/17 10:05 Dose: 100 mg Famotidine (Pepcid) 20 mg PO BID [facility] Last Admin: 08/25/17 10:05 Dose: 20 mg Piperacillin Sod/Tazobactam Sod (Zosyn 3.375 Gm Iv Premix) 3.375 gm in 50 mls @ 100 mls/hr IVPB Q6H [facility] PRN Reason: Protocol Last Admin: 08/25/17 10:18 Dose: 100 mls/hr Heparin Sodium/Sodium Chloride (Heparin 80007 Units/250ml 1/2 Normal Saline) 25 ,000 units in 250 mls @ 10.777 mls/hr IV .[id number] PRN; Protocol; 18 UNITS/KG/HR PRN Reason: PROTOCOL Last Admin: 08/24/17 14:27 Dose: 18 units/kg/hr, 10.777 mls/hr Ketorolac Tromethamine (Toradol) 30 mg IVP Q6 PRN PRN Reason: Pain, moderate (4-7) Last Admin: 08/24/17 00:09 Dose: 30 mg Losartan Potassium (Cozaar) 25 mg PO DAILY [facility] Last Admin: 08/25/17 10:05 Dose: 25 mg Metoprolol Tartrate (Lopressor) 25 mg PO BID [facility] Last Admin: 08/25/17 10:22 Dose: 25 mg Morphine Sulfate (Morphine) 2 mg IVP Q4H PRN PRN Reason: Pain, severe (8-10) Last Admin: 08/25/17 05:51 Dose: 2 mg Ondansetron HCl (Zofran Inj) 4 mg IVP Q6 PRN PRN Reason: Nausea/Vomiting Last Admin: 08/19/17 09:40 Dose: 4 mg Polyethylene Glycol (Miralax) 17 gm PO DAILY PRN PRN Reason: Constipation Last Admin: 08/25/17 10:06 Dose: 17 gm Timolol Maleate (Timoptic 0.5% Oph Soln) 1 drop OD BID [facility] Last Admin: 08/25/17 10:06 Dose: 1 drop Warfarin Sodium (Coumadin) 5 mg PO 1800 [facility] Stop: 08/25/17 18:01 - Labs Labs: 08/25/17 06:23 08/25/17 06:23 PT 15.6 SECONDS (9.7-12.2) H 08/25/17 13:20 INR 1.4 08/25/17 13:20 APTT 76 SECONDS (21-34) H D 08/25/17 06:23 Attending/Attestation - Attestation I have personally seen and examined this patient.: Yes I have fully participated in the care of the patient.: Yes I have reviewed all pertinent clinical information, including history, physical exam and plan: Yes Notes (Text): 08/25/17 15:11 Medical attending: Patient was seen and examined by me, agree with the above note by the medical specialist. Family was present at bedside became quite severe this morning. Her hemoglobin is relatively stable at this moment, we can begin Coumadin 5 mg tonight and then recheck an INR for tomorrow. Will have to watch her CBC carefully K she has drops in her hemoglobin Also continue with PT/OT as well washings here thank you Bib Burgos
--- NOTE | 2017-08-25 12:45 | CP.PCM.PN ---
Subjective - Date & Time of Evaluation Date of Evaluation: 08/25/17 Time of Evaluation: 12:44 - Subjective Subjective: Patient in chair, complains of headache and requests to go back in bed. Objective - Vital Signs/Intake and Output Vital Signs (last 24 hours): Temp Pulse Resp BP Pulse Ox 97.8 F 83 20 120/60 97 08/25/17 08:45 08/25/17 08:45 08/25/17 08:45 08/25/17 10:22 08/25/17 08:45 Intake and Output: 08/25/17 08/25/17 06:59 18:59 Intake Total 166.4 Output Total 602 Balance -435.6 - Medications Medications: Current Medications Acetaminophen (Tylenol 325mg Tab) 650 mg PO Q6 PRN PRN Reason: Pain, Mild (1-3) Calcium/Vitamin D (Oscal-D 250 Mg-125 Units Tab) 2 tab PO DAILY [facility] Last Admin: 08/25/17 10:23 Dose: 2 tab Docusate Sodium (Colace) 100 mg PO BID [facility] Last Admin: 08/25/17 10:05 Dose: 100 mg Famotidine (Pepcid) 20 mg PO BID [facility] Last Admin: 08/25/17 10:05 Dose: 20 mg Piperacillin Sod/Tazobactam Sod (Zosyn 3.375 Gm Iv Premix) 3.375 gm in 50 mls @ 100 mls/hr IVPB Q6H [facility] PRN Reason: Protocol Last Admin: 08/25/17 10:18 Dose: 100 mls/hr Heparin Sodium/Sodium Chloride (Heparin 69671 Units/250ml 1/2 Normal Saline) 25 ,000 units in 250 mls @ 10.777 mls/hr IV .[id number] PRN; Protocol; 18 UNITS/KG/HR PRN Reason: PROTOCOL Last Admin: 08/24/17 14:27 Dose: 18 units/kg/hr, 10.777 mls/hr Ketorolac Tromethamine (Toradol) 30 mg IVP Q6 PRN PRN Reason: Pain, moderate (4-7) Last Admin: 08/24/17 00:09 Dose: 30 mg Losartan Potassium (Cozaar) 25 mg PO DAILY [facility] Last Admin: 08/25/17 10:05 Dose: 25 mg Metoprolol Tartrate (Lopressor) 25 mg PO BID [facility] Last Admin: 08/25/17 10:22 Dose: 25 mg Morphine Sulfate (Morphine) 2 mg IVP Q4H PRN PRN Reason: Pain, severe (8-10) Last Admin: 08/25/17 05:51 Dose: 2 mg Ondansetron HCl (Zofran Inj) 4 mg IVP Q6 PRN PRN Reason: Nausea/Vomiting Last Admin: 08/19/17 09:40 Dose: 4 mg Polyethylene Glycol (Miralax) 17 gm PO DAILY PRN PRN Reason: Constipation Last Admin: 08/25/17 10:06 Dose: 17 gm Timolol Maleate (Timoptic 0.5% Oph Soln) 1 drop OD BID [facility] Last Admin: 08/25/17 10:06 Dose: 1 drop Warfarin Sodium (Coumadin) 5 mg PO 1800 [facility] Stop: 08/25/17 18:01 - Labs Labs: 08/25/17 06:23 08/25/17 06:23 PT 13.6 SECONDS (9.7-12.2) H 08/17/17 03:07 INR 1.2 08/17/17 03:07 APTT 76 SECONDS (21-34) H D 08/25/17 06:23 - Extremities Exam Additional comments: right thigh swelling improving slowly no peripheral swelling +ROM ankle/toes +PT DP pulses incisions dry and intact, no erythema Assessment and Plan (1) Intertrochanteric fracture of right femur Assessment & Plan: POD#7 s/p right hip IM nailing h/h stable heparin drip/coumadin for DVT R soleal vein PT/OT patient out of bed in chair currently ortho stable, continue PT/OT until safe for discharge home d/w Dr. Zamora, agrees with above Status: Acute (2) Rib pain on left side Assessment & Plan: improving Status: Acute (3) Acute blood loss anemia Assessment & Plan: stable Status: Acute (4) DVT (deep venous thrombosis) Assessment & Plan: no PE heparin/coumadin Status: Acute
[2017-08-25 14:00] LABS: INR 1.4; PROTHROMBIN TIME 15.6 SECONDS (9.7-12.2)
[2017-08-25] MEDS: Heparin25000 units/250ml 1/2NS 25,000 UNITS/250 ML BAG IV PRN (15:57)
[2017-08-26] MEDS: Morphine 4 MG/ML VIAL IVP PRN ×2 (00:48→05:14)
[2017-08-26] MEDS: Piperacill/Tazo 3.375gm in Dex 3.375 GM/50 ML BAG IVPB SCH ×4 (03:04→21:43)
[2017-08-26 06:40] LABS: HEMOGLOBIN 8.2 g/dL (11.0-16.0); MEAN CELL VOLUME 85.7 fL (81.0-99.0); MEAN CORPUSCULAR HEMOGLOBIN 29.8 pg (27.0-31.0); MEAN CORPUSCULAR HGB CONC 34.7 g/dL (33.0-37.0); MEAN PLATELET VOLUME 8.4 fL (7.2-11.7); RBC 2.76 Mil/uL (3.80-5.20); RED CELL DISTRIBUTION WIDTH 14.5 % (11.5-14.5); WHITE BLOOD COUNT 7.6 K/uL (4.8-10.8)
[2017-08-26 06:46] LABS: INR 1.5; PROTHROMBIN TIME 16.2 SECONDS (9.7-12.2)
[2017-08-26 07:12] LABS: ALB/GLOB RATIO 0.8 (1.0-2.1); ALBUMIN 2.5 g/dL (3.5-5.0); ALT/SGPT 32 U/L (9-52); AST/SGOT 32 U/L (14-36); BLOOD UREA NITROGEN 14 mg/dL (7-17); GFR AFRICAN-AMERICAN > 60; GFR NON-AFRICAN AMERICAN > 60
[2017-08-26] MEDS: Calcium-Vit D 250 mg-125 Units Tab UD PO SCH (10:15)
--- NOTE | 2017-08-26 10:19 | CP.PCM.PN ---
<Matilde Gonzales - Last Filed: 08/26/17 10:12> Subjective - Date & Time of Evaluation Date of Evaluation: 08/26/17 Time of Evaluation: 07:00 - Subjective Subjective: PGY1- Medicine Note Patient seen and examined at bedside. Patient still having low right sided back pain. Patient also having right sided hip and leg pain. Patient says the medications helps her pain. Patient denies any fevers, chills, chest pain, shortness of breath, nausea, vomiting, constipation, or diarrhea. Objective - Vital Signs/Intake and Output Vital Signs (last 24 hours): Temp Pulse Resp BP Pulse Ox 97.8 F 83 20 122/69 97 08/26/17 09:00 08/26/17 09:00 08/26/17 09:00 08/26/17 09:00 08/26/17 09:00 Intake and Output: 08/26/17 08/26/17 06:59 18:59 Intake Total 366.4 Output Total 1000 Balance -633.6 - Medications Medications: Current Medications Acetaminophen (Tylenol 325mg Tab) 650 mg PO Q6 PRN PRN Reason: Pain, Mild (1-3) Calcium/Vitamin D (Oscal-D 250 Mg-125 Units Tab) 2 tab PO DAILY [facility] Last Admin: 08/25/17 10:23 Dose: 2 tab Docusate Sodium (Colace) 100 mg PO BID [facility] Last Admin: 08/25/17 19:09 Dose: 100 mg Famotidine (Pepcid) 20 mg PO BID [facility] Last Admin: 08/25/17 17:35 Dose: 20 mg Piperacillin Sod/Tazobactam Sod (Zosyn 3.375 Gm Iv Premix) 3.375 gm in 50 mls @ 100 mls/hr IVPB Q6H [facility] PRN Reason: Protocol Last Admin: 08/26/17 03:04 Dose: 100 mls/hr Heparin Sodium/Sodium Chloride (Heparin 96090 Units/250ml 1/2 Normal Saline) 25 ,000 units in 250 mls @ 10.777 mls/hr IV .[id number] PRN; Protocol; 18 UNITS/KG/HR PRN Reason: PROTOCOL Last Admin: 08/25/17 15:57 Dose: 18 units/kg/hr, 10.777 mls/hr Ketorolac Tromethamine (Toradol) 30 mg IVP Q6 PRN PRN Reason: Pain, moderate (4-7) Last Admin: 08/24/17 00:09 Dose: 30 mg Losartan Potassium (Cozaar) 25 mg PO DAILY [facility] Last Admin: 08/25/17 10:05 Dose: 25 mg Metoprolol Tartrate (Lopressor) 25 mg PO BID [facility] Last Admin: 08/25/17 17:35 Dose: 25 mg Morphine Sulfate (Morphine) 1 mg IVP Q4H PRN PRN Reason: Pain, severe (8-10) Ondansetron HCl (Zofran Inj) 4 mg IVP Q6 PRN PRN Reason: Nausea/Vomiting Last Admin: 08/19/17 09:40 Dose: 4 mg Polyethylene Glycol (Miralax) 17 gm PO DAILY PRN PRN Reason: Constipation Last Admin: 08/25/17 10:06 Dose: 17 gm Timolol Maleate (Timoptic 0.5% Ophth Soln) 1 drop OD BID [facility] Last Admin: 08/25/17 17:35 Dose: 1 drop Warfarin Sodium (Coumadin) 5 mg PO 1800 [facility] Stop: 08/26/17 18:01 - Labs Labs: 08/26/17 06:30 08/26/17 06:30 PT 16.2 SECONDS (9.7-12.2) H 08/26/17 06:30 INR 1.5 08/26/17 06:30 APTT 85 SECONDS (21-34) H D 08/26/17 06:30 - Additional Findings Additional findings: - Constitutional Appears: Non-toxic, No Acute Distress - Head Exam Head Exam: ATRAUMATIC, NORMAL INSPECTION, NORMOCEPHALIC - Eye Exam Eye Exam: EOMI, Normal appearance - ENT Exam ENT Exam: Mucous Membranes Moist, Normal Exam - Neck Exam Neck Exam: Full ROM. absent: Tenderness - Respiratory Exam Respiratory Exam: Clear to Ausculation Bilateral, NORMAL BREATHING PATTERN - Cardiovascular Exam Cardiovascular Exam: REGULAR RHYTHM, +S1, +S2 - GI/Abdominal Exam GI & Abdominal Exam: Distended, Soft, Tenderness (LLQ), Normal Bowel Sounds. absent: Firm, Guarding, Rigid, Hypoactive Bowel Sounds - Extremities Exam Additional comments: right hip dressings c/d/i slight ecchymosis right lower extremity edema capillary refill <2seconds Patient is able to move her toes bilaterally. Assessment and Plan - Assessment and Plan (Free Text) Assessment: Right hip fracture, POD #8 R hip ORIF -monitor Hgb - hip xray: mildly comminuted, oblique fracture right femur involving greater trochanter and extending to the subtrochanteric region medially - Ortho, Dr. Cordon is consulted and R hip ORIF done on 08/18/17 - PT/OT - Femur xray: acute and comminuted intertrochanteric fracture proximal right femur. degenerative changes both hips - CT LE: comminuted intratrochanteric fracture of the right hip with large roughly 6cm laterally situated hematoma. - c spine xray: no acute findings - hip/ pelvis xray: comminuted minimally displaced intertrochanteric fracture of the right hip. - Head CT: normal -meds: morphine decreased to 1mg q4h prn on 08/26 Zosyn 3.375gm q6h Calcium/ Vit D 250-125 2tabs po daily DVT venous doppler: acute thrombosis of right soleal vein with severe reduction of venous return. CTA: No PE, trace left pleural effusion. partially imaged bilateral hydroureteronephrosis heparin drip started Coumadin 5mg po at 1600, f/u IRN, continue heparin drip until INR therapeutic INR 1.5 on 08/26 Hydroureteronephrosis urinalysis: 1+ blood, 8 RBCs Anemia -stable HgB 8.3 -Hgb decreased from 8.6 to 7.9 on 08/24, repeat on 08/24 Hg 8.6 -HgB dropped from 10.4 to 6.6 on R ORIF POD 1, improved to 8.9 after 2 u PRBCs -monitor cbc Cough repeat portable cxray CXR concerning for possible pneumonia Zosyn 3.375gm IVPB Q6H Dizziness - Pt complained of dizziness prior to fall - Will check CT of head: normal - Echo from 01/2017 showed normal LV size and function with grade 1 diastolic dysfunction. Will repeat echo - Will check carotid US - Trop I .0470 - UA: 2+ blood, 22 RBC HTN - Continue home medication losartan - Metoprolol Tartrate 25 mg po BID - Cardiology consulted, Dr. Molina, help appreciated - trops downtrending -lipid panel: triglycerides 43, cholesterol 109, LDL 51, HDL 40 -HgA1C: 5.1 -TSH: 3.50 -Free T4: 1.16 Chronic low back pain - Continue pain management Constipation, resolved -Miralax prn -Colace 08/20 Enema -monitor for BM R eye s/p cataract surgery Timolol drops BID in right eye Prophylaxs - heparin drip - SCDs - Pepcid - Morphine for pain <BurgosBib molina H - Last Filed: 08/26/17 12:06> Objective - Vital Signs/Intake and Output Vital Signs (last 24 hours): Temp Pulse Resp BP Pulse Ox 97.8 F 83 20 120/68 97 08/26/17 09:00 08/26/17 09:00 08/26/17 09:00 08/26/17 10:16 08/26/17 09:00 Intake and Output: 08/26/17 08/26/17 06:59 18:59 Intake Total 366.4 Output Total 1000 Balance -633.6 - Medications Medications: Current Medications Acetaminophen (Tylenol 325mg Tab) 650 mg PO Q6 PRN PRN Reason: Pain, Mild (1-3) Calcium/Vitamin D (Oscal-D 250 Mg-125 Units Tab) 2 tab PO DAILY [facility] Last Admin: 08/26/17 10:15 Dose: 2 tab Docusate Sodium (Colace) 100 mg PO BID [facility] Last Admin: 08/26/17 10:16 Dose: 100 mg Famotidine (Pepcid) 20 mg PO BID [facility] Last Admin: 08/26/17 10:16 Dose: 20 mg Piperacillin Sod/Tazobactam Sod (Zosyn 3.375 Gm Iv Premix) 3.375 gm in 50 mls @ 100 mls/hr IVPB Q6H [facility] PRN Reason: Protocol Last Admin: 08/26/17 10:19 Dose: 100 mls/hr Heparin Sodium/Sodium Chloride (Heparin 20003 Units/250ml 1/2 Normal Saline) 25 ,000 units in 250 mls @ 10.777 mls/hr IV .[id number] PRN; Protocol; 18 UNITS/KG/HR PRN Reason: PROTOCOL Last Admin: 08/25/17 15:57 Dose: 18 units/kg/hr, 10.777 mls/hr Ketorolac Tromethamine (Toradol) 30 mg IVP Q6 PRN PRN Reason: Pain, moderate (4-7) Last Admin: 08/24/17 00:09 Dose: 30 mg Losartan Potassium (Cozaar) 25 mg PO DAILY [facility] Last Admin: 08/26/17 10:16 Dose: 25 mg Metoprolol Tartrate (Lopressor) 25 mg PO BID [facility] Last Admin: 08/26/17 10:16 Dose: 25 mg Morphine Sulfate (Morphine) 1 mg IVP Q4H PRN PRN Reason: Pain, severe (8-10) Ondansetron HCl (Zofran Inj) 4 mg IVP Q6 PRN PRN Reason: Nausea/Vomiting Last Admin: 08/19/17 09:40 Dose: 4 mg Polyethylene Glycol (Miralax) 17 gm PO DAILY PRN PRN Reason: Constipation Last Admin: 08/25/17 10:06 Dose: 17 gm Timolol Maleate (Timoptic 0.5% Oph Soln) 1 drop OD BID [facility] Last Admin: 08/26/17 10:16 Dose: 1 drop Warfarin Sodium (Coumadin) 5 mg PO 1800 [facility] Stop: 08/26/17 18:01 - Labs Labs: 08/26/17 06:30 08/26/17 06:30 PT 16.2 SECONDS (9.7-12.2) H 08/26/17 06:30 INR 1.5 08/26/17 06:30 APTT 85 SECONDS (21-34) H D 08/26/17 06:30 Attending/Attestation - Attestation I have personally seen and examined this patient.: Yes I have fully participated in the care of the patient.: Yes I have reviewed all pertinent clinical information, including history, physical exam and plan: Yes Notes (Text): 08/26/17 12:05 Medical attending: Patient was seen and examined by me. Agree with the above note by the resident The patient was with family members at bedside when we saw her. She is also participating with PT Today INR 1.5, another dose of coumadin 5mg x 1 today and another INR tommorow thank you Bib Burgos
[2017-08-26] MEDS: Heparin25000 units/250ml 1/2NS 25,000 UNITS/250 ML BAG IV PRN (16:21)
[2017-08-27] MEDS: Piperacill/Tazo 3.375gm in Dex 3.375 GM/50 ML BAG IVPB SCH ×4 (03:15→22:11)
[2017-08-27] MEDS: Morphine 4 MG/ML VIAL IVP PRN (03:15)
[2017-08-27 07:54] LABS: HEMOGLOBIN 8.2 g/dL (11.0-16.0); MEAN CELL VOLUME 85.9 fL (81.0-99.0); MEAN CORPUSCULAR HEMOGLOBIN 30.2 pg (27.0-31.0); MEAN CORPUSCULAR HGB CONC 35.2 g/dL (33.0-37.0); MEAN PLATELET VOLUME 8.7 fL (7.2-11.7); RBC 2.71 Mil/uL (3.80-5.20); RED CELL DISTRIBUTION WIDTH 14.7 % (11.5-14.5); WHITE BLOOD COUNT 8.2 K/uL (4.8-10.8)
[2017-08-27 07:56] LABS: INR 1.9
[2017-08-27 08:03] LABS: ALB/GLOB RATIO 0.8 (1.0-2.1); ALBUMIN 2.6 g/dL (3.5-5.0); ALT/SGPT 27 U/L (9-52); AST/SGOT 35 U/L (14-36); BLOOD UREA NITROGEN 13 mg/dL (7-17); CALCIUM 8.4 mg/dl (8.6-10.4); GFR AFRICAN-AMERICAN > 60; GFR NON-AFRICAN AMERICAN > 60
[2017-08-27] MEDS ORDERED: Heparin25000 units/250ml 1/2NS 25,000 UNITS/250 ML BAG IV PRN (09:05)
--- NOTE | 2017-08-27 09:54 | CP.PCM.PN ---
Subjective - Date & Time of Evaluation Date of Evaluation: 08/27/17 Time of Evaluation: 09:51 - Subjective Subjective: Patient complaining of hip pain. Patient is progressing well with PT, notes appreciated Objective - Vital Signs/Intake and Output Vital Signs (last 24 hours): Temp Pulse Resp BP Pulse Ox 98.1 F 84 20 147/70 99 08/27/17 07:00 08/27/17 07:00 08/27/17 07:00 08/27/17 07:00 08/27/17 07:00 Intake and Output: 08/27/17 08/27/17 06:59 18:59 Output Total 2400 Balance -2400 - Medications Medications: Current Medications Acetaminophen (Tylenol 325mg Tab) 650 mg PO Q6 PRN PRN Reason: Pain, Mild (1-3) Calcium/Vitamin D (Oscal-D 250 Mg-125 Units Tab) 2 tab PO DAILY [facility] Last Admin: 08/26/17 10:15 Dose: 2 tab Docusate Sodium (Colace) 100 mg PO BID [facility] Last Admin: 08/26/17 17:35 Dose: 100 mg Famotidine (Pepcid) 20 mg PO BID [facility] Last Admin: 08/26/17 17:35 Dose: 20 mg Piperacillin Sod/Tazobactam Sod (Zosyn 3.375 Gm Iv Premix) 3.375 gm in 50 mls @ 100 mls/hr IVPB Q6H [facility] PRN Reason: Protocol Last Admin: 08/27/17 03:15 Dose: 100 mls/hr Heparin Sodium/Sodium Chloride (Heparin 28061 Units/250ml 1/2 Normal Saline) 25 ,000 units in 250 mls @ 8.981 mls/hr IV .Q24H PRN; Protocol; 15 UNITS/KG/HR PRN Reason: PROTOCOL Last Admin: 08/27/17 09:08 Dose: 15 units/kg/hr, 8.981 mls/hr Ketorolac Tromethamine (Toradol) 30 mg IVP Q6 PRN PRN Reason: Pain, moderate (4-7) Last Admin: 08/24/17 00:09 Dose: 30 mg Losartan Potassium (Cozaar) 25 mg PO DAILY [facility] Last Admin: 08/26/17 10:16 Dose: 25 mg Metoprolol Tartrate (Lopressor) 25 mg PO BID [facility] Last Admin: 08/26/17 17:35 Dose: 25 mg Morphine Sulfate (Morphine) 1 mg IVP Q4H PRN PRN Reason: Pain, severe (8-10) Last Admin: 08/27/17 03:15 Dose: 1 mg Ondansetron HCl (Zofran Inj) 4 mg IVP Q6 PRN PRN Reason: Nausea/Vomiting Last Admin: 08/19/17 09:40 Dose: 4 mg Polyethylene Glycol (Miralax) 17 gm PO DAILY PRN PRN Reason: Constipation Last Admin: 08/25/17 10:06 Dose: 17 gm Timolol Maleate (Timoptic 0.5% Ophth Soln) 1 drop OD BID [facility] Last Admin: 08/26/17 17:35 Dose: 1 drop - Labs Labs: 08/27/17 07:41 08/27/17 07:41 PT 21.0 SECONDS (9.7-12.2) H 08/27/17 07:41 INR 1.9 08/27/17 07:41 APTT 105 SECONDS (21-34) H* D 08/27/17 07:41 - Extremities Exam Additional comments: Right hip: ;thigh softer, incisions intact, dry, no erythema. +ROM ankel/toes sensation intact +DP/PT pulses calves soft NT neg homans Assessment and Plan (1) Intertrochanteric fracture of right femur Assessment & Plan: s/p IM nailing PT/OT DVT ortho stable d/w Dr. Kapadia, agrees wtih above Status: Acute (2) Rib pain on left side Assessment & Plan: improving Status: Acute (3) Acute blood loss anemia Assessment & Plan: stable Status: Acute (4) DVT (deep venous thrombosis) Status: Acute
[2017-08-27] MEDS: Calcium-Vit D 250 mg-125 Units Tab UD PO SCH (09:57)
--- NOTE | 2017-08-27 10:44 | CP.PCM.PN ---
<Matilde Gonzales - Last Filed: 08/27/17 13:23> Subjective - Date & Time of Evaluation Date of Evaluation: 08/27/17 Time of Evaluation: 07:00 - Subjective Subjective: PGY1- Medicine Note Patient seen and examined at bedside. Patient still having low right sided back pain. Patient also having right sided hip and leg pain. Patient says the medications helps her pain. Patient denies any fevers, chills, chest pain, shortness of breath, nausea, vomiting, constipation, or diarrhea. Patient's family noticed that her urine is dark with blood. Objective - Vital Signs/Intake and Output Vital Signs (last 24 hours): Temp Pulse Resp BP Pulse Ox 98.1 F 84 20 147/70 99 08/27/17 07:00 08/27/17 07:00 08/27/17 07:00 08/27/17 09:57 08/27/17 07:00 Intake and Output: 08/27/17 08/27/17 06:59 18:59 Output Total 2400 Balance -2400 - Medications Medications: Current Medications Acetaminophen (Tylenol 325mg Tab) 650 mg PO Q6 PRN PRN Reason: Pain, Mild (1-3) Calcium/Vitamin D (Oscal-D 250 Mg-125 Units Tab) 2 tab PO DAILY [facility] Last Admin: 08/27/17 09:57 Dose: 2 tab Docusate Sodium (Colace) 100 mg PO BID [facility] Last Admin: 08/27/17 09:57 Dose: 100 mg Famotidine (Pepcid) 20 mg PO BID [facility] Last Admin: 08/27/17 09:58 Dose: 20 mg Piperacillin Sod/Tazobactam Sod (Zosyn 3.375 Gm Iv Premix) 3.375 gm in 50 mls @ 100 mls/hr IVPB Q6H [facility] PRN Reason: Protocol Last Admin: 08/27/17 09:56 Dose: 100 mls/hr Heparin Sodium/Sodium Chloride (Heparin 34382 Units/250ml 1/2 Normal Saline) 25 ,000 units in 250 mls @ 8.981 mls/hr IV .Q24H PRN; Protocol; 15 UNITS/KG/HR PRN Reason: PROTOCOL Last Admin: 08/27/17 09:08 Dose: 15 units/kg/hr, 8.981 mls/hr Ketorolac Tromethamine (Toradol) 30 mg IVP Q6 PRN PRN Reason: Pain, moderate (4-7) Last Admin: 08/24/17 00:09 Dose: 30 mg Losartan Potassium (Cozaar) 25 mg PO DAILY [facility] Last Admin: 08/27/17 09:58 Dose: 25 mg Metoprolol Tartrate (Lopressor) 25 mg PO BID [facility] Last Admin: 08/27/17 09:57 Dose: 25 mg Morphine Sulfate (Morphine) 1 mg IVP Q4H PRN PRN Reason: Pain, severe (8-10) Last Admin: 08/27/17 03:15 Dose: 1 mg Ondansetron HCl (Zofran Inj) 4 mg IVP Q6 PRN PRN Reason: Nausea/Vomiting Last Admin: 08/19/17 09:40 Dose: 4 mg Polyethylene Glycol (Miralax) 17 gm PO DAILY PRN PRN Reason: Constipation Last Admin: 08/25/17 10:06 Dose: 17 gm Timolol Maleate (Timoptic 0.5% Oph Soln) 1 drop OD BID [facility] Last Admin: 08/27/17 09:58 Dose: 1 drop - Labs Labs: 08/27/17 07:41 08/27/17 07:41 PT 21.0 SECONDS (9.7-12.2) H 08/27/17 07:41 INR 1.9 08/27/17 07:41 APTT 105 SECONDS (21-34) H* D 08/27/17 07:41 - Additional Findings Additional findings: - Constitutional Appears: Non-toxic, No Acute Distress - Head Exam Head Exam: ATRAUMATIC, NORMAL INSPECTION, NORMOCEPHALIC - Eye Exam Eye Exam: EOMI, Normal appearance - ENT Exam ENT Exam: Mucous Membranes Moist, Normal Exam - Neck Exam Neck Exam: Full ROM. absent: Tenderness - Respiratory Exam Respiratory Exam: Clear to Ausculation Bilateral, NORMAL BREATHING PATTERN - Cardiovascular Exam Cardiovascular Exam: REGULAR RHYTHM, +S1, +S2 - GI/Abdominal Exam GI & Abdominal Exam: Distended, Soft, Tenderness (LLQ), Normal Bowel Sounds. absent: Firm, Guarding, Rigid, Hypoactive Bowel Sounds - Extremities Exam Additional comments: right hip dressings c/d/i slight ecchymosis right lower extremity edema capillary refill <2seconds Patient is able to move her toes bilaterally. Assessment and Plan - Assessment and Plan (Free Text) Assessment: Right hip fracture, POD #8 R hip ORIF -monitor Hgb - hip xray: mildly comminuted, oblique fracture right femur involving greater trochanter and extending to the subtrochanteric region medially - Ortho, Dr. Cordon is consulted and R hip ORIF done on 08/18/17 - PT/OT - Femur xray: acute and comminuted intertrochanteric fracture proximal right femur. degenerative changes both hips - CT LE: comminuted intratrochanteric fracture of the right hip with large roughly 6cm laterally situated hematoma. - c spine xray: no acute findings - hip/ pelvis xray: comminuted minimally displaced intertrochanteric fracture of the right hip. - Head CT: normal -meds: morphine decreased to 1mg q4h prn on 08/26 Zosyn 3.375gm q6h Calcium/ Vit D 250-125 2tabs po daily Lidoderm patch added on 08/27 DVT venous doppler: acute thrombosis of right soleal vein with severe reduction of venous return. CTA: No PE, trace left pleural effusion. partially imaged bilateral hydroureteronephrosis Coumadin 3mg po at 1600, f/u IRN INR 1.5 on 08/26 INR 1.9 on 08/27 -- heparin discontinued Hydroureteronephrosis urinalysis: 1+ blood, 8 RBCs Anemia -stable HgB 8.3 -Hgb decreased from 8.6 to 7.9 on 08/24, repeat on 08/24 Hg 8.6 -HgB dropped from 10.4 to 6.6 on R ORIF POD 1, improved to 8.9 after 2 u PRBCs -monitor cbc Cough repeat portable cxray CXR concerning for possible pneumonia Zosyn 3.375gm IVPB Q6H Dizziness - Pt complained of dizziness prior to fall - Will check CT of head: normal - Echo from 01/2017 showed normal LV size and function with grade 1 diastolic dysfunction. Will repeat echo - Will check carotid US - Trop I .0470 - UA: 2+ blood, 22 RBC HTN - Continue home medication losartan - Metoprolol Tartrate 25 mg po BID - Cardiology consulted, Dr. Molina, help appreciated - trops downtrending -lipid panel: triglycerides 43, cholesterol 109, LDL 51, HDL 40 -HgA1C: 5.1 -TSH: 3.50 -Free T4: 1.16 Chronic low back pain - Continue pain management Constipation, resolved -Miralax prn -Colace 08/20 Enema -monitor for BM R eye s/p cataract surgery Timolol drops BID in right eye Prophylaxs -Coumadin - SCDs - Pepcid <BurgosBib molina H - Last Filed: 08/27/17 13:59> Objective - Vital Signs/Intake and Output Vital Signs (last 24 hours): Temp Pulse Resp BP Pulse Ox 98.1 F 84 20 147/70 99 08/27/17 07:00 08/27/17 07:00 08/27/17 07:00 08/27/17 09:57 08/27/17 07:00 Intake and Output: 08/27/17 08/27/17 06:59 18:59 Output Total 2400 Balance -2400 - Medications Medications: Current Medications Acetaminophen (Tylenol 325mg Tab) 650 mg PO Q6 PRN PRN Reason: Pain, Mild (1-3) Calcium/Vitamin D (Oscal-D 250 Mg-125 Units Tab) 2 tab PO DAILY [facility] Last Admin: 08/27/17 09:57 Dose: 2 tab Docusate Sodium (Colace) 100 mg PO BID [facility] Last Admin: 08/27/17 09:57 Dose: 100 mg Famotidine (Pepcid) 20 mg PO BID [facility] Last Admin: 08/27/17 09:58 Dose: 20 mg Piperacillin Sod/Tazobactam Sod (Zosyn 3.375 Gm Iv Premix) 3.375 gm in 50 mls @ 100 mls/hr IVPB Q6H [facility] PRN Reason: Protocol Last Admin: 08/27/17 09:56 Dose: 100 mls/hr Ketorolac Tromethamine (Toradol) 30 mg IVP Q6 PRN PRN Reason: Pain, moderate (4-7) Last Admin: 08/24/17 00:09 Dose: 30 mg Lidocaine (Lidoderm) 1 ea TD DAILY [facility] Last Admin: 08/27/17 12:20 Dose: 1 ea Losartan Potassium (Cozaar) 25 mg PO DAILY [facility] Last Admin: 08/27/17 09:58 Dose: 25 mg Metoprolol Tartrate (Lopressor) 25 mg PO BID [facility] Last Admin: 08/27/17 09:57 Dose: 25 mg Morphine Sulfate (Morphine) 1 mg IVP Q4H PRN PRN Reason: Pain, severe (8-10) Last Admin: 08/27/17 03:15 Dose: 1 mg Ondansetron HCl (Zofran Inj) 4 mg IVP Q6 PRN PRN Reason: Nausea/Vomiting Last Admin: 08/19/17 09:40 Dose: 4 mg Polyethylene Glycol (Miralax) 17 gm PO DAILY PRN PRN Reason: Constipation Last Admin: 08/25/17 10:06 Dose: 17 gm Timolol Maleate (Timoptic 0.5% Ophth Soln) 1 drop OD BID [facility] Last Admin: 08/27/17 09:58 Dose: 1 drop Warfarin Sodium (Coumadin) 3 mg PO 1800 [facility] Stop: 08/27/17 18:01 - Labs Labs: 08/27/17 07:41 08/27/17 07:41 PT 21.0 SECONDS (9.7-12.2) H 08/27/17 07:41 INR 1.9 08/27/17 07:41 APTT 105 SECONDS (21-34) H* D 08/27/17 07:41 Attending/Attestation - Attestation I have personally seen and examined this patient.: Yes I have fully participated in the care of the patient.: Yes I have reviewed all pertinent clinical information, including history, physical exam and plan: Yes Notes (Text): 08/27/17 13:58 Medical attending: Patient was seen and examined by me. Agree with the above note by the resident Today will stop with the heparin ggt Tonight coumadin 3mg and another INR tommorow. We need to monitor CBC in case the Hgb decreases and she may need a blood transfusion thank you Bib Burgos
[2017-08-27] MEDS: Lidocaine 5% Patch TD SCH (12:20)
[2017-08-28] MEDS: Morphine 4 MG/ML VIAL IVP PRN ×3 (03:26→22:22)
[2017-08-28] MEDS: Piperacill/Tazo 3.375gm in Dex 3.375 GM/50 ML BAG IVPB SCH ×4 (03:26→21:59)
[2017-08-28 06:34] LABS: BASO % 0.6 % (0.0-2.0); EOS # 0.2 K/uL (0.0-0.7); EOS % 2.3 % (0.0-4.0); HEMOGLOBIN 8.7 g/dL (11.0-16.0); LYMPH # 1.7 K/uL (1.0-4.3); MEAN CELL VOLUME 86.1 fL (81.0-99.0); MEAN CORPUSCULAR HEMOGLOBIN 30.4 pg (27.0-31.0); MEAN CORPUSCULAR HGB CONC 35.3 g/dL (33.0-37.0); MEAN PLATELET VOLUME 8.1 fL (7.2-11.7); MONO # 1.2 K/uL (0.0-0.8); MONO % 16.2 % (0.0-10.0); NEUT # 4.5 K/uL (1.8-7.0); NEUT % 58.9 % (50.0-75.0); NRBC % 0.1 % (0.0-2.0); RBC 2.85 Mil/uL (3.80-5.20); WHITE BLOOD COUNT 7.7 K/uL (4.8-10.8)
[2017-08-28 06:42] LABS: INR 2.6; PROTHROMBIN TIME 28.8 SECONDS (9.7-12.2)
[2017-08-28 06:53] LABS: ALB/GLOB RATIO 0.7 (1.0-2.1); ALBUMIN 2.5 g/dL (3.5-5.0); ALT/SGPT 23 U/L (9-52); AST/SGOT 34 U/L (14-36); BLOOD UREA NITROGEN 12 mg/dL (7-17); CALCIUM 8.4 mg/dl (8.6-10.4); GFR AFRICAN-AMERICAN > 60; GFR NON-AFRICAN AMERICAN > 60
[2017-08-28] MEDS: Calcium-Vit D 250 mg-125 Units Tab UD PO SCH (09:34)
[2017-08-28] MEDS: Lidocaine 5% Patch TD SCH (09:41)
--- NOTE | 2017-08-28 10:17 | CP.PCM.PN ---
Subjective - Date & Time of Evaluation Date of Evaluation: 08/28/17 Time of Evaluation: 10:00 - Subjective Subjective: Patient was seen and examined by me. Family member present at bedside. We are increasing the morphine to 2mg, hopefully it will not make her too somulent and she will still be able to participarte with PT She did better with PT yesterday. (We also have been encouraging and emphasizing to family the importance) INR is now 2.6 this morning. Yesterday we stopped the heparin ggt. Tonight coumadin 2mg Her Hgb is ok - up to 8.7 today, continue to monitor. Objective - Vital Signs/Intake and Output Vital Signs (last 24 hours): Temp Pulse Resp BP Pulse Ox 97.7 F 85 20 122/67 99 08/28/17 07:00 08/28/17 09:33 08/28/17 07:00 08/28/17 09:34 08/28/17 07:00 Intake and Output: 08/28/17 08/28/17 06:59 18:59 Intake Total 500 Output Total 1500 Balance -1000 - Medications Medications: Current Medications Acetaminophen (Tylenol 325mg Tab) 650 mg PO Q6 PRN PRN Reason: Pain, Mild (1-3) Last Admin: 08/28/17 08:49 Dose: 650 mg Calcium/Vitamin D (Oscal-D 250 Mg-125 Units Tab) 2 tab PO DAILY [facility] Last Admin: 08/28/17 09:34 Dose: 2 tab Docusate Sodium (Colace) 100 mg PO BID [facility] Last Admin: 08/28/17 09:39 Dose: 100 mg Famotidine (Pepcid) 20 mg PO BID [facility] Last Admin: 08/28/17 09:34 Dose: 20 mg Piperacillin Sod/Tazobactam Sod (Zosyn 3.375 Gm Iv Premix) 3.375 gm in 50 mls @ 100 mls/hr IVPB Q6H [facility] PRN Reason: Protocol Last Admin: 08/28/17 09:42 Dose: 100 mls/hr Ketorolac Tromethamine (Toradol) 30 mg IVP Q6 PRN PRN Reason: Pain, moderate (4-7) Last Admin: 08/24/17 00:09 Dose: 30 mg Lidocaine (Lidoderm) 1 ea TD DAILY [facility] Last Admin: 08/28/17 09:41 Dose: 1 ea Losartan Potassium (Cozaar) 25 mg PO DAILY [facility] Last Admin: 08/28/17 09:34 Dose: 25 mg Metoprolol Tartrate (Lopressor) 25 mg PO BID [facility] Last Admin: 08/28/17 09:34 Dose: 25 mg Morphine Sulfate (Morphine) 1 mg IVP Q4H PRN PRN Reason: Pain, severe (8-10) Last Admin: 08/28/17 03:26 Dose: 1 mg Ondansetron HCl (Zofran Inj) 4 mg IVP Q6 PRN PRN Reason: Nausea/Vomiting Last Admin: 08/19/17 09:40 Dose: 4 mg Polyethylene Glycol (Miralax) 17 gm PO DAILY PRN PRN Reason: Constipation Last Admin: 08/25/17 10:06 Dose: 17 gm Timolol Maleate (Timoptic 0.5% Ophth Soln) 1 drop OD BID [facility] Last Admin: 08/28/17 09:41 Dose: 1 drop - Labs Labs: 08/28/17 06:28 08/28/17 06:28 PT 28.8 SECONDS (9.7-12.2) H D 08/28/17 06:28 INR 2.6 D 08/28/17 06:28 APTT 36 SECONDS (21-34) H D 08/28/17 06:28 - Head Exam Head Exam: NORMAL INSPECTION, NORMOCEPHALIC - Eye Exam Eye Exam: EOMI, Normal appearance - ENT Exam ENT Exam: Mucous Membranes Moist - Respiratory Exam Respiratory Exam: Clear to Ausculation Bilateral, NORMAL BREATHING PATTERN - GI/Abdominal Exam GI & Abdominal Exam: Soft, Normal Bowel Sounds. absent: Tenderness - Extremities Exam Additional comments: Right hip dressing clean, dry, intact. Minimal echymosis. There is mild pitting edema of the right lower extremity. - Neurological Exam Neurological Exam: Alert, Awake, Oriented x3 Neuro motor strength exam: Left Upper Extremity: 5, Right Upper Extremity: 5 - Psychiatric Exam Psychiatric exam: Normal Affect, Normal Mood - Skin Skin Exam: Normal Color, Warm Assessment and Plan - Assessment and Plan (Free Text) Assessment: Assessment and Plan Right hip fracture, POD #9 R hip ORIF 08/28: today increased morphine to 2mg. She has been improving on PT. Now further distances. - hip xray: mildly comminuted, oblique fracture right femur involving greater trochanter and extending to the subtrochanteric region medially - Ortho, Dr. Cordon is consulted and R hip ORIF done on 08/18/17 - PT/OT - Femur xray: acute and comminuted intertrochanteric fracture proximal right femur. degenerative changes both hips - CT LE: comminuted intratrochanteric fracture of the right hip with large roughly 6cm laterally situated hematoma. - c spine xray: no acute findings - hip/ pelvis xray: comminuted minimally displaced intertrochanteric fracture of the right hip. - Head CT: normal Morphine increased to 1mg q4h prn on 08/27 Zosyn 3.375gm q6h Calcium/ Vit D 250-125 2tabs po daily Lidoderm patch added on 08/27 DVT 08/28: Today INR 2.6, tonight smaller dose of coumdain to 2mg tonight. We have encouraged ambulation. venous doppler: acute thrombosis of right soleal vein with severe reduction of venous return. CTA: No PE, trace left pleural effusion. partially imaged bilateral hydroureteronephrosis INR 1.5 on 08/26 INR 1.9 on 08/27 -- heparin discontinued Hydroureteronephrosis urinalysis: 1+ blood, 8 RBCs Anemia 08/28: Patient Hgb increased to 8.7 today. Continue to monitor. The hematuria should decrease now that she is off of heparin ggt and smaller dose of coumadin -Hgb decreased from 8.6 to 7.9 on 08/24, repeat on 08/24 Hg 8.6 -HgB dropped from 10.4 to 6.6 on R ORIF POD 1, improved to 8.9 after 2 u PRBCs Cough repeat portable cxray CXR concerning for possible pneumonia Zosyn 3.375gm IVPB Q6H Dizziness - Pt complained of dizziness prior to fall - Will check CT of head: normal - Echo from 01/2017 showed normal LV size and function with grade 1 diastolic dysfunction. Will repeat echo - Will check carotid US - Trop I .[id number] - UA: 2+ blood, 22 RBC HTN - Continue home medication losartan - Metoprolol Tartrate 25 mg po BID - Cardiology consulted, Dr. Molina, help appreciated - trops downtrending -lipid panel: triglycerides 43, cholesterol 109, LDL 51, HDL 40 -HgA1C: 5.1 -TSH: 3.50 -Free T4: 1.16 Chronic low back pain - Continue pain management Constipation, resolved -Miralax prn -Colace 08/20 Enema -monitor for BM R eye s/p cataract surgery Timolol drops BID in right eye Prophylaxs -Coumadin - SCDs - Pepcid
[2017-08-29] MEDS: Piperacill/Tazo 3.375gm in Dex 3.375 GM/50 ML BAG IVPB SCH ×4 (03:32→21:13)
[2017-08-29] MEDS: Morphine 4 MG/ML VIAL IVP PRN ×3 (05:19→21:16)
[2017-08-29 07:30] LABS: BASO # 0.1 K/uL (0.0-0.2); BASO % 0.7 % (0.0-2.0); EOS # 0.2 K/uL (0.0-0.7); EOS % 2.7 % (0.0-4.0); LYMPH # 1.6 K/uL (1.0-4.3); LYMPH % 23.7 % (20.0-40.0); MEAN CELL VOLUME 86.7 fL (81.0-99.0); MEAN CORPUSCULAR HEMOGLOBIN 30.3 pg (27.0-31.0); MEAN PLATELET VOLUME 8.7 fL (7.2-11.7); MONO # 0.9 K/uL (0.0-0.8); MONO % 13.2 % (0.0-10.0); NEUT # 4.1 K/uL (1.8-7.0); NEUT % 59.7 % (50.0-75.0); NRBC % 0.1 % (0.0-2.0); RBC 2.97 Mil/uL (3.80-5.20); RED CELL DISTRIBUTION WIDTH 15.2 % (11.5-14.5); WHITE BLOOD COUNT 6.9 K/uL (4.8-10.8)
--- NOTE | 2017-08-29 07:43 | CP.PCM.PN ---
Subjective - Date & Time of Evaluation Date of Evaluation: 08/29/17 Time of Evaluation: 08:00 Objective - Vital Signs/Intake and Output Vital Signs (last 24 hours): Temp Pulse Resp BP Pulse Ox 97.5 F L 84 20 136/67 100 08/28/17 23:50 08/28/17 23:50 08/28/17 23:50 08/28/17 23:50 08/28/17 23:50 Intake and Output: 08/29/17 08/29/17 06:59 18:59 Output Total 550 Balance -550 - Medications Medications: Current Medications Acetaminophen (Tylenol 325mg Tab) 650 mg PO Q6 PRN PRN Reason: Pain, Mild (1-3) Last Admin: 08/28/17 08:49 Dose: 650 mg Calcium/Vitamin D (Oscal-D 250 Mg-125 Units Tab) 2 tab PO DAILY [facility] Last Admin: 08/28/17 09:34 Dose: 2 tab Docusate Sodium (Colace) 100 mg PO BID [facility] Last Admin: 08/28/17 18:05 Dose: 100 mg Famotidine (Pepcid) 20 mg PO BID [facility] Last Admin: 08/28/17 17:16 Dose: 20 mg Piperacillin Sod/Tazobactam Sod (Zosyn 3.375 Gm Iv Premix) 3.375 gm in 50 mls @ 100 mls/hr IVPB Q6H [facility] PRN Reason: Protocol Last Admin: 08/29/17 03:32 Dose: 100 mls/hr Ketorolac Tromethamine (Toradol) 30 mg IVP Q6 PRN PRN Reason: Pain, moderate (4-7) Last Admin: 08/29/17 00:26 Dose: 30 mg Lidocaine (Lidoderm) 1 ea TD DAILY [facility] Last Admin: 08/28/17 09:41 Dose: 1 ea Losartan Potassium (Cozaar) 25 mg PO DAILY [facility] Last Admin: 08/28/17 09:34 Dose: 25 mg Metoprolol Tartrate (Lopressor) 25 mg PO BID [facility] Last Admin: 08/28/17 17:16 Dose: 25 mg Morphine Sulfate (Morphine) 2 mg IVP Q4H PRN PRN Reason: Pain, severe (8-10) Last Admin: 08/29/17 05:19 Dose: 2 mg Ondansetron HCl (Zofran Inj) 4 mg IVP Q6 PRN PRN Reason: Nausea/Vomiting Last Admin: 08/19/17 09:40 Dose: 4 mg Polyethylene Glycol (Miralax) 17 gm PO DAILY PRN PRN Reason: Constipation Last Admin: 08/25/17 10:06 Dose: 17 gm Timolol Maleate (Timoptic 0.5% Ophth Soln) 1 drop OD BID [facility] Last Admin: 08/28/17 17:17 Dose: 1 drop - Labs Labs: 08/29/17 07:25 08/28/17 06:28 PT 28.8 SECONDS (9.7-12.2) H D 08/28/17 06:28 INR 2.6 D 08/28/17 06:28 APTT 36 SECONDS (21-34) H D 08/28/17 06:28
[2017-08-29 07:47] LABS: INR 2.7; PROTHROMBIN TIME 29.2 SECONDS (9.7-12.2)
[2017-08-29 08:09] LABS: ALB/GLOB RATIO 0.7 (1.0-2.1); ALBUMIN 2.6 g/dL (3.5-5.0); ALT/SGPT 37 U/L (9-52); AST/SGOT 40 U/L (14-36); BLOOD UREA NITROGEN 11 mg/dL (7-17); CALCIUM 8.4 mg/dl (8.6-10.4); GFR AFRICAN-AMERICAN > 60; GFR NON-AFRICAN AMERICAN > 60
[2017-08-29] MEDS: Calcium-Vit D 250 mg-125 Units Tab UD PO SCH (10:18)
[2017-08-29] MEDS: Lidocaine 5% Patch TD SCH (10:19)
--- NOTE | 2017-08-29 10:33 | CP.PCM.PN ---
Subjective - Date & Time of Evaluation Date of Evaluation: 08/29/17 Time of Evaluation: 10:25 - Subjective Subjective: Patient was seen and examined by me. The patient was more comfortable appearing this morning. Review of yesterday's PT note shows that she is able to move relatively far with assistance. They say that once she is able to walk it is ok however INR today was 2.7, tonight use only small dose of of coumadin 1mg. There was no hematuria today in the canister. Hgb is 9.0 Objective - Vital Signs/Intake and Output Vital Signs (last 24 hours): Temp Pulse Resp BP Pulse Ox 97.5 F L 77 18 132/67 100 08/29/17 08:49 08/29/17 08:49 08/29/17 08:49 08/29/17 10:18 08/29/17 08:49 Intake and Output: 08/29/17 08/29/17 06:59 18:59 Output Total 550 Balance -550 - Medications Medications: Current Medications Acetaminophen (Tylenol 325mg Tab) 650 mg PO Q6 PRN PRN Reason: Pain, Mild (1-3) Last Admin: 08/28/17 08:49 Dose: 650 mg Calcium/Vitamin D (Oscal-D 250 Mg-125 Units Tab) 2 tab PO DAILY [facility] Last Admin: 08/29/17 10:18 Dose: 2 tab Docusate Sodium (Colace) 100 mg PO BID [facility] Last Admin: 08/29/17 10:18 Dose: 100 mg Famotidine (Pepcid) 20 mg PO BID [facility] Last Admin: 08/29/17 10:18 Dose: 20 mg Piperacillin Sod/Tazobactam Sod (Zosyn 3.375 Gm Iv Premix) 3.375 gm in 50 mls @ 100 mls/hr IVPB Q6H [facility] PRN Reason: Protocol Last Admin: 08/29/17 10:13 Dose: 100 mls/hr Ketorolac Tromethamine (Toradol) 30 mg IVP Q6 PRN PRN Reason: Pain, moderate (4-7) Last Admin: 08/29/17 00:26 Dose: 30 mg Lidocaine (Lidoderm) 1 ea TD DAILY [facility] Last Admin: 08/29/17 10:19 Dose: 1 ea Losartan Potassium (Cozaar) 25 mg PO DAILY [facility] Last Admin: 08/29/17 10:18 Dose: 25 mg Metoprolol Tartrate (Lopressor) 25 mg PO BID [facility] Last Admin: 08/29/17 10:18 Dose: 25 mg Morphine Sulfate (Morphine) 2 mg IVP Q4H PRN PRN Reason: Pain, severe (8-10) Last Admin: 08/29/17 10:14 Dose: 2 mg Ondansetron HCl (Zofran Inj) 4 mg IVP Q6 PRN PRN Reason: Nausea/Vomiting Last Admin: 08/19/17 09:40 Dose: 4 mg Polyethylene Glycol (Miralax) 17 gm PO DAILY PRN PRN Reason: Constipation Last Admin: 08/25/17 10:06 Dose: 17 gm Timolol Maleate (Timoptic 0.5% Ophth Soln) 1 drop OD BID [facility] Last Admin: 08/29/17 10:18 Dose: 1 drop Warfarin Sodium (Coumadin) 1 mg PO 1800 [facility] Stop: 08/29/17 18:01 - Labs Labs: 08/29/17 07:25 08/29/17 07:25 PT 29.2 SECONDS (9.7-12.2) H 08/29/17 07:25 INR 2.7 08/29/17 07:25 APTT 36 SECONDS (21-34) H D 08/28/17 06:28 - Constitutional Appears: No Acute Distress - Head Exam Head Exam: NORMAL INSPECTION, NORMOCEPHALIC - Eye Exam Eye Exam: EOMI, Normal appearance - ENT Exam ENT Exam: Mucous Membranes Moist - Respiratory Exam Respiratory Exam: Clear to Ausculation Bilateral, NORMAL BREATHING PATTERN - Cardiovascular Exam Cardiovascular Exam: REGULAR RHYTHM - GI/Abdominal Exam GI & Abdominal Exam: Soft, Normal Bowel Sounds. absent: Guarding, Rigid, Tenderness - Neurological Exam Neurological Exam: Alert, Awake, Oriented x3 Neuro motor strength exam: Left Upper Extremity: 5, Right Upper Extremity: 5 - Psychiatric Exam Psychiatric exam: Depressed, Flat Affect - Skin Skin Exam: Normal Color, Warm Assessment and Plan - Assessment and Plan (Free Text) Assessment: Assessment and Plan Right hip fracture, POD #9 R hip ORIF 08/29: Per PT she is moving further distances now. Needs assistance. If the patient has a lot of assistnace at home, probably she can go soon since the INR is now theraputic range. 08/28: today increased morphine to 2mg. She has been improving on PT. Now further distances. - hip xray: mildly comminuted, oblique fracture right femur involving greater trochanter and extending to the subtrochanteric region medially - Ortho, Dr. Cordon is consulted and R hip ORIF done on 08/18/17 - PT/OT - Femur xray: acute and comminuted intertrochanteric fracture proximal right femur. degenerative changes both hips - CT LE: comminuted intratrochanteric fracture of the right hip with large roughly 6cm laterally situated hematoma. - c spine xray: no acute findings - hip/ pelvis xray: comminuted minimally displaced intertrochanteric fracture of the right hip. - Head CT: normal Morphine increased to 1mg q4h prn on 08/27 Zosyn 3.375gm q6h Calcium/ Vit D 250-125 2tabs po daily Lidoderm patch added on 08/27 DVT 08/29: INR now 2.7, we used Coumadin 1mg today. 08/28: Today INR 2.6, tonight smaller dose of coumdain to 2mg tonight. We have encouraged ambulation. venous doppler: acute thrombosis of right soleal vein with severe reduction of venous return. CTA: No PE, trace left pleural effusion. partially imaged bilateral hydroureteronephrosis INR 1.5 on 08/26 INR 1.9 on 08/27 -- heparin discontinued Hydroureteronephrosis urinalysis: 1+ blood, 8 RBCs Anemia 08/29: Hgb now 9.0 08/28: Patient Hgb increased to 8.7 today. Continue to monitor. The hematuria should decrease now that she is off of heparin ggt and smaller dose of coumadin -Hgb decreased from 8.6 to 7.9 on 08/24, repeat on 08/24 Hg 8.6 -HgB dropped from 10.4 to 6.6 on R ORIF POD 1, improved to 8.9 after 2 u PRBCs Cough repeat portable cxray CXR concerning for possible pneumonia Zosyn 3.375gm IVPB Q6H Dizziness - Pt complained of dizziness prior to fall - Will check CT of head: normal - Echo from 01/2017 showed normal LV size and function with grade 1 diastolic dysfunction. Will repeat echo - Will check carotid US - Trop I .0470 - UA: 2+ blood, 22 RBC HTN - Continue home medication losartan - Metoprolol Tartrate 25 mg po BID - Cardiology consulted, Dr. Molina, help appreciated - trops downtrending -lipid panel: triglycerides 43, cholesterol 109, LDL 51, HDL 40 -HgA1C: 5.1 -TSH: 3.50 -Free T4: 1.16 Chronic low back pain - Continue pain management Constipation, resolved -Miralax prn -Colace 08/20 Enema -monitor for BM R eye s/p cataract surgery Timolol drops BID in right eye Prophylaxs -Coumadin - SCDs - Pepcid
[2017-08-29] MEDS ORDERED: Morphine 4 MG/ML VIAL IVP STA (23:42)
[2017-08-30] MEDS: Piperacill/Tazo 3.375gm in Dex 3.375 GM/50 ML BAG IVPB SCH (03:32)
[2017-08-30] MEDS: Morphine 4 MG/ML VIAL IVP PRN ×2 (05:24→11:05)
[2017-08-30 06:26] LABS: BASO % 0.7 % (0.0-2.0); EOS # 0.1 K/uL (0.0-0.7); EOS % 1.9 % (0.0-4.0); LYMPH # 1.2 K/uL (1.0-4.3); LYMPH % 17.7 % (20.0-40.0); MEAN CELL VOLUME 86.9 fL (81.0-99.0); MEAN CORPUSCULAR HEMOGLOBIN 30.3 pg (27.0-31.0); MEAN CORPUSCULAR HGB CONC 34.9 g/dL (33.0-37.0); MEAN PLATELET VOLUME 8.4 fL (7.2-11.7); MONO % 14.7 % (0.0-10.0); NEUT # 4.3 K/uL (1.8-7.0); RBC 2.96 Mil/uL (3.80-5.20); RED CELL DISTRIBUTION WIDTH 15.2 % (11.5-14.5); WHITE BLOOD COUNT 6.7 K/uL (4.8-10.8)
[2017-08-30 06:32] LABS: INR 2.2; PROTHROMBIN TIME 23.8 SECONDS (9.7-12.2)
[2017-08-30 06:44] LABS: ALB/GLOB RATIO 0.7 (1.0-2.1); ALBUMIN 2.7 g/dL (3.5-5.0); ALT/SGPT 25 U/L (9-52); AST/SGOT 26 U/L (14-36); BLOOD UREA NITROGEN 12 mg/dL (7-17); CALCIUM 8.5 mg/dl (8.6-10.4); GFR AFRICAN-AMERICAN > 60; GFR NON-AFRICAN AMERICAN > 60
--- NOTE | 2017-08-30 09:30 | CP.PCM.PN ---
Subjective - Date & Time of Evaluation Date of Evaluation: 08/30/17 Time of Evaluation: 09:28 - Subjective Subjective: Patient progressing well with PT. Complains of hip pain during exam. Objective - Vital Signs/Intake and Output Vital Signs (last 24 hours): Temp Pulse Resp BP Pulse Ox 98.0 F 89 18 124/55 L 99 08/30/17 07:00 08/30/17 07:00 08/30/17 07:00 08/30/17 07:00 08/30/17 07:00 Intake and Output: 08/30/17 08/30/17 06:59 18:59 Intake Total 80 Output Total 2750 Balance -2670 - Medications Medications: Current Medications Acetaminophen (Tylenol 325mg Tab) 650 mg PO Q6 PRN PRN Reason: Pain, Mild (1-3) Last Admin: 08/29/17 15:18 Dose: 650 mg Calcium/Vitamin D (Oscal-D 250 Mg-125 Units Tab) 2 tab PO DAILY [facility] Last Admin: 08/29/17 10:18 Dose: 2 tab Docusate Sodium (Colace) 100 mg PO BID [facility] Last Admin: 08/29/17 17:38 Dose: 100 mg Famotidine (Pepcid) 20 mg PO BID [facility] Last Admin: 08/29/17 21:13 Dose: 20 mg Lidocaine (Lidoderm) 1 ea TD DAILY [facility] Last Admin: 08/29/17 10:19 Dose: 1 ea Losartan Potassium (Cozaar) 25 mg PO DAILY [facility] Last Admin: 08/29/17 10:18 Dose: 25 mg Metoprolol Tartrate (Lopressor) 25 mg PO BID [facility] Last Admin: 08/29/17 17:40 Dose: Not Given Morphine Sulfate (Morphine) 2 mg IVP Q4H PRN PRN Reason: Pain, severe (8-10) Last Admin: 08/30/17 05:24 Dose: 2 mg Ondansetron HCl (Zofran Inj) 4 mg IVP Q6 PRN PRN Reason: Nausea/Vomiting Last Admin: 08/19/17 09:40 Dose: 4 mg Polyethylene Glycol (Miralax) 17 gm PO DAILY PRN PRN Reason: Constipation Last Admin: 08/25/17 10:06 Dose: 17 gm Timolol Maleate (Timoptic 0.5% Ophth Soln) 1 drop OD BID [facility] Last Admin: 08/29/17 17:41 Dose: 1 drop - Labs Labs: 08/30/17 06:20 08/30/17 06:20 PT 23.8 SECONDS (9.7-12.2) H D 08/30/17 06:20 INR 2.2 D 08/30/17 06:20 APTT 36 SECONDS (21-34) H D 08/28/17 06:28 - Extremities Exam Additional comments: incisions intact, dry, no erythema, dressings open to air. +ROM ankle/toes, sensation intact +DP/PT pulses, calves soft NT neghomans Assessment and Plan (1) Intertrochanteric fracture of right femur Assessment & Plan: POD#12 orthopedically stable PT/OT coumadin, INR2.2 d/w Dr. Kapadia, agrees wtih above Status: Acute (2) Rib pain on left side Status: Resolved (3) Acute blood loss anemia Assessment & Plan: stable Status: Acute (4) DVT (deep venous thrombosis) Assessment & Plan: coumadin Status: Acute
[2017-08-30] MEDS: Calcium-Vit D 250 mg-125 Units Tab UD PO SCH (11:04)
[2017-08-30] MEDS: Lidocaine 5% Patch TD SCH (11:07)
--- NOTE | 2017-08-30 11:34 | US ---
PROCEDURE: Ultrasound of the Kidneys HISTORY: bilateral hydronephrosis COMPARISON: Correlations made to CT angiography of the pulmonary arteries performed 08/23/2017. TECHNIQUE: Sonogram of the kidneys. FINDINGS: RIGHT KIDNEY: Measures: 9.5 x 4.5 x 4.5 cm. Mild to moderate hydronephrosis. Midpole cyst measuring 1.6 x 1.6 x 1.4 cm. Normal in size, contour and echogenicity. No stone or solid mass lesion visualized. LEFT KIDNEY: Measures: 10.0 x 3.8 x 4.3 cm. Mild to moderate hydronephrosis. 1.8 x 1.0 x 1.4 cm echogenic structure within renal pelvis. Normal in size, contour and echogenicity. No stone or solid mass lesion visualized. OTHER FINDINGS: Prevoid urinary bladder volume measures 344.0 cc. Postvoid bladder volume measures 103.6 cm. IMPRESSION: Mild to moderate bilateral hydronephrosis. 1.8 x 1.0 x 1.4 cm echogenic structure within the left renal pelvis which is nonspecific and may represent a focal clot. Borderline significant post void residual volume.
--- NOTE | 2017-08-30 14:50 | CP.PCM.PN ---
<Ladonna Espino - Last Filed: 08/30/17 18:03> Subjective - Date & Time of Evaluation Date of Evaluation: 08/30/17 Time of Evaluation: 09:00 - Subjective Subjective: Medicine progress note for Dr. Henry's service Patient was seen and examined at bedside in no acute distress. Patient reports having pain in her right hip and lower extremity. Patient denies chest pain, dyspnea, abdominal pain, nausea, vomiting, fevers, headaches. Objective - Vital Signs/Intake and Output Vital Signs (last 24 hours): Temp Pulse Resp BP Pulse Ox 98.0 F 89 18 124/55 L 99 08/30/17 07:00 08/30/17 07:00 08/30/17 07:00 08/30/17 11:04 08/30/17 07:00 Intake and Output: 08/30/17 08/30/17 06:59 18:59 Intake Total 80 Output Total 2750 Balance -2670 - Medications Medications: Current Medications Acetaminophen (Tylenol 325mg Tab) 650 mg PO Q6 PRN PRN Reason: Pain, Mild (1-3) Last Admin: 08/29/17 15:18 Dose: 650 mg Calcium/Vitamin D (Oscal-D 250 Mg-125 Units Tab) 2 tab PO DAILY [facility] Last Admin: 08/30/17 11:04 Dose: 2 tab Docusate Sodium (Colace) 100 mg PO BID [facility] Last Admin: 08/30/17 11:05 Dose: 100 mg Famotidine (Pepcid) 20 mg PO BID [facility] Last Admin: 08/30/17 11:04 Dose: 20 mg Lidocaine (Lidoderm) 1 ea TD DAILY [facility] Last Admin: 08/30/17 11:07 Dose: 1 ea Losartan Potassium (Cozaar) 25 mg PO DAILY [facility] Last Admin: 08/30/17 11:05 Dose: 25 mg Metoprolol Tartrate (Lopressor) 25 mg PO BID [facility] Last Admin: 08/30/17 11:04 Dose: 25 mg Morphine Sulfate (Morphine) 2 mg IVP Q4H PRN PRN Reason: Pain, severe (8-10) Last Admin: 08/30/17 11:05 Dose: 2 mg Ondansetron HCl (Zofran Inj) 4 mg IVP Q6 PRN PRN Reason: Nausea/Vomiting Last Admin: 08/19/17 09:40 Dose: 4 mg Polyethylene Glycol (Miralax) 17 gm PO DAILY PRN PRN Reason: Constipation Last Admin: 08/25/17 10:06 Dose: 17 gm Timolol Maleate (Timoptic 0.5% Ophth Soln) 1 drop OD BID [facility] Last Admin: 08/30/17 11:11 Dose: 1 drop - Labs Labs: 08/30/17 06:20 08/30/17 06:20 PT 23.8 SECONDS (9.7-12.2) H D 08/30/17 06:20 INR 2.2 D 08/30/17 06:20 APTT 36 SECONDS (21-34) H D 08/28/17 06:28 - Constitutional Appears: No Acute Distress - Head Exam Head Exam: ATRAUMATIC, NORMAL INSPECTION - Eye Exam Eye Exam: EOMI - ENT Exam ENT Exam: Mucous Membranes Moist - Respiratory Exam Respiratory Exam: NORMAL BREATHING PATTERN. absent: Rales, Rhonchi, Wheezes, Respiratory Distress - Cardiovascular Exam Cardiovascular Exam: REGULAR RHYTHM, +S1, +S2 - GI/Abdominal Exam GI & Abdominal Exam: Soft, Normal Bowel Sounds. absent: Tenderness - Extremities Exam Extremities Exam: Tenderness (RLE, eccyhmosis noted on lateral RLE. Incisions clean, intact. No erythema noted) - Neurological Exam Neurological Exam: Alert, Awake - Psychiatric Exam Psychiatric exam: Normal Affect, Normal Mood - Skin Skin Exam: Dry, Intact, Warm Assessment and Plan - Assessment and Plan (Free Text) Assessment: Right hip fracture, POD #12 R hip ORIF *Per PT, patient requires 1-person assist and walker at home. Patient must continue to work with PT INR in therapeutic range - hip xray: mildly comminuted, oblique fracture right femur involving greater trochanter and extending to the subtrochanteric region medially - Ortho, Dr. Cordon is consulted and R hip ORIF done on 08/18/17 - PT/OT - Femur xray: acute and comminuted intertrochanteric fracture proximal right femur. degenerative changes both hips - CT LE: comminuted intratrochanteric fracture of the right hip with large roughly 6cm laterally situated hematoma. - c spine xray: no acute findings - hip/ pelvis xray: comminuted minimally displaced intertrochanteric fracture of the right hip. - Head CT: normal Morphine increased to 2mg q4h prn on 08/29 Zosyn 3.375gm q6h Calcium/ Vit D 250-125 2tabs po daily Lidoderm patch added on 08/27 DVT 08/30: INR therapeutic; Coumadin 2mg PO HS; continue to monitor 08/29: INR now 2.7, we used Coumadin 1mg today. 08/28: Today INR 2.6, tonight smaller dose of coumdain to 2mg tonight. We have encouraged ambulation. venous doppler: acute thrombosis of right soleal vein with severe reduction of venous return. CTA: No PE, trace left pleural effusion. partially imaged bilateral hydroureteronephrosis INR 1.5 on 08/26 INR 1.9 on 08/27 -- heparin discontinued Hydroureteronephrosis urinalysis: 1+ blood, 8 RBCs US: mild-moderate bilateral hydronephrosis; 1.8x1x1.4cm echogenic structure w/ in the left renal pelvis, may represent a focal clot. Urology consulted, Dr. Ortega, help appreciated. Anemia 08/29: Hgb now 9.0 08/28: Patient Hgb increased to 8.7 today. Continue to monitor. The hematuria should decrease now that she is off of heparin ggt and smaller dose of coumadin -Hgb decreased from 8.6 to 7.9 on 08/24, repeat on 08/24 Hg 8.6 -HgB dropped from 10.4 to 6.6 on R ORIF POD 1, improved to 8.9 after 2 u PRBCs Cough repeat portable cxray CXR concerning for possible pneumonia Zosyn 3.375gm IVPB Q6H Dizziness - Pt complained of dizziness prior to fall - Will check CT of head: normal - Echo from 01/2017 showed normal LV size and function with grade 1 diastolic dysfunction. Will repeat echo - Trop I .0470 - UA: 2+ blood, 22 RBC HTN - Continue home medication losartan - Metoprolol Tartrate 25 mg po BID - Cardiology consulted, Dr. Molina, help appreciated - Trops downtrending - Lipid panel: triglycerides 43, cholesterol 109, LDL 51, HDL 40 - HgA1C: 5.1 - TSH: 3.50 - Free T4: 1.16 Chronic low back pain - Continue pain management Constipation, resolved - Miralax prn - Colace 08/20 Enema - monitor for BM R eye s/p cataract surgery - Timolol drops BID in right eye Prophylaxs - Coumadin - SCDs - Pepcid <Mesha Henry - Last Filed: 08/31/17 08:01> Objective - Vital Signs/Intake and Output Vital Signs (last 24 hours): Temp Pulse Resp BP Pulse Ox 98.5 F 88 20 145/64 98 08/31/17 04:00 08/31/17 04:00 08/31/17 04:00 08/31/17 04:00 08/31/17 04:00 Intake and Output: 08/31/17 08/31/17 06:59 18:59 Intake Total 700 Output Total 1350 Balance -650 - Medications Medications: Current Medications Acetaminophen (Tylenol 325mg Tab) 650 mg PO Q6 PRN PRN Reason: Pain, Mild (1-3) Last Admin: 08/29/17 15:18 Dose: 650 mg Calcium/Vitamin D (Oscal-D 250 Mg-125 Units Tab) 2 tab PO DAILY [facility] Last Admin: 08/30/17 11:04 Dose: 2 tab Docusate Sodium (Colace) 100 mg PO BID [facility] Last Admin: 08/30/17 17:41 Dose: 100 mg Famotidine (Pepcid) 20 mg PO BID [facility] Last Admin: 08/30/17 17:41 Dose: 20 mg Lidocaine (Lidoderm) 1 ea TD DAILY [facility] Last Admin: 08/30/17 11:07 Dose: 1 ea Losartan Potassium (Cozaar) 25 mg PO DAILY [facility] Last Admin: 08/30/17 11:05 Dose: 25 mg Metoprolol Tartrate (Lopressor) 25 mg PO BID [facility] Last Admin: 08/30/17 17:41 Dose: 25 mg Morphine Sulfate (Morphine) 2 mg IVP Q4H PRN PRN Reason: Pain, severe (8-10) Last Admin: 08/30/17 11:05 Dose: 2 mg Ondansetron HCl (Zofran Inj) 4 mg IVP Q6 PRN PRN Reason: Nausea/Vomiting Last Admin: 08/19/17 09:40 Dose: 4 mg Polyethylene Glycol (Miralax) 17 gm PO DAILY PRN PRN Reason: Constipation Last Admin: 08/25/17 10:06 Dose: 17 gm Timolol Maleate (Timoptic 0.5% Ophth Soln) 1 drop OD BID [facility] Last Admin: 08/30/17 17:42 Dose: 1 drop - Labs Labs: 08/31/17 06:26 08/31/17 06:26 PT 20.2 SECONDS (9.7-12.2) H 08/31/17 06:26 INR 1.8 08/31/17 06:26 APTT 34 SECONDS (21-34) 08/31/17 06:26 Attending/Attestation - Attestation I have personally seen and examined this patient.: Yes I have fully participated in the care of the patient.: Yes I have reviewed all pertinent clinical information, including history, physical exam and plan: Yes Notes (Text): Seen and examined. c/o right leg/hip pain pain discomfort. ambulating with walker as per PT. Patient has family supprot. Discussed with her daughter and her son about discharge and needs ophthalmic surgical assistant . CT chest showed hydroureteronephrosis. US done mild to moderate hydronephrosis. Urology evaluation requested. CT abd and pelvis pending we will discharge after CT scan and discussion with urologist Family aware of her DVT,on Coumadin and the need for clinic follow up to monitor INR d/w Resident I agree with the documentation
--- NOTE | 2017-08-30 17:28 | CP.PCM.PN ---
Subjective - Date & Time of Evaluation Date of Evaluation: 08/30/17 Time of Evaluation: 17:23 - Subjective Subjective: 82 year old female sp hip surgery who was noted to have hydronephrosis on us pt is on anticoagulants no hx prior gu problems pt is poor Historian. A possible hydro. Suggest CT scan abdomen and pelvis to confirm if hydro present. [place] Objective - Vital Signs/Intake and Output Vital Signs (last 24 hours): Temp Pulse Resp BP Pulse Ox 98.2 F 88 20 149/78 99 08/30/17 15:00 08/30/17 15:00 08/30/17 15:00 08/30/17 15:00 08/30/17 15:00 Intake and Output: 08/30/17 08/30/17 06:59 18:59 Intake Total 80 Output Total 2750 Balance -2670 - Medications Medications: Current Medications Acetaminophen (Tylenol 325mg Tab) 650 mg PO Q6 PRN PRN Reason: Pain, Mild (1-3) Last Admin: 08/29/17 15:18 Dose: 650 mg Calcium/Vitamin D (Oscal-D 250 Mg-125 Units Tab) 2 tab PO DAILY [facility] Last Admin: 08/30/17 11:04 Dose: 2 tab Docusate Sodium (Colace) 100 mg PO BID [facility] Last Admin: 08/30/17 11:05 Dose: 100 mg Famotidine (Pepcid) 20 mg PO BID [facility] Last Admin: 08/30/17 11:04 Dose: 20 mg Lidocaine (Lidoderm) 1 ea TD DAILY [facility] Last Admin: 08/30/17 11:07 Dose: 1 ea Losartan Potassium (Cozaar) 25 mg PO DAILY [facility] Last Admin: 08/30/17 11:05 Dose: 25 mg Metoprolol Tartrate (Lopressor) 25 mg PO BID [facility] Last Admin: 08/30/17 11:04 Dose: 25 mg Morphine Sulfate (Morphine) 2 mg IVP Q4H PRN PRN Reason: Pain, severe (8-10) Last Admin: 08/30/17 11:05 Dose: 2 mg Ondansetron HCl (Zofran Inj) 4 mg IVP Q6 PRN PRN Reason: Nausea/Vomiting Last Admin: 08/19/17 09:40 Dose: 4 mg Polyethylene Glycol (Miralax) 17 gm PO DAILY PRN PRN Reason: Constipation Last Admin: 08/25/17 10:06 Dose: 17 gm Timolol Maleate (Timoptic 0.5% Ophth Soln) 1 drop OD BID [facility] Last Admin: 08/30/17 11:11 Dose: 1 drop Warfarin Sodium (Coumadin) 2 mg PO 1800 [facility] Stop: 08/30/17 18:01 - Labs Labs: 08/30/17 06:20 08/30/17 06:20 PT 23.8 SECONDS (9.7-12.2) H D 08/30/17 06:20 INR 2.2 D 08/30/17 06:20 APTT 36 SECONDS (21-34) H D 08/28/17 06:28
[2017-08-31 06:33] LABS: BASO % 0.6 % (0.0-2.0); EOS # 0.1 K/uL (0.0-0.7); HEMOGLOBIN 9.1 g/dL (11.0-16.0); LYMPH # 1.1 K/uL (1.0-4.3); LYMPH % 18.4 % (20.0-40.0); MEAN CELL VOLUME 86.8 fL (81.0-99.0); MEAN CORPUSCULAR HEMOGLOBIN 29.8 pg (27.0-31.0); MEAN CORPUSCULAR HGB CONC 34.4 g/dL (33.0-37.0); MEAN PLATELET VOLUME 8.4 fL (7.2-11.7); MONO # 0.9 K/uL (0.0-0.8); MONO % 14.7 % (0.0-10.0); NEUT # 4.1 K/uL (1.8-7.0); NEUT % 65.3 % (50.0-75.0); RBC 3.07 Mil/uL (3.80-5.20); RED CELL DISTRIBUTION WIDTH 15.2 % (11.5-14.5); WHITE BLOOD COUNT 6.2 K/uL (4.8-10.8)
[2017-08-31 06:50] LABS: ALB/GLOB RATIO 0.7 (1.0-2.1); ALBUMIN 2.8 g/dL (3.5-5.0); ALT/SGPT 35 U/L (9-52); AST/SGOT 34 U/L (14-36); BLOOD UREA NITROGEN 10 mg/dL (7-17); CALCIUM 8.7 mg/dl (8.6-10.4); GFR AFRICAN-AMERICAN > 60; GFR NON-AFRICAN AMERICAN > 60
--- NOTE | 2017-08-31 07:08 | CON ---
DATE: REASON FOR CONSULTATION: Hydronephrosis. HISTORY OF PRESENT ILLNESS: The patient was admitted to the [facility] with a hip fracture. The patient underwent surgery for the hip fracture and is in the postoperative period. While in the hospital, the patient had an ultrasound which shows questionable hydronephrosis and questionable lesion in the renal pelvis. The patient's family deny any history of prior urinary problems. She is a very poor historian. The patient denies any history of kidney stones or renal tumor in the past. No history of renal surgery. REVIEW OF SYSTEMS: RESPIRATORY: The patient is complaining of no shortness of breath. CARDIAC: The patient is complaining of no chest pain or palpitations. ABDOMEN: Soft, nontender. There are no masses or organomegaly. The patient is not complaining of any pain or abdominal pain, change in bowel habits or constipation. : The patient has no complaints. ORTHOPEDIC: The patient is recovering from her surgery for a recent hip fracture. NEUROLOGICAL: Noncontributory. SOCIAL HISTORY: Noncontributory. PHYSICAL EXAMINATION: VITAL SIGNS: Within normal limits. HEAD, EARS, EYES, NOSE AND THROAT: Within normal limits. NECK: Supple. There are no bruits, nodes, or masses. The patient is wearing a nasal cannula. CHEST: Clear bilaterally. There are no rales or rhonchi. There is no CVA tenderness. ABDOMEN: There is no palpable abdominal mass. There is no palpable renal enlargement. VAGINAL EXAMINATION: Could not be done because the patient is in a splint. ORTHOPEDIC EXAMINATION: Could not be done because the patient is in a splint. NEUROLOGICAL EXAMINATION: Could not be done because the patient is in a splint. LABORATORY DATA: I have also reviewed the laboratory data and the ultrasound report and films. IMPRESSION: My impression is possible hydronephrosis. I suggested the patient to have a CAT scan of the abdomen and pelvis to further visualize the urinary system. Further recommendations with results. Alber Ortega MD
[2017-08-31 07:14] LABS: INR 1.8; PROTHROMBIN TIME 20.2 SECONDS (9.7-12.2)
[2017-08-31] MEDS: Lidocaine 5% Patch TD SCH (09:27)
[2017-08-31] MEDS: Calcium-Vit D 250 mg-125 Units Tab UD PO SCH (09:27)
[2017-08-31] MEDS: POLYETHYLENE GLYCOL 3350 17 GM/Dose PACKET PO PRN (09:35)
--- NOTE | 2017-08-31 09:57 | CP.PCM.PN ---
<Ladonna Espino - Last Filed: 08/31/17 17:27> Subjective - Date & Time of Evaluation Date of Evaluation: 08/31/17 Time of Evaluation: 09:55 - Subjective Subjective: Medicine progress note for Dr. Henry's service Patient was seen and examined at bedside in no acute distress, sleeping comfortably in bed. Patient was later seen working with physical therapist, walking with walker. No acute events over night. Objective - Vital Signs/Intake and Output Vital Signs (last 24 hours): Temp Pulse Resp BP Pulse Ox 98.2 F 89 18 153/69 H 98 08/31/17 08:53 08/31/17 08:53 08/31/17 08:53 08/31/17 09:28 08/31/17 08:53 Intake and Output: 08/31/17 08/31/17 06:59 18:59 Intake Total 700 Output Total 1350 Balance -650 - Medications Medications: Current Medications Acetaminophen (Tylenol 325mg Tab) 650 mg PO Q6 PRN PRN Reason: Pain, Mild (1-3) Last Admin: 08/31/17 09:35 Dose: 650 mg Calcium/Vitamin D (Oscal-D 250 Mg-125 Units Tab) 2 tab PO DAILY [facility] Last Admin: 08/31/17 09:27 Dose: 2 tab Docusate Sodium (Colace) 100 mg PO BID [facility] Last Admin: 08/31/17 09:27 Dose: 100 mg Famotidine (Pepcid) 20 mg PO BID [facility] Last Admin: 08/31/17 09:27 Dose: 20 mg Lidocaine (Lidoderm) 1 ea TD DAILY [facility] Last Admin: 08/31/17 09:27 Dose: 1 ea Losartan Potassium (Cozaar) 25 mg PO DAILY [facility] Last Admin: 08/31/17 09:27 Dose: 25 mg Metoprolol Tartrate (Lopressor) 25 mg PO BID [facility] Last Admin: 08/31/17 09:28 Dose: 25 mg Morphine Sulfate (Morphine) 2 mg IVP Q4H PRN PRN Reason: Pain, severe (8-10) Last Admin: 08/30/17 11:05 Dose: 2 mg Ondansetron HCl (Zofran Inj) 4 mg IVP Q6 PRN PRN Reason: Nausea/Vomiting Last Admin: 08/19/17 09:40 Dose: 4 mg Polyethylene Glycol (Miralax) 17 gm PO DAILY PRN PRN Reason: Constipation Last Admin: 08/25/17 10:06 Dose: 17 gm Timolol Maleate (Timoptic 0.5% Ophth Soln) 1 drop OD BID [facility] Last Admin: 08/31/17 09:36 Dose: 1 drop - Labs Labs: 08/31/17 06:26 08/31/17 06:26 PT 20.2 SECONDS (9.7-12.2) H 08/31/17 06:26 INR 1.8 08/31/17 06:26 APTT 34 SECONDS (21-34) 08/31/17 06:26 - Additional Findings Additional findings: - Constitutional Appears: No Acute Distress - Head Exam Head Exam: ATRAUMATIC, NORMAL INSPECTION - Eye Exam Eye Exam: EOMI - ENT Exam ENT Exam: Mucous Membranes Moist - Respiratory Exam Respiratory Exam: NORMAL BREATHING PATTERN. absent: Rales, Rhonchi, Wheezes, Respiratory Distress - Cardiovascular Exam Cardiovascular Exam: REGULAR RHYTHM, +S1, +S2 - GI/Abdominal Exam GI & Abdominal Exam: Soft, Normal Bowel Sounds. absent: Tenderness - Extremities Exam Extremities Exam: Tenderness (RLE, eccyhmosis noted on lateral RLE. Incisions clean, intact. No erythema noted) - Neurological Exam Neurological Exam: Alert, Awake - Psychiatric Exam Psychiatric exam: Normal Affect, Normal Mood - Skin Skin Exam: Dry, Intact, Warm Assessment and Plan - Assessment and Plan (Free Text) Plan: Right hip fracture, POD #12 R hip ORIF *Per PT, patient requires 1-person assist and walker at home. Patient must continue to work with PT - hip xray: mildly comminuted, oblique fracture right femur involving greater trochanter and extending to the subtrochanteric region medially - Ortho, Dr. Cordon is consulted and R hip ORIF done on 08/18/17 - PT/OT - Femur xray: acute and comminuted intertrochanteric fracture proximal right femur. degenerative changes both hips - CT LE: comminuted intratrochanteric fracture of the right hip with large roughly 6cm laterally situated hematoma. - c spine xray: no acute findings - hip/ pelvis xray: comminuted minimally displaced intertrochanteric fracture of the right hip. - Head CT: normal Morphine increased to 2mg q4h prn on 08/29 Zosyn 3.375gm q6h Calcium/ Vit D 250-125 2tabs po daily Lidoderm patch added on 08/27 DVT 08/31: INR 1.8; Coumadin 2mg PO HS given; continue to monitor 08/30: INR therapeutic; Coumadin 2mg PO HS; continue to monitor 08/29: INR now 2.7, we used Coumadin 1mg today. 08/28: Today INR 2.6, tonight smaller dose of coumdain to 2mg tonight. We have encouraged ambulation. venous doppler: acute thrombosis of right soleal vein with severe reduction of venous return. CTA: No PE, trace left pleural effusion. partially imaged bilateral hydroureteronephrosis INR 1.5 on 08/26 INR 1.9 on 08/27 -- heparin discontinued Hydroureteronephrosis urinalysis: 1+ blood, 8 RBCs US: mild-moderate bilateral hydronephrosis; 1.8x1x1.4cm echogenic structure w/ in the left renal pelvis, may represent a focal clot. Urology consulted, Dr. Ortega, help appreciated. Abdominal/Pelvic CT: borderline b/l hydronephrosis with normal caliber ureters and distended urinary bladder; potential 1.2cm nodule of left adrenal; infrequent colonic diverticula w/o evidence of acute inflammation. Anemia 08/29: Hgb now 9.0 08/28: Patient Hgb increased to 8.7 today. Continue to monitor. The hematuria should decrease now that she is off of heparin ggt and smaller dose of coumadin -Hgb decreased from 8.6 to 7.9 on 08/24, repeat on 08/24 Hg 8.6 -HgB dropped from 10.4 to 6.6 on R ORIF POD 1, improved to 8.9 after 2 u PRBCs Cough repeat portable cxray CXR concerning for possible pneumonia Zosyn 3.375gm IVPB Q6H Dizziness - Pt complained of dizziness prior to fall - Will check CT of head: normal - Echo from 01/2017 showed normal LV size and function with grade 1 diastolic dysfunction. Will repeat echo - Trop I .0470 - UA: 2+ blood, 22 RBC HTN - Continue home medication losartan - Metoprolol Tartrate 25 mg po BID - Cardiology consulted, Dr. Molina, help appreciated - Trops downtrending - Lipid panel: triglycerides 43, cholesterol 109, LDL 51, HDL 40 - HgA1C: 5.1 - TSH: 3.50 - Free T4: 1.16 Chronic low back pain - Continue pain management Constipation, resolved - Miralax prn - Colace 08/20 Enema - monitor for BM R eye s/p cataract surgery - Timolol drops BID in right eye Prophylaxs - Coumadin - SCDs - Pepcid <Mesha Henry - Last Filed: 09/07/17 08:09> Objective - Vital Signs/Intake and Output Vital Signs (last 24 hours): Temp Pulse Resp BP Pulse Ox 98 F 81 18 138/70 99 09/01/17 15:40 09/01/17 15:40 09/01/17 15:40 09/01/17 17:40 09/01/17 15:40 - Labs Labs: 09/01/17 06:30 09/01/17 06:30 PT 19.7 SECONDS (9.7-12.2) H 09/01/17 06:30 INR 1.8 09/01/17 06:30 APTT 32 SECONDS (21-34) 09/01/17 06:30 Attending/Attestation - Attestation I have personally seen and examined this patient.: Yes I have fully participated in the care of the patient.: Yes I have reviewed all pertinent clinical information, including history, physical exam and plan: Yes Notes (Text): Seen and examined by no complain Plan discussed with the resident I agree with resident's documentation
--- NOTE | 2017-08-31 16:25 | CT ---
PROCEDURE: CT Abdomen and Pelvis without intravenous contrast HISTORY: HY[facility]O ON [facility] TECHNIQUE: Helical CT of the abdomen and pelvis was performed without oral or intravenous contrast as per referring physician request. Contrast dose: None Radiation dose: Total exam DLP = 656.66 mGy-cm. This CT exam was performed using one or more of the following dose reduction techniques: Automated exposure control, adjustment of the mA and/or kV according to patient size, and/or use of iterative reconstruction technique. FINDINGS: LOWER THORAX: Cardiomegaly and trace linear atelectasis or fibrosis in the bilateral lung bases. Large hiatal hernia is appreciated as well. Trace left basilar emphysema noted in the periphery. LIVER: Unremarkable. No gross lesion or ductal dilatation. GALLBLADDER AND BILE DUCTS: Unremarkable. PANCREAS: Unremarkable. No gross lesion or ductal dilatation. SPLEEN: Unremarkable. ADRENALS: 1.2 cm nodule is question related to the left adrenal gland with the right adrenal gland unremarkable. KIDNEYS AND URETERS: There is borderline bilateral hydronephrosis without radiodense urolithiasis appreciated in the ureters or the urinary bladder. No intrarenal radiodense calculi identified either. Urinary bladder is distended with no mural thickening or radiodense urolithiasis. Although the ureters are normal in caliber, consider potential hydrostatic etiology of borderline bilateral hydronephrosis as bilateral ureteropelvic junction strictures would be unlikely. Clinically correlate further. VASCULATURE: Unremarkable. No aortic aneurysm. BOWEL: No bowel obstruction is evident. The stomach is distended with a moderate amount of retained fluid and air. Large and small bowel loops appear collapsed in general with limited bladder fluid mildly distending the splenic flexure somewhat. Evaluation of the bowel bejarano is compromised by the lack of oral contrast and collapse of the vast majority of bowel loops. Occasional diverticula infrequently scattered at the left and right seema colon segments. APPENDIX: Unremarkable. Normal appendix. PERITONEUM: Unremarkable. No free fluid. No free air. LYMPH NODES: Unremarkable. No enlarged lymph nodes. BLADDER: A moderately distended but thin walled urinary bladder is appreciated. REPRODUCTIVE: Unremarkable. BONES: Proximal right femoral orthopedic hardware identified status post ORIF for prior proximal right femoral fracture. Severe L1 vertebral body compression fracture with mild compression fractures identified at L4 and L5. Schmorl's nodes or fractures affect the inferior endplates of L2 and L3. OTHER FINDINGS: None. IMPRESSION: 1. Borderline bilateral hydronephrosis with normal caliber ureters and distended urinary bladder. Consider potential hydrostatic etiology although the ureters are not significantly distended. No radiodense urolithiasis bilaterally. 2. Potential 1.2 cm nodule left adrenal. 3. Infrequent colonic diverticula without evidence of acute inflammation. 4. Incidental note is made of prior right femoral ORIF with hardware obscuring lower pelvis evaluation.
[2017-08-31] MEDS: Morphine 4 MG/ML VIAL IVP PRN ×2 (17:50→22:30)
[2017-09-01 06:39] LABS: BASO % 0.7 % (0.0-2.0); EOS # 0.1 K/uL (0.0-0.7); EOS % 1.7 % (0.0-4.0); HEMOGLOBIN 9.1 g/dL (11.0-16.0); LYMPH # 1.4 K/uL (1.0-4.3); LYMPH % 21.9 % (20.0-40.0); MEAN CORPUSCULAR HEMOGLOBIN 29.4 pg (27.0-31.0); MEAN CORPUSCULAR HGB CONC 34.2 g/dL (33.0-37.0); MEAN PLATELET VOLUME 8.2 fL (7.2-11.7); MONO % 15.9 % (0.0-10.0); NEUT # 3.8 K/uL (1.8-7.0); NEUT % 59.8 % (50.0-75.0); RBC 3.09 Mil/uL (3.80-5.20); WHITE BLOOD COUNT 6.4 K/uL (4.8-10.8)
[2017-09-01 06:48] LABS: INR 1.8; PROTHROMBIN TIME 19.7 SECONDS (9.7-12.2)
[2017-09-01 06:52] LABS: ALB/GLOB RATIO 0.7 (1.0-2.1); ALBUMIN 2.7 g/dL (3.5-5.0); ALT/SGPT 29 U/L (9-52); AST/SGOT 35 U/L (14-36); BLOOD UREA NITROGEN 11 mg/dL (7-17); CALCIUM 8.8 mg/dl (8.6-10.4); GFR AFRICAN-AMERICAN > 60; GFR NON-AFRICAN AMERICAN > 60
[2017-09-01 09:08] VITALS: RESP 18
--- NOTE | 2017-09-01 09:45 | CP.PCM.DIS ---
<Ladonna Espino - Last Filed: 09/01/17 16:59> Provider - Provider Date of Admission: 08/17/17 04:53 Attending physician: Mesha Henry MD Consults: Urology: Dr. Ortega Orthopedic surgery: Dr. Ventura Cardiology: Dr. Molina Time Spent in preparation of Discharge (in minutes): 45 Hospital Course - Lab Results Lab Results: Most Recent Lab Values WBC 6.4 K/uL (4.8-10.8) 09/01/17 06:30 RBC 3.09 Mil/uL (3.80-5.20) L 09/01/17 06:30 Hgb 9.1 g/dL (11.0-16.0) L 09/01/17 06:30 Hct 26.5 % (34.0-47.0) L 09/01/17 06:30 MCV 86.0 fL (81.0-99.0) 09/01/17 06:30 MCH 29.4 pg (27.0-31.0) 09/01/17 06:30 MCHC 34.2 g/dL (33.0-37.0) 09/01/17 06:30 RDW 16.0 % (11.5-14.5) H 09/01/17 06:30 Plt Count 331 K/uL (130-400) 09/01/17 06:30 MPV 8.2 fL (7.2-11.7) 09/01/17 06:30 Neut % (Auto) 59.8 % (50.0-75.0) 09/01/17 06:30 Lymph % (Auto) 21.9 % (20.0-40.0) 09/01/17 06:30 [place] % (Auto) 15.9 % (0.0-10.0) H 09/01/17 06:30 Eos % (Auto) 1.7 % (0.0-4.0) 09/01/17 06:30 Baso % (Auto) 0.7 % (0.0-2.0) 09/01/17 06:30 Neut # (Auto) 3.8 K/uL (1.8-7.0) 09/01/17 06:30 Lymph # (Auto) 1.4 K/uL (1.0-4.3) 09/01/17 06:30 [place] # (Auto) 1.0 K/uL (0.0-0.8) H 09/01/17 06:30 Eos # (Auto) 0.1 K/uL (0.0-0.7) 09/01/17 06:30 Baso # (Auto) 0.0 K/uL (0.0-0.2) 09/01/17 06:30 Neutrophils % (Manual) 85 % (50-75) H 08/21/17 07:46 Band Neutrophils % 4 % (0-2) H 08/19/17 17:17 Lymphocytes % (Manual) 4 % (20-40) L 08/21/17 07:46 Monocytes % (Manual) 11 % (0-10) H 08/21/17 07:46 Platelet Estimate Normal (NORMAL) 08/21/17 07:46 Large Platelets Present 08/19/17 17:17 Polychromasia Slight 08/21/17 07:46 Hypochromasia (manual) Slight 08/19/17 17:17 Anisocytosis (manual) Slight 08/21/17 07:46 Microcytosis (manual) Slight 08/19/17 17:17 Ovalocytes Slight 08/21/17 07:46 Eleanor Cells Slight 08/19/17 17:17 PT 19.7 SECONDS (9.7-12.2) H 09/01/17 06:30 INR 1.8 09/01/17 06:30 APTT 32 SECONDS (21-34) 09/01/17 06:30 Sodium 136 mmol/L (132-148) 09/01/17 06:30 Potassium 4.0 mmol/L (3.6-5.2) 09/01/17 06:30 Chloride 104 mmol/L (98-107) 09/01/17 06:30 Carbon Dioxide 26 mmol/L (22-30) 09/01/17 06:30 Anion Gap 9 (10-20) L 09/01/17 06:30 BUN 11 mg/dL (7-17) 09/01/17 06:30 Creatinine 0.7 mg/dL (0.7-1.2) 09/01/17 06:30 Est GFR ( Amer) > 60 09/01/17 06:30 Est GFR (Non-Af Amer) > 60 09/01/17 06:30 POC Glucose (mg/dL) 93 mg/dL (65-110) 08/24/17 16:22 Random Glucose 105 mg/dL (65-105) 09/01/17 06:30 Hemoglobin A1c 5.1 % (4.2-6.5) 08/18/17 04:46 Calcium 8.8 mg/dl (8.6-10.4) 09/01/17 06:30 Phosphorus 4.0 mg/dL (2.5-4.5) 08/30/17 06:20 Magnesium 2.0 mg/dL (1.6-2.3) 08/30/17 06:20 Total Bilirubin 0.8 mg/dL (0.2-1.3) 09/01/17 06:30 AST 35 U/L (14-36) 09/01/17 06:30 ALT 29 U/L (9-52) 09/01/17 06:30 Alkaline Phosphatase 103 U/L (38-126) 09/01/17 06:30 Total Creatine Kinase 351 U/L (30-135) H 08/18/17 20:10 CK-MB (Mass) 4.96 ng/mL (0.0-3.38) H 08/18/17 20:10 Troponin I 0.0210 ng/mL (0.00-0.120) 08/18/17 20:10 Total Protein 6.4 g/dL (6.3-8.3) 09/01/17 06:30 Albumin 2.7 g/dL (3.5-5.0) L 09/01/17 06:30 Globulin 3.7 gm/dL (2.2-3.9) 09/01/17 06:30 Albumin/Globulin Ratio 0.7 (1.0-2.1) L 09/01/17 06:30 Triglycerides 43 mg/dL (0-149) 08/18/17 04:46 Cholesterol 109 mg/dL (0-199) 08/18/17 04:46 LDL Cholesterol Direct 51 mg/dL (0-129) 08/18/17 04:46 HDL Cholesterol 40 mg/dL (30-70) 08/18/17 04:46 25-OH Vitamin D Total 30.4 NG/ML (30.0-100.0) 08/17/17 17:11 Free T4 1.16 ng/dL (0.78-2.19) 08/18/17 04:46 TSH 3rd Generation 3.50 mIU/L (0.46-4.68) 08/18/17 04:46 Urine Color Yellow (YELLOW) 08/23/17 19:49 Urine Clarity Clear (Clear) 08/23/17 19:49 Urine pH 7.0 (5.0-8.0) 08/23/17 19:49 Ur Specific [place] 1.027 (1.003-1.030) 08/23/17 19:49 Urine Protein Negative mg/dL (NEGATIVE) 08/23/17 19:49 Urine Glucose (UA) Normal mg/dL (Normal) 08/23/17 19:49 Urine Ketones Negative mg/dL (NEGATIVE) 08/23/17 19:49 Urine Blood 1+ (NEGATIVE) H 08/23/17 19:49 Urine Nitrate Negative (NEGATIVE) 08/23/17 19:49 Urine Bilirubin Negative (NEGATIVE) 08/23/17 19:49 Urine Urobilinogen Normal mg/dL (0.2-1.0) 08/23/17 19:49 Ur Leukocyte Esterase Neg [place]/uL (Negative) 08/23/17 19:49 Urine WBC (Auto) 1 /hpf (0-5) 08/23/17 19:49 Urine RBC (Auto) 8 /hpf (0-3) H 08/23/17 19:49 Ur Squamous Epith Cells < 1 /hpf (0-5) 08/23/17 19:49 Urine Bacteria Rare (<OCC) 08/23/17 19:49 Blood Type B NEGATIVE 08/17/17 11:24 Blood Type Confirm B NEGATIVE 08/17/17 11:24 Antibody Screen Negative 08/17/17 11:24 - Hospital Course Hospital Course: H&P: 82 year old female with past medical history of HTN, chronic low 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 Son at bedside and helps with history. Patient got up in the middle of the night to go to bathroom. She was reaching fro her slippers when she felt dizzy and fell and landed on her left side and then hit her head on the side of bed. Denies LOC. Patient was found by son and was awake when found. EMS was called and she was brought into the ED. In ED, x-ray of the hip showed right hip fracture. Patient denies having any history of falls or dizziness. Currently, pt is c/o right hip pain, left sided rib pain, right sided head pain and right sided neck pain. Patient denies having any CP, SOB, abd pain, N/V/D/C, F/C. PMHx: stated above PSH: Left eye surgery for glaucoma Meds: Timolol, Losartan 100/HCTZ 25, Zyrtec, and Flonase. FHx: Son denies any family history of cancer, heart disease, DM, or HTN Social: Denies smoking, etoh use, or illicit drug use. Allergies: NKDA Hospital course: Patient was admitted on 08/17/17 for hip fracture. In the ED, labs were drawn, xrays were done, and pain medications were administered. Hip xray showed mildly comminuted, oblique fracture right femur involving greater trochanter and extending to the subtrochanteric region medially. Femur xray showed acute and comminuted intertrochanteric fracture proximal right femur; degenerative changes both hips. CT of the LE showed comminuted intratrochanteric fracture of the right hip with large roughly 6cm laterally situated hematoma. Orthopedic surgery was consulted, Dr. Ventura and right hip ORIF was performed on 08/18/17. Patient complained of dizziness; Head CT was done and results were normal. Echocardiogram from 01/2017 showed normal LV size and function with grade 1 diastolic dysfunction. Patient had venous dopplers performed and was shown to have acute thrombosis of right soleal vein with severe reduction of venous return. Patient was started on heparin drip and then bridged to Coumadin. Cardiology was consulted for cardiac clearance prior to patient operation and started her on metoprolol. On 08/24, patient's hemoglobin decreased and patient was given two units of PRBCs. Patient's hemoglobin remained stable after transfusion. Physical therapy worked with patient and patient is able to walk with assistance of a walker. Patient is stable for discharge to home with home assistance and walker. Patient must follow up in one week and regularly for continued monitoring of INR. Patient must follow up with Dr. Ventura for wound care and staple removal on 09/09/17. This is a brief summary of the hospital course. Please see EMR for more details. Discharge Exam - Additional Findings Additional findings: - Constitutional Appears: No Acute Distress - Head Exam Head Exam: ATRAUMATIC, NORMAL INSPECTION - Eye Exam Eye Exam: EOMI - ENT Exam ENT Exam: Mucous Membranes Moist - Respiratory Exam Respiratory Exam: NORMAL BREATHING PATTERN. absent: Rales, Rhonchi, Wheezes, Respiratory Distress - Cardiovascular Exam Cardiovascular Exam: REGULAR RHYTHM, +S1, +S2 - GI/Abdominal Exam GI & Abdominal Exam: Soft, Normal Bowel Sounds. absent: Tenderness - Extremities Exam Extremities Exam: Tenderness (RLE, eccyhmosis noted on lateral RLE. Incisions clean, intact. No erythema noted) - Neurological Exam Neurological Exam: Alert, Awake - Psychiatric Exam Psychiatric exam: Normal Affect, Normal Mood - Skin Skin Exam: Dry, Intact, Warm Discharge Plan - Discharge Medications Prescriptions: Calcium Carbonate/Vitamin D [Oscal-D 250 mg-125 Units Tab] 2 tab PO DAILY #60 tab Losartan Potassium 25 mg PO DAILY #30 tablet Metoprolol Tartrate [Lopressor] 25 mg PO BID 30 Days #60 tab oxyCODONE/Acetaminophen [Percocet 5/325 mg Tab] 1 ea PO Q6H #15 tab Warfarin [Coumadin] 2 mg PO 1800 #5 tab - Follow Up Plan Condition: GOOD Disposition: HOME/ ROUTINE Instructions: Heart Healthy Diet, Heart Failure, Adult (DC), Deep Vein Thrombosis (Blood Clots in the Legs) (DC), Hip Fracture (DC), Losartan, Metoprolol, Oxycodone and Acetaminophen, Warfarin, Open Reduction and Internal Fixation Surgery (DC), Managing Pain After Surgery Additional Instructions: Patient is stable for discharge to home. Patient must continue home medications and new medications as prescribed listed below: 1. Coumadin 2mg PO daily- take 1 tablet by mouth in the evening daily. Patient MUST followup with PMD for regular INR checks. 2. Metoprolol 25mg BID daily- take 1 tablet by mouth twice a day. 3. Losartan 25mg PO daily- take 1 tablet by mouth daily 4. Calcium Carbonate/Vit D- take 2 tablets by mouth daily Patient must follow up within 1 week with PMD for further management and regular INR checks. Patient must follow up with Dr. Ventura (orthopedic surgeon) on September 09 for follow up and staple removal. Patient may shower, however, please keep incisions clean and dry. Patient needs 1-person assist to use walker. Patient must use walker when ambulating. If symptoms worsen or reoccur, patient should return to nearest ER. Referrals: [facility] [Outside] Klaus Ventura MD [Staff Provider] - <Mesha Henry - Last Filed: 09/07/17 08:26> Provider - Provider Date of Admission: 08/17/17 04:53 Attending physician: Mesha Henry MD Hospital Course - Lab Results Lab Results: Most Recent Lab Values WBC 6.4 K/uL (4.8-10.8) 09/01/17 06:30 RBC 3.09 Mil/uL (3.80-5.20) L 09/01/17 06:30 Hgb 9.1 g/dL (11.0-16.0) L 09/01/17 06:30 Hct 26.5 % (34.0-47.0) L 09/01/17 06:30 MCV 86.0 fL (81.0-99.0) 09/01/17 06:30 MCH 29.4 pg (27.0-31.0) 09/01/17 06:30 MCHC 34.2 g/dL (33.0-37.0) 09/01/17 06:30 RDW 16.0 % (11.5-14.5) H 09/01/17 06:30 Plt Count 331 K/uL (130-400) 09/01/17 06:30 MPV 8.2 fL (7.2-11.7) 09/01/17 06:30 Neut % (Auto) 59.8 % (50.0-75.0) 09/01/17 06:30 Lymph % (Auto) 21.9 % (20.0-40.0) 09/01/17 06:30 [place] % (Auto) 15.9 % (0.0-10.0) H 09/01/17 06:30 Eos % (Auto) 1.7 % (0.0-4.0) 09/01/17 06:30 Baso % (Auto) 0.7 % (0.0-2.0) 09/01/17 06:30 Neut # (Auto) 3.8 K/uL (1.8-7.0) 09/01/17 06:30 Lymph # (Auto) 1.4 K/uL (1.0-4.3) 09/01/17 06:30 [place] # (Auto) 1.0 K/uL (0.0-0.8) H 09/01/17 06:30 Eos # (Auto) 0.1 K/uL (0.0-0.7) 09/01/17 06:30 Baso # (Auto) 0.0 K/uL (0.0-0.2) 09/01/17 06:30 Neutrophils % (Manual) 85 % (50-75) H 08/21/17 07:46 Band Neutrophils % 4 % (0-2) H 08/19/17 17:17 Lymphocytes % (Manual) 4 % (20-40) L 08/21/17 07:46 Monocytes % (Manual) 11 % (0-10) H 08/21/17 07:46 Platelet Estimate Normal (NORMAL) 08/21/17 07:46 Large Platelets Present 08/19/17 17:17 Polychromasia Slight 08/21/17 07:46 Hypochromasia (manual) Slight 08/19/17 17:17 Anisocytosis (manual) Slight 08/21/17 07:46 Microcytosis (manual) Slight 08/19/17 17:17 Ovalocytes Slight 08/21/17 07:46 Eleanor Cells Slight 08/19/17 17:17 PT 19.7 SECONDS (9.7-12.2) H 09/01/17 06:30 INR 1.8 09/01/17 06:30 APTT 32 SECONDS (21-34) 09/01/17 06:30 Sodium 136 mmol/L (132-148) 09/01/17 06:30 Potassium 4.0 mmol/L (3.6-5.2) 09/01/17 06:30 Chloride 104 mmol/L (98-107) 09/01/17 06:30 Carbon Dioxide 26 mmol/L (22-30) 09/01/17 06:30 Anion Gap 9 (10-20) L 09/01/17 06:30 BUN 11 mg/dL (7-17) 09/01/17 06:30 Creatinine 0.7 mg/dL (0.7-1.2) 09/01/17 06:30 Est GFR ( Amer) > 60 09/01/17 06:30 Est GFR (Non-Af Amer) > 60 09/01/17 06:30 POC Glucose (mg/dL) 93 mg/dL (65-110) 08/24/17 16:22 Random Glucose 105 mg/dL (65-105) 09/01/17 06:30 Hemoglobin A1c 5.1 % (4.2-6.5) 08/18/17 04:46 Calcium 8.8 mg/dl (8.6-10.4) 09/01/17 06:30 Phosphorus 4.0 mg/dL (2.5-4.5) 08/30/17 06:20 Magnesium 2.0 mg/dL (1.6-2.3) 08/30/17 06:20 Total Bilirubin 0.8 mg/dL (0.2-1.3) 09/01/17 06:30 AST 35 U/L (14-36) 09/01/17 06:30 ALT 29 U/L (9-52) 09/01/17 06:30 Alkaline Phosphatase 103 U/L (38-126) 09/01/17 06:30 Total Creatine Kinase 351 U/L (30-135) H 08/18/17 20:10 CK-MB (Mass) 4.96 ng/mL (0.0-3.38) H 08/18/17 20:10 Troponin I 0.0210 ng/mL (0.00-0.120) 08/18/17 20:10 Total Protein 6.4 g/dL (6.3-8.3) 09/01/17 06:30 Albumin 2.7 g/dL (3.5-5.0) L 09/01/17 06:30 Globulin 3.7 gm/dL (2.2-3.9) 09/01/17 06:30 Albumin/Globulin Ratio 0.7 (1.0-2.1) L 09/01/17 06:30 Triglycerides 43 mg/dL (0-149) 08/18/17 04:46 Cholesterol 109 mg/dL (0-199) 08/18/17 04:46 LDL Cholesterol Direct 51 mg/dL (0-129) 08/18/17 04:46 HDL Cholesterol 40 mg/dL (30-70) 08/18/17 04:46 25-OH Vitamin D Total 30.4 NG/ML (30.0-100.0) 08/17/17 17:11 Free T4 1.16 ng/dL (0.78-2.19) 08/18/17 04:46 TSH 3rd Generation 3.50 mIU/L (0.46-4.68) 08/18/17 04:46 Urine Color Yellow (YELLOW) 08/23/17 19:49 Urine Clarity Clear (Clear) 08/23/17 19:49 Urine pH 7.0 (5.0-8.0) 08/23/17 19:49 Ur Specific [place] 1.027 (1.003-1.030) 08/23/17 19:49 Urine Protein Negative mg/dL (NEGATIVE) 08/23/17 19:49 Urine Glucose (UA) Normal mg/dL (Normal) 08/23/17 19:49 Urine Ketones Negative mg/dL (NEGATIVE) 08/23/17 19:49 Urine Blood 1+ (NEGATIVE) H 08/23/17 19:49 Urine Nitrate Negative (NEGATIVE) 08/23/17 19:49 Urine Bilirubin Negative (NEGATIVE) 08/23/17 19:49 Urine Urobilinogen Normal mg/dL (0.2-1.0) 08/23/17 19:49 Ur Leukocyte Esterase Neg [place]/uL (Negative) 08/23/17 19:49 Urine WBC (Auto) 1 /hpf (0-5) 08/23/17 19:49 Urine RBC (Auto) 8 /hpf (0-3) H 08/23/17 19:49 Ur Squamous Epith Cells < 1 /hpf (0-5) 08/23/17 19:49 Urine Bacteria Rare (<OCC) 08/23/17 19:49 Blood Type B NEGATIVE 08/17/17 11:24 Blood Type Confirm B NEGATIVE 08/17/17 11:24 Antibody Screen Negative 08/17/17 11:24 Attending/Attestation - Attestation I have personally seen and examined this patient.: Yes I have fully participated in the care of the patient.: Yes I have reviewed all pertinent clinical information, including history, physical exam and plan: Yes
[2017-09-01] MEDS: Calcium-Vit D 250 mg-125 Units Tab UD PO SCH (10:24)
[2017-09-01] MEDS: Lidocaine 5% Patch TD SCH (10:26)
[2017-09-01] MEDS: Morphine 4 MG/ML VIAL IVP PRN ×2 (10:44→17:46)
--- NOTE | 2017-09-01 11:57 | CP.PCM.PN ---
Subjective - Date & Time of Evaluation Date of Evaluation: 09/01/17 Time of Evaluation: 11:55 - Subjective Subjective: Family at bedside. complaining of hip pain. Objective - Vital Signs/Intake and Output Vital Signs (last 24 hours): Temp Pulse Resp BP Pulse Ox 97.1 F L 90 18 125/51 L 96 09/01/17 07:45 09/01/17 10:24 09/01/17 07:45 09/01/17 10:25 09/01/17 07:45 Intake and Output: 09/01/17 09/01/17 06:59 18:59 Intake Total 1000 Output Total 1900 Balance -900 - Medications Medications: Current Medications Acetaminophen (Tylenol 325mg Tab) 650 mg PO Q6 PRN PRN Reason: Pain, Mild (1-3) Last Admin: 08/31/17 09:35 Dose: 650 mg Calcium/Vitamin D (Oscal-D 250 Mg-125 Units Tab) 2 tab PO DAILY [facility] Last Admin: 09/01/17 10:24 Dose: 2 tab Docusate Sodium (Colace) 100 mg PO BID [facility] Last Admin: 09/01/17 10:25 Dose: Not Given Famotidine (Pepcid) 20 mg PO BID [facility] Last Admin: 09/01/17 10:29 Dose: 20 mg Lidocaine (Lidoderm) 1 ea TD DAILY [facility] Last Admin: 09/01/17 10:26 Dose: 1 ea Losartan Potassium (Cozaar) 25 mg PO DAILY [facility] Last Admin: 09/01/17 10:25 Dose: 25 mg Metoprolol Tartrate (Lopressor) 25 mg PO BID [facility] Last Admin: 09/01/17 10:25 Dose: 25 mg Morphine Sulfate (Morphine) 2 mg IVP Q4H PRN PRN Reason: Pain, severe (8-10) Last Admin: 09/01/17 10:44 Dose: 2 mg Ondansetron HCl (Zofran Inj) 4 mg IVP Q6 PRN PRN Reason: Nausea/Vomiting Last Admin: 08/19/17 09:40 Dose: 4 mg Polyethylene Glycol (Miralax) 17 gm PO DAILY PRN PRN Reason: Constipation Last Admin: 08/25/17 10:06 Dose: 17 gm Timolol Maleate (Timoptic 0.5% Ophth Soln) 1 drop OD BID [facility] Last Admin: 09/01/17 10:26 Dose: 1 drop - Labs Labs: 09/01/17 06:30 09/01/17 06:30 PT 19.7 SECONDS (9.7-12.2) H 09/01/17 06:30 INR 1.8 09/01/17 06:30 APTT 32 SECONDS (21-34) 09/01/17 06:30 - Extremities Exam Additional comments: RIght hip: incisions intact, healing well, no erythema, dry calves soft NT neg homans +ROM ankle/toes PT notes appreciated Assessment and Plan (1) Intertrochanteric fracture of right femur Assessment & Plan: POD#14 s/p ORIF right hip for d/c home today f/u Dr. Linton 09/09 for staple removal/follow up ambulation with walker cont coumadin d/w DR. Linton, agrees with above Status: Acute (2) Rib pain on left side Status: Resolved (3) Acute blood loss anemia Status: Acute (4) DVT (deep venous thrombosis) Status: Acute
[2017-09-01 16:20] VITALS: PULSE 81; TEMP 98; O2SAT 99
[2017-09-01 17:42] VITALS: BP 138/70
--- NOTE | 2017-09-07 02:20 | OP ---
PROCEDURE DATE: 08/18/2017 PREOPERATIVE DIAGNOSIS: Right hip displaced intratrochanteric hip fracture with extension beyond level of lesser trochanter. POSTOPERATIVE DIAGNOSIS: Right hip displaced intratrochanteric hip fracture with extension beyond level of lesser trochanter: PROCEDURE: Right hip displaced intratrochanteric hip fracture closed reduction and internal fixation with long hip nail. SURGEON: Klaus Kapadia MD PLAQUE MAKER: Radha Patel PA-C JUSTIFICATION FOR PLAQUE MAKER: Radha Patel is a certified physician medical lab assistant whose skilled surgical services were an absolute necessity for successful completion of the procedure as she provided skilled surgical assistance with positioning of the patient, positioning extremity, management of surgical field, securing the patient safely to fracture top table, maintenance of fracture reduction, placement of temporary hardware, placement of long hip nail, flexible reamers, preparation of femur, placement of distal interlocking screws, placement of helical blade, wound closure, safe transport of the patient from fracture table top. Radha Patel was present for the entire case and was an absolute necessity for successful completion of the procedure. ANESTHESIA: General endotracheal anesthesia. SPECIMENS: None. COMPLICATIONS: None. ESTIMATED BLOOD LOSS: 200 mL. DRAINS: None. DISPOSITION: The patient was extubated and transferred to PACU in stable condition having tolerated the procedure well. IMPLANTS: [employer] long TFNA hip nail measuring 380 mm length/11 mm diameter, 100 mm length helical blade, distal interlocking screws x2, 5 mm diameter. INDICATIONS FOR SURGERY: The patient is an 82-year-old female with a past medical history significant for hypertension, coronary artery disease, low back pain, glaucoma, who presented to the ER at [facility] on 08/17/2017, with right hip pain and inability to weight bear on the right lower extremity. The patient is fluent in [place]ic and [place]ian dialects, with which I am fluent, and was able to communicate with the patient and her family. The patient states that she got up in the middle of the night on 08/17/2017, early in the morning to go to the bathroom at home when she was reaching for her slippers. She felt dizzy in the process, fell and landed on her right side resulting in immediate 10/10 pain localized to the right hip. She was unable to get up and had 10/10 pain with any range of motion or movement of the right lower extremity. She was taken to the ER at [facility] via EMS. After evaluation by ER staff and review of imaging, she was diagnosed with a right hip displaced intertrochanteric hip fracture. She was admitted to the medical service under the hospitalist, and orthopedic consultation was placed for definitive treatment. I reviewed the imaging and the diagnosis with the patient and her family and spent a long time reviewing treatment options. She was indicated for right hip closed versus open reduction and internal fixation with a long hip nail. The fracture pattern extended beyond the level of the lesser trochanter indicating her for placement of a long hip nail. The patient also has recurrent falls recently, and as more of a prophylactic measure, a long hip nail would be better suited for this patient to minimize the chances of periprosthetic fracture beyond the tip of a short nail. I reviewed the treatment options and the treatment strategy and placement of the nail as well as the fracture pattern and the indications for surgery with the patient and her family in the fluent [place]ic language. The risks, benefits, and alternatives of the procedure were discussed in length with the patient and her family with the risks including but not limited to infection, neurovascular damage, malunion, nonunion, failure of hardware, need for conversion to a total hip arthroplasty, screw cut out, painful hardware, development of bursitis, inability to return to preinjury level of activity and ambulation and independence, development of blood clots including DVT and PE, development of chronic pain and disability, anesthesia reactions including , and perioperative cardiopulmonary collapse. After answering all the questions, they stated they understood the risks and wished to proceed with surgery. Medical clearance and cardiac clearance were obtained, and the patient was scheduled on the elective schedule the next day at [facility]. PROCEDURE IN DETAIL: The patient was identified in the preoperative holding area, and the right hip was marked for surgery. Once again, as described above, in the ugashik language of [place]ic, for which I am fluent, the risks, benefits, and alternatives of the procedure were discussed at length with the patient, and informed consent was obtained. After a brief discussion with anesthesia staff, perioperative IV antibiotics in the form of 2 gm of Ancef were administered and the patient was taken to the operating room on her stretcher. Initial time out was done with the surgeon, anesthesia staff, OR staff, all in agreement with the patient, procedure being done and extremity being operated on. General anesthesia was administered without any difficulty or complication. The patient was carefully transported and transferred to the fracture top table with all bony prominences and superficial neurovascular structures well-padded. The right upper extremity was well padded in egg crate and secured across her chest. Left upper extremity was secured to a well-padded arm villegas. The left lower extremity was brought into flexion and abduction and secured to the well leg villegas with gel padding. The right lower extremity was well padded at the foot and ankle and placed in the traction boot for the closed reduction maneuver and traction for the procedure. A final timeout was done with the surgeon, anesthesia staff, OR staff, all in agreement with the patient, procedure being done and extremity being operated on. With the use of biplanar fluoroscopic imaging, the fracture was identified and confirmed that the right hip with intertrochanteric hip fracture pattern extending beyond the lesser trochanter. A closed reduction maneuver was carried out that yielded an anatomic reduction that was well acceptable. The right hip and thigh were prepped and draped in standard sterile fashion. Entry point for the hip nail was identified at the tip of the greater trochanter, and a guidewire was advanced percutaneously to the tip of the greater trochanter and confirmed them by biplanar fluoroscopic imaging to be center-center on the shaft. The guidewire was advanced to the level of the lesser trochanter. Incision was made at the entry point of the skin, 3 cm of length through skin and subcutaneous tissue while maintaining good hemostasis down to the level of the fascia. Dissection was carried down to the greater trochanter with blunt dissection. Soft tissue protector and proximal reamer for the nail were advanced over the guidewire, and the proximal femur was reamed to allow for intramedullary access. Beaded-tip guidewire was then advanced after all other hardware was removed. Guidewire was advanced down to the tip of the superior pole of the patella. Measurement was taken to place a 380 mm length, 11 mm width long TFNA nail from [employer]. Flexible reamers were then advanced over the beaded-tip guidewire reaming the path for the nail to allow for ease of placement. We started with a 9 mm flexible reamer and advanced sequentially up until we got shatter and we were able to get to a 13-mm reamer. The 380 mm length right-sided TFNA nail was then advanced over the beaded-tip guidewire from the entry point down to the level of the superior pole of the patella, confirmed in a good position. The positioning for the helical blade placement was also confirmed in a good position, and the triple-sleeve guidewire was assembled. Laterally based incision for access to the helical blade drilling and placement was carried out through skin and subcutaneous tissue down to the level of the fascia and to allow for access to the lateral proximal femoral bone. Triple-sleeve guide was then advanced and placed snuggly on the lateral proximal femoral bone. The guidewire was advanced in a good position center-center on the femoral head and neck with good tip to apex distance maintained. Measurement was taken yielding a 100-mm length helical blade, and the path for the cannulated drill was taken. With the guidewire in place, a 100-mm length helical blade was advanced to good position center-center on the head with good tip-to-apex distance maintained. The top-locking screw was advanced and the helical blade was locked with a half turn in the opposite direction to allow for dynamic compression. The compression was dialed into the system and indeed the fracture compressed more in comparison x-rays. At that point in time, we advanced to placement of the distal interlocking screws using perfect chevak technique. The proximal, statical, and dynamic oblong holes were identified, and perfect chevak technique was used to place two drill bits across from lateral to medial with bicortical passage through the nail. This was confirmed with biplanar fluoroscopic imaging. Screw length was taken and adequate length of 5.0-mm screws were placed bicortically and through the substance of the nail through the holes. This was confirmed with biplanar fluoroscopic imaging and screw length was also confirmed. Both screws were placed bicortically and in good position. All wounds were copiously irrigated and attachment guides for the nail removed. Final biplanar fluoroscopic imaging was taken showing that the anatomic reduction of the fracture was well maintained in an acceptable position. Hardware was in good position. All wounds were copiously irrigated and reapproximated with #1 Vicryl suture for deep tissue followed by 2-0 Vicryl suture for subcutaneous tissue followed by alice for skin. Sterile dressings were applied, and the patient was carefully transferred back to her stretcher. She was then extubated and transferred to the PACU in stable condition having tolerated the procedure well. DISPOSITION: The patient will remain as an inpatient until she works with physical therapy, case management, director of social services for placement. She will be weightbearing as tolerated to the right lower extremity with no restrictions. Monitor her progress as an inpatient. Once she is discharged, she will follow up in my office at [facility] within 1 week and will be instructed on how to set up the appointment. She will be started on adequate pain control as well as DVT prophylaxis unless the primary medical team has the contraindication. Klaus Kapadia MD
== END 2017-09-01 20:40 | disposition home health service (06) | DRG 481 ==
LOC: C.ER 01:08 → C.6T 04:53
PROVIDERS: ADMIT Internal Medicine; ATTEND Internal Medicine
PROC: 0QS634Z Reposition Right Upper Femur with Internal Fixation Device, Percutaneous Approach (ICD-10-PCS; principal; 2017-08-18 07:55)
PROC: 30233N1 Transfusion of Nonautologous Red Blood Cells into Peripheral Vein, Percutaneous Approach (ICD-10-PCS; 2017-08-24)
DX: S72.141A Displaced intertrochanteric fracture of right femur, initial encounter for closed fracture (principal); D62 Acute posthemorrhagic anemia; I82.4Z1 Acute embolism and thrombosis of unspecified deep veins of right distal lower extremity; N13.30 Unspecified hydronephrosis; M16.0 Bilateral primary osteoarthritis of hip; I11.9 Hypertensive heart disease without heart failure; I77.819 Aortic ectasia, unspecified site; R42 Dizziness and giddiness; R07.81 Pleurodynia; S09.90XA Unspecified injury of head, initial encounter; I25.10 Atherosclerotic heart disease of native coronary artery without angina pectoris; K59.00 Constipation, unspecified; H40.9 Unspecified glaucoma; G89.29 Other chronic pain; M54.5 Low back pain; H54.62 Unqualified visual loss, left eye, normal vision right eye; W18.39XA Other fall on same level, initial encounter; W18.09XA Striking against other object with subsequent fall, initial encounter; Y92.003 Bedroom of unspecified non-institutional (private) residence as the place of occurrence of the external cause; Z87.01 Personal history of pneumonia (recurrent); Z98.41 Cataract extraction status, right eye

== ENCOUNTER 2017-09-15 23:24 | Emergency (ER) | payer OTHER ==
--- NOTE | 2017-09-16 00:03 | C.PDOC ---
History Of Present Illness 82 year old female is brought in to the ED by her family for evaluation of right leg swelling. Patient was admitted to the Hospital for hip fracture, patient had open rotation and internal fixation done. Patient developed DVT post op for which she was put on Coumadin. As per son patient was doing fine post op but 3 days ago patient started c/o bilateral foot pain. Today son took her socks off and noticed the bottom of her feet and toes to the MTP joints were dusky and dark. Patient put warm water on the feet after which patient started feeling relief of her pain and once she started walking the color came back to near normal. However son still states bottom of her feet look dusky. Patient is also c/o pain to her lower ribs and a cough she has had since returning home. Patient denies fever, chills, SOB, CP, vomit, nausea, diarrhea. Time Seen by Provider: 09/15/17 23:36 Chief Complaint (Nursing): Lower Extremity Problem/Injury History Per: Patient, Family History/Exam Limitations: no limitations Onset/Duration Of Symptoms: Days Current Symptoms Are (Timing): Still Present Recent travel outside of the [place]: No Additional History Per: Patient, Family - Ankle/Foot Description Of Injury: Other Past Medical History Reviewed: Historical Data, Nursing Documentation, Vital Signs Vital Signs: Last Vital Signs Temp 98.3 F 09/15/17 23:29 Pulse 97 H 09/15/17 23:29 Resp 16 09/15/17 23:29 BP 142/66 09/15/17 23:29 Pulse Ox 100 09/16/17 00:49 - Medical History PMH: Back Problems, Deep Vein Thrombosis (post op), HTN, Pneumonia Denies: Chronic Kidney Disease Other Surgeries: HIP fracture repair - [facility] REPOSITION RIGHT UPPER FEMUR WITH INT FIX, PERC APPROACH (08/17/17) TRANSFUSE NONAUT RED BLOOD CELLS IN PERIPH VEIN, PERC (08/17/17) Family History: States: Unknown Family Hx - Social History Hx Tobacco Use: No Hx Alcohol Use: No Hx Substance Use: No - Immunization History Hx Tetanus Toxoid Vaccination: Yes Hx Influenza Vaccination: No Hx Pneumococcal Vaccination: No Review Of Systems Constitutional: Negative for: Fever, Chills Cardiovascular: Negative for: Chest Pain, Palpitations Respiratory: Positive for: Cough Gastrointestinal: Negative for: Nausea, Vomiting Musculoskeletal: Positive for: Leg Pain, Foot Pain Skin: Negative for: Rash Neurological: Negative for: Weakness, Numbness Physical Exam - Physical Exam Appears: Non-toxic, No Acute Distress Skin: Normal Color, Warm, Dry, Ecchymosis (right great toe nail. ), Other ( Duskiness of the toes to the plantar surface of feet. ) Head: Atraumatic, Normacephalic Eye(s): bilateral: Normal Inspection Oral Mucosa: Moist Neck: Normal ROM, Supple Chest: Symmetrical, Tenderness (along left lateral ribs, lower robs) Cardiovascular: Rhythm Regular Respiratory: Rales (coarse left base), No Rhonchi, No Wheezing, Other (good breath intake bilaterally) Gastrointestinal/Abdominal: Soft, No Tenderness, No Guarding, No Rebound Extremity: No Calf Tenderness, Capillary Refill (prolonged greater than 6 seconds), Swelling (diffuse long right leg) Extremity: Left: Other (surgic scar well healed on right hip), Bilateral: Normal Color And Temperature (feet), Normal ROM Pulses: Left Dorsalis Pedis: Normal, Right Dorsalis Pedis: Normal Neurological/Psych: Oriented x3, Normal Speech ED Course And Treatment - Laboratory Results Result Diagrams: 09/16/17 00:09 09/16/17 00:09 Lab Interpretation: No Acute Changes (INR 2.1) O2 Sat by Pulse Oximetry: 100 (ON RA) Pulse Ox Interpretation: Normal - Radiology CXR: Interpreted by Me CXR Interpretation: Yes: No Acute Disease (unchanged from 08/2017) - Physician Consult Information Outcome Of Conversation: Case discussed with Dr Cisneros. Vascular workup can be done through the clinic as an outpatient. Patient stable currently an is advised to follow up in clinic this week for referral to vascular surgery. Medical Decision Making Medical Decision Making: Plan: * Labs * CXR Disposition Counseled Patient/Family Regarding: Studies Performed, Diagnosis, Need For Followup - Disposition Referrals: [facility] [Outside] Disposition: HOME/ ROUTINE Disposition Time: 01:09 Condition: STABLE Instructions: Peripheral Artery Disease and Claudication Forms: [facility] ([place] Citizen) - Clinical Impression Clinical Impression: Arterial, arteriole and capillary disease, Bilateral foot pain - Scribe Statement The provider has reviewed the documentation as recorded by the Scribe Wilfredo Meredith All medical record entries made by the Scribe were at my direction and personally dictated by me. I have reviewed the chart and agree that the record accurately reflects my personal performance of the history, physical exam, medical decision making, and the department course for this patient. I have also personally directed, reviewed, and agree with the discharge instructions and disposition.
[2017-09-16 00:14] LABS: BASO # 0.1 K/uL (0.0-0.2); BASO % 1.1 % (0.0-2.0); EOS # 0.2 K/uL (0.0-0.7); EOS % 2.4 % (0.0-4.0); HEMOGLOBIN 10.4 g/dL (11.0-16.0); LYMPH # 1.9 K/uL (1.0-4.3); LYMPH % 25.8 % (20.0-40.0); MEAN CORPUSCULAR HEMOGLOBIN 29.7 pg (27.0-31.0); MEAN CORPUSCULAR HGB CONC 33.7 g/dL (33.0-37.0); MEAN PLATELET VOLUME 8.9 fL (7.2-11.7); MONO # 0.9 K/uL (0.0-0.8); MONO % 12.2 % (0.0-10.0); NEUT # 4.3 K/uL (1.8-7.0); NEUT % 58.5 % (50.0-75.0); RBC 3.49 Mil/uL (3.80-5.20); RED CELL DISTRIBUTION WIDTH 15.7 % (11.5-14.5); WHITE BLOOD COUNT 7.4 K/uL (4.8-10.8)
[2017-09-16 00:20] LABS: INR 2.1; PROTHROMBIN TIME 22.8 SECONDS (9.7-12.2)
[2017-09-16 00:26] LABS: ALB/GLOB RATIO 0.8 (1.0-2.1); ALBUMIN 3.2 g/dL (3.5-5.0); ALT/SGPT 14 U/L (9-52); AST/SGOT 21 U/L (14-36); BLOOD UREA NITROGEN 19 mg/dL (7-17); GFR AFRICAN-AMERICAN > 60; GFR NON-AFRICAN AMERICAN > 60
[2017-09-16 01:24] VITALS: BP 130/63; PULSE 84; RESP 20; TEMP 97.8; O2SAT 98
--- NOTE | 2017-09-16 09:00 | RAD ---
HISTORY: cough, left chest pain COMPARISON: 08/23/2017 FINDINGS: LUNGS: Shallow lung volumes and similar No consolidation. PLEURA: No significant pleural effusion identified, no pneumothorax apparent. CARDIOVASCULAR: Top-normal heart size. Diffuse bilateral interstitial lung marking prominence -mild inter pulmonary edema suspect -probably slightly increased Similar peritracheal soft tissue fullness and tortuous brachiocephalic vessels inferred OSSEOUS STRUCTURES: Thoracic spondylosis. Bilateral shoulder arthrosis. Right calcific rotator cuff tendinopathy versus calcific bursitis. VISUALIZED UPPER ABDOMEN: Hiatal hernia suggested OTHER FINDINGS: None. IMPRESSION: No consolidative infiltrate Mild bilateral diffuse interstitial lung marking prominence- mild increase interstitial pulmonary edema suspect Other findings -as above.
== END 2017-09-16 01:24 | disposition home or self-care (01) ==
LOC: C.ER 23:24
DX: M79.672 Pain in left foot (principal); M79.671 Pain in right foot; I77.9 Disorder of arteries and arterioles, unspecified; I10 Essential (primary) hypertension